=== PATIENT | female | born 1960 | race Caucasian/White ===

== ENCOUNTER → 2016-06-30 | Outpatient (CLI) | payer OTHER ==
[2016-06-30 11:42] LABS: CH 29.1; CHCM 31.6; HDW 2.52; HGB 11.8 gm/dL (11.4-16.0); MCH 28.7 pg (25.0-35.0); MCHC 31.1 g/dL (31.0-37.0); MCV 92.3 fL (80.0-100.0); Mean Platelet Volume 7.5; RBC 4.11 m/uL (3.80-5.40); RDW 13.8 % (11.5-15.5); WBC 8.6 k/uL (3.8-10.6)
[2016-06-30 12:00] LABS: Calcium 8.7 mg/dL (8.4-10.2); Magnesium 1.8 mg/dL (1.6-2.3); Phosphorous 4.8 mg/dL (2.5-4.5); Potassium 4.3 mmol/L (3.5-5.1); Uric Acid 4.7 mg/dL (3.7-7.4)
[2016-06-30 12:06] LABS: Appearance,Urine Clear (Clear); Bilirubin,Urine Negative (Negative); Glucose,Urine (UA) 4+ (Negative); Ketones,Urine Negative (Negative); Leukocyte Esterase,Urine Negative (Negative); Mucus,Urine Rare /hpf; Nitrite,Urine Negative (Negative); PH, Urine 5.5 (5.0-8.0); Particle Count 1015; Protein,Urine 2+ (Negative); RBC,Urine 1 /hpf (0-5); Specific Gravity,Urine 1.004 (1.001-1.035); Squamous Epithelial Cell,Urine 1 /hpf (0-4); UA Billing (MACRO vs. MICRO) MICRO; Urobilinogen,Urine <2.0 mg/dL (<2.0); WBC,Urine 1 /hpf (0-5)
[2016-06-30 12:11] LABS: % Iron Saturation 19.8 % (20-50)
[2016-06-30 17:36] LABS: ANA w/Reflex to Titer NEGATIVE (NEGATIVE)
[2016-07-01 06:49] LABS: Complement Total (CH50) 238 CAE (54-144)
[2016-07-01 08:42] LABS: Mis test requested (Non-blood) TP Urine Random
[2016-07-01 09:26] LABS: Mis test requested (Non-blood) TP Urine 24Hr
[2016-07-01 10:34] LABS: Free Kappa Lt Chain Qnt, Serum 6.32 mg/dL (0.33 - 1.94)
[2016-07-01 14:33] LABS: C-ANCA <1:20 Titer (<1:20); P-ANCA <1:20 Titer (<1:20)
== END | disposition home or self-care (01) ==
LOC: LABWHC1 10:49
PROVIDERS: ATTEND Nurse Practitioner Family
DX: N18.3 Chronic kidney disease, stage 3 (moderate) (principal); N39.0 Urinary tract infection, site not specified; D64.9 Anemia, unspecified; E21.3 Hyperparathyroidism, unspecified; R80.9 Proteinuria, unspecified
CPT/HCPCS: 36415; 80048; 81001; 81050; 82306; 82728; 83516; 83540; 83550; 83735; 83883; 83970; 84100; 84156; 84550; 85027; 86038; 86160; 86162; 86225; 86255; 86334; 86335

== ENCOUNTER → 2016-07-03 | Outpatient (CLI) | payer OTHER ==
[2016-07-06 11:50] LABS: Alternaria alternata IgE <0.35 kU/L (<0.35); Asperg. fumagatus IgE <0.35 kU/L (<0.35); Asperg. fumagatus IgE Class CLASS 0; Cat Epith & Dander IgE <0.35 kU/L (<0.35); Cat Epith & Dander IgE Class CLASS 0; Clad herbarum IgE <0.35 kU/L (<0.35); Clad herbarum IgE Class CLASS 0; Com. Pigweed IgE <0.35 kU/L (<0.35); Com. Pigweed IgE Class CLASS 0; Common Ragweed IgE Class CLASS 0; Cow's Milk IgE Class CLASS 0; Dermato. farinae IgE <0.35 kU/L (<0.35); Dermato. farinae IgE Class CLASS 0; House Dust (Greer) IgE <0.35 kU/L (<0.35); House Dust (Greer) IgE Class CLASS 0; Maple (Box Elder) IgE <0.35 kU/L (<0.35); Maple (Box Elder) IgE Class CLASS 0; Penicillium notatum IgE Class CLASS 0; Timothy Grass IgE <0.35 kU/L (<0.35); Timothy Grass IgE Class CLASS 0
[2016-07-10 11:40] LABS: Mis test requested (Blood) Hypersen.Pneum.Eval
== END | disposition home or self-care (01) ==
LOC: LABWHC1 12:32
PROVIDERS: ATTEND Internal Medicine Sleep Medicine
DX: B44.89 Other forms of aspergillosis (principal)
CPT/HCPCS: 36415; 82785; 86001; 86003; 86606; 86609

== ENCOUNTER 2016-07-16 11:22 | Inpatient (IN) | payer OTHER ==
[2016-07-16] MEDS ORDERED: SODIUM CHLORIDE 0.9% 1,000 ML IV STA (11:53)
[2016-07-16] MEDS ORDERED: IPRATROPIUM-ALBUTEROL 3 ML NEB INHALATION STA (11:53)
[2016-07-16] MEDS ORDERED: methylPREDNISolone SOD SUCCI 125 MG/2 ML VIAL IV STA (11:53)
--- NOTE | 2016-07-16 12:18 | ED ---
General Adult HPI - General Source: patient, RN notes reviewed Mode of arrival: wheelchair Limitations: no limitations <Percy Hernandez - Last Filed: 07/16/16 13:47> <Papito Santos - Last Filed: 07/16/16 13:50> - General Chief complaint: Shortness of Breath Stated complaint: flu like symptoms, carolyn Time Seen by Provider: 07/16/16 11:45 - History of Present Illness Initial comments: Patient is a 56-year-old female who presents emergency room today with chief complaint of increased cough congestion over the past week. She does admit that she was at [facility] over the weekend diagnosed with influenza. She states that she's had cough congestion positive sputum production. Does admit to a history of COPD. States she was discharged home on oxygen and azithromycin. States symptoms seem to be increasing. She admits increased shortness of breath with increased cough congestion. Patient denies any other complaints or symptoms. Patient denies any recent fever, chills, chest pain, back pain, abdominal pain, nausea or vomiting, numbness or tingling, dysuria or hematuria, constipation or diarrhea, headaches or visual changes, or any other complaints. (Percy Hernandez) - Related Data Home Medications Medication Instructions Recorded Confirmed Albuterol Inhaler [Ventolin Hfa 2 puff INHALATION RT-QID PRN 07/13/14 07/16/16 Inhaler] Albuterol Nebulized [Ventolin 2.5 mg INHALATION RT-Q4H PRN 07/13/14 07/16/16 Nebulized] Levothyroxine Sodium [Synthroid] 88 mcg PO DAILY 07/13/14 07/16/16 Atorvastatin [Lipitor] 20 mg PO HS 09/10/15 07/16/16 Cyanocobalamin [Vitamin B-12] 1,000 mcg PO DAILY 09/10/15 07/16/16 Multivitamins, Thera [Multivitamin] 1 tab PO DAILY 09/10/15 07/16/16 Insulin Glargine [Lantus] 40 unit SQ QAM 10/24/15 07/16/16 Ergocalciferol [Vitamin D2 50,000 unit PO TU 05/06/16 07/16/16 (DRISDOL)] Cholecalciferol [Vitamin D3] 400 unit PO DAILY 07/16/16 07/16/16 Previous Rx's Medication Instructions Recorded Carvedilol [Coreg*] 12.5 mg PO BID-W/MEALS #60 tab 05/09/16 Furosemide [Lasix] 40 mg PO BID #60 tab 05/09/16 Losartan [Cozaar] 100 mg PO DAILY #30 tab 05/09/16 Spironolactone [Aldactone] 12.5 mg PO DAILY #30 tab 05/09/16 Budesonide [Pulmicort] 0.5 mg INHALATION RT-QID #0 07/16/16 Ipratropium [place] [Atrovent Hfa] 2 puff INHALATION RT-QID #1 inhaler 07/16/16 Allergies Allergy/AdvReac Type Severity Reaction Status Date / Time No Known Allergies Allergy Verified 07/16/16 12:01 Review of Systems ROS Other: All systems not noted in ROS Statement are negative. <Percy Hernandez - Last Filed: 07/16/16 13:47> ROS Other: All systems not noted in ROS Statement are negative. <Papito Santos - Last Filed: 07/16/16 13:50> ROS Statement: Those systems with pertinent positive or pertinent negative responses have been documented in the HPI. Past Medical History Past Medical History: Heart Failure, COPD, Diabetes Mellitus, Hyperlipidemia, Hypertension, Pneumonia, Thyroid Disorder Additional Past Medical History / Comment(s): Pneumonias, IDDM type II, pancreatitis, tracheobronchitis, hypothyroidism, urinary stress incontinence, R ear [place], diverticulitis. History of Any Multi-Drug Resistant Organisms: None Reported Past Surgical History: Appendectomy, Cholecystectomy, Heart Catheterization, Hysterectomy, Orthopedic Surgery Additional Past Surgical History / Comment(s): cardiac caths with last one being 09/11/15 and was normal, colonoscopy-pt states normal, RT ROTATOR CUFF SX Past Anesthesia/Blood Transfusion Reactions: No Reported Reaction Additional Past Anesthesia/Blood Transfusion Reaction / Comment(s): CLAUSTERPHOBIA. Pt states she has never received blood. Past Psychological History: No Psychological Hx Reported Additional Psychological History / Comment(s): LIVES AT HOME WITH SPOUSE AND 3 TEENAGERS. 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 Pt drives. Smoking Status: Current every day smoker Past Alcohol Use History: None Reported Additional Past Alcohol Use History / Comment(s): STARTED SMOKING AT AGE 17- SMOKES 1-2 PPD. Pt states she quit smoking 08/2015. Pt started smoking again in Feb 2016 1 pack per day Past Drug Use History: None Reported - Past Family History Father Additional Family Medical History / Comment(s): OF COLON CANCER AT AGE 52 Mother Family Medical History: Congestive Heart Failure (CHF), CVA/TIA Additional Family Medical History / Comment(s): OF CHF AGE 62 <Percy Hernandez - Last Filed: 07/16/16 13:47> General Exam Limitations: no limitations <Percy Hernandez - Last Filed: 07/16/16 13:47> General appearance: alert, anxious, in distress Head exam: Present: atraumatic, normocephalic, normal inspection Eye exam: Present: normal appearance, PERRL, EOMI. Absent: scleral icterus, conjunctival injection, periorbital swelling ENT exam: Present: normal exam, mucous membranes moist Neck exam: Present: normal inspection. Absent: tenderness, meningismus, lymphadenopathy Respiratory exam: Present: normal lung sounds bilaterally, respiratory distress , wheezes, accessory muscle use, decreased breath sounds, prolonged expiratory. Absent: rales, rhonchi, stridor Cardiovascular Exam: Present: normal rhythm, tachycardia, normal heart sounds. Absent: systolic murmur, diastolic murmur, rubs, gallop, clicks GI/Abdominal exam: Present: soft, normal bowel sounds. Absent: distended, tenderness, guarding, rebound, rigid Extremities exam: Present: normal inspection, full ROM, normal capillary refill. Absent: tenderness, pedal edema, joint swelling, calf tenderness Back exam: Present: normal inspection Neurological exam: Present: alert, oriented X3, CN II-XII intact Psychiatric exam: Present: normal affect, normal mood Skin exam: Present: warm, dry, intact, normal color. Absent: rash <Papito Santos - Last Filed: 07/16/16 13:50> - General Exam Comments Initial Comments: General: The patient is awake and alert, in no distress, and does not appear acutely ill. Eye: Pupils are equal, round and reactive to light, extra-ocular movements are intact. No nystagmus. There is normal conjunctiva bilaterally. No signs of icterus. Ears, nose, mouth and throat: There are moist mucous membranes and no oral lesions. Neck: The neck is supple, there is no tenderness or JVD. Cardiovascular: There is a regular rate and rhythm. No murmur, rub or gallop is appreciated. Respiratory: Diminished lung sounds bilaterally with expiratory wheeze. respirations are non-labored, breath sounds are equal. No stridor, rales, or rhonchi. Gastrointestinal: Soft, non-distended, non-tender abdomen without masses or organomegaly noted. There is no rebound or guarding present. No CVA tenderness. Bowel sounds are unremarkable. Musculoskeletal: Normal ROM, no tenderness. Strength 5/5. Sensation intact. Pulses equal bilaterally 2+. Neurological: A&O x 3. CN II-XII intact, There are no obvious motor or sensory deficits. Coordination appears grossly intact. Speech is normal. Skin: Skin is warm and dry and no rashes or lesions are noted. Psychiatric: Cooperative, appropriate mood & affect, normal judgment. (Percy Hernandez) Course <Percy Hernandez - Last Filed: 07/16/16 13:47> <Papito Santos - Last Filed: 07/16/16 13:50> Vital Signs 07/16/16 07/16/16 07/16/16 11:31 12:00 12:14 Temperature 100.0 F H Pulse Rate 108 H 109 H 103 H Respiratory 24 20 Rate Blood Pressure 133/72 O2 Sat by Pulse 88 L 98 Oximetry 07/16/16 07/16/16 12:18 13:19 Temperature Pulse Rate 103 H 97 Respiratory 18 Rate Blood Pressure 137/67 O2 Sat by Pulse 100 Oximetry - Reevaluation(s) Reevaluation #1: 07/16/16 13:49 Patient remains in distress with shortness of breath (Papito Santos) EKG Findings - EKG Comments: EKG Findings:: EKG performed at 1159: Shows sinus tachycardia 105 bpm. MN interval 146. QRS 96. QT/QTC 356/470. No acute ST change. <Percy Hernandez - Last Filed: 07/16/16 13:47> Medical Decision Making - Lab Data Result diagrams: 07/16/16 12:00 07/16/16 12:00 <Percy Hernandez - Last Filed: 07/16/16 13:47> - Lab Data Result diagrams: 07/16/16 12:00 07/16/16 12:00 <Papito Santos - Last Filed: 07/16/16 13:50> - Medical Decision Making 1320: Case discussed in detail with attending physician Dr. Santos. Patient's x-ray reviewed does show right lower lobe infiltrate. Patient has been on azithromycin. Outpatient treatment failure will be admitted started on antibiotics of Levaquin here in the emergency room. Patient's labs reviewed does show elevated BNP greater than 2100. Patient given dose of Lasix here in the emergency room. Patient's troponin elevated at 0.05. EKG shows no acute changes. Will be continued be monitored with repeat serial enzymes. Patient does have influenza positive at [facility] earlier in the week. Patient will be admitted for continued IV antibiotics/breathing treatments and further evaluation. (Percy Hernandez) 56 female the ER for evaluation of shortness of breath and pain. Patient does have significant cardiac risk factors including high blood pressure high cholesterol diabetes COPD and CHF. Patient's found to have positive pneumonia and will be admitted for treatment with failed outpatient pneumonia, have breathing treatments and monitored for cardiopulmonary failure, patient will also have serial troponins, as she is dehydrated with acute kidney injury and resuscitation hemodynamic. (Papito Santos) - Lab Data Lab Results 07/16/16 07/16/16 07/16/16 Range/Units 12:00 12:00 12:00 WBC 8.9 (3.8-10.6) k/uL RBC 3.83 (3.80-5.40) m/uL Hgb 11.3 L (11.4-16.0) gm/dL Hct 35.1 (34.0-46.0) % MCV 91.7 (80.0-100.0) fL MCH 29.5 (25.0-35.0) pg MCHC 32.2 (31.0-37.0) g/dL RDW 13.8 (11.5-15.5) % Plt Count 190 (150-450) k/uL Neutrophils % 78 % Lymphocytes % 12 % Monocytes % 7 % Eosinophils % 0 % Basophils % 1 % Neutrophils # 6.9 (1.3-7.7) k/uL Lymphocytes # 1.1 (1.0-4.8) k/uL Monocytes # 0.6 (0-1.0) k/uL Eosinophils # 0.0 (0-0.7) k/uL Basophils # 0.1 (0-0.2) k/uL PT (9.0-12.0) sec INR (<1.1) APTT (22.0-30.0) sec Sodium 135 L (137-145) mmol/L Potassium 4.5 (3.5-5.1) mmol/L Chloride 98 (98-107) mmol/L Carbon Dioxide 30 (22-30) mmol/L Anion Gap 7 mmol/L BUN 25 H (7-17) mg/dL Creatinine 1.60 H (0.52-1.04) mg/dL Est GFR (MDRD) Af Amer 41 (>60 ml/min/1.73 sqM) Est GFR (MDRD) Non-Af 34 (>60 ml/min/1.73 sqM) Glucose 188 H (74-99) mg/dL Calcium 8.5 (8.4-10.2) mg/dL Magnesium 2.1 (1.6-2.3) mg/dL Total Bilirubin 0.6 (0.2-1.3) mg/dL AST 28 (14-36) U/L ALT 24 (9-52) U/L Alkaline Phosphatase 102 (38-126) U/L Total Creatine Kinase 136 H (30-135) U/L CK-MB (CK-2) 1.8 (0.0-2.4) ng/mL CK-MB (CK-2) Rel Index 1.3 Troponin I 0.051 H* (0.000-0.034) ng/mL NT-Pro-B Natriuret Pep pg/mL Total Protein 6.4 (6.3-8.2) g/dL Albumin 2.9 L (3.5-5.0) g/dL 07/16/16 07/16/16 Range/Units 12:00 12:00 WBC (3.8-10.6) k/uL RBC (3.80-5.40) m/uL Hgb (11.4-16.0) gm/dL Hct (34.0-46.0) % MCV (80.0-100.0) fL MCH (25.0-35.0) pg MCHC (31.0-37.0) g/dL RDW (11.5-15.5) % Plt Count (150-450) k/uL Neutrophils % % Lymphocytes % % Monocytes % % Eosinophils % % Basophils % % Neutrophils # (1.3-7.7) k/uL Lymphocytes # (1.0-4.8) k/uL Monocytes # (0-1.0) k/uL Eosinophils # (0-0.7) k/uL Basophils # (0-0.2) k/uL PT 10.4 (9.0-12.0) sec INR 1.0 (<1.1) APTT 25.1 (22.0-30.0) sec Sodium (137-145) mmol/L Potassium (3.5-5.1) mmol/L Chloride (98-107) mmol/L Carbon Dioxide (22-30) mmol/L Anion Gap mmol/L BUN (7-17) mg/dL Creatinine (0.52-1.04) mg/dL Est GFR (MDRD) Af Amer (>60 ml/min/1.73 sqM) Est GFR (MDRD) Non-Af (>60 ml/min/1.73 sqM) Glucose (74-99) mg/dL Calcium (8.4-10.2) mg/dL Magnesium (1.6-2.3) mg/dL Total Bilirubin (0.2-1.3) mg/dL AST (14-36) U/L ALT (9-52) U/L Alkaline Phosphatase (38-126) U/L Total Creatine Kinase (30-135) U/L CK-MB (CK-2) (0.0-2.4) ng/mL CK-MB (CK-2) Rel Index Troponin I (0.000-0.034) ng/mL NT-Pro-B Natriuret Pep 2190 pg/mL Total Protein (6.3-8.2) g/dL Albumin (3.5-5.0) g/dL Critical Care Time <Percy Hernandez - Last Filed: 07/16/16 13:47> Critical Care Time: Yes Total Critical Care Time: 31 <Papito Santos - Last Filed: 07/16/16 13:50> Critical Care Time: 31 (Papito Santos) Disposition Time of Disposition: 13:20 <Percy Hernandez - Last Filed: 07/16/16 13:47> <Papito Santos - Last Filed: 07/16/16 13:50> Clinical Impression: Community acquired pneumonia, CHF (congestive heart failure), Fever, Influenza , Elevated troponin, Sepsis, Hypoxia Disposition: ADMITTED IP TO THIS HOSP Condition: Serious
[2016-07-16 12:22] LABS: Basophils # (A) 0.1 k/uL (0-0.2); Basophils % (A) 1 %; CH 29.1; CHCM 31.9; Eosinophils % (A) 0 %; HCT 35.1 % (34.0-46.0); HDW 2.58; HGB 11.3 gm/dL (11.4-16.0); Luc % (Auto) 2; Lymphocytes # (A) 1.1 k/uL (1.0-4.8); Lymphocytes % (A) 12 %; MCH 29.5 pg (25.0-35.0); MCHC 32.2 g/dL (31.0-37.0); MCV 91.7 fL (80.0-100.0); Monocytes # (A) 0.6 k/uL (0-1.0); Monocytes % (A) 7 %; Neutrophils # (A) 6.9 k/uL (1.3-7.7); Neutrophils % (A) 78 %; RBC 3.83 m/uL (3.80-5.40); RDW 13.8 % (11.5-15.5); WBC 8.9 k/uL (3.8-10.6); WBC (Perox) 9.19
[2016-07-16 12:25] LABS: Partial Thromboplastin Time 25.1 sec (22.0-30.0); Prothrombin Time 10.4 sec (9.0-12.0)
[2016-07-16 12:28] LABS: Calcium 8.5 mg/dL (8.4-10.2); Magnesium 2.1 mg/dL (1.6-2.3); Potassium 4.5 mmol/L (3.5-5.1); Total Bilirubin 0.6 mg/dL (0.2-1.3); Total Protein 6.4 g/dL (6.3-8.2)
--- NOTE | 2016-07-16 12:44 | XR ---
EXAMINATION TYPE: XR chest 2V DATE OF EXAM: 07/16/2016 12:39 PM COMPARISON: Chest x-ray May 06, 2016. HISTORY: Chest pain per order. Flulike symptoms per patient. TECHNIQUE: Frontal and lateral views of the chest are obtained. FINDINGS: The cardiac silhouette size is stable and mildly enlarged. There is new right basilar opa city consistent with infiltrate and/or atelectasis. Small amount of fluid is seen in the right lung t racking along major and minor fissures. No pneumothorax is seen bilaterally. The osseous structures a re intact. IMPRESSION: New right basilar infiltrate and/or atelectasis and small right pleural effusion fluid co llection.
[2016-07-16] MEDS ORDERED: FUROSEMIDE 10 MG/ML 4 ML VIAL IV STA (12:58)
[2016-07-16 13:02] LABS: Creatine Kinase MB 1.8 ng/mL (0.0-2.4)
[2016-07-16 13:05] LABS: Troponin I 0.051 ng/mL (0.000-0.034)
[2016-07-16] MEDS ORDERED: LEVOFLOXACIN 500MG-D5W PMX 500 MG in DEXTROSE/WATER 1 100ML.BAG IVPB STA (13:30)
[2016-07-16] MEDS ORDERED: ASPIRIN 325 MG TAB PO STA (13:31)
[2016-07-16] MEDS ORDERED: NITROGLYCERIN SL TABS 0.4 MG TAB SUBLINGUAL PRN (13:34)
[2016-07-16] MEDS ORDERED: SODIUM CHLORIDE 0.9% 1,000 ML IV ONE ×2 (13:34→13:51)
[2016-07-16] MEDS ORDERED: ACETAMINOPHEN IV (For NPO) 1,000 MG in EMPTY BAG 1 BAG IVPB PRN (13:50)
[2016-07-16] MEDS ORDERED: ACETAMINOPHEN IV (For NPO) 1,000 MG in EMPTY BAG 1 BAG IVPB STA (13:50)
[2016-07-16] MEDS ORDERED: SODIUM CHLORIDE 0.9% 500 ML IV ONE (13:51)
[2016-07-16] MEDS ORDERED: IPRATROPIUM-ALBUTEROL 3 ML NEB INHALATION SCH (16:00)
[2016-07-16 16:52] LABS: Glucose,Whole Blood 244 mg/dL (75-99)
[2016-07-16] MEDS: SODIUM CHLORIDE 0.9% 1,000 ML IV SCH (17:12)
[2016-07-16] MEDS: CARVEDILOL 12.5 MG TAB PO SCH (17:31)
--- NOTE | 2016-07-16 18:27 | CONS ---
DATE OF CONSULTATION: Mrs. Nieto is a 56-year-old female who presented with symptoms of progressive dyspnea. She has a known history of nonischemic cardiomyopathy, has underwent cardiac catheterization by Dr. Hasmukh Valero in August 2015 and revealed mild to moderate coronary artery disease. Her ejection fraction of 35% to 40%. Recently she has been having complaints of progressive dyspnea, cough, with fever and chills as well as diaphoresis. Because of persistent symptoms, she came into the emergency room and subsequently admitted. She has no peripheral edema. No change in her weight. She denies any dizziness, or palpitation. She has no clear PND. Her BNP was elevated on presentation. She follows on a regular basis by Dr. Hasmukh Valero. Patient has a known history of chronic tobacco use, was smoking up to 2 packs a day and stopped very recently. Her coronary risk factors are remarkable for the history of smoking, hypertension, hyperlipidemia, and diabetes mellitus. Medications at home include: 1. Ventolin. 2. Lipitor 20 mg daily. 3. Coreg 12.5 mg twice a day. 4. Lasix 40 mg twice a day. 5. Synthroid. 6. Cozaar 100 mg daily. 7. Aldactone 12.5 mg daily. REVIEW OF SYSTEMS: RESPIRATORY SYSTEM: She has a history of chronic obstructive lung disease, chronic cough, fever wheezing. GI: No recent GI bleeding. No peptic ulcer disease. system: No dysuria or hematuria. Nervous system: No stroke or seizure. PHYSICAL EXAMINATION: A 56-year-old female, alert, in no apparent distress. Blood pressure 138/60 with a heart rate in the high 90s, ( ) at home she was 103. HEAD: Normocephalic. NECK: No bruit. LUNGS: With decreased air exchange bilaterally with scattered wheezes. HEART: Regular rate rhythm. S1, S2, no S3, with a systolic murmur heard at the base, ejection type, no diastolic murmur. No rub. ABDOMEN: Soft, obese, nontender, positive bowel sounds. No organomegaly. EXTREMITIES: No edema noted. LAB DATA: EKG revealed sinus tachycardia. ( ) poor R wave progression, nonspecific ST-T wave changes. Chest x-ray revealed a right basilar infiltrate. Her BUN and creatinine 25 and 1.6. Potassium 4.5, troponin 0.051. NT-proBNP of 2190. White blood cell of 8.9. Hemoglobin of 11.3. IMPRESSION: 1. Progressive dyspnea with cough and infiltrate on the chest x-ray consistent with pneumonia in a patient with known history of chronic obstructive lung disease and chronic tobacco use. 2. Nonischemic cardiomyopathy, her NT-proBNP is mildly elevated but the patient has no clear evidence of fluid overload and reviewing her prior data, her NT-proBNP was always higher than what it is today. 3. Mild elevation of troponin, doubt any primary ischemic event, most likely type II event. 4. Renal failure worsened compared to the last time most likely related to infectious process. 5. Prior history of smoking. 6. Hypertension. 7. Hyperlipidemia. 8. Diabetes mellitus. RECOMMENDATIONS: From the cardiac standpoint, I will resume regular her home medication. The patient will be evaluated by her primary care physician regarding the antibiotics of choice. I will follow her renal function closely. Depending on her progress, further recommendation will be made. Thank you for this consult. We will follow with you.
[2016-07-16] MEDS ORDERED: IPRATROPIUM-ALBUTEROL 3 ML NEB INHALATION PRN (19:02)
[2016-07-16 19:13] LABS: Creatine Kinase MB 2.7 ng/mL (0.0-2.4)
[2016-07-16 19:16] LABS: Troponin I 0.038 ng/mL (0.000-0.034)
[2016-07-16 20:49] LABS: Glucose,Whole Blood 363 mg/dL (75-99)
[2016-07-16] MEDS: ATORVASTATIN 20 MG TAB PO SCH (20:54)
[2016-07-16] MEDS: FUROSEMIDE 40 MG TAB PO SCH (20:54)
[2016-07-16] MEDS ORDERED: ALBUTEROL NEBULIZED 2.5 MG/3 ML INHALATION PRN (21:05)
[2016-07-16] MEDS ORDERED: ALBUTEROL INHALER 60 PUFF/8 GM INHALER INHALATION PRN (21:05)
[2016-07-16] MEDS: IPRATROPIUM-ALBUTEROL 3 ML NEB INHALATION SCH (21:25)
[2016-07-16] MEDS: INSULIN LISPRO (humaLOG) 300 UNIT/3 ML VIAL SQ SCH (21:54)
[2016-07-17 00:26] LABS: Troponin I 0.024 ng/mL (0.000-0.034)
[2016-07-17 00:27] LABS: Creatine Kinase MB 2.6 ng/mL (0.0-2.4)
[2016-07-17] MEDS: SODIUM CHLORIDE 0.9% 1,000 ML IV SCH ×2 (02:42→08:08)
[2016-07-17 06:00] LABS: Glucose,Whole Blood 349 mg/dL (75-99)
[2016-07-17] MEDS: CARVEDILOL 12.5 MG TAB PO SCH ×2 (06:08→16:56)
[2016-07-17] MEDS: LEVOTHYROXINE 88 MCG TAB PO SCH (06:08)
[2016-07-17] MEDS: INSULIN LISPRO (humaLOG) 300 UNIT/3 ML VIAL SQ SCH ×4 (06:08→21:02)
[2016-07-17 07:10] LABS: Calcium 8.2 mg/dL (8.4-10.2); Potassium 5.7 mmol/L (3.5-5.1)
[2016-07-17 07:28] LABS: CH 29.1; CHCM 31.5; HCT 35.9 % (34.0-46.0); HDW 2.65; HGB 11.4 gm/dL (11.4-16.0); Hypochromasia Slight; MCH 29.4 pg (25.0-35.0); MCHC 31.7 g/dL (31.0-37.0); MCV 92.7 fL (80.0-100.0); Mean Platelet Volume 9.8; RBC 3.87 m/uL (3.80-5.40); RDW 13.8 % (11.5-15.5); WBC 5.8 k/uL (3.8-10.6)
[2016-07-17] MEDS: IPRATROPIUM-ALBUTEROL 3 ML NEB INHALATION SCH ×4 (07:39→20:09)
[2016-07-17] MEDS: ASPIRIN 325 MG TAB PO SCH (08:03)
[2016-07-17] MEDS: FUROSEMIDE 40 MG TAB PO SCH (08:03)
[2016-07-17] MEDS: CYANOCOBALAMIN 500 MCG TAB PO SCH (08:03)
[2016-07-17] MEDS: MULTIVITAMINS, THERA 1 EACH TAB PO SCH (08:04)
[2016-07-17] MEDS: CHOLECALCIFEROL 400 UNIT TAB PO SCH (08:04)
[2016-07-17] MEDS: INSULIN GLARGINE 100 UNIT/ML 10 ML VIAL SQ SCH (08:08)
[2016-07-17] MEDS ORDERED: LOSARTAN 50 MG TAB PO SCH ×2 (09:00→11:56)
[2016-07-17] MEDS ORDERED: SODIUM POLYSTYRENE SULFONATE 15 GM/60 ML BOTTLE PO STA (10:16)
[2016-07-17 11:58] LABS: Glucose,Whole Blood 318 mg/dL (75-99)
--- NOTE | 2016-07-17 12:02 | P.PN ---
Subjective This a pleasant 56-year-old female patient who presented with symptoms of progressive dyspnea. She has a known history of nonischemic cardiomyopathy and has underwent cardiac catheterization by Dr. OLI Valero in August 2015 which revealed mild to moderate coronary artery disease. She has a known ejection fraction of 35-40%. Recently she had complaints of progressive dyspnea, cough and fever with chills as well as diaphoresis. Her BNP was elevated on admission. She was given 1 dose of IV Lasix and her home medications were resumed. Today laboratory values show BUN of 41 creatinine 1.8 as well as a potassium of 5.7. Upon examination, the patient is resting comfortably in bed. She denies complaints of chest discomfort, palpitations, dizziness or lightheadedness or edema. She does continue to complain of a cough with thick white sputum. She also has mild shortness of breath with activity. Denies any complaints of orthopnea or PND. Objective - Vital Signs Vital signs: Vital Signs Temp 97.2 F L 07/17/16 11:28 Pulse 75 07/17/16 11:28 Resp 18 07/17/16 11:28 BP 130/71 07/17/16 11:28 Pulse Ox 98 07/17/16 11:28 Intake & Output 07/16/16 07/17/16 07/17/16 18:59 06:59 18:59 Intake Total 660 400 Output Total 350 Balance 310 400 Weight 100.1 kg Intake: IV 400 Sodium Chloride 0.9% 1, 400 000 ml @ 100 mls/hr IV . Q10H [facility] Rx#:[id number] Intake, IV Titration 120 Amount Sodium Chloride 0.9% 1, 120 000 ml @ 100 mls/hr IV . Q10H [facility] Rx#:[id number] Oral 540 Output: Urine 350 Other: # Voids 1 1 - Exam PHYSICAL EXAMINATION: HEENT: Head is atraumatic, normocephalic. Pupils equal, round. Neck is supple. There is no elevated jugular venous pressure. HEART EXAMINATION: Heart sounds regular, S1 and S2 with a systolic murmur. CHEST EXAMINATION: Lungs reveal diminished air entry bilaterally with faint crackles the bilateral lower lobes. No chest wall tenderness is noted on palpation or with deep breathing. ABDOMEN: Soft, obese, nontender. Bowel sounds are heard. No organomegaly noted. EXTREMITIES: 2+ peripheral pulses with no evidence of peripheral edema and no calf tenderness noted. NEUROLOGIC patient is awake, alert and oriented x3. . - Labs CBC & Chem 7: 07/17/16 06:29 07/17/16 06:29 Labs: Abnormal Lab Results - Last 24 Hours (Table) 07/16/16 07/16/16 07/16/16 Range/Units 16:40 18:20 20:47 Sodium (137-145) mmol/L Potassium (3.5-5.1) mmol/L BUN (7-17) mg/dL Creatinine (0.52-1.04) mg/dL Glucose (74-99) mg/dL POC Glucose (mg/dL) 244 H 363 H (75-99) mg/dL Calcium (8.4-10.2) mg/dL CK-MB (CK-2) 2.7 H* (0.0-2.4) ng/mL Troponin I 0.038 H* (0.000-0.034) ng/mL 07/16/16 07/17/16 07/17/16 Range/Units 23:33 05:57 06:29 Sodium 132 L (137-145) mmol/L Potassium 5.7 H (3.5-5.1) mmol/L BUN 41 H (7-17) mg/dL Creatinine 1.80 H (0.52-1.04) mg/dL Glucose 338 H (74-99) mg/dL POC Glucose (mg/dL) 349 H (75-99) mg/dL Calcium 8.2 L (8.4-10.2) mg/dL CK-MB (CK-2) 2.6 H* (0.0-2.4) ng/mL Troponin I (0.000-0.034) ng/mL Assessment and Plan Plan: Assessment and plan 1 symptoms of progressive dyspnea with cough and infiltrate on x-ray consistent with pneumonia #2 nonischemic cardiomyopathy with mildly elevated BNP which appears to be lower than previous admissions and no clear evidence of fluid overload #3 mild troponin elevation is likely secondary to oxygen supply and demand mismatch #4 acute on chronic renal failure with hyperkalemia #5 history of smoking #6 hypertension #7 hyperlipidemia #8 diabetes mellitus From a cardiac standpoint, we will stop diuretics and decrease losartan due to patient's worsening renal function and hyperkalemia. We will recheck electrolytes, BUN and creatinine in the morning. She will follow the patient and provide further recommendations accordingly. WEAVING INSTRUCTOR note has been reviewed, I agree with a documented findings and plan of care. Patient was seen and examined.
[2016-07-17] MEDS ORDERED: LEVOFLOXACIN 500MG-D5W PMX 500 MG in DEXTROSE/WATER 1 100ML.BAG IVPB SCH (14:00)
--- NOTE | 2016-07-17 14:39 | HP ---
DATE OF ADMISSION: 07/16/2016 PRESENTING COMPLAINT: Fever, cough. HISTORY OF PRESENTING COMPLAINT: This is a pleasant 56-year-old patient who follows with Dr. Baugh. Patient's chronic stable medical conditions include diabetes mellitus type 2, hypertension, hyperlipidemia, hypothyroid, chronic urinary incontinence. The patient the day before felt rotten, developed a fever, went to [facility], was discharged from there and went home. The patient having more fever, became short of breath, cough, yellow-green sputum production, decreased appetite, rundown. Decided to present here. Patient was diagnosed to have pneumonia in the ER. The patient has not smoked since last admission in April. REVIEW OF SYSTEMS: CONSTITUTIONAL: Febrile, weak, tired. HEENT: As above. RESPIRATORY: As above. CARDIOVASCULAR: None. GASTROINTESTINAL: None. GENITOURINARY: None. MUSCULOSKELETAL: None. DERMATOLOGIC: None. HEMATOLOGIC: None. LYMPHATIC: None. PSYCHIATRY: None. NEUROLOGICAL: None. Past history of CHF, COPD, diabetes type 2, hyperlipidemia, hypertension, hypothyroid, pancreatitis, urinary stress incontinence, right ear decreased hearing, diverticulitis. PAST SURGICAL HISTORY: Appendectomy, cholecystectomy, cardiac cath, hysterectomy, right rotator cuff surgery, claustrophobia. SOCIAL HISTORY: The patient smoked 1 to 2 packs a day for over 38 years; stopped 2 months ago. Alcohol none. FAMILY HISTORY: Congestive heart failure, stroke, colon cancer. ALLERGIES: None. HOME MEDICATIONS: 1. Aldactone 12.5 p.o. daily. 2. Multivitamin 1 tablet p.o. daily. 3. Cozaar 100 mg p.o. daily. 4. Synthroid 88 mcg p.o. daily. 5. Atrovent HFA 2 puffs q.i.d. 6. Lantus 40 units subcu in the morning. 7. Lasix 40 mg p.o. b.i.d. 8. Vitamin D2, 50,000 units p.o. Wednesday. 9. Vitamin B12 1000 mcg p.o. daily. 10. Vitamin D3 400 units p.o. daily. 11. Coreg 12.5 p.o. b.i.d. 12. Pulmicort 0.5 inhalations q.i.d. 13. Lipitor 20 mg p.o. q.h.s. 14. Ventolin 2.5 q.4 p.r.n. 15. Ventolin HFA 2 puffs q.i.d. p.r.n. ALLERGIES: None. On examination, vital signs on presentation: Temperature 100, pulse 108, respirations 24, blood pressure 132/72, pulse ox 88% on room air. GENERAL APPEARANCE: Well built, BMI of 32.7, sitting up, tired appearing. EYES: Pupils equal. Conjunctivae normal. HEENT: Oral cavity normal. NECK: JVD not raised. Mass not palpable. RESPIRATORY: Effort increased. LUNGS: Bilateral basal crackles. CARDIOVASCULAR: First and second seconds are normal. No edema. ABDOMEN: Soft, nontender. Liver and spleen not palpable. LYMPHATIC: No lymph node palpable in neck or axillae. PSYCHIATRY: Alert and oriented x3. Mood and affect normal. NEUROLOGICAL: Pupils equal. Cranial nerves grossly intact. Power and sensation grossly intact. INVESTIGATIONS: White count 8.9, hemoglobin 11.3, potassium 3.5, BUN 25, creatinine 1.6. Troponin 0.051. ProBNP 2190. ASSESSMENT: 1. Bibasilar pneumonia, more so in the right lower lobe, community acquired gram-negative orgasm with near sepsis-like picture, present on admission. 2. Nonobstructive coronary artery disease from recent cardiac catheterization in 2016. 3. Acute chronic obstructive pulmonary disease exacerbation in an ex-smoker. 4. Diabetes mellitus, type 2, on oral hypoglycemic. 5. Essential hypertension. 6. Hyperlipidemia. 7. Hypothyroidism. 8. Chronic urinary stress incontinence. 9. Obesity, body mass index of 32.7. PLAN: Patient's home medications resumed. Patient will be put on IV Levaquin. Clinically does not feel to be CHF exacerbation. Accu-Cheks will be followed. Care was discussed with the patient.
[2016-07-17 17:06] LABS: Glucose,Whole Blood 107 mg/dL (75-99)
[2016-07-17 21:01] LABS: Glucose,Whole Blood 176 mg/dL (75-99)
[2016-07-17] MEDS: ATORVASTATIN 20 MG TAB PO SCH (21:02)
[2016-07-18 06:29] LABS: Potassium 4.2 mmol/L (3.5-5.1)
[2016-07-18] MEDS: INSULIN LISPRO (humaLOG) 300 UNIT/3 ML VIAL SQ SCH ×4 (06:29→21:22)
[2016-07-18 06:37] LABS: Glucose,Whole Blood 96 mg/dL (75-99)
[2016-07-18] MEDS: LEVOTHYROXINE 88 MCG TAB PO SCH (06:37)
[2016-07-18] MEDS: CARVEDILOL 12.5 MG TAB PO SCH ×2 (06:37→17:38)
[2016-07-18 07:43] LABS: Glucose,Whole Blood 97 mg/dL (75-99)
[2016-07-18] MEDS ORDERED: SODIUM CHLORIDE 0.9% 500 ML IV ONE (07:59)
[2016-07-18] MEDS: ASPIRIN 325 MG TAB PO SCH (08:10)
[2016-07-18] MEDS: ACETAMINOPHEN TAB 325 MG TAB PO PRN (08:11)
[2016-07-18] MEDS: IPRATROPIUM-ALBUTEROL 3 ML NEB INHALATION SCH ×4 (08:59→19:29)
[2016-07-18 11:36] LABS: Glucose,Whole Blood 169 mg/dL (75-99)
[2016-07-18] MEDS: INSULIN GLARGINE 100 UNIT/ML 10 ML VIAL SQ SCH (11:56)
[2016-07-18] MEDS: CHOLECALCIFEROL 400 UNIT TAB PO SCH (11:56)
[2016-07-18] MEDS: CYANOCOBALAMIN 500 MCG TAB PO SCH (11:57)
[2016-07-18] MEDS: MULTIVITAMINS, THERA 1 EACH TAB PO SCH (11:57)
--- NOTE | 2016-07-18 14:39 | P.PN ---
Subjective This a pleasant 56-year-old female patient who presented with symptoms of progressive dyspnea. She has a known history of nonischemic cardiomyopathy and has underwent cardiac catheterization by Dr. OLI Valero in August 2015 which revealed mild to moderate coronary artery disease. She has a known ejection fraction of 35-40%. Recently she had complaints of progressive dyspnea, cough and fever with chills as well as diaphoresis. Her BNP was elevated on admission. She was given 1 dose of IV Lasix and her home medications were resumed. Today laboratory values show BUN of 41 creatinine 1.8 as well as a potassium of 5.7. This morning the patient did develop some nausea, chest pain and shortness of breath with hypotension and bradycardia. She was given a 500 mL bolus with improvement. EKG showed some nonspecific ST-T wave changes without evidence of acute ischemia. Troponin was negative at noon today. Upon examination this afternoon, patient is resting comfortably in bed and denies any complaints of above. She does continue to complain of a cough with less sputum. IV antibiotics continue. Objective - Vital Signs Vital signs: Vital Signs Temp 97.2 F L 07/18/16 04:00 Pulse 72 07/18/16 12:34 Resp 20 07/18/16 12:00 BP 136/70 07/18/16 12:00 Pulse Ox 98 07/18/16 12:00 Intake & Output 07/17/16 07/18/16 07/18/16 18:59 06:59 18:59 Intake Total 1036 747 6947 Output Total 1400 400 Balance 1070 -520 850 Weight 101.7 kg Intake: IV 490 100 750 0.9 @20mls/hr 100 750 Sodium Chloride 0.9% 1, 490 000 ml @ 100 mls/hr IV . Q10H [facility] Rx#:[id number] Oral 580 780 500 Output: Urine 1400 400 Other: Voiding Method Toilet # Voids 1 - Exam PHYSICAL EXAMINATION: HEENT: Head is atraumatic, normocephalic. Pupils equal, round. Neck is supple. There is no elevated jugular venous pressure. HEART EXAMINATION: Heart sounds regular, S1 and S2 with a systolic murmur. CHEST EXAMINATION: Lungs reveal scattered rhonchi throughout. No chest wall tenderness is noted on palpation or with deep breathing. ABDOMEN: Soft, obese, nontender. Bowel sounds are heard. No organomegaly noted. EXTREMITIES: 2+ peripheral pulses with no evidence of peripheral edema and no calf tenderness noted. NEUROLOGIC patient is awake, alert and oriented x3. . - Labs CBC & Chem 7: 07/17/16 06:29 07/18/16 06:00 Labs: Abnormal Lab Results - Last 24 Hours (Table) 07/17/16 07/17/16 07/18/16 Range/Units 16:53 21:00 06:00 Sodium 136 L (137-145) mmol/L BUN 51 H (7-17) mg/dL Creatinine 1.91 H (0.52-1.04) mg/dL POC Glucose (mg/dL) 107 H 176 H (75-99) mg/dL Calcium 8.0 L (8.4-10.2) mg/dL 07/18/16 Range/Units 11:34 Sodium (137-145) mmol/L BUN (7-17) mg/dL Creatinine (0.52-1.04) mg/dL POC Glucose (mg/dL) 169 H (75-99) mg/dL Calcium (8.4-10.2) mg/dL Assessment and Plan Plan: Assessment and plan 1 symptoms of progressive dyspnea with cough and infiltrate on x-ray consistent with pneumonia #2 nonischemic cardiomyopathy with mildly elevated BNP which appears to be lower than previous admissions and no clear evidence of fluid overload #3 mild troponin elevation is likely secondary to oxygen supply and demand mismatch #4 acute on chronic renal failure with hyperkalemia #5 history of smoking #6 hypertension #7 hyperlipidemia #8 diabetes mellitus #9 episode of hypotension and bradycardia with nausea, chest pain and shortness of breath From a cardiac standpoint, medications were reviewed and we will continue the same. On a drip for further episodes of bradycardia and hypotension. Will continue to follow renal function and electrolytes. Further recommendations to follow. PET CARE TECHNICIAN note has been reviewed, I agree with a documented findings and plan of care. Patient was seen and examined.
[2016-07-18] MEDS: LEVOFLOXACIN 250MG-D5W PMX 250 MG in DEXTROSE/WATER 1 50ML.BAG IVPB SCH (15:56)
[2016-07-18 16:04] LABS: Glucose,Whole Blood 105 mg/dL (75-99)
[2016-07-18 16:26] LABS: Hemoglobin A1C 9.6 % (4.2-6.1)
--- NOTE | 2016-07-18 17:33 | PN ---
DATE OF SERVICE: 07/18/2016 PRESENTING COMPLAINT: Fever, cough. INTERVAL HISTORY: This is a patient presented with bilateral pneumonia and sepsis like presentation on admission and COPD exacerbation. Earlier today, patient became hypotensive, bradycardic and was given a fluid bolus, after which she did better and the patient did eat some food. Sitting up. Still has a cough and sputum production and tired. Review of systems done for constitutional, cardiovascular, GI, pulmonary; relevant findings as above. Current medications are reviewed that include Levaquin. On examination, temperature 97, pulse 60, respiration 18, blood pressure 94/47, pulse ox 95% on 2 L. GENERAL APPEARANCE: Sitting up, tired, appearing. EYES: Pupils equal. Conjunctivae normal. NECK: JVD not raised. Mass not palpable. RESPIRATORY: Effort increased bilateral basal crackles, decreased breath sounds and wheezing. CARDIOVASCULAR: First and second sounds normal. No edema. ABDOMEN: Soft, nontender. Liver and spleen not palpable. PSYCHIATRY: Alert and oriented x3. Mood and affect normal. INVESTIGATIONS: Potassium 4.2. BUN 51, creatinine 1.91. ASSESSMENT: 1. Bibasilar pneumonia right lower lobe consider gram-negative organism with a sepsis-type picture, present on admission. 2. Nonobstructive coronary artery disease from recent cardiac catheterization in 2005. 3. Hypertensive episode this morning, probably from volume contraction. 4. Acute chronic obstructive pulmonary disease exacerbation in an ex-smoker. 5. Type 2 diabetes mellitus, on oral hypoglycemic. 6. Essential hypertension, history of. 7. Hyperlipidemia. 8. Hypothyroidism. 9. Chronic urinary stress incontinence. 10. Obesity, body mass index of 32.7. 11. Nonischemic cardiomyopathy; ejection fraction 35% to 40%. PLAN: Patient did get fluid bolus earlier today. We will hold off patient's Cozaar and this can be introduced later when the blood pressure comes up. Patient's last echocardiogram from April shows ejection fraction of 35% to 40% percent.
[2016-07-18 21:03] LABS: Glucose,Whole Blood 78 mg/dL (75-99)
[2016-07-18] MEDS: ATORVASTATIN 20 MG TAB PO SCH (21:23)
[2016-07-19 03:29] LABS: Glucose,Whole Blood 55 mg/dL (75-99)
[2016-07-19 04:03] LABS: Glucose,Whole Blood 76 mg/dL (75-99)
[2016-07-19 06:11] LABS: Glucose,Whole Blood 68 mg/dL (75-99)
[2016-07-19] MEDS: INSULIN LISPRO (humaLOG) 300 UNIT/3 ML VIAL SQ SCH ×4 (06:19→21:39)
[2016-07-19 06:29] LABS: Glucose,Whole Blood 65 mg/dL (75-99)
[2016-07-19 06:32] LABS: Calcium 8.3 mg/dL (8.4-10.2); Potassium 4.8 mmol/L (3.5-5.1)
[2016-07-19] MEDS ORDERED: DEXTROSE 50%-WATER 50 ML SYRINGE IVP ONE (06:35)
[2016-07-19] MEDS: CARVEDILOL 12.5 MG TAB PO SCH ×2 (06:40→16:52)
[2016-07-19] MEDS: LEVOTHYROXINE 88 MCG TAB PO SCH (06:40)
[2016-07-19 07:10] LABS: Glucose,Whole Blood 168 mg/dL (75-99)
[2016-07-19] MEDS: CHOLECALCIFEROL 400 UNIT TAB PO SCH (07:39)
[2016-07-19] MEDS: MULTIVITAMINS, THERA 1 EACH TAB PO SCH (07:40)
[2016-07-19] MEDS: CYANOCOBALAMIN 500 MCG TAB PO SCH (07:40)
[2016-07-19] MEDS: ASPIRIN 81 MG CHEW PO SCH (07:40)
[2016-07-19] MEDS: IPRATROPIUM-ALBUTEROL 3 ML NEB INHALATION SCH ×4 (08:31→19:44)
--- NOTE | 2016-07-19 10:11 | PN ---
Mrs. Nieto is a 56-year-old female who presented with symptoms of worsening dyspnea. She is feeling better this morning. Her cough is better. She has a known history of nonischemic cardiomyopathy with mild to moderate coronary artery disease. She had transient episode of hypotension yesterday, better today. She denies any dizziness, palpitation. She denies any nausea. She continues to be at this time on aspirin once a day, Lipitor 20 mg daily, Coreg 12.5 mg twice a day. PHYSICAL EXAMINATION: Blood pressure 124/60 with a heart rate in the 90s. Lungs with scattered wheezes. No rales. HEART: Regular rate and rhythm. S1, S2, no S3, no rub. ABDOMEN: Soft and nontender. EXTREMITIES: No edema. Lab data revealed BUN and creatinine 43 and 1.63. IMPRESSION: 1. Progressive dyspnea with exacerbation of chronic obstructive pulmonary disease. 2. Bibasilar pneumonia. 3. Mild to moderate coronary artery disease. 4. Nonischemic cardiomyopathy. 5. Hypertension. 6. Hyperlipidemia. 7. Renal failure. RECOMMENDATION: Patient's losartan was stopped yesterday because of hypotension. Will follow her renal function and her blood pressure by tomorrow, if there is stable we will reinitiate the treatment with losartan or if her renal function continues to be worse then I will add hydralazine to her regimen. Otherwise, will continue with her beta adi. Depending on her progress, further recommendation will be made.
[2016-07-19 11:35] LABS: Glucose,Whole Blood 100 mg/dL (75-99)
[2016-07-19] MEDS: INSULIN GLARGINE 100 UNIT/ML 10 ML VIAL SQ SCH (12:02)
[2016-07-19] MEDS: LEVOFLOXACIN 250MG-D5W PMX 250 MG in DEXTROSE/WATER 1 50ML.BAG IVPB SCH (15:46)
[2016-07-19] MEDS: ACETAMINOPHEN TAB 325 MG TAB PO PRN ×2 (15:46→20:33)
[2016-07-19 16:16] LABS: Glucose,Whole Blood 48 mg/dL (75-99)
[2016-07-19 16:16] LABS: Glucose,Whole Blood 74 mg/dL (75-99)
[2016-07-19 16:46] LABS: Glucose,Whole Blood 109 mg/dL (75-99)
--- NOTE | 2016-07-19 18:43 | PN ---
DATE OF SERVICE: 07/19/2016 PRESENTING COMPLAINT: Fever, cough. INTERVAL HISTORY: This patient presented with bilateral pneumonia and sepsis-like presentation on admission and chronic obstructive pulmonary disease exacerbation. Patient has become hypertensive yesterday. Was given some fluid bolus. Held off patient's Cozaar. Feeling a bit better today. A little bit tired though. Did tolerate some diet. Review of systems done for constitutional, cardiovascular, GI, pulmonary; relevant findings as above. Current medications are reviewed that include Levaquin. On examination, temperature 98.4, pulse 91, respiratory rate 20, blood pressure 124/61, pulse ox 98% on 2 liters. GENERAL APPEARANCE: Sitting up, tired appearing. EYES: Pupils equal, conjunctivae normal. NECK: JVD not raised. Mass not palpable. RESPIRATORY: Effort increased. LUNGS: Decreased basal crackles. CARDIOVASCULAR: First and second sounds normal. No edema. ABDOMEN: Soft, nontender. Liver and spleen not palpable. PSYCHIATRY: Alert and oriented x3. Mood and affect normal. INVESTIGATIONS: Patient did drop her sugars this afternoon. BUN 43, creatinine 1.63. ASSESSMENT: 1. Bibasilar pneumonia, consider gram negative organism with sepsis-type picture present on admission with slow clinical response. ( ) getting better. 2. Nonobstructive coronary artery disease from recent cardiac catheterization in 2016. 3. Hypotensive episode yesterday from volume contraction, improved. 4. Acute chronic obstructive pulmonary disease exacerbation in an ex-smoker. 5. Diabetes mellitus type 2, on oral hypoglycemic. 6. Essential hypertension, history of. 7. Hyperlipidemia. 8. Hypothyroidism. 9. Chronic urinary stress incontinence. 10. Obesity, body mass index of 32.7. 11. Nonischemic cardiomyopathy ejection fraction 35 to 40%. PLAN: Continue current medication and treatment plan. Patient is improving, though slowly. Encouraged the patient to be out of bed. Sitting up in a chair. Will follow.
[2016-07-19] MEDS: ATORVASTATIN 20 MG TAB PO SCH (20:33)
[2016-07-19 21:10] LABS: Glucose,Whole Blood 257 mg/dL (75-99)
[2016-07-20 06:31] LABS: Glucose,Whole Blood 120 mg/dL (75-99)
[2016-07-20] MEDS: INSULIN LISPRO (humaLOG) 300 UNIT/3 ML VIAL SQ SCH ×4 (06:34→21:29)
[2016-07-20] MEDS: CARVEDILOL 12.5 MG TAB PO SCH ×2 (06:39→16:34)
[2016-07-20] MEDS: LEVOTHYROXINE 88 MCG TAB PO SCH (06:39)
[2016-07-20 07:02] LABS: Calcium 8.5 mg/dL (8.4-10.2)
[2016-07-20] MEDS: ASPIRIN 81 MG CHEW PO SCH (07:58)
[2016-07-20] MEDS: MULTIVITAMINS, THERA 1 EACH TAB PO SCH (07:58)
[2016-07-20] MEDS: CHOLECALCIFEROL 400 UNIT TAB PO SCH (07:58)
[2016-07-20] MEDS: CYANOCOBALAMIN 500 MCG TAB PO SCH (07:58)
[2016-07-20] MEDS: IPRATROPIUM-ALBUTEROL 3 ML NEB INHALATION SCH ×4 (09:00→19:01)
[2016-07-20] MEDS ORDERED: INSULIN GLARGINE 100 UNIT/ML 10 ML VIAL SQ SCH (09:00)
[2016-07-20] MEDS: LEVOFLOXACIN 250MG-D5W PMX 250 MG in DEXTROSE/WATER 1 50ML.BAG IVPB SCH (11:31)
[2016-07-20 11:48] LABS: Glucose,Whole Blood 99 mg/dL (75-99)
[2016-07-20 13:11] VITALS: BMI 38.0
--- NOTE | 2016-07-20 13:34 | P.PN ---
Subjective Principal diagnosis: Dyspnea This is a 56-year-old female who presented to the hospital with symptoms of worsening dyspnea. She was seen and examined this morning, overall she states she's feeling much better just feeling extremely tired today. She has a known history of nonischemic cardiomyopathy with mild to moderate coronary artery disease. Blood pressure and heart rate today is remaining stable. Objective - Vital Signs Vital signs: Vital Signs Temp 98.7 F 07/20/16 08:00 Pulse 91 07/20/16 08:00 Resp 20 07/20/16 08:00 BP 143/79 07/20/16 08:00 Pulse Ox 95 07/20/16 08:00 Intake & Output 07/19/16 07/20/16 07/20/16 18:59 06:59 18:59 Intake Total 330 140 180 Output Total 600 400 Balance -270 -260 180 Weight 103.6 kg 103.6 kg Intake: IV 120 140 0.9 @20mls/hr 120 140 Intake, IV Titration 50 Amount Levofloxacin 250Mg-D5w 50 Pmx 250 mg In Dextrose/ Water 1 50ml.bag @ 50 mls /hr IVPB Q24H [facility] Rx#: [id number] Oral 160 180 Output: Urine 600 400 Other: Voiding Method Toilet Toilet # Voids 1 # Bowel Movements 1 - Exam PHYSICAL EXAMINATION: HEENT: Head is atraumatic, normocephalic. Pupils equal, round. Neck is supple. There is no elevated jugular venous pressure. HEART EXAMINATION: Heart S1, S2 normal. No murmur or gallop heard. CHEST EXAMINATION: Lungs reveal scattered wheezes throughout. ABDOMEN: Soft, obese, nontender. Bowel sounds are heard. No organomegaly noted. EXTREMITIES: 2+ peripheral pulses with trace evidence of peripheral edema and no calf tenderness noted. NEUROLOGIC patient is awake, alert and oriented -3. . - Labs CBC & Chem 7: 07/17/16 06:29 07/20/16 05:59 Labs: Abnormal Lab Results - Last 24 Hours (Table) 07/19/16 07/19/16 07/19/16 Range/Units 15:55 16:12 16:44 Carbon Dioxide (22-30) mmol/L BUN (7-17) mg/dL Creatinine (0.52-1.04) mg/dL Glucose (74-99) mg/dL POC Glucose (mg/dL) 48 L 74 L 109 H (75-99) mg/dL 07/19/16 07/20/16 07/20/16 Range/Units 21:00 05:59 06:28 Carbon Dioxide 31 H (22-30) mmol/L BUN 36 H (7-17) mg/dL Creatinine 1.35 H (0.52-1.04) mg/dL Glucose 125 H (74-99) mg/dL POC Glucose (mg/dL) 257 H 120 H (75-99) mg/dL Assessment and Plan (1) Pneumonia Status: Acute (2) CAD (coronary artery disease) Status: Acute (3) NICM (nonischemic cardiomyopathy) Status: Acute (4) HTN (hypertension) Status: Acute (5) Hyperlipemia Status: Acute (6) Renal failure (ARF), acute on chronic Status: Acute (7) COPD exacerbation Status: Acute Plan: Blood pressure today 142/78, heart rate in the 90s. Creatinine today 1.3, potassium 5. We will resume the Cozaar at 50 mg daily, check lytes BUN and creatinine in the morning, monitor the creatinine and potassium closely. Continue other medications. DNP note has been reviewed, I agree with a documented findings and plan of care. Patient was seen and examined.
[2016-07-20] MEDS: INSULIN GLARGINE 100 UNIT/ML 10 ML VIAL SQ SCH (16:28)
[2016-07-20 17:00] LABS: Glucose,Whole Blood 148 mg/dL (75-99)
[2016-07-20 21:30] LABS: Glucose,Whole Blood 166 mg/dL (75-99)
--- NOTE | 2016-07-20 21:30 | PN ---
DATE OF SERVICE: 07/20/2016 PRESENTING COMPLAINT: Fever, cough. INTERVAL HISTORY: This patient presented with bilateral pneumonia and sepsis-like presentation on admission, COPD exacerbation. She is doing somewhat better, but not eating much. The patient is unable to keep down food. The patient did drop her sugars. Patient got up to the bathroom. ( ) at the bedside. Review of systems done for constitutional, cardiovascular, GI, pulmonary; relevant findings as above. Current medications are reviewed that include Levaquin. On examination, temperature 98.5, pulse ox 91, respirations 20, blood pressure 150/84, pulse ox 94% on 2 liters. GENERAL APPEARANCE: Sitting up, tired-appearing. EYES: Pupils equal. Conjunctivae normal. NECK: JVD not raised. Mass not palpable. RESPIRATORY: Effort increased. LUNGS: Decreased breath sounds. CARDIOVASCULAR: First and second sounds normal. No edema. ABDOMEN: Soft, nontender. Liver and spleen not palpable. PSYCHIATRY: Alert and oriented x3. Mood and affect is normal. INVESTIGATIONS: Potassium 5. BUN 36, creatinine 1.35. ASSESSMENT: 1. Bibasilar pneumonia, consider gram-negative organism with sepsis-type picture, present on admission with clinical improvement. 2. Nonobstructive coronary disease from recent cardiac catheterization in 2016. 3. Hypertensive episode from volume contraction, improved. 4. Acute chronic obstructive pulmonary disease exacerbation in an ex-smoker. 5. Diabetes mellitus type 2on oral hypoglycemics. 6. Essential hypertension. 7. Hyperlipidemia. 8. Hypothyroidism. 9. Chronic urinary stress incontinence. 10. Obesity, body mass index of 32.7. 11. Nonischemic cardiomyopathy; ejection fraction 35% to 40%. 12. Hypoglycemia, improved. PLAN: I spoke to the patient and . Encouraged her to increase oral intake ambulate. Otherwise, patient is doing better. Will follow.
[2016-07-20] MEDS: ATORVASTATIN 20 MG TAB PO SCH (22:01)
[2016-07-21 06:30] LABS: Glucose,Whole Blood 105 mg/dL (75-99)
[2016-07-21] MEDS: INSULIN LISPRO (humaLOG) 300 UNIT/3 ML VIAL SQ SCH ×4 (06:36→21:05)
[2016-07-21] MEDS: CARVEDILOL 12.5 MG TAB PO SCH ×2 (06:37→17:25)
[2016-07-21] MEDS: LEVOTHYROXINE 88 MCG TAB PO SCH (06:37)
[2016-07-21] MEDS: ASPIRIN 81 MG CHEW PO SCH (08:12)
[2016-07-21] MEDS: INSULIN GLARGINE 100 UNIT/ML 10 ML VIAL SQ SCH (08:13)
[2016-07-21] MEDS: IPRATROPIUM-ALBUTEROL 3 ML NEB INHALATION SCH ×4 (08:25→19:58)
[2016-07-21] MEDS: CHOLECALCIFEROL 400 UNIT TAB PO SCH (11:24)
[2016-07-21] MEDS: CYANOCOBALAMIN 500 MCG TAB PO SCH (11:24)
[2016-07-21] MEDS: MULTIVITAMINS, THERA 1 EACH TAB PO SCH (11:25)
[2016-07-21 11:36] LABS: Glucose,Whole Blood 228 mg/dL (75-99)
[2016-07-21] MEDS ORDERED: ERGOCALCIFEROL 50,000 UNIT CAP PO SCH (12:00)
[2016-07-21 14:26] LABS: Calcium 8.6 mg/dL (8.4-10.2); Potassium 4.8 mmol/L (3.5-5.1)
[2016-07-21] MEDS: LEVOFLOXACIN 250MG-D5W PMX 250 MG in DEXTROSE/WATER 1 50ML.BAG IVPB SCH (15:38)
[2016-07-21] MEDS: LOSARTAN 50 MG TAB PO SCH (15:38)
--- NOTE | 2016-07-21 15:50 | P.PN ---
Subjective Principal diagnosis: Dyspnea This is a 56-year-old female who presented to the hospital with symptoms of worsening dyspnea. She was seen and examined this morning, overall she states she's feeling better . She has a known history of nonischemic cardiomyopathy with mild to moderate coronary artery disease. Blood pressure and heart rate today are remaining stable. Objective - Vital Signs Vital signs: Vital Signs Temp 97.4 F L 07/21/16 07:55 Pulse 80 07/21/16 12:12 Resp 20 07/21/16 07:55 BP 137/71 07/21/16 07:55 Pulse Ox 97 07/21/16 08:27 Intake & Output 07/20/16 07/21/16 07/21/16 18:59 06:59 18:59 Intake Total 360 800 342 Output Total 400 950 Balance -40 -150 342 Weight 103.6 kg 103.4 kg Intake: IV 160 0.9 @20mls/hr 160 Oral 360 640 342 Output: Urine 400 950 Other: Voiding Method Toilet Toilet # Voids 1 # Bowel Movements 1 - Exam PHYSICAL EXAMINATION: HEENT: Head is atraumatic, normocephalic. Pupils equal, round. Neck is supple. There is no elevated jugular venous pressure. HEART EXAMINATION: Heart S1, S2 normal. No murmur or gallop heard. CHEST EXAMINATION: Lungs reveal scattered wheezes throughout. ABDOMEN: Soft, obese, nontender. Bowel sounds are heard. No organomegaly noted. EXTREMITIES: 2+ peripheral pulses with trace evidence of peripheral edema and no calf tenderness noted. NEUROLOGIC patient is awake, alert and oriented -3. . - Labs CBC & Chem 7: 07/17/16 06:29 07/21/16 13:34 Labs: Abnormal Lab Results - Last 24 Hours (Table) 07/20/16 07/20/16 07/21/16 Range/Units 16:59 21:28 06:27 Sodium (137-145) mmol/L Carbon Dioxide (22-30) mmol/L BUN (7-17) mg/dL Creatinine (0.52-1.04) mg/dL Glucose (74-99) mg/dL POC Glucose (mg/dL) 148 H 166 H 105 H (75-99) mg/dL 07/21/16 07/21/16 Range/Units 11:32 13:34 Sodium 136 L (137-145) mmol/L Carbon Dioxide 35 H (22-30) mmol/L BUN 29 H (7-17) mg/dL Creatinine 1.32 H (0.52-1.04) mg/dL Glucose 194 H (74-99) mg/dL POC Glucose (mg/dL) 228 H (75-99) mg/dL Assessment and Plan (1) Pneumonia Status: Acute (2) CAD (coronary artery disease) Status: Acute (3) NICM (nonischemic cardiomyopathy) Status: Acute (4) HTN (hypertension) Status: Acute (5) Hyperlipemia Status: Acute (6) Renal failure (ARF), acute on chronic Status: Acute (7) COPD exacerbation Status: Acute Plan: Cardiology's perspective, we'll resume the Cozaar, continue other medications. We will follow this patient with you now on an as-needed basis only, please don' t hesitate to call with any questions. DNP note has been reviewed, I agree with a documented findings and plan of care. Patient was seen and examined.
[2016-07-21 17:03] VITALS: RESP 18
[2016-07-21 17:06] LABS: Glucose,Whole Blood 202 mg/dL (75-99)
[2016-07-21 20:35] LABS: Glucose,Whole Blood 121 mg/dL (75-99)
[2016-07-21] MEDS: ATORVASTATIN 20 MG TAB PO SCH (21:05)
[2016-07-21] MEDS: ACETAMINOPHEN TAB 325 MG TAB PO PRN (23:40)
[2016-07-22 06:02] LABS: Glucose,Whole Blood 131 mg/dL (75-99)
[2016-07-22 06:22] LABS: Calcium 8.7 mg/dL (8.4-10.2); Potassium 4.5 mmol/L (3.5-5.1)
[2016-07-22] MEDS: CARVEDILOL 12.5 MG TAB PO SCH (06:42)
[2016-07-22] MEDS: INSULIN LISPRO (humaLOG) 300 UNIT/3 ML VIAL SQ SCH ×2 (06:42→11:59)
[2016-07-22] MEDS: LEVOTHYROXINE 88 MCG TAB PO SCH (06:42)
--- NOTE | 2016-07-22 06:42 | PN ---
DATE OF SERVICE: 07/21/2016 PRESENTING COMPLAINT: Cough, short of breath. INTERVAL HISTORY: This patient presented with bilateral pneumonia, sepsis-like presentation on admission, COPD exacerbation. Continues to do much better. Today is doing much better actually walked a bit. Diet is improved. Feels far more cheerful. Review of systems done for constitutional, cardiovascular, GI, pulmonary; relevant findings as above. Current medications are reviewed that include Levaquin. On examination, temperature 98.8, pulse 88, respiration 18, blood pressure 125/68, pulse ox 98% on 2 L. GENERAL APPEARANCE: Sitting up, more comfortable. EYES: Pupils equal. Conjunctivae normal. NECK: JVD not raised. Mass not palpable. RESPIRATORY: Effort increased. LUNGS: Improved air entry. CARDIOVASCULAR: First and second sounds normal. No edema. ABDOMEN: Soft, nontender. Liver and spleen not palpable. PSYCHIATRY: Alert and oriented x3. Mood and affect normal. INVESTIGATIONS: BUN 29, creatinine 1.32. ASSESSMENT: 1. Bibasilar pneumonia, consider gram-negative organism with sepsis-like picture, present on admission with good clinical improvement. 2. Nonobstructive coronary artery disease from recent cardiac catheterization last year. 3. Hypotensive episode from volume contraction, improved. 4. Acute chronic obstructive pulmonary disease exacerbation in an ex-smoker, improving. 5. Diabetes mellitus type 2 on oral hypoglycemic. 6. Essential hypertension. 7. Hyperlipidemia. 8. Hypothyroidism. 9. Chronic urinary stress incontinence. 10. Obesity, body mass index of 32.7. 11. Nonischemic cardiomyopathy, ejection fraction 35% to 40%. 12. Hypoglycemia, improved. PLAN: Patient overall doing much better. Encouraged to ambulate. Looking at discharged tomorrow.
[2016-07-22] MEDS: INSULIN GLARGINE 100 UNIT/ML 10 ML VIAL SQ SCH (08:07)
[2016-07-22] MEDS: LOSARTAN 50 MG TAB PO SCH (08:07)
[2016-07-22] MEDS: ASPIRIN 81 MG CHEW PO SCH (08:07)
[2016-07-22] MEDS: IPRATROPIUM-ALBUTEROL 3 ML NEB INHALATION SCH ×2 (09:29→12:45)
[2016-07-22] MEDS: MULTIVITAMINS, THERA 1 EACH TAB PO SCH (11:07)
[2016-07-22] MEDS: CHOLECALCIFEROL 400 UNIT TAB PO SCH (11:07)
[2016-07-22] MEDS: CYANOCOBALAMIN 500 MCG TAB PO SCH (11:07)
[2016-07-22 12:00] LABS: Glucose,Whole Blood 164 mg/dL (75-99)
--- NOTE | 2016-07-22 13:27 | CDI ---
In responding to this query, please exercise your independent professional judgment. The [facility] Coding Staff and Clinical Documentation Specialists appreciate your assistance in clarifying documentation, maintaining compliance with coding guidelines, accurately documenting patients condition and capturing severity of illness. The fact that a question is asked does not imply that any particular answer is desired or expected. Communication forms are a method of clarifying documentation and are not made part of the Legal Health Record. Thank you in advance for your clarification. Last Revision, March 2015 Ezra Hair [address] [facility] [place] [address] Documentation Clarification Form Date: 07/22/2016 1:14:00 PM From: Lori Vargas RN, CCDS Admit Date: 07/16/2016 1:43:00 PM Patient Name: Alaina Nieto Visit Number: [id number] Dr. Kevin Florence History/Risk Factors : Acute on chronic combined CHF, CAD, DM2 uncontrolled, HTN, Chronic urinary stress incontinence Clinical Indicators : Acute on chronic renal failure is documented in all the progress notes by cardiology 05/06/16 to 05/09/16 Patients Baseline: BUN: //31 CR: 1.2/1.3/1.26 GFR:47/43/44 Current BUN: 25/41/51/43/36/29 CR: 1.6/1.8/1.91/1.63/1.35/1.32/1.48 GFR: 34/29/27/33/41/42/37 Treatment: Lasix 40 mg PO Q 8 hrsx3 doses then D/C, Lasix 80mg IVP Q 12 hrsx3 doses, then 60 PO daily IVF @ 20 cc/hr Cozaar D/C In order to capture the severity of condition, please clarify if the condition signifies: CKD Stage 1 (GFR > 90) CKD Stage 2 (GFR 60-89) CKD Stage 3 (GFR 30-59) CKD Stage 4 (GFR 15-29) CKD Stage 5 (GFR <15) ESRD Unable to determine Other condition, please specify Please document in your progress notes and discharge summary in order to capture severity of illness and risk of mortality. Include clinical findings that support your diagnosis. FYI: Press F11 to launch patient chart. Place X here if this finding has no clinical significance, is not applicable or if you are not able to provide any additional documentation. MTDD
[2016-07-22 14:36] VITALS: BP 124/70; PULSE 86; TEMP 97.7
[2016-07-22] MEDS ORDERED: LEVOFLOXACIN 250 MG TAB PO SCH (15:00)
--- NOTE | 2016-07-23 09:37 | DS ---
DATE OF ADMISSION: 07/16/2016 DATE OF DISCHARGE: 07/22/2016 FINAL DIAGNOSES: 1. Bibasilar pneumonia, consider gram-negative organism with sepsis-like picture present on admission with good clinical response. 2. Nonobstructive coronary disease from recent cardiac catheterization in the last year. 3. Hypertensive episode from volume contraction, improved. 4. Acute chronic obstructive pulmonary disease exacerbation in an ex-smoker, present at admission. 5. Diabetes mellitus type 2 on oral hypoglycemic. 6. Essential hypertension. 7. Hyperlipidemia. 8. Hypothyroidism. 9. Chronic urinary stress incontinence. 10. Obesity with a body mass index of 32.7. 11. Nonischemic cardiomyopathy; ejection fraction 35% to 40%. 12. Hypoglycemia improved from decreased oral intake. 13. Chronic kidney disease, likely from hypertensive nephrosclerosis and diabetic nephropathy. CONSULTATION: Dr. Mcpherson from Cardiology. HOSPITAL COURSE: This patient presented with COPD exacerbation, pneumonia, doing much better by the time of discharge. It was discussed with the patient and about smoking cessation many times. On exam, lungs improved air entry. CARDIOVASCULAR: First and second sounds normal. Patient has an EF of 35% to 40%. Patient has underlying chronic kidney disease. Patient's BUN and creatinine were 29 and 1.5 at the time of discharge. Patient is doing much better at the time discharge. DISCHARGE MEDICATIONS: 1. Ventolin HFA 2 puffs q.i.d. p.r.n. 2. Ventolin nebulizer q.4 p.r.n. 3. Synthroid 88 mcg p.o. daily. 4. Lipitor 20 mg q.h.s. 5. Vitamin B12 one thousand mcg p.o. daily. 6. Multivitamin 1 tablet p.o. daily. 7. Vitamin D2 fifty thousand units on Wednesday. 8. Coreg 12.5 p.o. b.i.d. with meals. 9. Aldactone 12.5 p.o. daily. 10. Vitamin D3 four hundred units p.o. daily. 11. Atrovent HFA 2 puffs q.i.d. 12. Aspirin 81 mg daily. 13. Pulmicort 0.5 mg nebulizer b.i.d. 14. Lasix 40 mg daily. 15. Lantus 20 units subQ in the morning. 16. Cozaar 50 mg daily. Follow up with Dr. Baugh on 07/29/2016.
== END 2016-07-22 15:45 | disposition home or self-care (01) | DRG 871 ==
LOC: EC 11:22 → 6SEL 13:43
PROVIDERS: ADMIT Hospitalist; ATTEND Hospitalist
DX: A41.9 Sepsis, unspecified organism (principal); J15.6 Pneumonia due to other Gram-negative bacteria; N17.9 Acute kidney failure, unspecified; I42.9 Cardiomyopathy, unspecified; I13.0 Hypertensive heart and chronic kidney disease with heart failure and stage 1 through stage 4 chronic kidney disease, or unspecified chronic kidney disease; I95.9 Hypotension, unspecified; J44.0 Chronic obstructive pulmonary disease with (acute) lower respiratory infection; J44.1 Chronic obstructive pulmonary disease with (acute) exacerbation; E11.21 Type 2 diabetes mellitus with diabetic nephropathy; E11.649 Type 2 diabetes mellitus with hypoglycemia without coma; E87.5 Hyperkalemia; R09.02 Hypoxemia; E78.5 Hyperlipidemia, unspecified; I25.10 Atherosclerotic heart disease of native coronary artery without angina pectoris; E11.22 Type 2 diabetes mellitus with diabetic chronic kidney disease; N18.9 Chronic kidney disease, unspecified; R00.0 Tachycardia, unspecified; E03.9 Hypothyroidism, unspecified; E78.00 Pure hypercholesterolemia, unspecified; E86.0 Dehydration; R74.8 Abnormal levels of other serum enzymes; R00.1 Bradycardia, unspecified; N39.3 Stress incontinence (female) (male); H91.91 Unspecified hearing loss, right ear; R53.1 Weakness; F40.240 Claustrophobia; Z82.49 Family history of ischemic heart disease and other diseases of the circulatory system; Z82.3 Family history of stroke; Z80.0 Family history of malignant neoplasm of digestive organs; Z79.4 Long term (current) use of insulin; Z87.891 Personal history of nicotine dependence; Z71.6 Tobacco abuse counseling; Z79.51 Long term (current) use of inhaled steroids; Z79.899 Other long term (current) drug therapy; Z90.49 Acquired absence of other specified parts of digestive tract; Z90.710 Acquired absence of both cervix and uterus; Z87.01 Personal history of pneumonia (recurrent); Z86.19 Personal history of other infectious and parasitic diseases; Z87.19 Personal history of other diseases of the digestive system; Z99.81 Dependence on supplemental oxygen
CPT/HCPCS: 36415; 71020; 80048; 80053; 80061; 82550; 82553; 83036; 83735; 83880; 84484; 85025; 85027; 85610; 85730; 87502; 93005; 94640; 94760; 96365; 96375; 99285

== ENCOUNTER 2016-07-29 12:24 | Inpatient (IN) | payer OTHER ==
--- NOTE | 2016-07-29 12:06 | XR ---
EXAMINATION TYPE: XR chest 2V DATE OF EXAM: 07/29/2016 12:01 PM COMPARISON: 07/16/2016. INDICATION: Pneumonia TECHNIQUE: Chest examined in the frontal and lateral projections. FINDINGS: The heart size is mildly prominent. The pulmonary vasculature is normal. The right lower lobe infiltrate is present. Small right pleural effusion is present. Findings are wor sening from the comparison. IMPRESSION: 1. Worsening right lower lobe pneumonia with small right pleural effusion.
[2016-07-29] MEDS ORDERED: LEVOFLOXACIN 500MG-D5W PMX 500 MG in DEXTROSE/WATER 1 100ML.BAG IVPB STA (13:03)
[2016-07-29] MEDS ORDERED: PNEUMONIA PROTOCOL UTILIZED 1 EACH MISC PO PRN (13:05)
--- NOTE | 2016-07-29 13:05 | ED ---
SOB HPI - General Chief Complaint: Shortness of Breath Stated Complaint: SOB Time Seen by Provider: 07/29/16 12:42 Source: patient, RN notes reviewed Mode of arrival: wheelchair Limitations: no limitations - History of Present Illness Initial Comments: 56-year-old female presents emergency Department chief complaint increased shortness breath, pneumonia. Patient was discharged approximately 10 days ago and states that her symptoms are getting worse. She states she's had increased shortness breath. Patient has fever, chills. Patient does have COPD and mild CHF. Patient had outpatient x-ray which showed worsening pneumonia and sent emergency department. - Related Data Home Medications Medication Instructions Recorded Confirmed Albuterol Inhaler [Ventolin Hfa 2 puff INHALATION RT-QID PRN 07/13/14 07/16/16 Inhaler] Albuterol Nebulized [Ventolin 2.5 mg INHALATION RT-Q4H PRN 07/13/14 07/16/16 Nebulized] Levothyroxine Sodium [Synthroid] 88 mcg PO DAILY 07/13/14 07/16/16 Atorvastatin [Lipitor] 20 mg PO HS 09/10/15 07/16/16 Cyanocobalamin [Vitamin B-12] 1,000 mcg PO DAILY 09/10/15 07/16/16 Multivitamins, Thera [Multivitamin] 1 tab PO DAILY 09/10/15 07/16/16 Ergocalciferol [Vitamin D2 50,000 unit PO TU 05/06/16 07/16/16 (DRISDOL)] Cholecalciferol [Vitamin D3] 400 unit PO DAILY 07/16/16 07/16/16 Previous Rx's Medication Instructions Recorded Carvedilol [Coreg*] 12.5 mg PO BID-W/MEALS #60 tab 05/09/16 Spironolactone [Aldactone] 12.5 mg PO DAILY #30 tab 05/09/16 Ipratropium [place] [Atrovent Hfa] 2 puff INHALATION RT-QID #1 inhaler 07/16/16 Aspirin 81 mg PO DAILY chew 07/22/16 Budesonide [Pulmicort] 0.5 mg INHALATION BID #0 07/22/16 Furosemide [Lasix] 40 mg PO DAILY #60 tab 07/22/16 Insulin Glargine [Lantus] 20 unit SQ QAM #0 07/22/16 Losartan [Cozaar] 50 mg PO DAILY #30 tab 07/22/16 Allergies Allergy/AdvReac Type Severity Reaction Status Date / Time No Known Allergies Allergy Verified 07/16/16 12:01 Review of Systems ROS Statement: Those systems with pertinent positive or pertinent negative responses have been documented in the HPI. ROS Other: All systems not noted in ROS Statement are negative. Past Medical History Past Medical History: Heart Failure, COPD, Diabetes Mellitus, Hyperlipidemia, Hypertension, Pneumonia, Thyroid Disorder Additional Past Medical History / Comment(s): Pneumonias, IDDM type II, pancreatitis, tracheobronchitis, hypothyroidism, urinary stress incontinence, L ear [place], diverticulitis. History of Any Multi-Drug Resistant Organisms: None Reported Past Surgical History: Appendectomy, Cholecystectomy, Heart Catheterization, Hysterectomy, Orthopedic Surgery Additional Past Surgical History / Comment(s): cardiac caths with last one being 09/11/15 and was normal, colonoscopy-pt states normal, RT ROTATOR CUFF SX Past Anesthesia/Blood Transfusion Reactions: No Reported Reaction Additional Past Anesthesia/Blood Transfusion Reaction / Comment(s): CLAUSTERPHOBIA. Pt states she has never received blood. Past Psychological History: No Psychological Hx Reported Additional Psychological History / Comment(s): LIVES AT HOME WITH SPOUSE AND 3 TEENAGERS. 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 Pt drives. Smoking Status: Former smoker Past Alcohol Use History: None Reported Additional Past Alcohol Use History / Comment(s): STARTED SMOKING AT AGE 17- SMOKES 1-2 PPD.STATED QUIT MAR 2016 Past Drug Use History: None Reported - Past Family History Father Additional Family Medical History / Comment(s): OF COLON CANCER AT AGE 52 Mother Family Medical History: Congestive Heart Failure (CHF), CVA/TIA Additional Family Medical History / Comment(s): OF CHF AGE 62 General Exam Limitations: no limitations General appearance: alert, in no apparent distress Head exam: Present: atraumatic, normocephalic, normal inspection Respiratory exam: Present: wheezes, rhonchi (Right). Absent: normal lung sounds bilaterally, respiratory distress, rales, stridor Cardiovascular Exam: Present: regular rate, normal rhythm, normal heart sounds. Absent: systolic murmur, diastolic murmur, rubs, gallop, clicks Course Vital Signs 07/29/16 12:29 Temperature 98.3 F Pulse Rate 96 Respiratory 18 Rate Blood Pressure 136/65 O2 Sat by Pulse 97 Oximetry Disposition Clinical Impression: Pneumonia, community acquired, Congestive heart failure Disposition: ADMITTED IP TO THIS HOSP Condition: Stable
[2016-07-29 13:29] LABS: Basophils # (A) 0.1 k/uL (0-0.2); Basophils % (A) 0 %; CH 28.5; Eosinophils # (A) 0.2 k/uL (0-0.7); Eosinophils % (A) 2 %; HCT 32.5 % (34.0-46.0); HDW 2.66; Hypochromasia Marked; Luc # (Auto) 0.17; Luc % (Auto) 2; Lymphocytes # (A) 1.8 k/uL (1.0-4.8); Lymphocytes % (A) 16 %; MCH 28.5 pg (25.0-35.0); MCHC 29.9 g/dL (31.0-37.0); MCV 95.3 fL (80.0-100.0); Mean Platelet Volume 7.6; Monocytes # (A) 0.6 k/uL (0-1.0); Monocytes % (A) 6 %; Neutrophils # (A) 8.8 k/uL (1.3-7.7); Neutrophils % (A) 75 %; RDW 13.8 % (11.5-15.5); WBC 11.6 k/uL (3.8-10.6); WBC (Perox) 12.47
[2016-07-29 13:30] LABS: Calcium 8.7 mg/dL (8.4-10.2); Magnesium 1.6 mg/dL (1.6-2.3); Phosphorous 4.3 mg/dL (2.5-4.5); Potassium 4.7 mmol/L (3.5-5.1); Total Bilirubin 0.4 mg/dL (0.2-1.3); Total Protein 6.3 g/dL (6.3-8.2); Uric Acid 4.5 mg/dL (3.7-7.4)
[2016-07-29 13:31] LABS: Appearance,Urine Cloudy (Clear); Bilirubin,Urine Negative (Negative); Glucose,Urine (UA) 3+ (Negative); Ketones,Urine Negative (Negative); Leukocyte Esterase,Urine Negative (Negative); Mucus,Urine Rare /hpf; Nitrite,Urine Negative (Negative); Particle Count 6501; Protein,Urine 3+ (Negative); RBC,Urine 10 /hpf (0-5); Specific Gravity,Urine 1.014 (1.001-1.035); Squamous Epithelial Cell,Urine 1 /hpf (0-4); UA Billing (MACRO vs. MICRO) MICRO; Urobilinogen,Urine <2.0 mg/dL (<2.0); WBC,Urine 3 /hpf (0-5)
[2016-07-29 13:39] LABS: % Iron Saturation 10.5 % (20-50)
[2016-07-29 13:47] LABS: HGB 9.7 gm/dL (11.4-16.0)
[2016-07-29] MEDS ORDERED: IV VANCOMYCIN PER PHARMACY 1 EACH MISC MISCELLANE PRN (15:36)
--- NOTE | 2016-07-29 16:16 | CT ---
EXAMINATION TYPE: CT chest wo con DATE OF EXAM: 07/29/2016 4:09 PM COMPARISON: NONE HISTORY: Cough and chest congestion. CT DLP: 823.[address] of the chest was performed with lung and mediastinal window settings submitted. The la ck of contrast limits evaluation of the vascular, mediastinal and parenchymal structures including th e upper abdomen. LUNGS: Bilateral small pleural effusions right greater than left measuring up to 3.6 cm AP dimension. There is patchy infiltrate identified within the right lower lobe and groundglass infiltrate within the upper lobes. Underlying pneumonia is not excluded. No definite mass or pulmonary nodules seen at this time. MEDIASTINUM/REGGIE: Thoracic aorta is of normal caliber with limited evaluation given lack of contrast . The heart is mildly enlarged. No evidence for mediastinal mass. Mediastinal adenopathy noted with the AP lymph nodes measuring up to 1.3 cm as well as low right paratracheal lymph node measuring 1.6 cm and subcarinal lymph node measuring 1.3 cm. Multiple subcentimeter lymph nodes within the prevasc ular space. UPPER ABDOMEN: No significant abnormality is seen. OTHER: No significant other abnormality. IMPRESSION: 1. Patchy right lower lobe infiltrate and/or atelectasis with areas of scattered groundglass infiltr ate as well as effusions may reflect pneumonia with parapneumonic effusions. Correlate clinically and progress studies are recommended. 2. Mild mediastinal adenopathy may be reactive in nature.
[2016-07-29] MEDS: CARVEDILOL 12.5 MG TAB PO SCH (16:21)
[2016-07-29] MEDS: PIPERACILLIN-TAZOBACTAM 3.375 GM in DEXTROSE/WATER 1 50ML.BAG IVPB SCH (16:21)
[2016-07-29] MEDS ORDERED: VANCOMYCIN 1,500 MG in SODIUM CHLORIDE 0.9% 250 ML IVPB ONE ×2 (17:00→20:00)
[2016-07-29 17:08] LABS: Glucose,Whole Blood 115 mg/dL (75-99)
[2016-07-29] MEDS: INSULIN LISPRO (humaLOG) 300 UNIT/3 ML VIAL SQ SCH ×2 (17:13→21:46)
[2016-07-29] MEDS ORDERED: ACETAMINOPHEN TAB 325 MG TAB PO PRN (17:14)
--- NOTE | 2016-07-29 17:32 | P.HPIM ---
History of Present Illness H&P Date: 07/29/16 56-year-old female with history of congestive heart failure, COPD was recently discharged from the hospital on 07/22/2016 after completing a course of antibodies for right lower lobe pneumonia was seen by her primary care physician today for follow-up appointment patient was noted to have a progressive worsening of dyspnea over the last 2 days stated that she never completely recovered started to have a cough that has been minimally productive in nature. Patient however states that the dyspnea is worsened with exertion associated with cough that is minimally productive in nature. Patient denies having any fevers chills nausea vomiting or last 24 hours. Patient does complain of some pleuritic chest pain and the recent times. Patient quit smoking about 2 months ago. Patient's EF is about 35-40%. A repeat chest x-ray in the emergency room was noted to have a worsening right lower lobe pneumonia Review of Systems All systems: negative (noted in HPI) Past Medical History Past Medical History: Heart Failure, COPD, Diabetes Mellitus, Hyperlipidemia, Hypertension, Pneumonia, Renal Disease, Thyroid Disorder Additional Past Medical History / Comment(s): Pneumonias, mild CHF, nonischemic cardiomyopathy, tracheobronchitis, home O2 at 2L/[place], IDDM type II, CKD, pancreatitis, hypothyroidism, urinary stress incontinence, L ear [place], diverticulitis. History of Any Multi-Drug Resistant Organisms: None Reported Past Surgical History: Appendectomy, Cholecystectomy, Heart Catheterization, Hysterectomy, Orthopedic Surgery Additional Past Surgical History / Comment(s): cardiac caths with last one being 09/11/15 and was normal, colonoscopy-pt states normal, RT ROTATOR CUFF SX Past Anesthesia/Blood Transfusion Reactions: No Reported Reaction Additional Past Anesthesia/Blood Transfusion Reaction / Comment(s): CLAUSTERPHOBIA. Pt states she has never received blood. Past Psychological History: No Psychological Hx Reported Additional Psychological History / Comment(s): LIVES AT HOME WITH SPOUSE AND 3 TEENAGERS. 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 Pt drives. Pt recently placed on home O2 at 2L/[place] ATC. Smoking Status: Former smoker Past Alcohol Use History: None Reported Additional Past Alcohol Use History / Comment(s): STARTED SMOKING AT AGE 17- SMOKES 1-2 PPD.STATED QUIT MAR 2016 Past Drug Use History: None Reported - Past Family History Father Family Medical History: Cancer Additional Family Medical History / Comment(s): OF COLON CANCER AT AGE 52 Mother Family Medical History: Congestive Heart Failure (CHF), CVA/TIA Additional Family Medical History / Comment(s): OF CHF AGE 62 Medications and Allergies Home Medications Medication Instructions Recorded Confirmed Type Albuterol Inhaler [Ventolin Hfa 2 puff INHALATION RT-QID PRN 07/13/14 07/29/16 History Inhaler] Albuterol Nebulized [Ventolin 2.5 mg INHALATION RT-Q4H PRN 07/13/14 07/29/16 History Nebulized] Levothyroxine Sodium [Synthroid] 88 mcg PO DAILY 07/13/14 07/29/16 History Atorvastatin [Lipitor] 20 mg PO HS 09/10/15 07/29/16 History Cyanocobalamin [Vitamin B-12] 1,000 mcg PO DAILY 09/10/15 07/29/16 History Multivitamins, Thera [Multivitamin] 1 tab PO DAILY 09/10/15 07/29/16 History Ergocalciferol [Vitamin D2 50,000 unit PO TU 05/06/16 07/29/16 History (DRISDOL)] Cholecalciferol [Vitamin D3] 400 unit PO DAILY 07/16/16 07/29/16 History Insulin Glargine [Lantus] 40 unit SQ QAM 07/29/16 07/29/16 History Spironolactone [Aldactone] 25 mg PO DAILY 07/29/16 07/29/16 History Allergies Allergy/AdvReac Type Severity Reaction Status Date / Time No Known Allergies Allergy Verified 07/29/16 13:32 Physical Exam Vitals: Vital Signs Temp Pulse Pulse Resp BP BP Pulse Ox 07/29/16 16:25 97.7 F 90 16 157/77 97 07/29/16 14:38 98.7 F 82 18 161/77 97 07/29/16 13:05 98.5 F 77 16 131/69 99 Intake and Output 07/29/16 07/29/16 07/29/16 06:59 14:59 22:59 Other: Voiding Method Toilet Physical exam Gen. appearance oriented 3 in no distress Neck is supple no JVD Lungs diminished breath sounds on the left side some crackles appreciated On the right side rhonchi appreciated anteriorly diminished breath sounds on the posterior lung chand[place]. Heart S1-S2 heard regular rate and rhythm no murmurs appreciated Abdomen is soft nontender no organomegaly bowel sounds are intact Neurologically cranial nerves II-12 grossly intact no focal motor or sensory deficits noted Skin no abnormalities appreciated Results CBC & Chem 7: 07/29/16 12:29 07/29/16 12:29 Labs: Abnormal Lab Results - Last 24 Hours (Table) 07/29/16 Range/Units 17:07 POC Glucose (mg/dL) 115 H (75-99) mg/dL Thrombosis Risk Factor Assmnt - Choose All That Apply Any of the Below Risk Factors Present?: Yes Each Factor Represents 1 point: Abnormal pulmonary function (COPD), Age 41-60 years, Heart failure (<1month), Obesity (BMI >25), Serious lung disease incl. pneumonia (< 1month) Other Risk Factors: Yes Other congenital or acquired thrombophilia - If yes, enter type in comment: No Thrombosis Risk Factor Assessment Total Risk Factor Score: 5 Thrombosis Risk Factor Assessment Level: High Risk Assessment and Plan Plan: #1 sepsis secondary to a right lower lobe pneumonia with parapneumonic effusions. #2 compensated congestive heart failure #3 COPD with an acute exacerbation #4 CK stage III #5 history of hypertension. #6 dyslipidemia #7vitamin D insufficiency Plan A computed tomography scan of the chest will be obtained as patient has non- resolving pneumonia. 2 rule out a complex infection. Consult pulmonary. Patient will be empirically placed on healthcare acquired pneumonia coverage with vancomycin and Zosyn. Blood pressures are stable. Patient be started on duo nebs, inhaled steroids, IV steroids as well. O2 as needed. DC IV fluids. DVT prophylaxis.
[2016-07-29 18:13] LABS: Hemoglobin A1C 9.3 % (4.2-6.1)
[2016-07-29] MEDS ORDERED: BUDESONIDE 0.5 MG/2 ML NEBU INHALATION SCH (20:00)
[2016-07-29] MEDS: ALBUTEROL NEBULIZED 2.5 MG/3 ML INHALATION PRN (20:56)
[2016-07-29] MEDS: BUDESONIDE 1 MG/2 ML NEBU INHALATION SCH (20:57)
[2016-07-29 21:01] LABS: Glucose,Whole Blood 115 mg/dL (75-99)
[2016-07-29] MEDS: methylPREDNISolone SOD SUCCI 40 MG/ML 1 ML VIAL IV SCH (21:49)
[2016-07-29] MEDS: ATORVASTATIN 20 MG TAB PO SCH (21:49)
[2016-07-30] MEDS: PIPERACILLIN-TAZOBACTAM 3.375 GM in DEXTROSE/WATER 1 50ML.BAG IVPB SCH ×4 (00:28→23:42)
[2016-07-30] MEDS: LEVOTHYROXINE 88 MCG TAB PO SCH (06:33)
[2016-07-30 06:40] LABS: Glucose,Whole Blood 283 mg/dL (75-99)
--- NOTE | 2016-07-30 07:48 | XR ---
EXAMINATION TYPE: XR chest 2V DATE OF EXAM: 07/30/2016 7:34 AM COMPARISON: Prior chest x-ray and CT chest from yesterday. HISTORY: Pneumonia. TECHNIQUE: Frontal and lateral views of the chest are obtained. FINDINGS: There is persistent small right pleural effusion and associated right basilar atelectasis and/or infiltrate. There is stable tiny left pleural effusion. Upper lungs remain clear without pneum othorax. The cardiac silhouette size is stable and mildly enlarged with atherosclerotic thoracic aor ta. The osseous structures are intact. IMPRESSION: Persistent small right pleural effusion with suspicious associated right basilar infiltr ate and/or atelectasis. There is additional mild cardiomegaly with tiny left pleural effusion redemon strated. No significant change from prior study.
[2016-07-30] MEDS: methylPREDNISolone SOD SUCCI 40 MG/ML 1 ML VIAL IV SCH ×2 (07:49→21:13)
[2016-07-30] MEDS: CYANOCOBALAMIN 500 MCG TAB PO SCH (07:49)
[2016-07-30] MEDS: CARVEDILOL 12.5 MG TAB PO SCH ×2 (07:50→17:56)
[2016-07-30] MEDS: ASPIRIN 81 MG CHEW PO SCH (07:50)
[2016-07-30] MEDS: ENOXAPARIN 40 MG/0.4 ML SYRINGE SQ SCH (07:50)
[2016-07-30] MEDS: MULTIVITAMINS, THERA 1 EACH TAB PO SCH (07:50)
[2016-07-30] MEDS: FUROSEMIDE 40 MG TAB PO SCH (07:50)
[2016-07-30] MEDS: CHOLECALCIFEROL 400 UNIT TAB PO SCH (07:50)
[2016-07-30] MEDS: INSULIN GLARGINE 100 UNIT/ML 10 ML VIAL SQ SCH (07:54)
[2016-07-30] MEDS: INSULIN LISPRO (humaLOG) 300 UNIT/3 ML VIAL SQ SCH ×4 (08:00→21:13)
[2016-07-30 08:05] LABS: Basophils % (A) 0 %; CH 28.7; CHCM 30.7; Eosinophils % (A) 0 %; HCT 34.3 % (34.0-46.0); HDW 2.62; HGB 10.8 gm/dL (11.4-16.0); Hypochromasia Moderate; Luc # (Auto) 0.12; Luc % (Auto) 1; Lymphocytes # (A) 0.7 k/uL (1.0-4.8); Lymphocytes % (A) 7 %; MCH 29.4 pg (25.0-35.0); MCHC 31.4 g/dL (31.0-37.0); MCV 93.8 fL (80.0-100.0); Mean Platelet Volume 7.3; Monocytes # (A) 0.1 k/uL (0-1.0); Monocytes % (A) 1 %; Neutrophils # (A) 9.6 k/uL (1.3-7.7); Neutrophils % (A) 90 %; RBC 3.65 m/uL (3.80-5.40); RDW 13.8 % (11.5-15.5); WBC 10.7 k/uL (3.8-10.6); WBC (Perox) 10.86
[2016-07-30 08:18] LABS: Calcium 8.7 mg/dL (8.4-10.2); Magnesium 1.6 mg/dL (1.6-2.3); Potassium 5.6 mmol/L (3.5-5.1); Total Bilirubin 0.7 mg/dL (0.2-1.3); Total Protein 6.6 g/dL (6.3-8.2)
[2016-07-30] MEDS: BUDESONIDE 1 MG/2 ML NEBU INHALATION SCH ×2 (08:28→20:55)
[2016-07-30] MEDS: ALBUTEROL NEBULIZED 2.5 MG/3 ML INHALATION PRN ×2 (08:28→12:01)
[2016-07-30] MEDS ORDERED: SPIRONOLACTONE 25 MG TAB PO SCH (09:00)
[2016-07-30] MEDS ORDERED: LOSARTAN 50 MG TAB PO SCH (09:00)
[2016-07-30] MEDS ORDERED: IPRATROPIUM-ALBUTEROL 3 ML NEB INHALATION PRN (11:56)
[2016-07-30 12:04] LABS: Glucose,Whole Blood 255 mg/dL (75-99)
[2016-07-30] MEDS: IPRATROPIUM-ALBUTEROL 3 ML NEB INHALATION SCH ×3 (12:04→20:55)
--- NOTE | 2016-07-30 12:05 | P.CNPUL ---
History of Present Illness Consult date: 07/30/16 Requesting physician: Ileana Whitaker Reason for consult: pneumonia Chief complaint: Shortness of breath History of present illness: This is a 56-year-old female patient being evaluated and examined today on the fourth floor for pulmonary services. This patient was recently discharged from the hospital on 07/22/2016 after completing a course of antibiotics for right lower lobe pneumonia. The patient was evaluated yesterday for follow-up with her primary care physician and it was noted that she had worsening dyspnea over the last 2 days and she had been discharged. The patient complains of a productive cough that brings up white sputum. The patient does state that she has some pleuritic chest pain with coughing. The patient does have an ejection fraction of about 35-40%. Patient does deny any fevers, chills, nausea, vomiting, or diarrhea since discharge. Upon examination this patient is sitting up in bed on 3 L of oxygen via nasal cannula. The patient does state that she recently was evaluated for oxygen at home about 2 weeks prior to her initial admission to the hospital the last time. And it was found that she needed 2 L of home O2. The patient did state that the last few days before she came into the emergency room that she did bump her oxygen off herself to 3 L, however it did not seem to help. Review of Systems A 14 point review of systems was completed and is negative other than what is noted in the HPI. Past Medical History Past Medical History: Heart Failure, COPD, Diabetes Mellitus, Hyperlipidemia, Hypertension, Pneumonia, Renal Disease, Thyroid Disorder Additional Past Medical History / Comment(s): Pneumonias, mild CHF, nonischemic cardiomyopathy, tracheobronchitis, home O2 at 2L/[place], IDDM type II, CKD, pancreatitis, hypothyroidism, urinary stress incontinence, L ear [place], diverticulitis. History of Any Multi-Drug Resistant Organisms: None Reported Past Surgical History: Appendectomy, Cholecystectomy, Heart Catheterization, Hysterectomy, Orthopedic Surgery Additional Past Surgical History / Comment(s): cardiac caths with last one being 09/11/15 and was normal, colonoscopy-pt states normal, RT ROTATOR CUFF SX Past Anesthesia/Blood Transfusion Reactions: No Reported Reaction Additional Past Anesthesia/Blood Transfusion Reaction / Comment(s): CLAUSTERPHOBIA. Pt states she has never received blood. Past Psychological History: No Psychological Hx Reported Additional Psychological History / Comment(s): LIVES AT HOME WITH SPOUSE AND 3 TEENAGERS. 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 Pt drives. Pt recently placed on home O2 at 2L/[place] ATC. Smoking Status: Former smoker Past Alcohol Use History: None Reported Additional Past Alcohol Use History / Comment(s): STARTED SMOKING AT AGE 17- SMOKES 1-2 PPD.STATED QUIT MAR 2016 Past Drug Use History: None Reported - Past Family History Father Family Medical History: Cancer Additional Family Medical History / Comment(s): OF COLON CANCER AT AGE 52 Mother Family Medical History: Congestive Heart Failure (CHF), CVA/TIA Additional Family Medical History / Comment(s): OF CHF AGE 62 Medications and Allergies Home Medications Medication Instructions Recorded Confirmed Type Albuterol Inhaler [Ventolin Hfa 2 puff INHALATION RT-QID PRN 07/13/14 07/29/16 History Inhaler] Albuterol Nebulized [Ventolin 2.5 mg INHALATION RT-Q4H PRN 07/13/14 07/29/16 History Nebulized] Levothyroxine Sodium [Synthroid] 88 mcg PO DAILY 07/13/14 07/29/16 History Atorvastatin [Lipitor] 20 mg PO HS 09/10/15 07/29/16 History Cyanocobalamin [Vitamin B-12] 1,000 mcg PO DAILY 09/10/15 07/29/16 History Multivitamins, Thera [Multivitamin] 1 tab PO DAILY 09/10/15 07/29/16 History Ergocalciferol [Vitamin D2 50,000 unit PO TU 05/06/16 07/29/16 History (DRISDOL)] Cholecalciferol [Vitamin D3] 400 unit PO DAILY 07/16/16 07/29/16 History Insulin Glargine [Lantus] 40 unit SQ QAM 07/29/16 07/29/16 History Spironolactone [Aldactone] 25 mg PO DAILY 07/29/16 07/29/16 History Allergies Allergy/AdvReac Type Severity Reaction Status Date / Time No Known Allergies Allergy Verified 07/29/16 13:32 Physical Exam Vitals: Vital Signs Temp Pulse Pulse Resp BP BP Pulse Ox 07/30/16 08:51 90 07/30/16 08:28 88 07/30/16 08:00 16 07/30/16 07:00 97.0 F L 98 16 127/77 94 L 07/29/16 23:00 98.6 F 91 18 135/67 92 L 07/29/16 21:16 80 07/29/16 21:02 76 07/29/16 16:25 97.7 F 90 16 157/77 97 07/29/16 14:38 98.7 F 82 18 161/77 97 07/29/16 13:05 98.5 F 77 16 131/69 99 Intake and Output 07/29/16 07/30/16 07/30/16 22:59 06:59 14:59 Intake Total 400 350 Balance 400 350 Intake: Oral 400 350 Other: Voiding Method Toilet Toilet # Voids 1 1 GENERAL EXAM: Alert, active, comfortable in no apparent distress. HEAD: Normocephalic. EYES: Normal reaction of pupils, equal size. NOSE: Clear with pink turbinates. THROAT: No erythema or exudates. NECK: No masses, no JVD. CHEST: No chest wall deformity. LUNGS: Lungs coarse and noted to have some bilateral rhonchi CVS: S1 and S2 normal with no audible mumurs, regular rhythm. ABDOMEN: No hepatosplenomegaly, normal bowel sounds, no guarding or rigidity. EXTREMITIES: No edema noted, pedal pulses palpable. SKIN: No rashes CENTRAL NERVOUS SYSTEM: No focal deficits, tone is normal in all 4 extremities. Results - Laboratory Findings CBC and BMP: 07/30/16 07:45 07/30/16 07:45 Abnormal lab findings: Abnormal Labs 07/29/16 07/29/16 07/30/16 17:07 20:34 06:39 WBC RBC Hgb Neutrophils # Lymphocytes # Potassium Chloride Carbon Dioxide BUN Creatinine Glucose POC Glucose (mg/dL) 115 H 115 H 283 H Albumin 07/30/16 07/30/16 07:45 07:45 WBC 10.7 H RBC 3.65 L Hgb 10.8 L Neutrophils # 9.6 H Lymphocytes # 0.7 L Potassium 5.6 H Chloride 97 L Carbon Dioxide 34 H BUN 24 H Creatinine 1.50 H Glucose 255 H POC Glucose (mg/dL) Albumin 2.7 L - Diagnostic Findings Chest x-ray: report reviewed, image reviewed CT scan - chest: report reviewed, image reviewed Assessment and Plan Plan: Assessment Sepsis Right lower lobe pneumonia with parapneumonic effusions COPD with acute exacerbation Congestive heart failure Chronic kidney disease stage III Hypertension Dyslipidemia Vitamin D deficiency Plan Medications have been reviewed and will be continued. We will change her albuterol updrafts to a combination nebulized treatment of DuoNeb. Continue with budesonide and IV steroids. Obtain sputum culture. Continue with supplemental oxygen to keep saturations above 92%. Encourage ambulation and use of incentive spirometer. We will continue to monitor labs and adjust treatment as necessary.
[2016-07-30] MEDS: VANCOMYCIN 1,500 MG in SODIUM CHLORIDE 0.9% 250 ML IVPB SCH (12:34)
[2016-07-30 14:02] VITALS: BMI 35.7
--- NOTE | 2016-07-30 14:03 | CDI ---
In responding to this query, please exercise your independent professional judgment. The [facility] Coding Staff and Clinical Documentation Specialists appreciate your assistance in clarifying documentation, maintaining compliance with coding guidelines, accurately documenting patients condition and capturing severity of illness. The fact that a question is asked does not imply that any particular answer is desired or expected. Communication forms are a method of clarifying documentation and are not made part of the Legal Health Record. Thank you in advance for your clarification. Last Revision, July 2015 Ezra Hair [address] [facility] [place] [address] Documentation Clarification Form Date: 07/30/2016 1:52:00 PM From: Marta Goldberg CCS, CCDS Admit Date: 07/29/2016 1:03:00 PM Patient Name: Alaina Nieto Visit Number: [id number] Discharge Date: Dr. Leroy Muhammad: 56 yo female, presented with SOB, recently discharged after being treated with antibiotics for pneumonia and sent home with Home O2 2Lnc. Also has a history of CHF, COPD and is a former smoker. History/Risk Factors: CHF, COPD, IDDM II, CKD stage III, Hypertension and nonischemic cardiomyopathy. Clinical Indicators: SOB, pleuritic chest pain. Vital signs: R 16 (sob), PO 97 2Lnc. Treatment: IV Levaquin, Nebulizer tx & Inhaled steroids, IV steroids, IV Vanco , IV Zosyn, Insulin sc, O2 2Lnc Consult: Pulmonary In your professional opinion, can you please clarify if these findings signify one of the following conditions? Acuity: o Acute o Chronic o Acute on Chronic Respiratory Status: o Respiratory failure o Respiratory failure with hypercapnia o Respiratory failure with hypoxia o Acute Respiratory Distress o Other Diagnosis, please specify o Unable to determine Please document in your progress notes and discharge summary in order to capture severity of illness and risk of mortality. Include clinical findings that support your diagnosis. FYI: Press F11 to launch patient chart. Place X here if this finding has no clinical significance, is not applicable or if you are not able to provide any additional documentation. Thank You. LUKE
--- NOTE | 2016-07-30 14:20 | CDI ---
In responding to this query, please exercise your independent professional judgment. The [facility] Coding Staff and Clinical Documentation Specialists appreciate your assistance in clarifying documentation, maintaining compliance with coding guidelines, accurately documenting patients condition and capturing severity of illness. The fact that a question is asked does not imply that any particular answer is desired or expected. Communication forms are a method of clarifying documentation and are not made part of the Legal Health Record. Thank you in advance for your clarification. Last Revision, July 2015 Ezra Hair [address] [place] [address] Documentation Clarification Form Date: 07/30/2016 2:08:00 PM From: Marta Goldberg CCS, CCDS Admit Date: 07/29/2016 1:03:00 PM Patient Name: Alaina Nieto Visit Number: [id number] Discharge Date: Dr. Marcelino Fontanez: CHF is documented in the ED note, the H&P & the Pulmonary Consult with no specificity. History/Risk Factors: CHF, COPD, former smoker (quit 2 months ago). Home meds: Aldactone, Cozaar, Insulin sc, po Lasix 40 mg, Neb & INH txs. Clinical Indicators: Recent hospitalization with pneumonia sent home on home O2 2Lnc, returned with worsening symptoms. VSS. BNP: 2700 Chest X Ray: Worsening RLL pneumonia with small right pleural effusions. CT Chest: Patchy right lower lobe infiltrate and/or atelectasis with areas of scattered ground glass infiltrate as well as effusions may reflect pneumonia with parapneumonic effusions. Mild mediastinal adenopathy may be reactive in nature. Repeat Chest X Ray: Persistent small right pleural effusions and mild cardiomegaly w/tiny left pleural effusion. Treatment: IV Vanco, IV Zosyn, INH Nebulizer txs Insulin sc, IV Solumedrol, po Lasix 40 mg (home dose) Consults: Pulmonary In your professional opinion, can you please clarify the acuity and type of CHF if known? Acute Chronic Acute on Chronic AND Systolic Diastolic Systolic and Diastolic Cor Pulmonale (Right Sided HF w/ Pulmonary HTN) Unable to determine Other, please specify If known, please specify if Heart Failure is due to: Hypertension Rheumatic Fever Please document in your progress notes and discharge summary in order to capture severity of illness and risk of mortality. Include clinical findings that support your diagnosis. FYI: Press F11 to launch patient chart. Place X here if this finding has no clinical significance, is not applicable or if you are not able to provide any additional documentation. Thank You. LUKE
[2016-07-30] MEDS ORDERED: FUROSEMIDE 10 MG/ML 4 ML VIAL IV STA (15:05)
[2016-07-30 16:51] LABS: Glucose,Whole Blood 237 mg/dL (75-99)
--- NOTE | 2016-07-30 18:08 | P.PN ---
Subjective 56-year-old female with history of congestive heart failure, COPD was recently discharged from the hospital on 07/22/2016 after completing a course of antibodies for right lower lobe pneumonia was seen by her primary care physician today for follow-up appointment patient was noted to have a progressive worsening of dyspnea over the last 2 days stated that she never completely recovered started to have a cough that has been minimally productive in nature. Patient however states that the dyspnea is worsened with exertion associated with cough that is minimally productive in nature. Patient denies having any fevers chills nausea vomiting or last 24 hours. Patient does complain of some pleuritic chest pain and the recent times. Patient quit smoking about 2 months ago. Patient's EF is about 35-40%. A repeat chest x-ray in the emergency room was noted to have a worsening right lower lobe pneumonia 07/30/16 states to be feeling slightly better No chest pain, nausea, vomiting. Breathing is improved, cough with minimal sputum production. Objective - Vital Signs Vital signs: Vital Signs Temp 97.5 F L 07/30/16 15:00 Pulse 80 07/30/16 16:25 Resp 16 07/30/16 15:44 BP 134/64 07/30/16 15:00 Pulse Ox 95 07/30/16 15:00 Intake & Output 07/29/16 07/30/16 07/30/16 18:59 06:59 18:59 Intake Total 750 Balance 750 Weight 97.522 kg Intake: Oral 750 Other: Voiding Method Toilet Toilet # Voids 2 1 4 - Constitutional General appearance: Present: average body habitus - EENT Eyes: Present: PERRLA - Neck Neck: Present: normal ROM - Respiratory Respiratory: bilateral: wheezing, prolonged expiration, negative: rales, rhonchi - Cardiovascular Rhythm: regular Heart sounds: normal: S1, S2 - Gastrointestinal General gastrointestinal: Present: normal bowel sounds, soft. Absent: organomegaly - Neurologic Neurologic: Present: CNII-XII intact. Absent: focal deficits - Psychiatric Psychiatric: Present: A&O x's 3 - Labs CBC & Chem 7: 07/30/16 07:45 07/30/16 07:45 Labs: Abnormal Lab Results - Last 24 Hours (Table) 07/29/16 07/30/16 07/30/16 Range/Units 20:34 06:39 07:45 WBC 10.7 H (3.8-10.6) k/uL RBC 3.65 L (3.80-5.40) m/uL Hgb 10.8 L (11.4-16.0) gm/dL Neutrophils # 9.6 H (1.3-7.7) k/uL Lymphocytes # 0.7 L (1.0-4.8) k/uL Potassium (3.5-5.1) mmol/L Chloride (98-107) mmol/L Carbon Dioxide (22-30) mmol/L BUN (7-17) mg/dL Creatinine (0.52-1.04) mg/dL Glucose (74-99) mg/dL POC Glucose (mg/dL) 115 H 283 H (75-99) mg/dL Albumin (3.5-5.0) g/dL 07/30/16 07/30/16 07/30/16 Range/Units 07:45 12:02 16:49 WBC (3.8-10.6) k/uL RBC (3.80-5.40) m/uL Hgb (11.4-16.0) gm/dL Neutrophils # (1.3-7.7) k/uL Lymphocytes # (1.0-4.8) k/uL Potassium 5.6 H (3.5-5.1) mmol/L Chloride 97 L (98-107) mmol/L Carbon Dioxide 34 H (22-30) mmol/L BUN 24 H (7-17) mg/dL Creatinine 1.50 H (0.52-1.04) mg/dL Glucose 255 H (74-99) mg/dL POC Glucose (mg/dL) 255 H 237 H (75-99) mg/dL Albumin 2.7 L (3.5-5.0) g/dL Microbiology - Last 24 Hours (Table) 07/29/16 13:10 Blood Culture - Preliminary Blood No Growth after 24 hours Assessment and Plan Plan: #1 sepsis secondary to a right lower lobe pneumonia with parapneumonic effusions. #2 compensated congestive heart failure, systolic in nature #3 COPD with an acute exacerbation #4 CK stage III #5 history of hypertension. #6 dyslipidemia #7vitamin D insufficiency #[address] scan reviewed Consult pulmonary. Patient will be empirically placed on healthcare acquired pneumonia coverage with vancomycin and Zosyn. Blood pressures are stable. Patient be started on duo nebs, inhaled steroids, IV steroids as well. O2 as needed. DC IV fluids. DVT prophylaxis.Hold spirinolactone and ARB.
[2016-07-30] MEDS ORDERED: BUDESONIDE 1 MG/2 ML NEBU INHALATION SCH (20:00)
[2016-07-30] MEDS: ATORVASTATIN 20 MG TAB PO SCH (21:13)
[2016-07-30 21:32] LABS: Glucose,Whole Blood 184 mg/dL (75-99)
[2016-07-31] MEDS: LEVOTHYROXINE 88 MCG TAB PO SCH (06:39)
[2016-07-31 07:11] LABS: Glucose,Whole Blood 188 mg/dL (75-99)
[2016-07-31] MEDS: BUDESONIDE 1 MG/2 ML NEBU INHALATION SCH ×2 (07:13→20:31)
[2016-07-31] MEDS: IPRATROPIUM-ALBUTEROL 3 ML NEB INHALATION SCH ×4 (07:13→20:31)
[2016-07-31] MEDS: ASPIRIN 81 MG CHEW PO SCH (07:56)
[2016-07-31] MEDS: FUROSEMIDE 40 MG TAB PO SCH (07:56)
[2016-07-31] MEDS: ENOXAPARIN 40 MG/0.4 ML SYRINGE SQ SCH (07:56)
[2016-07-31] MEDS: CARVEDILOL 12.5 MG TAB PO SCH ×2 (07:56→16:03)
[2016-07-31] MEDS: INSULIN GLARGINE 100 UNIT/ML 10 ML VIAL SQ SCH (07:56)
[2016-07-31] MEDS: MULTIVITAMINS, THERA 1 EACH TAB PO SCH (07:56)
[2016-07-31] MEDS: CYANOCOBALAMIN 500 MCG TAB PO SCH (07:56)
[2016-07-31] MEDS: CHOLECALCIFEROL 400 UNIT TAB PO SCH (07:56)
[2016-07-31] MEDS: INSULIN LISPRO (humaLOG) 300 UNIT/3 ML VIAL SQ SCH ×4 (07:56→20:40)
[2016-07-31] MEDS: PIPERACILLIN-TAZOBACTAM 3.375 GM in DEXTROSE/WATER 1 50ML.BAG IVPB SCH ×2 (07:56→16:03)
[2016-07-31] MEDS: methylPREDNISolone SOD SUCCI 40 MG/ML 1 ML VIAL IV SCH ×2 (07:58→20:40)
[2016-07-31 09:49] LABS: Basophils % (A) 0 %; CH 28.5; CHCM 30.2; Eosinophils % (A) 0 %; HCT 31.7 % (34.0-46.0); HDW 2.48; HGB 9.4 gm/dL (11.4-16.0); Hypochromasia Moderate; Luc % (Auto) 1; Lymphocytes % (A) 8 %; MCH 28.2 pg (25.0-35.0); MCHC 29.8 g/dL (31.0-37.0); MCV 94.6 fL (80.0-100.0); Mean Platelet Volume 7.6; Monocytes # (A) 0.4 k/uL (0-1.0); Monocytes % (A) 4 %; Neutrophils # (A) 10.2 k/uL (1.3-7.7); Neutrophils % (A) 87 %; RBC 3.35 m/uL (3.80-5.40); RDW 13.9 % (11.5-15.5); WBC 11.7 k/uL (3.8-10.6); WBC (Perox) 12.19
[2016-07-31 10:02] LABS: Calcium 8.6 mg/dL (8.4-10.2); Total Bilirubin 0.6 mg/dL (0.2-1.3); Total Protein 6.6 g/dL (6.3-8.2)
[2016-07-31] MEDS: VANCOMYCIN 1,500 MG in SODIUM CHLORIDE 0.9% 250 ML IVPB SCH (11:36)
[2016-07-31 11:46] LABS: Glucose,Whole Blood 195 mg/dL (75-99)
--- NOTE | 2016-07-31 13:06 | P.PN ---
Subjective This is a 56-year-old female patient was being evaluated and examined today on the fourth floor for pulmonary services. Patient was recently discharged from the hospital on 07/22/2016 after completing a course of antibiotics for right lower lobe pneumonia. The patient was reevaluated in her primary care physician 's office and was noted that she had worsening dyspnea over the last few days after discharge. The patient then was brought back to the hospital. The patient complains of a productive cough that brings up white sputum. The patient does state that she has some pleuritic chest pain with coughing. The patient does have an ejection fraction of about 35-40%. Patient does deny any fevers, chills, nausea, vomiting, or diarrhea since previous discharge of hospitalization. Upon examination the patient is sitting up in bed resting on 2 -3 L of oxygen via nasal cannula. The patient does state that she was recently evaluated for oxygen at home around the clock prior to her initial admission to the hospital last time. It was found that she needed 2 L of oxygen at home at all times. The patient did bump her oxygen off her self to 3 L before coming into the hospital however it did not seem to help. The patient does state that she feels significantly better today than she did yesterday. Objective - Vital Signs Vital signs: Vital Signs Temp 97.3 F L 07/31/16 07:00 Pulse 88 07/31/16 12:12 Resp 16 07/31/16 07:00 BP 136/69 07/31/16 07:00 Pulse Ox 96 07/31/16 07:00 Intake & Output 07/30/16 07/31/16 07/31/16 18:59 06:59 18:59 Intake Total 240 Balance 240 Weight 97.522 kg 103.5 kg Intake: Oral 240 Other: Voiding Method Toilet Toilet Toilet # Voids 4 1 - Exam GENERAL EXAM: Alert, active, comfortable in no apparent distress. HEAD: Normocephalic. EYES: Normal reaction of pupils, equal size. NOSE: Clear with pink turbinates. THROAT: No erythema or exudates. NECK: No masses, no JVD. CHEST: No chest wall deformity. LUNGS: Lung sounds are coarse and noted to have some bilateral rhonchi however improved since yesterday.. CVS: S1 and S2 normal with no audible mumurs, regular rhythm. ABDOMEN: No hepatosplenomegaly, normal bowel sounds, no guarding or rigidity. EXTREMITIES: No edema noted, pedal pulses palpable. SKIN: No rashes CENTRAL NERVOUS SYSTEM: No focal deficits, tone is normal in all 4 extremities. - Labs CBC & Chem 7: 07/31/16 08:54 07/31/16 08:54 Labs: Abnormal Lab Results - Last 24 Hours (Table) 07/30/16 07/30/16 07/31/16 Range/Units 16:49 21:08 06:48 WBC (3.8-10.6) k/uL RBC (3.80-5.40) m/uL Hgb (11.4-16.0) gm/dL Hct (34.0-46.0) % MCHC (31.0-37.0) g/dL Neutrophils # (1.3-7.7) k/uL Chloride (98-107) mmol/L Carbon Dioxide (22-30) mmol/L BUN (7-17) mg/dL Creatinine (0.52-1.04) mg/dL Glucose (74-99) mg/dL POC Glucose (mg/dL) 237 H 184 H 188 H (75-99) mg/dL Albumin (3.5-5.0) g/dL 07/31/16 07/31/16 07/31/16 Range/Units 08:54 08:54 11:41 WBC 11.7 H (3.8-10.6) k/uL RBC 3.35 L (3.80-5.40) m/uL Hgb 9.4 L (11.4-16.0) gm/dL Hct 31.7 L (34.0-46.0) % MCHC 29.8 L (31.0-37.0) g/dL Neutrophils # 10.2 H (1.3-7.7) k/uL Chloride 96 L (98-107) mmol/L Carbon Dioxide 34 H (22-30) mmol/L BUN 35 H (7-17) mg/dL Creatinine 1.81 H (0.52-1.04) mg/dL Glucose 214 H (74-99) mg/dL POC Glucose (mg/dL) 195 H (75-99) mg/dL Albumin 2.7 L (3.5-5.0) g/dL Microbiology - Last 24 Hours (Table) 07/29/16 13:10 Blood Culture - Preliminary Blood No Growth after 24 hours Assessment and Plan Plan: Assessment Acute on chronic respiratory failure Sepsis Right lower lobe pneumonia with parapneumonic effusions COPD with acute exacerbation Congestive heart failure Chronic kidney disease stage III Hypertension Dyslipidemia Vitamin D deficiency Plan Medications have been reviewed and will be continued. Continue on nebulizer treatments nd IV steroids. Obtain sputum culture. Continue with supplemental oxygen to keep saturations above 92%. Encourage ambulation and use of incentive spirometer. We will continue to monitor labs and adjust treatment as necessary. If patient continues to improve she can be discharged in the near future.
[2016-07-31 17:55] LABS: Glucose,Whole Blood 182 mg/dL (75-99)
[2016-07-31] MEDS: ATORVASTATIN 20 MG TAB PO SCH (20:40)
[2016-07-31 20:57] LABS: Glucose,Whole Blood 233 mg/dL (75-99)
--- NOTE | 2016-07-31 22:25 | PN ---
DATE OF SERVICE: 07/31/2016 PRESENTING COMPLAINT: Cough. INTERVAL HISTORY: This is a patient recently discharged from the hospital, had done well at home for a few days, then started to become short of breath, cough again, re-admitted with pneumonia. Patient is feeling a bit better, has a cough. Sputum production has gone down. Did tolerate some diet. Feeling a bit more peppy. Review of systems done for constitutional, cardiovascular, GI, pulmonary; relevant findings as above. Current medications are reviewed that include: 1. IV Zosyn and 2. Vancomycin. On examination, temperature 97.3, pulse 74, respirations 16, blood pressure 136/69, pulse ox 96% on 2L. GENERAL APPEARANCE: Sitting up, not in distress. EYES: Pupils equal. Conjunctivae normal. NECK: JVD not raised. Mass not palpable. RESPIRATORY: Effort increased . LUNGS: Some basal crackles, coarse expiratory. CARDIOVASCULAR: First and second sounds normal. No edema. ABDOMEN: Soft, nontender. Liver and spleen not palpable. PSYCHIATRY: Alert and oriented x3. Mood and affect normal. INVESTIGATIONS: White count 11.7, hemoglobin 9.4. Potassium 5, BUN 35, creatinine 1.81. Chest x-ray shows some infiltrates. ASSESSMENT: 1. Basilar pneumonia, suspect gram-negative organism, present at admission. 2. Nonobstructive coronary artery disease from cardiac catheterization last year. 3. Acute chronic obstructive pulmonary disease exacerbation in an ex-smoker, present at admission. 4. Diabetes mellitus type 2 on oral hypoglycemic. 5. Essential hypertension. 6. Hyperlipidemia. 7. Hypothyroidism. 8. Chronic urinary stress incontinence. 9. Obesity, body mass index greater than 30. 10. Nonischemic cardiomyopathy; ejection fraction 35% to 40%. 11. 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 PLAN: Patient slowly improving. Continue current medication and treatment plan. Patient's blood cultures are negative. Will discontinue the vancomycin. Follow with Pulmonary.
[2016-08-01] MEDS: PIPERACILLIN-TAZOBACTAM 3.375 GM in DEXTROSE/WATER 1 50ML.BAG IVPB SCH ×2 (00:34→07:36)
[2016-08-01] MEDS: LEVOTHYROXINE 88 MCG TAB PO SCH (06:29)
[2016-08-01] MEDS: methylPREDNISolone SOD SUCCI 40 MG/ML 1 ML VIAL IV SCH (07:35)
[2016-08-01] MEDS: ENOXAPARIN 40 MG/0.4 ML SYRINGE SQ SCH (07:35)
[2016-08-01] MEDS: INSULIN GLARGINE 100 UNIT/ML 10 ML VIAL SQ SCH (07:35)
[2016-08-01] MEDS: CYANOCOBALAMIN 500 MCG TAB PO SCH (07:35)
[2016-08-01] MEDS: MULTIVITAMINS, THERA 1 EACH TAB PO SCH (07:35)
[2016-08-01] MEDS: CHOLECALCIFEROL 400 UNIT TAB PO SCH (07:36)
[2016-08-01] MEDS: CARVEDILOL 12.5 MG TAB PO SCH (07:36)
[2016-08-01] MEDS: FUROSEMIDE 40 MG TAB PO SCH (07:36)
[2016-08-01] MEDS: ASPIRIN 81 MG CHEW PO SCH (07:36)
[2016-08-01] MEDS: INSULIN LISPRO (humaLOG) 300 UNIT/3 ML VIAL SQ SCH ×2 (07:37→12:33)
[2016-08-01 07:53] LABS: Glucose,Whole Blood 165 mg/dL (75-99)
[2016-08-01 08:10] VITALS: BP 149/83; RESP 20; TEMP 97
[2016-08-01] MEDS: BUDESONIDE 1 MG/2 ML NEBU INHALATION SCH (09:28)
[2016-08-01] MEDS: IPRATROPIUM-ALBUTEROL 3 ML NEB INHALATION SCH ×2 (09:28→12:18)
[2016-08-01 12:05] LABS: Glucose,Whole Blood 214 mg/dL (75-99)
--- NOTE | 2016-08-01 12:09 | PN ---
DATE OF SERVICE: 08/01/2016 HISTORY OF PRESENT ILLNESS: The patient is a 56-year-old female who recently had been in the hospital for right lower lobe pneumonia. She had only been home a few days and had problems with productive cough and pleuritic type of chest pain and subsequently presented back to the hospital and was admitted with right lower lobe pneumonia with acute on chronic respiratory failure and COPD. She states that she is feeling considerably better. She denies any pain. She still has nonproductive cough. She is doing about 750 mL on her incentive spirometer. She still has some wheezing though faint. She has no nausea, vomiting or diarrhea. She does have oxygen at home she states. She also has a significant history of diabetes mellitus and hypertension She is questioning if she could go home. She probably is stable enough. She does need to have tapering steroids with discharge and continue with antibiotic therapy. On physical examination, her vitals signs show temperature 97, heart rate 76, respiratory rate 20, blood pressure is 149/83, oxygenation is 97% on 3 L. Labs for today showed glucose of 165. Blood cultures with no growth. GENERAL: She is a 56-year-old female who appears in no acute respiratory distress. has occasional nonproductive cough. HEENT: Pupils are reactive. Mucous membranes are moist. NECK: Short, supple, thick. LUNGS: Sounds with some wheezing and coarseness, more prevalent on the right than left. CARDIOVASCULAR: S1 and S2 is heard; regular. No murmurs. ABDOMEN: Soft, nontender. EXTREMITIES: No edema. Pulses palpable. NEUROLOGIC: She is awake, alert, answers questions appropriately. IMPRESSION: 1. Acute on chronic respiratory failure on admission. 2. Right lower lobe pneumonia. 3. Sepsis, improved. 4. Acute exacerbation of chronic obstructive pulmonary disease. 5. Chronic kidney disease stage III. 6. Hypertension. 7. Diabetes mellitus. 8. Coronary artery disease. 9. Nonischemic cardiomyopathy with ejection fraction of 35% to 40%. PLAN: Continue patient with her present medications, which have been reviewed. She does have DuoNeb nebulizer at home. Continue with steroids as ordered. Continue with antibiotic therapy. Continue to increase activity as tolerated. Continue with GI and DVT prophylaxis. Continue with pulmonary hygiene. If discharged, needs to follow up with Dr. Muhammad next week. Continue with her nebulizers at home and steroids. Increase activity and oxygen at home as needed.
[2016-08-01] MEDS: VANCOMYCIN 1,500 MG in SODIUM CHLORIDE 0.9% 250 ML IVPB SCH (12:31)
[2016-08-01 12:32] VITALS: PULSE 80
--- NOTE | 2016-08-01 20:45 | DS ---
DATE OF ADMISSION: 07/29/2016 DATE OF DISCHARGE: 08/01/2016 FINAL DIAGNOSES: 1. Basilar pneumonia; suspect gram-negative organism, present on admission. 2. Nonobstructive coronary artery disease from cardiac catheterization 2015. 3. Acute chronic obstructive pulmonary disease exacerbation in an ex-smoker, present on admission. 4. Diabetes mellitus type 2, on oral hypoglycemic. 5. Essential hypertension. 6. Hyperlipidemia. 7. Hypothyroidism. 8. Chronic urinary stress incontinence. 9. Obesity, body mass index greater than 30. 10. Nonischemic cardiomyopathy, ejection fraction 35% to 40%. 11. Chronic kidney disease, likely from hypertensive nephrosclerosis and diabetic nephropathy. HOSPITAL COURSE: This patient was admitted with pneumonia, COPD exacerbation, doing better at the time of discharge. Patient's blood cultures were negative. On exam, LUNGS: Improved air entry. CARDIOVASCULAR: First and second seconds normal. PSYCH: Alert and oriented x3. Mood and affect were normal. BUN and creatinine were 35 and 1.81. CONSULTATIONS: Dr. Leroy Muhammad from pulmonary. DISCHARGE MEDICATIONS: 1. Ventolin HFA 2 puffs q.i.d. p.r.n. 2. Ventolin 2.5 q.4 p.r.n. 3. Synthroid 88 mcg p.o. daily. 4. Lipitor 20 mg q.h.s. 5. Vitamin B12 1000 mcg p.o. daily. 6. Multivitamin 1 tablet p.o. daily. 7. Vitamin D2, 50,000 units p.o. Wednesday. 8. Coreg 12.5 p.o. b.i.d. with meals. 9. Vitamin D3 400 units p.o. daily. 10. Aspirin 81 mg p.o. daily. 11. Pulmicort ( ) b.i.d. 12. Lasix 40 mg p.o. daily. 13. Cozaar 50 mg p.o. daily. 14. Lantus 40 units subcu in the morning. 15. Aldactone 25 mg p.o. daily. 16. Ceftin 500 mg p.o. b.i.d. 17. DuoNeb q.i.d. 18. Prednisone taper. 19. Home oxygen to continue. Follow up with Dr. Baugh in 1 week. Follow up with Dr. Leroy Muhammad in 1 week.
[2016-08-02] MEDS ORDERED: predniSONE 20 MG TAB PO SCH (09:00)
--- NOTE | 2016-08-03 10:19 | CDI ---
In responding to this query, please exercise your independent professional judgment. The [facility] Coding Staff and Clinical Documentation Specialists appreciate your assistance in clarifying documentation, maintaining compliance with coding guidelines, accurately documenting patients condition and capturing severity of illness. The fact that a question is asked does not imply that any particular answer is desired or expected. Communication forms are a method of clarifying documentation and are not made part of the Legal Health Record. Thank you in advance for your clarification. Last Revision, March 2015 Ezra Hair [address] [place] [address] Documentation Clarification Form Date: 08/03/2016 10:06:00 AM From: Marta Goldberg CCS, CCDS Admit Date: 07/29/2016 1:03:00 PM Patient Name: Alaina Nieto Visit Number: [id number] Discharge Date: 08/01/2016 Dr. Kevin Florence: Sepsis is documented in the H&P, the Pulmonary consult and subsequent progress notes by the attending and also the commercial art instructor. History/Risk Factors: History includes: COPD, CHF, DM, Hypertension and CAD. Clinical Indicators: 56 yo fem, presented to [facility], readmitted with pneumonia and acute exacerbation of COPD. WBC: 11.6, Hgb 9.7*, Neut 8.8, CO2 38, BUN 18, Cr 1.40, Glucose 158. Blood cultures: Final culture negative. Vitals signs on admission: T 98.3, P 96, R 18 (sob), BP 136/65, PO 97 2Lnc Treatment: IV Levaquin, IV Vancomycin, IV Zosyn, Albuterol Neb txs, Insulin sc, O2 2Lnc. Consults: ID, Nephrology, Pulmonary In your professional opinion, can you please clarify if these findings signify one of the following conditions including: Was the condition present of admission? Was the condition ruled out? SIRS, without underlying infectious process Sepsis Severe Sepsis Septic Shock Unable to determine Other, please specify o Identify the (suspected) organism o Link or clarify if there is associated (due to/with): Organ failure Shock Please document in your progress notes and discharge summary in order to capture severity of illness and risk of mortality. Include clinical findings that support your diagnosis. FYI: Press F11 to launch patient chart. Place X here if this finding has no clinical significance, is not applicable or if you are not able to provide any additional documentation. Thank You. LUKE
[2016-08-04] MEDS ORDERED: ERGOCALCIFEROL 50,000 UNIT CAP PO SCH (12:00)
== END 2016-08-01 14:09 | disposition home or self-care (01) | DRG 190 ==
LOC: EC 12:24 → EDSTATUS 12:26 → 4MS4W 13:03
PROVIDERS: ADMIT Hospitalist; ATTEND Hospitalist
DX: J44.0 Chronic obstructive pulmonary disease with (acute) lower respiratory infection (principal); J96.20 Acute and chronic respiratory failure, unspecified whether with hypoxia or hypercapnia; J15.6 Pneumonia due to other Gram-negative bacteria; I13.0 Hypertensive heart and chronic kidney disease with heart failure and stage 1 through stage 4 chronic kidney disease, or unspecified chronic kidney disease; I42.9 Cardiomyopathy, unspecified; I50.22 Chronic systolic (congestive) heart failure; J44.1 Chronic obstructive pulmonary disease with (acute) exacerbation; E11.21 Type 2 diabetes mellitus with diabetic nephropathy; E11.22 Type 2 diabetes mellitus with diabetic chronic kidney disease; E87.5 Hyperkalemia; I25.10 Atherosclerotic heart disease of native coronary artery without angina pectoris; E78.5 Hyperlipidemia, unspecified; E55.9 Vitamin D deficiency, unspecified; N18.3 Chronic kidney disease, stage 3 (moderate); E03.9 Hypothyroidism, unspecified; N39.3 Stress incontinence (female) (male); E66.9 Obesity, unspecified; Z68.38 Body mass index [BMI] 38.0-38.9, adult; Z99.81 Dependence on supplemental oxygen; Z87.891 Personal history of nicotine dependence; Z79.82 Long term (current) use of aspirin; Z79.51 Long term (current) use of inhaled steroids; Z79.4 Long term (current) use of insulin; Z79.899 Other long term (current) drug therapy
CPT/HCPCS: 36415; 71020; 71250; 80053; 80202; 81001; 82306; 82728; 83036; 83540; 83550; 83735; 83880; 83970; 84100; 84550; 85025; 87040; 87502; 94640; 96365; 99285

== ENCOUNTER 2016-08-19 07:56 | Inpatient (IN) | payer OTHER ==
[2016-08-19] MEDS ORDERED: FUROSEMIDE 10 MG/ML 4 ML VIAL IV STA (08:33)
[2016-08-19] MEDS ORDERED: NITROGLYCERIN OINT 1 INCH/GM PACKET TOPICAL STA (08:33)
[2016-08-19] MEDS ORDERED: IPRATROPIUM-ALBUTEROL 3 ML NEB INHALATION STA (08:33)
--- NOTE | 2016-08-19 08:38 | ED ---
SOB HPI - General Chief Complaint: Shortness of Breath Stated Complaint: Diff breathing Time Seen by Provider: 08/19/16 08:25 Source: patient, family, RN notes reviewed Mode of arrival: wheelchair Limitations: no limitations - History of Present Illness Initial Comments: This is a 56-year-old female history of recent pneumonia also history of CHF who states she had the onset of severe shortness of breath at 1 AM this morning. She's also had nausea vomiting some fevers and chills.. Little cough this time. She states she has taken 3 updrafts since 1 AM they do help but just for a short period of time. She denies any overt chest pain she does states she has increased edema to her lower extremities. MD Complaint: shortness of breath, cough - Related Data Home Medications Medication Instructions Recorded Confirmed Albuterol Inhaler [Ventolin Hfa 2 puff INHALATION RT-QID PRN 07/13/14 08/19/16 Inhaler] Albuterol Nebulized [Ventolin 2.5 mg INHALATION RT-Q4H PRN 07/13/14 08/19/16 Nebulized] Levothyroxine Sodium [Synthroid] 88 mcg PO DAILY 07/13/14 08/19/16 Atorvastatin [Lipitor] 20 mg PO HS 09/10/15 08/19/16 Cyanocobalamin [Vitamin B-12] 1,000 mcg PO DAILY 09/10/15 08/19/16 Multivitamins, Thera [Multivitamin 1 tab PO DAILY 09/10/15 08/19/16 (formulary)] Ergocalciferol [Vitamin D2 50,000 unit PO TU 05/06/16 08/19/16 (DRISDOL)] Cholecalciferol [Vitamin D3] 400 unit PO DAILY 07/16/16 08/19/16 Insulin Glargine [Lantus] 20 unit SQ DAILY 07/29/16 08/19/16 Spironolactone [Aldactone] 12.5 mg PO DAILY 07/29/16 08/19/16 Budesonide [Pulmicort] 0.5 mg INHALATION RT-BID 08/19/16 08/19/16 Ipratropium Palmer [Atrovent Hfa] 2 puff INHALATION RT-QID 08/19/16 08/19/16 Previous Rx's Medication Instructions Recorded Carvedilol [Coreg*] 12.5 mg PO BID-W/MEALS #60 tab 05/09/16 Aspirin 81 mg PO DAILY chew 07/22/16 Furosemide [Lasix] 40 mg PO DAILY #60 tab 07/22/16 Losartan [Cozaar] 50 mg PO DAILY #30 tab 07/22/16 Allergies Allergy/AdvReac Type Severity Reaction Status Date / Time Iodinated Contrast Media - AdvReac KIDNEY Verified 08/19/16 08:24 Oral and DAMAGE Review of Systems ROS Statement: Those systems with pertinent positive or pertinent negative responses have been documented in the HPI. ROS Other: All systems not noted in ROS Statement are negative. Past Medical History Past Medical History: Heart Failure, COPD, Diabetes Mellitus, Hyperlipidemia, Hypertension, Pneumonia, Renal Disease, Thyroid Disorder Additional Past Medical History / Comment(s): Pneumonias, mild CHF, nonischemic cardiomyopathy, tracheobronchitis, home O2 at 2L/NC, IDDM type II, CKD, pancreatitis, hypothyroidism, urinary stress incontinence, L ear [place], diverticulitis. History of Any Multi-Drug Resistant Organisms: None Reported Past Surgical History: Appendectomy, Cholecystectomy, Heart Catheterization, Hysterectomy, Orthopedic Surgery Additional Past Surgical History / Comment(s): cardiac caths with last one being 09/11/15 and was normal, colonoscopy-pt states normal, RT ROTATOR CUFF SX Past Anesthesia/Blood Transfusion Reactions: No Reported Reaction Additional Past Anesthesia/Blood Transfusion Reaction / Comment(s): CLAUSTERPHOBIA. Pt states she has never received blood. Past Psychological History: No Psychological Hx Reported Additional Psychological History / Comment(s): LIVES AT HOME WITH SPOUSE AND 3 TEENAGERS. 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 Pt drives. Pt recently placed on home O2 at 2L/NC ATC. Smoking Status: Former smoker Past Alcohol Use History: None Reported Additional Past Alcohol Use History / Comment(s): STARTED SMOKING AT AGE 17- SMOKES 1-2 PPD.STATED QUIT MAR 2016 Past Drug Use History: None Reported - Past Family History Father Family Medical History: Cancer Additional Family Medical History / Comment(s): OF COLON CANCER AT AGE 52 Mother Family Medical History: Congestive Heart Failure (CHF), CVA/TIA Additional Family Medical History / Comment(s): OF CHF AGE 62 General Exam - General Exam Comments Initial Comments: This is a well-developed well-nourished awake alert oriented 3 female Limitations: no limitations General appearance: alert, anxious, in distress Head exam: Present: atraumatic, normocephalic, normal inspection Eye exam: Present: normal appearance, PERRL, EOMI. Absent: scleral icterus, conjunctival injection, periorbital swelling ENT exam: Present: normal exam, mucous membranes moist Neck exam: Present: normal inspection. Absent: tenderness, meningismus, lymphadenopathy Respiratory exam: Present: decreased breath sounds. Absent: respiratory distress, rales, rhonchi, stridor Cardiovascular Exam: Present: regular rate, normal rhythm, normal heart sounds. Absent: systolic murmur, diastolic murmur, rubs, gallop, clicks GI/Abdominal exam: Present: soft, normal bowel sounds. Absent: distended, tenderness, guarding, rebound, rigid Extremities exam: Present: normal inspection, full ROM, normal capillary refill , pedal edema (Pedal edema to the knees). Absent: tenderness, joint swelling, calf tenderness Back exam: Present: normal inspection Neurological exam: Present: alert, oriented X3, CN II-XII intact Psychiatric exam: Present: normal affect, normal mood Skin exam: Present: warm, dry, intact, normal color. Absent: rash Course Vital Signs 08/19/16 08/19/16 08/19/16 08:08 09:00 09:08 Temperature 98.5 F Pulse Rate 94 94 89 Respiratory 20 Rate Blood Pressure 172/82 O2 Sat by Pulse 98 Oximetry 08/19/16 08/19/16 09:09 10:26 Temperature 97.8 F Pulse Rate 87 93 Respiratory 20 18 Rate Blood Pressure 155/71 174/84 O2 Sat by Pulse 99 95 Oximetry - Reevaluation(s) Reevaluation #1: 08/19/16 10:41 Reevaluation patient reveals she is feeling somewhat better there is evidence of a right lower lobe infiltrate and increasing effusion. Reevaluation #2: 08/19/16 10:44 Patient does have elevated BNP indicative of CHF. She does have no fever this time her white blood cell count is elevated. Medical Decision Making - Medical Decision Making I did a long discussion with patient regarding the findings she is feeling somewhat improved though she still dyspneic. She does have evidence of right lower lobe infiltrative process as well as increasing effusion. Evidence of CHF. - Lab Data Result diagrams: 08/19/16 08:40 08/19/16 08:40 Lab Results 08/19/16 08/19/16 08/19/16 Range/Units 08:40 08:40 08:40 WBC 12.5 H (3.8-10.6) k/uL RBC 3.17 L (3.80-5.40) m/uL Hgb 9.6 L (11.4-16.0) gm/dL Hct 30.3 L (34.0-46.0) % MCV 95.7 (80.0-100.0) fL MCH 30.4 (25.0-35.0) pg MCHC 31.8 (31.0-37.0) g/dL RDW 14.6 (11.5-15.5) % Plt Count 201 (150-450) k/uL Neutrophils % 82 % Lymphocytes % 8 % Monocytes % 5 % Eosinophils % 2 % Basophils % 1 % Neutrophils # 10.3 H (1.3-7.7) k/uL Lymphocytes # 1.0 (1.0-4.8) k/uL Monocytes # 0.7 (0-1.0) k/uL Eosinophils # 0.2 (0-0.7) k/uL Basophils # 0.1 (0-0.2) k/uL Hypochromasia Slight PT (9.0-12.0) sec INR (<1.1) APTT (22.0-30.0) sec Sodium 142 (137-145) mmol/L Potassium 4.2 (3.5-5.1) mmol/L Chloride 97 L (98-107) mmol/L Carbon Dioxide 39 H (22-30) mmol/L Anion Gap 6 mmol/L BUN 21 H (7-17) mg/dL Creatinine 1.46 H (0.52-1.04) mg/dL Est GFR (MDRD) Af Amer 45 (>60 ml/min/1.73 sqM) Est GFR (MDRD) Non-Af 37 (>60 ml/min/1.73 sqM) Glucose 182 H (74-99) mg/dL Calcium 9.4 (8.4-10.2) mg/dL Magnesium 1.8 (1.6-2.3) mg/dL Total Bilirubin 0.7 (0.2-1.3) mg/dL AST 43 H (14-36) U/L ALT 55 H (9-52) U/L Alkaline Phosphatase 141 H (38-126) U/L Total Creatine Kinase 39 (30-135) U/L CK-MB (CK-2) 1.9 (0.0-2.4) ng/mL CK-MB (CK-2) Rel Index 4.9 Troponin I 0.028 (0.000-0.034) ng/mL NT-Pro-B Natriuret Pep pg/mL Total Protein 6.1 L (6.3-8.2) g/dL Albumin 2.8 L (3.5-5.0) g/dL 08/19/16 08/19/16 Range/Units 08:40 08:40 WBC (3.8-10.6) k/uL RBC (3.80-5.40) m/uL Hgb (11.4-16.0) gm/dL Hct (34.0-46.0) % MCV (80.0-100.0) fL MCH (25.0-35.0) pg MCHC (31.0-37.0) g/dL RDW (11.5-15.5) % Plt Count (150-450) k/uL Neutrophils % % Lymphocytes % % Monocytes % % Eosinophils % % Basophils % % Neutrophils # (1.3-7.7) k/uL Lymphocytes # (1.0-4.8) k/uL Monocytes # (0-1.0) k/uL Eosinophils # (0-0.7) k/uL Basophils # (0-0.2) k/uL Hypochromasia PT 10.1 (9.0-12.0) sec INR 1.0 (<1.1) APTT 22.8 (22.0-30.0) sec Sodium (137-145) mmol/L Potassium (3.5-5.1) mmol/L Chloride (98-107) mmol/L Carbon Dioxide (22-30) mmol/L Anion Gap mmol/L BUN (7-17) mg/dL Creatinine (0.52-1.04) mg/dL Est GFR (MDRD) Af Amer (>60 ml/min/1.73 sqM) Est GFR (MDRD) Non-Af (>60 ml/min/1.73 sqM) Glucose (74-99) mg/dL Calcium (8.4-10.2) mg/dL Magnesium (1.6-2.3) mg/dL Total Bilirubin (0.2-1.3) mg/dL AST (14-36) U/L ALT (9-52) U/L Alkaline Phosphatase (38-126) U/L Total Creatine Kinase (30-135) U/L CK-MB (CK-2) (0.0-2.4) ng/mL CK-MB (CK-2) Rel Index Troponin I (0.000-0.034) ng/mL NT-Pro-B Natriuret Pep 2830 pg/mL Total Protein (6.3-8.2) g/dL Albumin (3.5-5.0) g/dL - EKG Data -: EKG Interpreted by Pa EKG shows normal: sinus rhythm (EKG shows a sinus rhythm of 91 MD interval 172 QRS duration 94 daily since QTC of 376/[address] T-wave configuration there is a prolonged QT noted.) - Radiology Data Radiology results: report reviewed (His right basilar infiltrate with slight increase of the right pleural effusion mild left basilar patchy density noted small effusion noted.), image reviewed Critical Care Time Critical Care Time: Yes Critical Care Time: 31 minutes of critical care time which includes the initial presentation with history physical lab and x-ray orders. Evaluation of the same. Reevaluation the patient response to therapy. Review of old charting. Discussion with the medical physician. Disposition Clinical Impression: Congestive heart failure (CHF), Bronchospasm, acute, Pneumonia, Pleural effusion Disposition: ADMITTED IP TO THIS HOSP Condition: Stable
[2016-08-19] MEDS ORDERED: methylPREDNISolone SOD SUCCI 125 MG/2 ML VIAL IV STA (08:39)
[2016-08-19 09:00] LABS: Basophils # (A) 0.1 k/uL (0-0.2); Basophils % (A) 1 %; CH 29.3; CHCM 30.8; Eosinophils # (A) 0.2 k/uL (0-0.7); Eosinophils % (A) 2 %; HCT 30.3 % (34.0-46.0); HDW 2.56; HGB 9.6 gm/dL (11.4-16.0); Hypochromasia Slight; Luc # (Auto) 0.27; Luc % (Auto) 2; Lymphocytes % (A) 8 %; MCH 30.4 pg (25.0-35.0); MCHC 31.8 g/dL (31.0-37.0); MCV 95.7 fL (80.0-100.0); Mean Platelet Volume 8.2; Monocytes # (A) 0.7 k/uL (0-1.0); Monocytes % (A) 5 %; Neutrophils # (A) 10.3 k/uL (1.3-7.7); Neutrophils % (A) 82 %; RBC 3.17 m/uL (3.80-5.40); RDW 14.6 % (11.5-15.5); WBC 12.5 k/uL (3.8-10.6); WBC (Perox) 13.11
[2016-08-19 09:09] LABS: Partial Thromboplastin Time 22.8 sec (22.0-30.0); Prothrombin Time 10.1 sec (9.0-12.0)
[2016-08-19 09:20] LABS: Calcium 9.4 mg/dL (8.4-10.2); Magnesium 1.8 mg/dL (1.6-2.3); Potassium 4.2 mmol/L (3.5-5.1); Total Bilirubin 0.7 mg/dL (0.2-1.3); Total Protein 6.1 g/dL (6.3-8.2)
--- NOTE | 2016-08-19 09:23 | XR ---
EXAMINATION TYPE: XR chest 2V DATE OF EXAM: 08/19/2016 9:20 AM COMPARISON: 07/30/2016 HISTORY: Shortness of breath TECHNIQUE: Frontal and lateral views of the chest are obtained. FINDINGS: Scattered senescent parenchymal changes noted. Hyperinflation compatible with COPD. Persistent right basilar infiltrate with slight increase in pleural effusion. Mild left basilar patch y density as well as small effusions noted. Heart size is stable. Pulmonary venous congestion without overt failure. Mediastinal structures are stable and grossly unremarkable. No evidence for hilar prominence. Degenerative changes dorsal spine. IMPRESSION: 1. Persistent right basilar infiltrate with slight increase in pleural effusion. Mild left basilar pa tchy density as well as small effusions noted.
[2016-08-19 09:35] LABS: Creatine Kinase MB 1.9 ng/mL (0.0-2.4); Troponin I 0.028 ng/mL (0.000-0.034)
[2016-08-19] MEDS ORDERED: PIPERACILLIN-TAZOBACTAM 3.375 GM in DEXTROSE/WATER 1 50ML.BAG IVPB STA (10:50)
[2016-08-19] MEDS: IPRATROPIUM-ALBUTEROL 3 ML NEB INHALATION SCH ×3 (11:08→20:28)
[2016-08-19] MEDS: SODIUM CHLORIDE 0.9% 1,000 ML IV SCH (11:12)
[2016-08-19 12:00] LABS: Hemoglobin A1C 8.7 % (4.2-6.1)
[2016-08-19 13:27] LABS: Glucose,Whole Blood 173 mg/dL (75-99)
[2016-08-19] MEDS: NITROGLYCERIN OINT 1 INCH/GM PACKET TOPICAL SCH ×3 (13:52→21:08)
[2016-08-19] MEDS: FUROSEMIDE 10 MG/ML 4 ML VIAL IV SCH (15:59)
[2016-08-19] MEDS: ACETAMINOPHEN TAB 500 MG TAB PO PRN (15:59)
[2016-08-19 17:21] LABS: Glucose,Whole Blood 205 mg/dL (75-99)
[2016-08-19] MEDS: INSULIN LISPRO (humaLOG) 300 UNIT/3 ML VIAL SQ SCH ×2 (17:50→21:07)
[2016-08-19] MEDS: CARVEDILOL 12.5 MG TAB PO SCH (17:50)
[2016-08-19 20:51] LABS: Glucose,Whole Blood 284 mg/dL (75-99)
[2016-08-19] MEDS: ATORVASTATIN 20 MG TAB PO SCH (21:08)
[2016-08-20] MEDS: IPRATROPIUM-ALBUTEROL 3 ML NEB INHALATION SCH ×6 (00:21→19:45)
[2016-08-20] MEDS: FUROSEMIDE 10 MG/ML 4 ML VIAL IV SCH ×3 (00:41→16:38)
[2016-08-20] MEDS: methylPREDNISolone SOD SUCCI 40 MG/ML 1 ML VIAL IV SCH ×3 (00:41→16:38)
[2016-08-20] MEDS: LEVOTHYROXINE 88 MCG TAB PO SCH (06:20)
[2016-08-20] MEDS: CARVEDILOL 12.5 MG TAB PO SCH ×2 (06:20→18:13)
[2016-08-20 06:28] LABS: Glucose,Whole Blood 238 mg/dL (75-99)
[2016-08-20] MEDS: INSULIN LISPRO (humaLOG) 300 UNIT/3 ML VIAL SQ SCH ×3 (06:30→18:13)
[2016-08-20 06:32] LABS: Calcium 9.1 mg/dL (8.4-10.2); Potassium 4.6 mmol/L (3.5-5.1)
--- NOTE | 2016-08-20 06:39 | HP ---
DATE OF ADMISSION: 08/19/2016 PRESENTING COMPLAINT: Short of breath. HISTORY OF PRESENTING COMPLAINT: This is a 56-year-old patient whose chronic stable medical conditions include nonobstructive coronary artery disease per cardiac cath, diabetes mellitus type 2, hypertension, hyperlipidemia, hypothyroidism, nonischemic cardiomyopathy, chronic kidney disease. Patient presented with increasing short of breath, wheezing, very slight cough. No fever. Some swelling of lower extremity. Admitted for the same. Denies any fever. REVIEW OF SYSTEMS: CONSTITUTIONAL: Tired. HEENT: None. RESPIRATORY: As above. CARDIOVASCULAR: As above. GASTROINTESTINAL: None. GENITOURINARY: None. MUSCULOSKELETAL: None. DERMATOLOGICAL: None. HEMATOLOGICAL: None. LYMPHATIC: None. PSYCHIATRY: None. NEUROLOGICAL: None. Past history of nonobstructive coronary artery disease, COPD, diabetes mellitus type 2, hypertension, hyperlipidemia, hypothyroidism, chronic urinary stress incontinence, chronic kidney disease, home oxygen 2 L, pancreatitis, urinary stress incontinence, left ear hard of hearing. PAST SURGICAL HISTORY: Appendectomy, cholecystectomy, cardiac cath in August 2015 was normal, right rotator cuff surgery. SOCIAL HISTORY: The patient lives at home with spouse and 3 children. Patient smoked from the age of 17, a half a pack a day; stopped in March 2016. Family history of colon cancer. HOME MEDICATIONS: 1. Vitamin D2, 50,000 units on Tuesdays. 2. Atrovent 2 puffs q.i.d. 3. Aldactone 12.5 p.o. daily. 4. Synthroid 88 mcg daily. 5. Multivitamin 1 tablet p.o. daily. 6. Vitamin B12, 1000 mcg p.o. daily. 7. Vitamin D3, 400 units p.o. daily. 8. Coreg 12.5 b.i.d. 9. Lipitor 20 mg q.h.s. 10. Ventolin 2.5 q.4 p.r.n. 11. Cozaar 50 mg p.o. daily. 12. Lantus 20 units subcu daily. 13. Lasix 40 mg p.o. daily. 14. Pulmicort 0.5 nebulizer b.i.d. 15. Ventolin HFA 2 puffs q.i.d. p.r.n. 16. Aspirin 81 mg p.o. daily. Allergies to IODINE DYE. ON EXAMINATION: VITAL SIGNS ON PRESENTATION: Temperature 98.5, pulse 94, respirations 22, blood pressure 172/82, pulse ox 98% on 2.5 L. GENERAL APPEARANCE: Obese. BMI 40.6, sitting on the edge of bed, short of breath. EYES: Pupils equal. Conjunctivae normal. HEENT: Oral cavity normal. NECK: JVD raised. Mass not palpable. RESPIRATORY: Effort increased. LUNGS: Diminished breath sounds. CARDIOVASCULAR: First and second sounds normal. Edema present. ABDOMEN: Distended, soft. Liver and spleen not palpable. LYMPHATIC: No lymph nodes palpable in the neck or axillae. PSYCHIATRY: Alert and oriented x3. Mood is slightly anxious appearing. NEUROLOGICAL: Pupils equal. Cranial nerves grossly intact. Power and sensation grossly intact. INVESTIGATIONS: White count 12.5, hemoglobin 9.6. Potassium 4.2. BUN 21 creatinine 1.46. ProBNP 2830. Chest x-ray shows some right basilar infiltrate with slight ( ) pleural effusion. Patient's last 2-D echocardiogram from April 2016 shows EF of 35% to 40%. ASSESSMENT: 1. Acute chronic obstructive pulmonary disease exacerbation in an ex-smoker. 2. Nonobstructive coronary artery disease per cardiac catheterization in 2016. 3. Diabetes mellitus type 2, on oral hypoglycemic. 4. Essential hypertension. 5. Hyperlipidemia. 6. Hypothyroidism. 7. Chronic urinary stress incontinence. 8. Obesity, body mass index greater than 30. 9. Chronic kidney disease, stage III from hypertensive nephrosclerosis and diabetic nephropathy. 10. Acute on chronic congestive heart failure exacerbation from nonischemic cardiomyopathy; ejection fraction 35% to 40%. PLAN: Patient is put on IV Lasix, nebulized bronchodilators, Solu-Medrol. Home medications are resumed. Care was discussed with the patient. Consultations were made. Follow electrolytes closely.
[2016-08-20] MEDS ORDERED: FUROSEMIDE 40 MG TAB PO SCH (09:00)
[2016-08-20] MEDS: ASPIRIN 325 MG TAB PO SCH (09:13)
[2016-08-20] MEDS: MULTIVITAMINS, THERA 1 EACH TAB PO SCH (09:13)
[2016-08-20] MEDS: LOSARTAN 50 MG TAB PO SCH (09:14)
[2016-08-20] MEDS: SPIRONOLACTONE 25 MG TAB PO SCH (09:14)
[2016-08-20] MEDS: INSULIN GLARGINE 100 UNIT/ML 10 ML VIAL SQ SCH (09:15)
[2016-08-20] MEDS: NITROGLYCERIN OINT 1 INCH/GM PACKET TOPICAL SCH ×3 (09:15→18:13)
--- NOTE | 2016-08-20 09:33 | CDI ---
In responding to this query, please exercise your independent professional judgment. The [facility] Coding Staff and Clinical Documentation Specialists appreciate your assistance in clarifying documentation, maintaining compliance with coding guidelines, accurately documenting patients condition and capturing severity of illness. The fact that a question is asked does not imply that any particular answer is desired or expected. Communication forms are a method of clarifying documentation and are not made part of the Legal Health Record. Thank you in advance for your clarification. Last Revision, July 2015 Ezra Hair [address] [facility] [place] [address] Documentation Clarification Form Date: 08/20/2016 9:21:00 AM From: Kiana Reis Admit Date: 08/19/2016 10:46:00 AM Patient Name: Alaina Nieto Visit Number: [id number] Dr. Kevin Florence Acute on Chronic CHF is documented in the H&P. History/Risk Factors: Hypertension Diabetes Mellitus type 2 CKD stage III CAD Clinical Indicators: BNP: 2830 Echocardiogram Results from April 2016: ef 35-40% per H&P Chest X Ray: pleural effusion Treatment: IV Lasix O2 nasal cannula In your professional opinion, can you please clarify the type of CHF if known? Acute on Chronic Systolic CHF Acute on Chronic Diastolic CHF Acute on Chronic Systolic and Diastolic CHF Unable to determine Other, please specify Please document in your progress notes and discharge summary in order to capture severity of illness and risk of mortality. Include clinical findings that support your diagnosis. FYI: Press F11 to launch patient chart. Place X here if this finding has no clinical significance, is not applicable or if you are not able to provide any additional documentation. LUKE
--- NOTE | 2016-08-20 09:42 | CDI ---
In responding to this query, please exercise your independent professional judgment. The [facility] Coding Staff and Clinical Documentation Specialists appreciate your assistance in clarifying documentation, maintaining compliance with coding guidelines, accurately documenting patients condition and capturing severity of illness. The fact that a question is asked does not imply that any particular answer is desired or expected. Communication forms are a method of clarifying documentation and are not made part of the Legal Health Record. Thank you in advance for your clarification. Last Revision, July 2015 Ezra Hair [address] [facility] [place] [address] Documentation Clarification Form Date: 08/20/2016 9:33:00 AM From: Kiana Reis Admit Date: 08/19/2016 10:46:00 AM Patient Name: Alaina Nieto Visit Number: [id number] Dr. Kevin Florence History/Risk Factors: COPD CAD CHF CKD stage III DM type 2 Exsmoker Home oxygen Clinical Indicators: Home oxygen documented in H&P Treatment: Breathing tx IV Lasix IV steroids O2 nasal cannula In your professional opinion, can you please clarify if these findings signify one of the following conditions? o Chronic Respiratory failure with hypercapnia o Chronic Respiratory failure with hypoxia o Other Diagnosis, please specify o Unable to determine Please document in your progress notes and discharge summary in order to capture severity of illness and risk of mortality. Include clinical findings that support your diagnosis. FYI: Press F11 to launch patient chart. Place X here if this finding has no clinical significance, is not applicable or if you are not able to provide any additional documentation. LUKE
--- NOTE | 2016-08-20 10:55 | P.CNPUL ---
History of Present Illness Consult date: 08/20/16 Requesting physician: Kevin Florence Reason for consult: pneumonia Chief complaint: shortness of breath History of present illness: this is a 56-year-old female patient who is being evaluated and examined today for pulmonary services. This patient is well known to our office. the patient came into the emergency room presenting with increasing shortness of breath wheezing as well as a nonproductive cough. patient was also noted to have some swelling of her lower extremities. patient denies any nausea vomiting diarrhea or fevers. chest x-ray in the ER was noted to have persistent right basilar infiltrates with a slight increase in a pleural effusion. There was also mild left basilar patchy density with a small effusion. this patient has a known history of extensive COPD, coronary artery disease, diabetes mellitus type 2, hypertension, hyperlipidemia, hypo-thyroidism, and chronic kidney disease. This patient does require home oxygen 2 LPM via nasal cannula. on examination the patient is sitting up in bed and is short of breath with extensive conversation. Currently she is utilizing 3 L of oxygen via nasal cannula denies any significant cough or sputum production at this time. Review of Systems 14 point review of systems has been completed and is otherwise negative unless noted in the HPI. Past Medical History Past Medical History: Heart Failure, COPD, Diabetes Mellitus, Hyperlipidemia, Hypertension, Pneumonia, Renal Disease, Thyroid Disorder Additional Past Medical History / Comment(s): Pneumonias in past and recently admitted with pneumonia-07/29/16, CHF, nonischemic cardiomyopathy, tracheobronchitis, home O2 at 2L/NC ATC, IDDM type II, CKD, pancreatitis, hypothyroidism, urinary stress incontinence, L ear [place], diverticulitis. History of Any Multi-Drug Resistant Organisms: None Reported Past Surgical History: Appendectomy, Cholecystectomy, Heart Catheterization, Hysterectomy, Orthopedic Surgery Additional Past Surgical History / Comment(s): cardiac caths with last one being 09/11/15 and was normal, colonoscopy-pt states normal, RT ROTATOR CUFF SX Past Anesthesia/Blood Transfusion Reactions: No Reported Reaction Additional Past Anesthesia/Blood Transfusion Reaction / Comment(s): CLAUSTERPHOBIA. Pt states she has never received blood. Past Psychological History: Anxiety Additional Psychological History / Comment(s): LIVES AT HOME WITH SPOUSE AND 3 TEENAGERS. 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 Pt drives. Pt recently placed on home O2 at 2L/NC ATC. She has had anxiety with NIRANJAN and uses xanax rarely. She has a nebulizer. 3 steps to get into home. Smoking Status: Former smoker Past Alcohol Use History: None Reported Additional Past Alcohol Use History / Comment(s): STARTED SMOKING AT AGE 17- SMOKED 1-2 PPD.STATED QUIT MAR 2016 Past Drug Use History: None Reported - Past Family History Father Family Medical History: Cancer Additional Family Medical History / Comment(s): OF COLON CANCER AT AGE 52 Mother Family Medical History: Congestive Heart Failure (CHF), CVA/TIA Additional Family Medical History / Comment(s): OF CHF AGE 62 Medications and Allergies Home Medications Medication Instructions Recorded Confirmed Type Albuterol Inhaler [Ventolin Hfa 2 puff INHALATION RT-QID PRN 07/13/14 08/19/16 History Inhaler] Albuterol Nebulized [Ventolin 2.5 mg INHALATION RT-Q4H PRN 07/13/14 08/19/16 History Nebulized] Levothyroxine Sodium [Synthroid] 88 mcg PO DAILY 07/13/14 08/19/16 History Atorvastatin [Lipitor] 20 mg PO HS 09/10/15 08/19/16 History Cyanocobalamin [Vitamin B-12] 1,000 mcg PO DAILY 09/10/15 08/19/16 History Multivitamins, Thera [Multivitamin 1 tab PO DAILY 09/10/15 08/19/16 History (formulary)] Ergocalciferol [Vitamin D2 50,000 unit PO TU 05/06/16 08/19/16 History (DRISDOL)] Cholecalciferol [Vitamin D3] 400 unit PO DAILY 07/16/16 08/19/16 History Insulin Glargine [Lantus] 20 unit SQ DAILY 07/29/16 08/19/16 History Spironolactone [Aldactone] 12.5 mg PO DAILY 07/29/16 08/19/16 History Budesonide [Pulmicort] 0.5 mg INHALATION RT-BID 08/19/16 08/19/16 History Ipratropium [place] [Atrovent Hfa] 2 puff INHALATION RT-QID 08/19/16 08/19/16 History Allergies Allergy/AdvReac Type Severity Reaction Status Date / Time Iodinated Contrast Media - AdvReac KIDNEY Verified 08/19/16 08:24 Oral and DAMAGE Physical Exam Vitals: Vital Signs Temp Pulse Pulse Resp BP BP Pulse Ox 08/20/16 08:40 98 20 08/20/16 07:59 96.1 F L 84 16 121/59 90 L 08/20/16 06:15 91 176/81 08/20/16 04:00 97.7 F 87 18 141/66 94 L 08/20/16 00:00 81 18 132/58 98 08/19/16 20:44 96 08/19/16 20:28 96 08/19/16 20:00 97.5 F L 79 18 129/64 93 L 08/19/16 18:48 95 18 164/72 90 L 08/19/16 16:18 96 08/19/16 16:07 94 98 08/19/16 16:00 99.0 F 96 24 174/87 94 L 08/19/16 15:00 92 26 H 166/71 97 08/19/16 14:50 91 24 166/71 97 08/19/16 14:40 89 26 H 166/71 97 08/19/16 14:30 92 24 166/71 95 08/19/16 14:20 91 16 166/71 97 08/19/16 14:10 90 21 166/71 98 08/19/16 14:00 92 25 H 166/71 98 08/19/16 13:50 89 19 166/71 97 08/19/16 13:40 90 25 H 166/71 96 08/19/16 13:30 89 33 H 166/71 94 L 08/19/16 13:20 101 H 08/19/16 13:19 101 H 08/19/16 12:56 98.2 F 94 20 149/71 96 08/19/16 12:10 98.1 F 89 20 161/72 94 L 08/19/16 11:51 89 18 155/66 94 L 08/19/16 11:22 90 08/19/16 11:10 91 Intake and Output 08/19/16 08/20/16 08/20/16 22:59 06:59 14:59 Intake Total 32.5 200 180 Output Total 200 Balance 32.5 0 180 Intake: IV 32.5 200 Piperacillin-Tazobactam 3 12.5 .375 gm In Dextrose/Water 1 50ml.bag @ 12.5 mls/hr IVPB ONCE STA Rx#: [id number] Sodium Chloride 0.9% 1, 20 200 000 ml @ 20 mls/hr IV . Q24H [facility] Rx#:[id number] Oral 180 Output: Urine 200 Other: Voiding Method Toilet Toilet Toilet # Voids 1 Weight 110.7 kg GENERAL EXAM: Alert, active, comfortable in no apparent distress. HEAD: Normocephalic. EYES: Normal reaction of pupils, equal size. NOSE: Clear with pink turbinates. THROAT: No erythema or exudates. NECK: No masses, no JVD. CHEST: No chest wall deformity. LUNGS: breath sounds noted to be coarse throughout. Bilateral bases are diminished, some increased expiratory wheezing noted. CVS: S1 and S2 normal with no audible mumurs, regular rhythm. ABDOMEN: No hepatosplenomegaly, normal bowel sounds, no guarding or rigidity. EXTREMITIES: 2+ lower extremity edema noted, pedal pulses palpable. SKIN: No rashes CENTRAL NERVOUS SYSTEM: No focal deficits, tone is normal in all 4 extremities. Results - Laboratory Findings CBC and BMP: 08/19/16 08:40 08/20/16 05:49 PT/INR, D-dimer PT 10.1 sec (9.0-12.0) 08/19/16 08:40 INR 1.0 (<1.1) 08/19/16 08:40 Abnormal lab findings: Abnormal Labs 08/19/16 08/19/16 08/19/16 13:25 17:18 20:49 Chloride Carbon Dioxide BUN Creatinine Glucose POC Glucose (mg/dL) 173 H 205 H 284 H 08/20/16 08/20/16 05:49 06:23 Chloride 94 L Carbon Dioxide 38 H BUN 28 H Creatinine 1.70 H Glucose 254 H POC Glucose (mg/dL) 238 H - Diagnostic Findings Chest x-ray: report reviewed, image reviewed Assessment and Plan Plan: Assessment Acute exacerbation of chronic obstructive pulmonary disease bilateral pleural effusions Congestive heart failure and cardiomyopathy, ejection fraction 35-40% coronary artery disease Diabetes mellitus type 2 chronic kidney disease stage III Hypertension Hyperlipidemia Plan Medications have been reviewed and will be continued as ordered. We will plan to have an ultrasound of the chest for the bilateral pleural effusions today. We will also obtain sputum cultures. The patient should continue on nebulizer treatments and IV steroids. Continue supportive care. We will continue to monitor labs and adjust treatment as necessary. I performed an examination of the patient and discussed their management with the nurse practitioner. I have reviewed the nurse practitioner's note and agree with the documented findings and plan of care.
[2016-08-20] MEDS: BUDESONIDE 0.5 MG/2 ML NEBU INHALATION SCH ×2 (11:02→19:45)
[2016-08-20 11:10] VITALS: BMI 40.6
--- NOTE | 2016-08-20 11:47 | US ---
EXAMINATION TYPE: US chest DATE OF EXAM: 08/20/2016 11:28 AM COMPARISON: See PACS CLINICAL HISTORY: bilaterally pl effusions. EXAM MEASUREMENTS: Right Pleural Effusion fluid pocket: 8.0 cm Right skin to fluid thickness: 4.0 cm Left Pleural Effusion fluid pocket: 2.0 cm Left skin to fluid thickness: 5.0 cm Lung floating within right fluid. Right side marked for possible thoracentesis outside the dept. Left side not marked for possible thoracentesis outside the dept. Pulmonologists are able to review the images in the patient?s EMR. IMPRESSIONS: Bilateral pleural effusions right greater than left
[2016-08-20 11:57] LABS: Glucose,Whole Blood 327 mg/dL (75-99)
[2016-08-20] MEDS: SODIUM CHLORIDE 0.9% 1,000 ML IV SCH (12:52)
[2016-08-20 16:51] LABS: Glucose,Whole Blood 274 mg/dL (75-99)
[2016-08-20 20:49] LABS: Glucose,Whole Blood 304 mg/dL (75-99)
[2016-08-20] MEDS: SODIUM FERRIC GLUCONAT-SUCROSE 125 MG in SODIUM CHLORIDE 0.9% 100 ML IVPB SCH (20:52)
[2016-08-20] MEDS: ATORVASTATIN 20 MG TAB PO SCH (20:52)
[2016-08-20] MEDS: FUROSEMIDE 250 MG in SODIUM CHLORIDE 0.9% 225 ML IVP SCH (22:22)
[2016-08-21] MEDS: IPRATROPIUM-ALBUTEROL 3 ML NEB INHALATION SCH ×6 (00:42→21:06)
[2016-08-21] MEDS: methylPREDNISolone SOD SUCCI 40 MG/ML 1 ML VIAL IV SCH ×4 (05:06→20:17)
[2016-08-21] MEDS: INSULIN LISPRO (humaLOG) 300 UNIT/3 ML VIAL SQ SCH ×5 (05:06→21:05)
[2016-08-21 05:44] LABS: Glucose,Whole Blood 183 mg/dL (75-99)
[2016-08-21 06:30] LABS: Calcium 8.8 mg/dL (8.4-10.2); Potassium 4.3 mmol/L (3.5-5.1)
--- NOTE | 2016-08-21 06:37 | PN ---
DATE OF SERVICE: 08/20/2016 PRESENTING COMPLAINT: Short of breath. INTERVAL HISTORY: This is a patient who presents with COPD exacerbation and CHF exacerbation. Breathing is slightly better. Edema is still present. Sitting up, slight cough. Review of systems done for constitutional, cardiovascular, GI pertinent relevant findings above. Current medications include IV Lasix 40 q.8, Solu-Medrol and nebulized bronchodilators. On examination, temperature 97.6, pulse 84, respirations 18, blood pressure 136/63, pulse ox 98% on 3 liters. GENERAL APPEARANCE: Sitting up, tired -appearing. EYES: Pupils equal. Conjunctivae normal. NECK: JVD raised. Mass not palpable. RESPIRATORY: Effort increased. LUNGS: Diminished breath sounds. CARDIOVASCULAR: First and seconds normal. No edema present. ABDOMEN: Soft, nontender. Liver and spleen not palpable. PSYCHIATRY: Alert and oriented times three. Mood and affect normal. INVESTIGATIONS: Potassium 4.6. BUN 28, creatinine 1.70. Chest x-ray shows right pleural effusion and infiltrate. ASSESSMENT: 1. Acute chronic obstructive pulmonary disease exacerbation in an ex-smoker. 2. Nonobstructive coronary artery disease per cardiac cath in 2016. 3. Diabetes mellitus type 2, on oral hypoglycemic. 4. Essential hypertension. 5. Hyperlipidemia. 6. Hypothyroidism. 7. Chronic urinary stress incontinence. 8. Obesity; body mass index greater than 30. 9. Chronic kidney disease stage III from hypertensive nephrosclerosis and diabetic nephropathy. 10. Acute on chronic congestive heart failure exacerbation from nonischemic cardiomyopathy; ejection fraction 35% to 40%, and also right-sided effusion. PLAN: At this point, will change the patient to Lasix drip. Do strict I's and O's. Care was discussed with the patient. Follow.
--- NOTE | 2016-08-21 06:39 | PN ---
DATE OF SERVICE: 08/20/2016 ADDENDUM: Addendum to my progress note dictated earlier. I Add to: ASSESSMENT: 1. Acute on chronic congestive heart failure exacerbation from nonischemic cardiomyopathy; ejection fraction 35% to 40%, from hypertensive heart disease. 2. Chronic hypoxic respiratory failure from underlying chronic obstructive pulmonary disease.
[2016-08-21] MEDS: CARVEDILOL 12.5 MG TAB PO SCH ×2 (06:42→17:37)
[2016-08-21] MEDS: LEVOTHYROXINE 88 MCG TAB PO SCH (06:42)
[2016-08-21] MEDS: BUDESONIDE 0.5 MG/2 ML NEBU INHALATION SCH ×2 (08:15→21:06)
[2016-08-21] MEDS: SPIRONOLACTONE 25 MG TAB PO SCH (09:20)
[2016-08-21] MEDS: ASPIRIN 325 MG TAB PO SCH (09:20)
[2016-08-21] MEDS: LOSARTAN 50 MG TAB PO SCH (09:21)
[2016-08-21] MEDS: INSULIN GLARGINE 100 UNIT/ML 10 ML VIAL SQ SCH (09:21)
[2016-08-21] MEDS: MULTIVITAMINS, THERA 1 EACH TAB PO SCH (09:21)
[2016-08-21] MEDS: SODIUM FERRIC GLUCONAT-SUCROSE 125 MG in SODIUM CHLORIDE 0.9% 100 ML IVPB SCH ×2 (10:45→21:06)
[2016-08-21] MEDS: SODIUM CHLORIDE 0.9% 1,000 ML IV SCH (11:29)
--- NOTE | 2016-08-21 11:44 | CDI ---
In responding to this query, please exercise your independent professional judgment. The [facility] Coding Staff and Clinical Documentation Specialists appreciate your assistance in clarifying documentation, maintaining compliance with coding guidelines, accurately documenting patients condition and capturing severity of illness. The fact that a question is asked does not imply that any particular answer is desired or expected. Communication forms are a method of clarifying documentation and are not made part of the Legal Health Record. Thank you in advance for your clarification. Last Revision, March 2015 [address] [facility] [place] [address] Documentation Clarification Form Date: 08/21/2016 From: JACQUELINE Friedman, CCDS Admit Date: 08/19/2016 Patient Name: Alaina Nieto Visit Number: [id number] Acute on Chronic CHF is documented in the H&P and the progress note on 08/20. Please provide further specificity if possible. History/Risk Factors: Hypertension Diabetes Mellitus type 2 CKD stage III CAD Clinical Indicators: BNP: 2830 Echocardiogram Results from April 2016: ef 35-40% per H&P Chest X Ray: pleural effusion Treatment: IV Lasix O2 nasal cannula In your professional opinion, can you please clarify the type of CHF if known? Acute on Chronic Systolic CHF Acute on Chronic Diastolic CHF Acute on Chronic Systolic and Diastolic CHF Unable to determine Other, please specify Please document in your progress notes and discharge summary in order to capture severity of illness and risk of mortality. Include clinical findings that support your diagnosis. FYI: Press F11 to launch patient chart. Place X here if this finding has no clinical significance, is not applicable or if you are not able to provide any additional documentation. KATELYNND
[2016-08-21 11:58] LABS: Glucose,Whole Blood 185 mg/dL (75-99)
--- NOTE | 2016-08-21 15:56 | XR ---
EXAMINATION TYPE: XR chest 1V portable DATE OF EXAM: 08/21/2016 3:53 PM HISTORY: Post procedure. REFERENCE: Previous study dated 08/19/2016. FINDINGS: The heart is enlarged. There is a right-sided pleural effusion. This has decreased in colton rison with previous. I do not see a pneumothorax. IMPRESSION: 1. IMPROVEMENT IN THE AMOUNT OF PLEURAL FLUID. 2. NO POSTPROCEDURE COMPLICATION.
--- NOTE | 2016-08-21 16:09 | P.PN ---
Subjective This is a 56-year-old female patient is being evaluated and examined today on the sixth floor. This patient is well-known to our office. The patient came into the emergency room presenting with increasing shortness of breath as well as a nonproductive cough. Patient was also noted to have some swelling of her lower extremities. Patient denies any nausea vomiting diarrhea or fevers. Chest x-ray in the ER was noted to have persistent right basilar infiltrates with a slight increase in pleural effusions. The patient has a known history of extensive COPD, coronary artery disease, diabetes mellitus type 2, hypertension, hyperlipidemia, hypothyroidism, and chronic kidney disease. This patient does require home oxygen 2 L per minute via nasal cannula. The patient did have a ultrasound of the chest yesterday which revealed a right pleural effusion of 8 cm and the left pleural effusion of 2 cm. The patient will undergo a thoracentesis this afternoon. The procedure was explained at length to the patient including risk. Upon examination the patient is sitting up in bed and becomes short of breath with extensive conversation. Currently the patient is utilizing 3 L of oxygen via nasal cannula and denies any significant cough or sputum production at this time. Objective - Vital Signs Vital signs: Vital Signs Temp 97.9 F 08/21/16 11:04 Pulse 92 08/21/16 12:14 Resp 18 08/21/16 11:04 BP 140/70 08/21/16 12:00 Pulse Ox 97 08/21/16 11:04 Intake & Output 08/20/16 08/21/16 08/21/16 18:59 06:59 18:59 Intake Total 180 0 Output Total 800 1040 Balance 180 -800 -1040 Weight 110.7 kg 111 kg Intake: IV 0 Sodium Chloride 0.9% 1, 0 000 ml @ 20 mls/hr IV . Q24H [facility] Rx#:[id number] Oral 180 Output: Urine 800 1040 Other: Voiding Method Toilet Toilet Toilet # Voids 1 1 1 - Exam GENERAL EXAM: Alert, active, comfortable in no apparent distress. HEAD: Normocephalic. EYES: Normal reaction of pupils, equal size. NOSE: Clear with pink turbinates. THROAT: No erythema or exudates. NECK: No masses, no JVD. CHEST: No chest wall deformity. LUNGS: Breath sounds are to be coarse throughout. Bilateral bases are diminished and she has some increased expiratory wheezing that is noted. CVS: S1 and S2 normal with no audible mumurs, regular rhythm. ABDOMEN: No hepatosplenomegaly, normal bowel sounds, no guarding or rigidity. EXTREMITIES: 1-2+ edema noted, pedal pulses palpable. SKIN: No rashes CENTRAL NERVOUS SYSTEM: No focal deficits, tone is normal in all 4 extremities. - Labs CBC & Chem 7: 08/19/16 08:40 08/21/16 05:42 Labs: Abnormal Lab Results - Last 24 Hours (Table) 08/20/16 08/20/16 08/21/16 Range/Units 16:48 20:48 05:40 Chloride (98-107) mmol/L Carbon Dioxide (22-30) mmol/L BUN (7-17) mg/dL Creatinine (0.52-1.04) mg/dL Glucose (74-99) mg/dL POC Glucose (mg/dL) 274 H 304 H 183 H (75-99) mg/dL Total Protein (6.3-8.2) g/dL 08/21/16 08/21/16 08/21/16 Range/Units 05:42 05:42 11:56 Chloride 93 L (98-107) mmol/L Carbon Dioxide 37 H (22-30) mmol/L BUN 37 H (7-17) mg/dL Creatinine 1.90 H (0.52-1.04) mg/dL Glucose 185 H (74-99) mg/dL POC Glucose (mg/dL) 185 H (75-99) mg/dL Total Protein 5.7 L (6.3-8.2) g/dL Assessment and Plan Plan: Assessment Acute exacerbation of chronic obstructive pulmonary disease bilateral pleural effusions Congestive heart failure and cardiomyopathy, ejection fraction 35-40% coronary artery disease Diabetes mellitus type 2 chronic kidney disease stage III Hypertension Hyperlipidemia Plan Medications have been reviewed and will be continued as ordered. The patient will undergo a right-sided thoracentesis this afternoon. We will also obtain sputum cultures. The patient should continue on nebulizer treatments and IV steroids. Continue supportive care. We will continue to monitor labs and adjust treatment as necessary. I performed an examination of the patient and discussed their management with the nurse practitioner. I have reviewed the nurse practitioner's note and agree with the documented findings and plan of care.
[2016-08-21 16:50] LABS: Glucose,Whole Blood 172 mg/dL (75-99)
[2016-08-21] MEDS: ACETAMINOPHEN TAB 500 MG TAB PO PRN (17:41)
[2016-08-21 18:47] LABS: RBC, Body Fluid 3480 /uL
[2016-08-21] MEDS: FUROSEMIDE 250 MG in SODIUM CHLORIDE 0.9% 225 ML IVP SCH (19:49)
[2016-08-21] MEDS: ATORVASTATIN 20 MG TAB PO SCH (20:18)
[2016-08-21 21:00] LABS: Glucose,Whole Blood 212 mg/dL (75-99)
[2016-08-21] MEDS ORDERED: IPRATROPIUM-ALBUTEROL 3 ML NEB INHALATION PRN (21:10)
--- NOTE | 2016-08-21 21:32 | PN ---
DATE OF SERVICE: 08/21/2016 PRESENTING COMPLAINT: Short of breath. INTERVAL HISTORY: This is a patient who presented with COPD exacerbation and CHF exacerbation. I put the patient on a Lasix drip yesterday. Patient has put out close to about 2000 mL. Breathing is a shade better. Patient is getting thoracentesis today by Dr. Muhammad. Did tolerate a diet. Edema is still present. Review of systems done for constitutional, cardiovascular, GI, pulmonary; relevant findings as above. Current medications at present include DuoNeb and IV Solu-Medrol. On examination, temperature 96.9, pulse 96, respiration 15, blood pressure 148/88. On nasal cannula at 3 L. GENERAL APPEARANCE: Sitting up in bed. Breathing slightly better. EYES: Pupils equal. Conjunctiva normal. NECK: JVD raised. Mass not palpable. RESPIRATORY: Effort increased. LUNGS: Diminished breath sounds. CARDIOVASCULAR: First and second sounds normal. Edema present. ABDOMEN: Soft, nontender. Liver and spleen not palpable. PSYCHIATRY: Alert and oriented x3. Mood and affect normal. INVESTIGATIONS: BUN 37, creatinine 1.90. ASSESSMENT: 1. Acute on chronic congestive heart failure exacerbation from nonischemic cardiomyopathy; ejection fraction 35% to 40% from hypertensive heart disease. 2. Chronic hypoxic respiratory failure from underlying chronic obstructive pulmonary disease. 3. Acute chronic obstructive pulmonary disease exacerbation in an ex-smoker. 4. Non-obstructive coronary artery disease per cardiac catheterization in 2016. 5. Diabetes mellitus, type 2, on oral hypoglycemic. 6. Essential hypertension. 7. Hyperlipidemia. 8. Hypothyroidism. 9. Chronic urinary stress incontinence. 10. Obesity; body mass index greater than 30. 11. Chronic kidney disease, stage III, from hypertensive nephrosclerosis and diabetic nephropathy. 12. Large pleural effusion, probably congestive heart failure. PLAN: Continue current medication and treatment plan, including Lasix drip. Will also have Nephrology look at the patient. Care was discussed with the patient. Will follow.
--- NOTE | 2016-08-21 22:33 | PCN ---
DATE OF PROCEDURE: PROCEDURE PERFORMED: Right thoracentesis. INDICATIONS: 1. Shortness of breath. 2. Large right-sided pleural effusion. 3. Cardiomyopathy with chronic systolic heart failure, ejection fraction 35%. OPERATIVE DETAIL: Patient was prepared and draped in the usual fashion. 1% lidocaine was utilized to infiltrate the area and posterior lateral wall and eighth intercostal space was infiltrated. Ultrasound was used to marked the maxillary tap of the fluid after injecting 1% lidocaine, a stab incision less than 1/8 cm was performed. Catheter and needle was placed through the incision. Pleural fluid was aspirated, about 750 mL of pleural fluid was obtained which was light yellow in color. Patient tolerated the procedure well. No complication noted. Postprocedure chest x-ray is pending.
[2016-08-22 05:45] LABS: Glucose,Whole Blood 234 mg/dL (75-99)
[2016-08-22] MEDS: LEVOTHYROXINE 88 MCG TAB PO SCH (06:31)
[2016-08-22] MEDS: CARVEDILOL 12.5 MG TAB PO SCH ×2 (06:31→17:11)
[2016-08-22] MEDS: INSULIN LISPRO (humaLOG) 300 UNIT/3 ML VIAL SQ SCH ×4 (06:32→21:21)
[2016-08-22] MEDS: methylPREDNISolone SOD SUCCI 40 MG/ML 1 ML VIAL IV SCH ×2 (08:48→20:15)
[2016-08-22] MEDS: ASPIRIN 325 MG TAB PO SCH (08:48)
[2016-08-22] MEDS: SPIRONOLACTONE 25 MG TAB PO SCH (08:48)
[2016-08-22] MEDS: MULTIVITAMINS, THERA 1 EACH TAB PO SCH (08:49)
[2016-08-22] MEDS: LOSARTAN 50 MG TAB PO SCH (08:49)
[2016-08-22] MEDS: INSULIN GLARGINE 100 UNIT/ML 10 ML VIAL SQ SCH (08:49)
[2016-08-22] MEDS: BUDESONIDE 0.5 MG/2 ML NEBU INHALATION SCH ×2 (08:59→20:29)
[2016-08-22] MEDS: IPRATROPIUM-ALBUTEROL 3 ML NEB INHALATION SCH ×4 (08:59→20:29)
--- NOTE | 2016-08-22 09:43 | P.NPCON ---
History of Present Illness - Reason for Consult acute renal failure - History of Present Illness Reason for consultation: Acute kidney injury on chronic kidney disease History of present illness: Patient is a 56-year-old female seen in renal consultation for acute kidney injury on chronic kidney disease. Patient has chronic kidney disease stage III secondary to diabetic kidney disease and contrast-induced ATN with baseline creatinine in the range of 1-1.3. Today her creatinine is elevated at 1.9. Patient presented to the hospital with dyspnea along with nausea and vomiting. She was noted to have right-sided pleural effusion and underwent thoracentesis on August 21 with 750 mL drained. She has history of systolic CHF with ejection fraction of 35%. She is currently maintained on a Lasix drip running at 10 mL an hour and her urine output is documented as over 2 L in the last 24 hours. Her lower extremity edema is improving according to her. Denies any further vomiting. Oral intake is good. Denies use of NSAIDs. She does have a brother was currently maintained on hemodialysis as well. Vital signs are stable. General: The patient appeared well nourished and normally developed. HEENT: Head exam is unremarkable. Neck is without jugular venous distension. LUNGS: Lungs are clear to auscultation and percussion. Breath sounds decreased. HEART: Rate and Rhythm are regular. First and second heart sounds normal. No murmurs, rubs or gallops. ABDOMEN: Abdominal exam reveals normal bowel sounds. Non-tender and non- distended. No evidence of peritonitis. EXTREMITITES: 1+ edema. Past Medical History Past Medical History: Heart Failure, COPD, Diabetes Mellitus, Hyperlipidemia, Hypertension, Pneumonia, Renal Disease, Thyroid Disorder Additional Past Medical History / Comment(s): Pneumonias in past and recently admitted with pneumonia-07/29/16, CHF, nonischemic cardiomyopathy, tracheobronchitis, home O2 at 2L/NC ATC, IDDM type II, CKD, pancreatitis, hypothyroidism, urinary stress incontinence, L ear [place], diverticulitis. History of Any Multi-Drug Resistant Organisms: None Reported Past Surgical History: Appendectomy, Cholecystectomy, Heart Catheterization, Hysterectomy, Orthopedic Surgery Additional Past Surgical History / Comment(s): cardiac caths with last one being 09/11/15 and was normal, colonoscopy-pt states normal, RT ROTATOR CUFF SX Past Anesthesia/Blood Transfusion Reactions: No Reported Reaction Additional Past Anesthesia/Blood Transfusion Reaction / Comment(s): CLAUSTERPHOBIA. Pt states she has never received blood. Past Psychological History: Anxiety Additional Psychological History / Comment(s): LIVES AT HOME WITH SPOUSE AND 3 TEENAGERS. 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 Pt drives. Pt recently placed on home O2 at 2L/NC ATC. She has had anxiety with NIRANJAN and uses xanax rarely. She has a nebulizer. 3 steps to get into home. Smoking Status: Former smoker Past Alcohol Use History: None Reported Additional Past Alcohol Use History / Comment(s): STARTED SMOKING AT AGE 17- SMOKED 1-2 PPD.STATED QUIT MAR 2016 Past Drug Use History: None Reported - Past Family History Father Family Medical History: Cancer Additional Family Medical History / Comment(s): OF COLON CANCER AT AGE 52 Mother Family Medical History: Congestive Heart Failure (CHF), CVA/TIA Additional Family Medical History / Comment(s): OF CHF AGE 62 Medications and Allergies Home Medications Medication Instructions Recorded Confirmed Type Albuterol Inhaler [Ventolin Hfa 2 puff INHALATION RT-QID PRN 07/13/14 08/19/16 History Inhaler] Albuterol Nebulized [Ventolin 2.5 mg INHALATION RT-Q4H PRN 07/13/14 08/19/16 History Nebulized] Levothyroxine Sodium [Synthroid] 88 mcg PO DAILY 07/13/14 08/19/16 History Atorvastatin [Lipitor] 20 mg PO HS 09/10/15 08/19/16 History Cyanocobalamin [Vitamin B-12] 1,000 mcg PO DAILY 09/10/15 08/19/16 History Multivitamins, Thera [Multivitamin 1 tab PO DAILY 09/10/15 08/19/16 History (formulary)] Ergocalciferol [Vitamin D2 50,000 unit PO TU 05/06/16 08/19/16 History (DRISDOL)] Cholecalciferol [Vitamin D3] 400 unit PO DAILY 07/16/16 08/19/16 History Insulin Glargine [Lantus] 20 unit SQ DAILY 07/29/16 08/19/16 History Spironolactone [Aldactone] 12.5 mg PO DAILY 07/29/16 08/19/16 History Budesonide [Pulmicort] 0.5 mg INHALATION RT-BID 08/19/16 08/19/16 History Ipratropium [place] [Atrovent Hfa] 2 puff INHALATION RT-QID 08/19/16 08/19/16 History Allergies Allergy/AdvReac Type Severity Reaction Status Date / Time Iodinated Contrast Media - AdvReac KIDNEY Verified 08/19/16 08:24 Oral and DAMAGE Physical Exam Vitals: Vital Signs Temp Pulse Pulse Resp BP Pulse Ox 08/22/16 09:01 77 08/22/16 08:00 96.0 F L 68 18 127/60 97 08/22/16 03:43 96.5 F L 82 18 140/69 94 L 08/22/16 00:00 97.1 F L 87 18 152/70 93 L 08/21/16 21:09 80 08/21/16 21:00 76 08/21/16 16:34 96.9 F L 96 15 148/88 08/21/16 16:20 90 08/21/16 16:08 90 08/21/16 12:14 92 08/21/16 12:00 140/70 08/21/16 11:57 90 08/21/16 11:04 97.9 F 71 18 136/70 97 08/21/16 10:20 96.9 F L 72 16 148/71 96 08/21/16 10:07 80 18 140/70 95 Intake and Output 08/21/16 08/22/16 08/22/16 22:59 06:59 14:59 Intake Total 676.5 840 120 Output Total 1600 Balance 676.5 -760 120 Intake: IV 240 240 Furosemide 250 mg In 80 80 Sodium Chloride 0.9% 225 ml @ 10 MG/HR 10 mls/hr IVP .Q24H [facility] Rx#: [id number] Sodium Chloride 0.9% 1, 160 160 000 ml @ 20 mls/hr IV . Q24H [facility] Rx#:[id number] Intake, IV Titration 214.5 Amount Furosemide 250 mg In 214.5 Sodium Chloride 0.9% 225 ml @ 10 MG/HR 10 mls/hr IVP .Q24H [facility] Rx#: [id number] Oral 222 600 120 Output: Urine 1600 Other: Voiding Method Toilet Toilet # Voids 1 Weight 110.9 kg Results - Lab Results Most recent lab results Calcium 8.8 mg/dL (8.4-10.2) 08/21/16 05:42 Magnesium 1.8 mg/dL (1.6-2.3) 08/19/16 08:40 08/19/16 08:40 08/21/16 05:42 Assessment and Plan Plan: Assessment: #1. Nonoliguric acute kidney injury mostly prerenal in nature secondary to diuresis. Creatinine up to 1.9 today. #2. Chronic kidney disease stage III secondary to diabetic kidney disease and contrast-induced nephropathy. Baseline creatinine in the range of 1-1.3. #3. Systolic CHF with ejection fraction of 35%. #4. Volume overload. Improving. #5. Right pleural effusion status post thoracentesis on August 21 750 mL drained. #6. Anemia. Rule out iron deficiency. #7. Metabolic alkalosis secondary to compensation for chronic respiratory acidosis from COPD. Plan: Discontinue Lasix drip and start Lasix 40 mg IV twice daily. Maintain fluid restriction and low-salt diet. Check ferritin level and iron studies. Repeat electrolytes in the morning. Avoid nephrotoxic agents and hypotensive episodes. Thank you for the consultation. I will continue to follow the patient with you during her hospital stay.
[2016-08-22 12:04] LABS: Glucose,Whole Blood 200 mg/dL (75-99)
--- NOTE | 2016-08-22 15:03 | P.PN ---
Subjective Principal diagnosis: Congestive heart failure Patient seen and examined. Patient states she is feeling much better today. She underwent thoracentesis and states that helps her breathing. She denies fevers and chills. Objective - Vital Signs Vital signs: Vital Signs Temp 96.3 F L 08/22/16 12:00 Pulse 76 08/22/16 12:28 Resp 18 08/22/16 12:00 BP 163/84 08/22/16 12:00 Pulse Ox 98 08/22/16 12:00 Intake & Output 08/21/16 08/22/16 08/22/16 18:59 06:59 18:59 Intake Total 1516.5 300 Output Total 1040 1600 Balance -1040 -83.5 300 Weight 110.9 kg 110.9 kg Intake: IV 480 Furosemide 250 mg In 160 Sodium Chloride 0.9% 225 ml @ 10 MG/HR 10 mls/hr IVP .Q24H [facility] Rx#: [id number] Sodium Chloride 0.9% 1, 320 000 ml @ 20 mls/hr IV . Q24H [facility] Rx#:[id number] Intake, IV Titration 214.5 Amount Furosemide 250 mg In 214.5 Sodium Chloride 0.9% 225 ml @ 10 MG/HR 10 mls/hr IVP .Q24H [facility] Rx#: [id number] Oral 822 300 Output: Urine 1040 1600 Other: Voiding Method Toilet Toilet Toilet # Voids 1 1 - Exam Gen.: Patient is alert and oriented 3, no acute distress next and cardiovascular: Regular rate and rhythm, S1/S2 Lungs: Diminished at the bases otherwise clear Abdomen: Soft nontender nondistended positive bowel sounds Extremities: Positive edema - Labs CBC & Chem 7: 08/19/16 08:40 08/21/16 05:42 Labs: Abnormal Lab Results - Last 24 Hours (Table) 08/21/16 08/21/16 08/21/16 Range/Units 05:42 16:47 20:55 POC Glucose (mg/dL) 172 H 212 H (75-99) mg/dL Total Protein 5.7 L (6.3-8.2) g/dL 08/22/16 08/22/16 Range/Units 05:44 11:55 POC Glucose (mg/dL) 234 H 200 H (75-99) mg/dL Total Protein (6.3-8.2) g/dL Microbiology - Last 24 Hours (Table) 08/21/16 12:00 Gram Stain - Preliminary Pleural Fluid Body Fluid Culture - Preliminary 08/21/16 12:00 Acid Fast Bacilli Culture - Preliminary Pleural Fluid 08/21/16 12:00 Fungal Culture - Preliminary Pleural Fluid Assessment and Plan Plan: Acute exacerbation of chronic obstructive pulmonary disease bilateral pleural effusions, status post right thoracentesis Congestive heart failure and cardiomyopathy, ejection fraction 35-40% coronary artery disease Diabetes mellitus type 2 chronic kidney disease stage III Hypertension Hyperlipidemia Plan We will also obtain sputum cultures. The patient should continue on nebulizer treatments and IV steroids. Continue supportive care. We will continue to monitor labs and adjust treatment as necessary. Awaiting thoracentesis labs. Diuresis per nephro.
[2016-08-22 17:05] LABS: Glucose,Whole Blood 220 mg/dL (75-99)
[2016-08-22] MEDS: SODIUM CHLORIDE 0.9% 1,000 ML IV SCH (17:20)
--- NOTE | 2016-08-22 18:56 | PN ---
DATE OF SERVICE: 08/22/2016 HISTORY OF PRESENT ILLNESS: This 56-year-old woman who was admitted with CHF, acute exacerbation, ejection fraction 35% to 40%. The patient has generalized edema as well. Patient is on diuretic therapy. The patient also has chronic obstructive pulmonary disease and as well as chronic hypoxic respiratory failure, also multiple consultants are following the patient closely including pulmonary. Most recent chest x-ray showed some improvement of the pleural fluid. Past medical history reviewed. REVIEW OF SYSTEMS: CARDIOVASCULAR: No angina otherwise as mentioned earlier. RESPIRATORY: As mentioned earlier. GI: No nausea. : No dysuria. Current medications are reviewed and include: 1. Tylenol 1000 mg q.6h p.r.n. 2. DuoNeb q.i.d. and p.r.n. 3. Aspirin 320 mg. 4. Lipitor 20 mg. 5. Pulmicort 0.5 b.i.d. 6. Coreg 12.5 mg b.i.d. 7. Lasix drip. 8. Lantus 20 units daily. 9. Synthroid 18 mcg p.o. daily. 10. Cozaar 50 mg p.o. daily. 11. Solu-Medrol 40 IV b.i.d. 12. Aldactone. PHYSICAL EXAMINATION: The patient is alert and oriented times three. Pulse 79, blood pressure 163/84, respiration 18, temperature 97.3, pulse ox 98% on 2 L. HEENT: Conjunctivae normal. NECK: No jugular venous distention. CARDIOVASCULAR: S1, S2 muffled. RESPIRATORY: Breath sounds diminished in the bases. A few scattered rhonchi and crackles. ABDOMEN: Soft, obese, nontender. No mass palpable. Legs: Bilateral leg edema. CENTRAL NERVOUS SYSTEM: Diffusely weak. CENTRAL NERVOUS SYSTEM: No focal deficits. Moves all 4 limbs. LABS: WBC 12.5, hemoglobin 9.6. Creatinine is 1.90. ASSESSMENT: 1. Congestive heart failure acute exacerbation with acute on chronic systolic dysfunction, ejection fraction 35% to 40% with hypertensive heart disease. 2. Chronic hypoxic respiratory failure secondary to chronic obstructive pulmonary disease. 3. Chronic obstructive pulmonary disease, acute exacerbation. 4. History of nicotine dependence. 5. Nonobstructive coronary artery disease per cardiac catheterization in 2016. 6. Diabetes type 2 on oral hypoglycemics. 7. Essential hypertension. 8. Hyperlipidemia. 9. Hypothyroidism. 10. Chronic urinary incontinence. 11. Obesity body mass index greater than 30. 12. Chronic kidney disease stage III from hypertensive nephrosclerosis and diabetic nephropathy. 13. Large pleural effusion possibly secondary to congestive heart failure, improving. 14. Increased platelets. 15. Anemia, normocytic. 16. Hypoalbuminemia with mild to moderate protein calorie malnutrition. RECOMMENDATIONS AND DISCUSSION: This 47-year-old woman who presented with multiple complex medical issues, we will monitor the patient closely, continue the current medication and continue symptomatic treatment. Otherwise, at this time, I recommend continue the current medications and symptomatic treatment. We will monitor the creatinine closely. Closely follow with multiple consultants. Further recommendations to follow. See orders for further details. Fluid restriction 1500 mL per 24 hours. MTDD
[2016-08-22] MEDS: ATORVASTATIN 20 MG TAB PO SCH (20:15)
[2016-08-22] MEDS ORDERED: FUROSEMIDE 10 MG/ML 4 ML VIAL IV ONE (21:00)
[2016-08-22 21:11] LABS: Glucose,Whole Blood 234 mg/dL (75-99)
[2016-08-22] MEDS: FUROSEMIDE 250 MG in SODIUM CHLORIDE 0.9% 225 ML IVP SCH (21:14)
[2016-08-23 05:48] LABS: Glucose,Whole Blood 169 mg/dL (75-99)
[2016-08-23] MEDS: CARVEDILOL 12.5 MG TAB PO SCH ×2 (06:43→18:11)
[2016-08-23] MEDS: LEVOTHYROXINE 88 MCG TAB PO SCH (06:43)
[2016-08-23] MEDS: INSULIN LISPRO (humaLOG) 300 UNIT/3 ML VIAL SQ SCH ×4 (06:44→21:28)
[2016-08-23 07:32] LABS: Calcium 8.7 mg/dL (8.4-10.2); Potassium 4.4 mmol/L (3.5-5.1)
[2016-08-23] MEDS: MULTIVITAMINS, THERA 1 EACH TAB PO SCH (08:04)
[2016-08-23] MEDS: LOSARTAN 50 MG TAB PO SCH (08:04)
[2016-08-23] MEDS: ASPIRIN 325 MG TAB PO SCH (08:04)
[2016-08-23] MEDS: INSULIN GLARGINE 100 UNIT/ML 10 ML VIAL SQ SCH ×2 (08:05→21:28)
[2016-08-23] MEDS: methylPREDNISolone SOD SUCCI 40 MG/ML 1 ML VIAL IV SCH ×2 (08:05→21:29)
[2016-08-23] MEDS: SPIRONOLACTONE 25 MG TAB PO SCH (08:05)
[2016-08-23] MEDS: FUROSEMIDE 10 MG/ML 4 ML VIAL IV SCH ×2 (08:05→21:28)
--- NOTE | 2016-08-23 09:16 | P.PN ---
Subjective Patient is seen in follow-up for acute kidney injury. Creatinine peaked at 1.9 this admission and is down to 1.53 today. Patient has chronic kidney disease stage III with baseline creatinine in the range of 1-1.3 secondary to contrast- induced nephropathy as well as diabetic kidney disease. Patient presented with dyspnea and was noted to have a right-sided pleural effusion. She underwent thoracentesis on August 21 with 750 mL drained. She has systolic CHF with ejection fraction of 35%. She was noted to have lower extremity edema which is significantly improved. She was maintained on a Lasix drip at is now on 40 mg IV twice daily. She is nonoliguric. No vomiting or diarrhea. Appetite is good. Vital signs are stable. General: The patient appeared well nourished and normally developed. HEENT: Head exam is unremarkable. Neck is without jugular venous distension. LUNGS: Lungs are clear to auscultation and percussion. Breath sounds decreased. HEART: Rate and Rhythm are regular. First and second heart sounds normal. No murmurs, rubs or gallops. ABDOMEN: Abdominal exam reveals normal bowel sounds. Non-tender and non- distended. No evidence of peritonitis. EXTREMITITES: 1+ edema. Objective - Vital Signs Vital signs: Vital Signs Temp 97.5 F L 08/23/16 04:00 Pulse 84 08/23/16 04:00 Resp 18 08/23/16 04:00 BP 154/64 08/23/16 04:00 Pulse Ox 94 L 08/23/16 04:00 Intake & Output 08/22/16 08/23/16 08/23/16 18:59 06:59 18:59 Intake Total 500 720 Output Total 1200 1600 Balance -700 -880 Weight 110.9 kg 108.5 kg Intake: IV 320 Sodium Chloride 0.9% 1, 320 000 ml @ 20 mls/hr IV . Q24H [facility] Rx#:[id number] Oral 500 400 Output: Urine 1200 1600 Other: Voiding Method Toilet # Voids 1 - Labs CBC & Chem 7: 08/19/16 08:40 08/23/16 06:45 Labs: Abnormal Lab Results - Last 24 Hours (Table) 08/22/16 08/22/16 08/22/16 Range/Units 11:55 17:03 21:10 Chloride (98-107) mmol/L Carbon Dioxide (22-30) mmol/L BUN (7-17) mg/dL Creatinine (0.52-1.04) mg/dL Glucose (74-99) mg/dL POC Glucose (mg/dL) 200 H 220 H 234 H (75-99) mg/dL 08/23/16 08/23/16 Range/Units 05:46 06:45 Chloride 94 L (98-107) mmol/L Carbon Dioxide 39 H (22-30) mmol/L BUN 47 H (7-17) mg/dL Creatinine 1.53 H (0.52-1.04) mg/dL Glucose 165 H (74-99) mg/dL POC Glucose (mg/dL) 169 H (75-99) mg/dL Microbiology - Last 24 Hours (Table) 08/21/16 12:00 Gram Stain - Preliminary Pleural Fluid Body Fluid Culture - Preliminary 08/21/16 12:00 Acid Fast Bacilli Smear - Final Pleural Fluid Acid Fast Bacilli Culture - Preliminary Assessment and Plan Plan: Assessment: #1. Nonoliguric acute kidney injury mostly prerenal in nature secondary to diuresis. Creatinine peaked at 1.9 this admission and is down to 1.53 today. #2. Chronic kidney disease stage III secondary to diabetic kidney disease and contrast-induced nephropathy. Baseline creatinine in the range of 1-1.3. #3. Systolic CHF with ejection fraction of 35%. #4. Volume overload. Improving. #5. Right pleural effusion status post thoracentesis on August 21 - 750 mL drained. #6. Anemia. Rule out iron deficiency. #7. Metabolic alkalosis secondary to compensation for chronic respiratory acidosis from COPD. Plan: Continue Lasix 40 mg IV twice daily. Maintain fluid restriction and low-salt diet. Check ferritin level and iron studies. Repeat electrolytes in the morning. Avoid nephrotoxic agents and hypotensive episodes.
[2016-08-23] MEDS: IPRATROPIUM-ALBUTEROL 3 ML NEB INHALATION SCH ×4 (10:10→20:43)
[2016-08-23] MEDS: BUDESONIDE 0.5 MG/2 ML NEBU INHALATION SCH ×2 (10:10→20:43)
[2016-08-23 10:47] LABS: % Iron Saturation 25.6 % (20-50)
[2016-08-23 11:46] LABS: Glucose,Whole Blood 214 mg/dL (75-99)
[2016-08-23] MEDS: SODIUM CHLORIDE 0.9% 1,000 ML IV SCH (12:19)
--- NOTE | 2016-08-23 14:06 | PN ---
DATE OF SERVICE: 08/23/2016 Ms. Alaina Nieto is a 56-year-old female who was seen, evaluated, and examined in the sixth floor. Patient has been tapped, with that her respiratory status significantly improved. She denies any chest pain, breathing comfortably, hemodynamic status is stable. She is off of supplemental oxygen now Her last set of vitals include blood pressure is 127/65, respiratory rate 16, pulse 78, temperature 97, saturation 97% on 2 L oxygen. HEENT: Unremarkable. NECK: Supple. LUNGS: Good air entry bilaterally. HEART: Regular rate and rhythm. Abdomen is soft. NEUROLOGICAL EXAMINATION: Otherwise, awake and alert. Labs reviewed. Sodium is 139, potassium 4.4. BUN and creatinine 47 and 1.53 with the BUN slowly trending upwards. Urine pleural fluid revealed a few RBCs but mostly yellow, hazy. The other laboratory data reviewed. Cytology is pending on the pleural fluid at this point of time. Pleural fluid LDH and total protein results are not available. IMPRESSION: 1. Congestive heart failure with right-sided pleural effusion. Heart failure appears to be acute on chronic systolic heart failure, pleural effusion appears likely more to be transudative. Will follow up on cytology and culture results and reports. 2. Severe chronic obstructive pulmonary disease, overall stable. Continue breathing treatments and IV steroids. 3. Renal failure stage II to III being monitored and observed to increase activity as tolerated. Monitor renal functions closely.
--- NOTE | 2016-08-23 16:36 | PN ---
DATE OF SERVICE: 08/23/2016 This 56-year-old woman was admitted with CHF acute exacerbation with acute on chronic systolic dysfunction, is being closely monitored at this time. The p.o. fluid intake has been curtailed at this time. The patient appears to be losing some fluid and lost almost like 2 kilos in two days. The patient closely monitored. Patient is on IV diuretics. Cardiology is following the patient closely. Patient also had significant pleural effusion. PAST MEDICAL HISTORY: Reviewed. REVIEW OF SYSTEMS: CARDIOVASCULAR: As mentioned. GI: No nausea. : No dysuria. NERVOUS SYSTEM: No numbness or weakness. Current medications are: 1. Tylenol 1000 mg q.6. 2. DuoNeb q.i.d. and p.r.n. 3. Aspirin 325 mg. 4. Lipitor 20 mg daily. 5. Pulmicort 0.5 b.i.d. 6. Coreg 12.5 mg b.i.d. 7. Lasix 40 mg IV b.i.d. 8. Lantus 20 units subcu daily. 9. Humalog a.c. and at bedtime. 10. Synthroid 88 mcg p.o. daily. 11. Cozaar 50 mg p.o. daily. 12. Solu-Medrol 40 IV b.i.d. 13. Multivitamins. 14. Aldactone 12.5 mg daily. PHYSICAL EXAMINATION: Patient is alert and oriented x3. Pulse 74, blood pressure 151/83, respirations 18, temperature 97.9, pulse ox 98% on 2-L. HEENT: Conjunctivae normal. Oral mucosa moist. NECK: No jugular venous distention. No carotid bruit. No lymph node enlargement. CARDIOVASCULAR: S1 and S2, muffled. No S3, no S4. RESPIRATORY: Breath sounds diminished at the bases. Bilateral scattered rhonchi and crackles. ABDOMEN: Soft, nontender. No mass palpable. LEGS: Minimal bilateral edema. NERVOUS SYSTEM: Diffusely weak. LABS: Sodium 139, potassium 4.4, creatinine is 1.53. Otherwise, pleural fluid is noted. WBC 12.8, hemoglobin 9.6 on admission. ASSESSMENT: 1. Congestive heart failure acute exacerbation with acute on chronic systolic dysfunction, ejection fraction 35 to 40% with hypertensive heart disease. 2. Chronic hypoxic respiratory failure secondary to chronic obstructive pulmonary disease. 3. Chronic obstructive pulmonary disease, acute exacerbation. 4. History of nicotine dependence. 5. Nonobstructive coronary artery disease per cardiac catheterization in 2016. 6. Diabetes type 2 on oral hypoglycemic. 7. Essential hypertension. 8. Hyperlipidemia. 9. Hypothyroidism. 10. Chronic urinary incontinence. 11. Obesity with body mass index greater than 30. 12. Chronic kidney disease stage III from hypertensive nephrosclerosis and diabetic nephropathy. 13. Large pleural effusion, possibly secondary to congestive heart failure, improving, status post thoracocentesis of [address] Muhammad. 14. Cardiomyopathy with chronic systolic dysfunction. 15. Increased platelets. 16. Anemia, normocytic. 17. Hypoalbuminemia with mild to moderate protein calorie malnutrition. 18. FULL CODE. RECOMMENDATIONS AND DISCUSSION: In this 56-year-old woman who presented with multiple complex medical issues, will monitor the patient closely. Continue the current medications, continue symptomatic treatment. Creatinine 1.53. I would recommend repeat labs. Continue the diuretics. Also recommended repeat chest x-ray in the morning and continue to monitor. Prognosis guarded because of multiple complex medical issues. Further recommendations to follow.
[2016-08-23 17:19] LABS: Glucose,Whole Blood 286 mg/dL (75-99)
[2016-08-23 20:55] LABS: Glucose,Whole Blood 275 mg/dL (75-99)
[2016-08-23] MEDS: ATORVASTATIN 20 MG TAB PO SCH (21:28)
[2016-08-24 01:54] LABS: Glucose,Whole Blood 136 mg/dL (75-99)
[2016-08-24 06:10] LABS: Glucose,Whole Blood 128 mg/dL (75-99)
[2016-08-24] MEDS: INSULIN LISPRO (humaLOG) 300 UNIT/3 ML VIAL SQ SCH ×4 (06:13→20:50)
[2016-08-24] MEDS: CARVEDILOL 12.5 MG TAB PO SCH ×2 (06:37→17:24)
[2016-08-24] MEDS: LEVOTHYROXINE 88 MCG TAB PO SCH (06:37)
[2016-08-24 06:42] LABS: Basophils % (A) 0 %; CH 29.6; CHCM 31.3; Eosinophils % (A) 0 %; HCT 30.8 % (34.0-46.0); HDW 2.38; HGB 9.7 gm/dL (11.4-16.0); Luc # (Auto) 0.09; Luc % (Auto) 1; Lymphocytes # (A) 0.8 k/uL (1.0-4.8); Lymphocytes % (A) 8 %; MCH 29.8 pg (25.0-35.0); MCHC 31.4 g/dL (31.0-37.0); MCV 94.9 fL (80.0-100.0); Mean Platelet Volume 7.3; Monocytes # (A) 0.4 k/uL (0-1.0); Monocytes % (A) 4 %; Neutrophils % (A) 87 %; RBC 3.24 m/uL (3.80-5.40); WBC 10.4 k/uL (3.8-10.6); WBC (Perox) 10.88
[2016-08-24 06:53] LABS: Calcium 8.6 mg/dL (8.4-10.2); Potassium 4.5 mmol/L (3.5-5.1)
--- NOTE | 2016-08-24 07:03 | XR ---
EXAMINATION TYPE: XR chest 2V DATE OF EXAM: 08/24/2016 6:33 AM HISTORY: chf. REFERENCE: Previous study dated 08/21/2016. FINDINGS: The heart is enlarged. There is some atelectatic change present in the left lung. There is some increased opacity at the left lung base. There is a small left effusion. IMPRESSION: 1. CARDIOMEGALY. 2. SMALL LEFT EFFUSION. 3. LEFT BASILAR AIRSPACE DISEASE.
[2016-08-24] MEDS: SODIUM CHLORIDE 0.9% 1,000 ML IV SCH (08:48)
[2016-08-24] MEDS: BUDESONIDE 0.5 MG/2 ML NEBU INHALATION SCH ×2 (08:54→20:28)
[2016-08-24] MEDS: IPRATROPIUM-ALBUTEROL 3 ML NEB INHALATION SCH ×4 (08:54→20:28)
[2016-08-24] MEDS: CHOLECALCIFEROL 400 UNIT TAB PO SCH (08:55)
[2016-08-24] MEDS: ASPIRIN 325 MG TAB PO SCH (08:55)
[2016-08-24] MEDS: MULTIVITAMINS, THERA 1 EACH TAB PO SCH (08:56)
[2016-08-24] MEDS: methylPREDNISolone SOD SUCCI 40 MG/ML 1 ML VIAL IV SCH ×2 (08:56→20:51)
[2016-08-24] MEDS: CYANOCOBALAMIN 500 MCG TAB PO SCH (08:56)
[2016-08-24] MEDS: SPIRONOLACTONE 25 MG TAB PO SCH (08:57)
[2016-08-24] MEDS: FUROSEMIDE 10 MG/ML 4 ML VIAL IV SCH ×2 (08:57→20:48)
[2016-08-24] MEDS: LOSARTAN 50 MG TAB PO SCH (08:58)
[2016-08-24] MEDS: INSULIN GLARGINE 100 UNIT/ML 10 ML VIAL SQ SCH ×2 (09:03→20:48)
--- NOTE | 2016-08-24 09:24 | PN ---
DATE OF SERVICE: 08/24/2016 The patient is seen for follow-up for acute kidney injury. Serum creatinine peaked at 1.9, it is now down to 1.5 mg/dL. The patient was initially admitted to the hospital with CHF exacerbation. Currently she has been on Lasix at 40 mg every 12 hours. She remains on Cozaar which she seems to be tolerating well. On examination, blood pressure is 140/76, heart rate 73 per minute. She is afebrile. Examination of the heart, S1 and S2. Examination of lungs, bilateral breath sounds are heard. Abdomen is soft, nontender. Examination of the lower extremities shows edema bilaterally with chronic skin changes. Labs show sodium 140, potassium 4.5, BUN 51, serum creatinine 1.54. ASSESSMENT: 1. Acute kidney injury, cardiorenal, currently improving. Serum creatinine staying at about 1.5 mg/dL. Previous creatinine as low as 1.3 and 1.2 mg/dL in June 2016. 2. Congestive heart failure. Systolic heart failure. Continue with current dose of Lasix. 3. Cardiomyopathy with ejection fraction 35%. 4. Right pleural effusion, status post thoracentesis. 5. Metabolic alkalosis, currently stable. PLAN: Continue with current dose of Lasix.
[2016-08-24 11:20] LABS: Body Fluid Comment Few Mesothelial
[2016-08-24 11:38] LABS: Glucose,Whole Blood 176 mg/dL (75-99)
[2016-08-24 12:09] LABS: Appearance,Urine Clear (Clear); Bacteria,Urine Rare /hpf; Bilirubin,Urine Negative (Negative); Glucose,Urine (UA) 2+ (Negative); Ketones,Urine Negative (Negative); Leukocyte Esterase,Urine Negative (Negative); Mucus,Urine Rare /hpf; Nitrite,Urine Negative (Negative); Particle Count 1145; Protein,Urine 2+ (Negative); RBC,Urine 2 /hpf (0-5); Specific Gravity,Urine 1.008 (1.001-1.035); Squamous Epithelial Cell,Urine <1 /hpf (0-4); UA Billing (MACRO vs. MICRO) MICRO; Urobilinogen,Urine <2.0 mg/dL (<2.0); WBC,Urine 2 /hpf (0-5)
--- NOTE | 2016-08-24 13:07 | P.PN ---
Subjective This is a 56-year-old female patient is being evaluated and examined today on the sixth floor. This patient is well-known to our office. The patient came into the emergency room presenting with increasing shortness of breath as well as a nonproductive cough. Patient was also noted to have some swelling of her lower extremities. Patient denies any nausea vomiting diarrhea or fevers. Chest x-ray in the ER was noted to have persistent right basilar infiltrates with a slight increase in pleural effusions. The patient has a known history of extensive COPD, coronary artery disease, diabetes mellitus type 2, hypertension, hyperlipidemia, hypothyroidism, and chronic kidney disease. This patient does require home oxygen 2 L per minute via nasal cannula. The patient did have a ultrasound of the chest which revealed a right pleural effusion of 8 cm and the left pleural effusion of 2 cm. The patient did undergo a thoracentesis, and 700mls of fluid was removed. Upon examination the patient is sitting up in bed and becomes short of breath with exertion. Currently the patient is utilizing 3 L of oxygen via nasal cannula and denies any significant cough or sputum production at this time. Objective - Vital Signs Vital signs: Vital Signs Temp 98.7 F 08/24/16 08:53 Pulse 74 08/24/16 09:14 Resp 16 08/24/16 08:53 BP 140/76 08/24/16 08:53 Pulse Ox 96 08/24/16 08:57 Intake & Output 08/23/16 08/24/16 08/24/16 18:59 06:59 18:59 Intake Total 180 320 240 Output Total 600 1600 100 Balance -420 -1280 140 Weight 108.5 kg 108.5 kg Intake: IV 320 Sodium Chloride 0.9% 1, 320 000 ml @ 20 mls/hr IV . Q24H [facility] Rx#:[id number] Oral 180 240 Output: Urine 600 1600 100 Other: Voiding Method Toilet Toilet # Voids 1 - Exam GENERAL EXAM: Alert, active, comfortable in no apparent distress. HEAD: Normocephalic. EYES: Normal reaction of pupils, equal size. NOSE: Clear with pink turbinates. THROAT: No erythema or exudates. NECK: No masses, no JVD. CHEST: No chest wall deformity. LUNGS: Bilateral good air entry, diminished bases. CVS: S1 and S2 normal with no audible mumurs, regular rhythm. ABDOMEN: No hepatosplenomegaly, normal bowel sounds, no guarding or rigidity. EXTREMITIES: 1-2+ edema noted, pedal pulses palpable. SKIN: No rashes CENTRAL NERVOUS SYSTEM: No focal deficits, tone is normal in all 4 extremities. - Labs CBC & Chem 7: 08/24/16 05:35 08/24/16 05:35 Labs: Abnormal Lab Results - Last 24 Hours (Table) 08/23/16 08/23/16 08/23/16 Range/Units 06:42 11:44 16:52 RBC (3.80-5.40) m/uL Hgb (11.4-16.0) gm/dL Hct (34.0-46.0) % Neutrophils # (1.3-7.7) k/uL Lymphocytes # (1.0-4.8) k/uL Chloride (98-107) mmol/L Carbon Dioxide (22-30) mmol/L BUN (7-17) mg/dL Creatinine (0.52-1.04) mg/dL Glucose (74-99) mg/dL POC Glucose (mg/dL) 214 H 286 H (75-99) mg/dL TIBC 227 L (265-497) ug/dL Ferritin 415 H (11-264) ng/mL 08/23/16 08/24/16 08/24/16 Range/Units 20:53 01:52 05:35 RBC 3.24 L (3.80-5.40) m/uL Hgb 9.7 L (11.4-16.0) gm/dL Hct 30.8 L (34.0-46.0) % Neutrophils # 9.0 H (1.3-7.7) k/uL Lymphocytes # 0.8 L (1.0-4.8) k/uL Chloride (98-107) mmol/L Carbon Dioxide (22-30) mmol/L BUN (7-17) mg/dL Creatinine (0.52-1.04) mg/dL Glucose (74-99) mg/dL POC Glucose (mg/dL) 275 H 136 H (75-99) mg/dL TIBC (265-497) ug/dL Ferritin (11-264) ng/mL 08/24/16 08/24/16 Range/Units 05:35 06:09 RBC (3.80-5.40) m/uL Hgb (11.4-16.0) gm/dL Hct (34.0-46.0) % Neutrophils # (1.3-7.7) k/uL Lymphocytes # (1.0-4.8) k/uL Chloride 95 L (98-107) mmol/L Carbon Dioxide 39 H (22-30) mmol/L BUN 51 H (7-17) mg/dL Creatinine 1.54 H (0.52-1.04) mg/dL Glucose 122 H (74-99) mg/dL POC Glucose (mg/dL) 128 H (75-99) mg/dL TIBC (265-497) ug/dL Ferritin (11-264) ng/mL Microbiology - Last 24 Hours (Table) 08/21/16 12:00 Gram Stain - Preliminary Pleural Fluid Body Fluid Culture - Preliminary Assessment and Plan Plan: Assessment Acute exacerbation of chronic obstructive pulmonary disease bilateral pleural effusions Congestive heart failure and cardiomyopathy, ejection fraction 35-40% coronary artery disease Diabetes mellitus type 2 chronic kidney disease stage III Hypertension Hyperlipidemia Plan Medications have been reviewed and will be continued as ordered. The patient did undergo a right-sided thoracentesis on wednesday, 700mls was removed. Cytology is pending. Patient will undergo a CT of the chest without contrast today. The patient should continue on nebulizer treatments and IV steroids. Continue supportive care. We will continue to monitor labs and adjust treatment as necessary. I performed an examination of the patient and discussed their management with the nurse practitioner. I have reviewed the nurse practitioner's note and agree with the documented findings and plan of care.
--- NOTE | 2016-08-24 15:19 | CT ---
EXAMINATION TYPE: CT chest wo con DATE OF EXAM: 08/24/2016 1:44 PM COMPARISON: CT chest July 29, 2016. Chest x-ray from earlier today. HISTORY: Patient complains of difficulty breathing. Left-sided pneumonia per order. CT DLP: 549.1 mGycm. Automated Exposure Control for Dose Reduction was Utilized. TECHNIQUE: CT scan of the thorax is performed without IV contrast. FINDINGS: LUNGS: Exam is suboptimal as is degraded by respiratory motion artifact. There are small bilateral pl eural effusions present. There is associated compressive atelectasis in both lung bases. There is dif fuse groundglass opacity bilaterally most pronounced in the lower lung suggesting mild alveolar edema , infiltrates less likely but not entirely excluded. There is slightly more focal atelectasis or cons olidation in the left lower lobe versus right lung base. No pneumothorax is seen bilaterally. Tracheo bronchial tree is patent. MEDIASTINUM: Lack of IV contrast is noted to limit evaluation for mediastinal and especially hilar ad enopathy. There are no definitive greater than 1 cm hilar or mediastinal lymph nodes. There are promi nent but subcentimeter prevascular, AP window, superior mediastinal, paratracheal, and bilateral williams r lymph nodes all redemonstrated. No significant pericardial effusion is seen. Cardiomegaly is rede monstrated. Coronary artery calcifications are again seen. OTHER: Cholecystectomy clips are again seen. There is multilevel spurring in the lower thoracic spine . IMPRESSION: 1. Favor CHF exacerbation as there is cardiomegaly with small bilateral pleural effusions and mild gr oundglass opacity favoring alveolar edema bilaterally most pronounced in the lower lungs. Some areas of underlying infiltrate are not entirely excluded.
[2016-08-24 16:36] LABS: Glucose,Whole Blood 206 mg/dL (75-99)
[2016-08-24 20:32] LABS: Glucose,Whole Blood 252 mg/dL (75-99)
[2016-08-24] MEDS: ATORVASTATIN 20 MG TAB PO SCH (20:48)
[2016-08-25 05:38] LABS: Glucose,Whole Blood 139 mg/dL (75-99)
[2016-08-25] MEDS: CARVEDILOL 12.5 MG TAB PO SCH (06:26)
[2016-08-25] MEDS: INSULIN LISPRO (humaLOG) 300 UNIT/3 ML VIAL SQ SCH ×2 (06:27→12:18)
[2016-08-25 06:48] LABS: Basophils % (A) 0 %; CH 29.9; CHCM 31.8; Eosinophils % (A) 0 %; HCT 33.6 % (34.0-46.0); HDW 2.45; HGB 10.4 gm/dL (11.4-16.0); Luc # (Auto) 0.07; Luc % (Auto) 1; Lymphocytes # (A) 0.7 k/uL (1.0-4.8); Lymphocytes % (A) 6 %; MCH 29.2 pg (25.0-35.0); MCHC 30.9 g/dL (31.0-37.0); MCV 94.3 fL (80.0-100.0); Mean Platelet Volume 6.9; Monocytes # (A) 0.4 k/uL (0-1.0); Monocytes % (A) 3 %; Neutrophils % (A) 90 %; RBC 3.56 m/uL (3.80-5.40); RDW 14.9 % (11.5-15.5); WBC 11.2 k/uL (3.8-10.6); WBC (Perox) 12.14
[2016-08-25] MEDS: LEVOTHYROXINE 88 MCG TAB PO SCH (06:50)
[2016-08-25 06:58] LABS: Calcium 8.6 mg/dL (8.4-10.2); Potassium 4.6 mmol/L (3.5-5.1)
[2016-08-25] MEDS: MULTIVITAMINS, THERA 1 EACH TAB PO SCH (08:39)
[2016-08-25] MEDS: CHOLECALCIFEROL 400 UNIT TAB PO SCH (08:39)
[2016-08-25] MEDS: CYANOCOBALAMIN 500 MCG TAB PO SCH (08:39)
[2016-08-25] MEDS: ASPIRIN 325 MG TAB PO SCH (08:39)
[2016-08-25] MEDS: SPIRONOLACTONE 25 MG TAB PO SCH (08:40)
[2016-08-25] MEDS: FUROSEMIDE 10 MG/ML 4 ML VIAL IV SCH (08:41)
[2016-08-25] MEDS: LOSARTAN 50 MG TAB PO SCH (08:41)
[2016-08-25] MEDS: BUDESONIDE 0.5 MG/2 ML NEBU INHALATION SCH (08:50)
[2016-08-25] MEDS: IPRATROPIUM-ALBUTEROL 3 ML NEB INHALATION SCH ×2 (08:50→12:15)
[2016-08-25] MEDS: INSULIN GLARGINE 100 UNIT/ML 10 ML VIAL SQ SCH (08:50)
[2016-08-25] MEDS ORDERED: predniSONE 20 MG TAB PO SCH (09:00)
[2016-08-25] MEDS ORDERED: ERGOCALCIFEROL 50,000 UNIT CAP PO SCH (09:00)
--- NOTE | 2016-08-25 09:41 | PN ---
DATE OF SERVICE: 08/24/2016 This is a 56-year-old woman who was admitted with pleural effusion, CHF acute exacerbation, is being closely monitored at this time. The patient had thoracocentesis by Dr. Muhammad. CAT scan has been ordered. No chest pain, no palpitation. No fever. On exam, alert and oriented x2. Pulse is 74, blood pressure 138/65, respirations 18, temperature is 97.8, pulse ox 98% on 2 L. HEENT: Conjunctivae normal. NECK: No jugular venous distension. CARDIOVASCULAR SYSTEM: S1, S2, muffled. RESPIRATORY: Breath sounds diminished at the bases. A few scattered rhonchi, no crackles. Abdomen is soft, nontender. EXTREMITIES: Legs no edema, no swelling. NERVOUS SYSTEM: No focal deficits. LABS: WBC is 10.4, hemoglobin is 9.7, creatinine is 1.54. ASSESSMENT: 1. Congestive heart failure acute exacerbation with acute on chronic systolic dysfunction, ejection fraction 35% to 40% with hypertensive heart disease. 2. Chronic hypoxic respiratory failure secondary to chronic obstructive pulmonary disease. 3. Chronic obstructive pulmonary disease acute exacerbation. 4. History of nicotine dependence. 5. Nonobstructive coronary artery disease per cardiac catheterization in 2016. 6. Diabetes mellitus type 2 on oral hypoglycemics. 7. Essential hypertension. 8. Hyperlipidemia. 9. Hypothyroidism. 10. Chronic urinary incontinence. 11. Obesity with body mass index of greater than 30. 12. Chronic kidney disease stage III for hypertensive nephrosclerosis and diabetic nephropathy. 13. Large pleural effusion possible secondary to congestive heart failure, improving, status post thoracocentesis of [address] Muhammad. 14. Cardiomyopathy with chronic systolic dysfunction. 15. Increased platelets. 16. Anemia, normocytic anemia of chronic disease. 17. Hypoalbuminemia with mild to moderate protein calorie malnutrition. 18. FULL CODE. RECOMMENDATION: Recommend to continue with the current medication. Continue with the monitoring and symptomatic treatment. Continue with the diuretics; otherwise, we will discontinue the IV steroids and I will also recommend continuing the diuretics and closely follow. Further recommendations to follow.
[2016-08-25 11:52] LABS: Glucose,Whole Blood 205 mg/dL (75-99)
--- NOTE | 2016-08-25 11:59 | PN ---
DATE OF SERVICE: 08/25/2016 Patient has been hemodynamically stable. She feels less short of breath. Overall, she continues to have edema but has been losing weight. On physical examination, her blood pressure is 140/69, respiratory rate of 16, pulse rate of 78, temperature 97.4, O2 sat on 2 L by nasal cannula is 98%. HEENT reveals pupils that are equal. Chest reveals decreased breath sounds at bases. Cardiovascular system reveals an S1 and S2. Abdomen is soft. There is 1+ to 2+ pedal edema. CT of the chest done yesterday shows evidence consistent with congestive heart failure with bilateral small pleural effusions and ground-glass opacity with alveolar edema-like picture. IMPRESSION: 1. Congestive heart failure and cardiomyopathy. 2. Chronic obstructive pulmonary disease. 3. Pleural effusions. 4. Diabetes mellitus. 5. Chronic kidney disease. 6. Hypertension. Patient is status post right thoracentesis. Increase her activity level, attempt to keep her in negative fluid balance.
[2016-08-25 12:15] VITALS: BP 158/83; RESP 20; TEMP 98
[2016-08-25 13:11] VITALS: PULSE 80
--- NOTE | 2016-08-26 08:37 | PN ---
Patient is seen for followup for acute kidney injury. Renal function has improved. She will be discharged today. Creatinine is at 1.5 down from 1.9 at peak. On examination, blood pressure is 158/83, heart rate 79 per minute. She is afebrile. EXAMINATION OF THE HEART: S1 and S2. EXAMINATION OF THE LUNGS: Bilateral breath sounds are heard. ABDOMEN: Soft, nontender. Examination of lower extremities shows no significant edema. RESEARCH PHYSICIST exam is grossly intact. Patient is moving all 4 extremities. Labs show serum creatinine of 1.5 mg/dL. Sodium 139, potassium 4.6. ASSESSMENT: 1. Acute kidney injury, currently improved. 2. Congestive heart failure, systolic heart failure, maintained on diuretics. 3. Cardiomyopathy with ejection fraction of 35%. 4. Dyspnea secondary to congestive heart failure and pleural effusions, currently improved. PLAN: Patient needs to follow up as outpatient for CKD. She states she does have a follow-up appointment.
--- NOTE | 2016-08-26 11:07 | DS ---
DATE OF ADMISSION: 08/19/2016 DATE OF DISCHARGE: 08/25/2016 FINAL DIAGNOSES: 1. Congestive heart failure, acute exacerbation with chronic systolic dysfunction, ejection fraction 30 to 40% with hypertensive heart disease. 2. Chronic hypoxic respiratory failure secondary to chronic obstructive pulmonary disease. 3. Chronic obstructive pulmonary disease, acute exacerbation. 4. History of nicotine dependence. 5. Nonobstructive coronary artery disease ( ) cardiac catheterization in 2016. 6. Diabetes type 2 on oral hypoglycemics. 7. Essential hypertension. 8. Hyperlipidemia. 9. Hypothyroidism. 10. Chronic urinary incontinence. 11. Obesity, body mass index greater than 30. 12. Chronic kidney disease Stage III for hypertensive nephrosclerosis and diabetic nephropathy. 13. Large pleural effusion, possibly secondary to congestive heart failure, improving status post thoracocentesis [address] Muhammad. 14. Cardiomyopathy with chronic systolic dysfunction. 15. Increased platelets. 16. Anemia, normocytic anemia of chronic disease. 17. Hypoalbuminemia with mild to moderate protein calorie malnutrition. 18. FULL CODE. DISCHARGE DISPOSITION: The patient will be discharged in a stable condition with guarded prognosis. Discharge cleared by multiple consultants. Discharge cleared by pulmonary. Total time taken 35 minutes. HISTORY OF PRESENT ILLNESS: This 56-year-old woman with a past medical history of multiple medical problems being followed by Dr. Baugh in the outpatient setting was admitted to the hospital with CHF and shortness of breath as well pleural effusion. Patient treated with diuretics. Patient improved significantly. Patient also had thoracocentesis. Chest CT scan also noted. Pulmonary, Dr. Muhammad saw the patient and cleared the patient for discharge. On exam, vital signs stable. CARDIOVASCULAR: S1, S2 muffled. RESPIRATORY: A few rhonchi. ABDOMEN: Soft. CENTRAL NERVOUS SYSTEM: No focal deficits. DISCHARGE ADVICE AND MEDICATIONS: 1. Diet is cardiac. 2. Activity limited until follow-up. 3. Follow up with Dr. Mcgarry as advised. 4. Follow up with Dr. Baugh in 2 to 3 days. 5. Follow-up with Dr. Muhammad as recommend as advised. 6. Albuterol 1 to 2 puffs p.r.n. 7. Albuterol nebulizer q.i.d. and p.r.n. 8. Aspirin 81 mg p.o. daily. 9. Lipitor 20 mg q.h.s. 10. Pulmicort 0.5 b.i.d. 11. Coreg 12.5 mg b.i.d. 12. Vitamin D3, 400 units daily. 13. Vitamin B12 1000 mg daily. 14. Vitamin D2 50,000 p.o. Wednesday. 15. Lasix 40 mg p.o. b.i.d. 16. Lantus 20 units subcu b.i.d. 17. Atrovent 2 puffs q.i.d. and p.r.n. 18. Synthroid 88 mcg p.o. daily. 19. Cozaar 50 mg p.o. daily. 20. Multivitamins one p.o. daily. 21. Aldactone 12.5 mg daily. 22. Prednisone taper so that will be 40 mg daily for 3 days, 30 for 3 days, 20 for 3 days and then 10 for three days and then discontinue. 23. Diet is consistent carb diet. 24. Accu-Cheks a.c. and at bedtime results to Dr. Baugh. Otherwise and the patient is discharged in stable condition with guarded prognosis.
== END 2016-08-25 13:57 | disposition home health service (06) | DRG 291 ==
LOC: EC 07:56 → 6SEL 10:46 → 6ICU 12:40 → 6SEL 18:25
PROVIDERS: ADMIT Hospitalist; ATTEND Hospitalist
PROC: 0W993ZZ Drainage of Right Pleural Cavity, Percutaneous Approach (ICD-10-PCS; principal; 2016-08-21)
DX: I13.0 Hypertensive heart and chronic kidney disease with heart failure and stage 1 through stage 4 chronic kidney disease, or unspecified chronic kidney disease (principal); I50.23 Acute on chronic systolic (congestive) heart failure; E87.3 Alkalosis; J96.11 Chronic respiratory failure with hypoxia; N17.9 Acute kidney failure, unspecified; E44.0 Moderate protein-calorie malnutrition; J90 Pleural effusion, not elsewhere classified; J44.1 Chronic obstructive pulmonary disease with (acute) exacerbation; N18.3 Chronic kidney disease, stage 3 (moderate); D63.8 Anemia in other chronic diseases classified elsewhere; I42.9 Cardiomyopathy, unspecified; E11.21 Type 2 diabetes mellitus with diabetic nephropathy; E03.9 Hypothyroidism, unspecified; E11.22 Type 2 diabetes mellitus with diabetic chronic kidney disease; E66.9 Obesity, unspecified; E78.5 Hyperlipidemia, unspecified; I25.10 Atherosclerotic heart disease of native coronary artery without angina pectoris; N39.3 Stress incontinence (female) (male); F41.9 Anxiety disorder, unspecified; H91.92 Unspecified hearing loss, left ear; K57.90 Diverticulosis of intestine, part unspecified, without perforation or abscess without bleeding; F40.240 Claustrophobia; T50.2X5A Adverse effect of carbonic-anhydrase inhibitors, benzothiadiazides and other diuretics, initial encounter; Z79.4 Long term (current) use of insulin; Z79.82 Long term (current) use of aspirin; Z79.899 Other long term (current) drug therapy; Z87.891 Personal history of nicotine dependence; Z91.041 Radiographic dye allergy status; Z99.81 Dependence on supplemental oxygen; Z68.39 Body mass index [BMI] 39.0-39.9, adult; Z82.49 Family history of ischemic heart disease and other diseases of the circulatory system
CPT/HCPCS: 36415; 71010; 71020; 71250; 76604; 80048; 80053; 81001; 82550; 82553; 82728; 82945; 83036; 83540; 83550; 83605; 83615; 83721; 83735; 83880; 84155; 84157; 84484; 84550; 85025; 85610; 85730; 87040; 87070; 87102; 87116; 87205; 87206; 87252; 87496; 87498; 87502; 87529; 87798; 88108; 88305; 89050; 93005; 94640; 94760; 96365; 96366; 96375; 99291

== ENCOUNTER 2016-09-08 15:05 | Inpatient (IN) | payer OTHER ==
--- NOTE | 2016-09-08 15:23 | ED ---
SOB HPI - General Chief Complaint: Shortness of Breath Stated Complaint: NIRANJAN Time Seen by Provider: 09/08/16 15:16 Source: patient, RN notes reviewed Mode of arrival: ambulatory Limitations: no limitations - History of Present Illness Initial Comments: 56-year-old female presents emergency Department with chief complaint of shortness breath. Patient states she has been in another hospital last 2 months. She states she's had increased shortness breath over the last 24 hours. Patient states she has CHF, COPD. Patient has noticed some weight gain. Patient also has lower extremity swelling. Patient states her last admission she had thoracentesis performed on her right lung. Patient states that she feels of this is returning that she's had increase fluids. Patient has been doing breathing treatments with no relief. Patient denies any chest pain or palpitations. Denies fever, chills, nausea vomiting. - Related Data Home Medications Medication Instructions Recorded Confirmed Albuterol Inhaler [Ventolin Hfa 2 puff INHALATION RT-QID PRN 07/13/14 09/08/16 Inhaler] Albuterol Nebulized [Ventolin 2.5 mg INHALATION RT-Q4H PRN 07/13/14 09/08/16 Nebulized] Levothyroxine Sodium [Synthroid] 88 mcg PO DAILY@0900 07/13/14 09/08/16 Atorvastatin [Lipitor] 20 mg PO HS 09/10/15 09/08/16 Cyanocobalamin [Vitamin B-12] 1,000 mcg PO DAILY@0900 09/10/15 09/08/16 Multivitamins, Thera [Multivitamin 1 tab PO DAILY@0900 09/10/15 09/08/16 (formulary)] Ergocalciferol [Vitamin D2 50,000 unit PO TU 05/06/16 09/08/16 (DRISDOL)] Cholecalciferol [Vitamin D3] 400 unit PO DAILY@0900 07/16/16 09/08/16 Spironolactone [Aldactone] 12.5 mg PO DAILY@1200 07/29/16 09/08/16 Budesonide [Pulmicort] 0.5 mg INHALATION RT-BID 08/19/16 09/08/16 Ipratropium [place] [Atrovent Hfa] 2 puff INHALATION RT-QID 08/19/16 09/08/16 Aspirin 81 mg PO DAILY@0900 09/08/16 09/08/16 Carvedilol [Coreg*] 12.5 mg PO BID 09/08/16 09/08/16 Furosemide [Lasix] 40 mg PO BID@0900,1600 09/08/16 09/08/16 Losartan [Cozaar] 50 mg PO DAILY@1600 09/08/16 09/08/16 amLODIPine [Norvasc] 5 mg PO DAILY@1200 09/08/16 09/08/16 Previous Rx's Medication Instructions Recorded Insulin Glargine [Lantus] 20 unit SQ BID #0 08/24/16 Allergies Allergy/AdvReac Type Severity Reaction Status Date / Time Iodinated Contrast Media - AdvReac KIDNEY Verified 09/08/16 15:36 Oral and DAMAGE Review of Systems ROS Statement: Those systems with pertinent positive or pertinent negative responses have been documented in the HPI. ROS Other: All systems not noted in ROS Statement are negative. Past Medical History Past Medical History: Heart Failure, COPD, Diabetes Mellitus, Hyperlipidemia, Hypertension, Pneumonia, Renal Disease, Thyroid Disorder Additional Past Medical History / Comment(s): Pneumonias in past and recently admitted with pneumonia-07/29/16, CHF, nonischemic cardiomyopathy, tracheobronchitis, home O2 at 2L/NC ATC, IDDM type II, CKD, pancreatitis, hypothyroidism, urinary stress incontinence, L ear TRIBAL, diverticulitis. History of Any Multi-Drug Resistant Organisms: None Reported Past Surgical History: Appendectomy, Cholecystectomy, Heart Catheterization, Hysterectomy, Orthopedic Surgery Additional Past Surgical History / Comment(s): cardiac caths with last one being 09/11/15 and was normal, colonoscopy-pt states normal, RT ROTATOR CUFF SX Past Anesthesia/Blood Transfusion Reactions: No Reported Reaction Additional Past Anesthesia/Blood Transfusion Reaction / Comment(s): CLAUSTERPHOBIA. Pt states she has never received blood. Past Psychological History: Anxiety Additional Psychological History / Comment(s): LIVES AT HOME WITH SPOUSE AND 3 TEENAGERS. 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 Pt drives. Pt recently placed on home O2 at 2L/NC ATC. She has had anxiety with NIRANJAN and uses xanax rarely. She has a nebulizer. 3 steps to get into home. Smoking Status: Former smoker Past Alcohol Use History: None Reported Additional Past Alcohol Use History / Comment(s): STARTED SMOKING AT AGE 17- SMOKED 1-2 PPD.STATED QUIT MAR 2016 Past Drug Use History: None Reported - Past Family History Father Family Medical History: Cancer Additional Family Medical History / Comment(s): OF COLON CANCER AT AGE 52 Mother Family Medical History: Congestive Heart Failure (CHF), CVA/TIA Additional Family Medical History / Comment(s): OF CHF AGE 62 General Exam Limitations: no limitations General appearance: alert, in no apparent distress ENT exam: Present: normal exam, normal oropharynx, mucous membranes moist Neck exam: Present: normal inspection, full ROM. Absent: tenderness, meningismus, lymphadenopathy Respiratory exam: Present: respiratory distress (Mild), rales (Faint bases), decreased breath sounds. Absent: normal lung sounds bilaterally, wheezes, rhonchi, stridor Cardiovascular Exam: Present: regular rate, normal rhythm, normal heart sounds. Absent: systolic murmur, diastolic murmur, rubs, gallop, clicks Extremities exam: Present: pedal edema Skin exam: Present: warm, dry, intact, normal color. Absent: rash Course Vital Signs 09/08/16 09/08/16 09/08/16 15:10 15:34 16:37 Temperature 99.1 F Pulse Rate 100 88 Respiratory 26 H 24 18 Rate Blood Pressure 164/74 143/64 O2 Sat by Pulse 94 L 96 Oximetry Medical Decision Making - Lab Data Result diagrams: 09/08/16 15:30 09/08/16 15:30 Lab Results 09/08/16 09/08/16 09/08/16 Range/Units 15:30 15:30 15:30 WBC 10.8 H (3.8-10.6) k/uL RBC 3.24 L (3.80-5.40) m/uL Hgb 9.7 L (11.4-16.0) gm/dL Hct 31.4 L (34.0-46.0) % MCV 96.8 (80.0-100.0) fL MCH 30.0 (25.0-35.0) pg MCHC 31.0 (31.0-37.0) g/dL RDW 14.9 (11.5-15.5) % Plt Count 199 (150-450) k/uL Neutrophils % 73 % Lymphocytes % 19 % Monocytes % 5 % Eosinophils % 2 % Basophils % 0 % Neutrophils # 7.9 H (1.3-7.7) k/uL Lymphocytes # 2.0 (1.0-4.8) k/uL Monocytes # 0.5 (0-1.0) k/uL Eosinophils # 0.2 (0-0.7) k/uL Basophils # 0.0 (0-0.2) k/uL Hypochromasia Slight PT (9.0-12.0) sec INR (<1.1) APTT (22.0-30.0) sec Sodium 139 (137-145) mmol/L Potassium 4.0 (3.5-5.1) mmol/L Chloride 94 L (98-107) mmol/L Carbon Dioxide 44 H* (22-30) mmol/L Anion Gap 1 mmol/L BUN 28 H (7-17) mg/dL Creatinine 1.23 H (0.52-1.04) mg/dL Est GFR (MDRD) Af Amer 55 (>60 ml/min/1.73 sqM) Est GFR (MDRD) Non-Af 46 (>60 ml/min/1.73 sqM) Glucose 66 L (74-99) mg/dL POC Glucose (mg/dL) (75-99) mg/dL POC Glu Employment Case Manager ID Calcium 8.9 (8.4-10.2) mg/dL Magnesium 1.9 (1.6-2.3) mg/dL Total Bilirubin 0.8 (0.2-1.3) mg/dL AST 39 H (14-36) U/L ALT 75 H (9-52) U/L Alkaline Phosphatase 116 (38-126) U/L Total Creatine Kinase 35 (30-135) U/L CK-MB (CK-2) 2.9 H* (0.0-2.4) ng/mL CK-MB (CK-2) Rel Index 8.3 Troponin I 0.056 H* (0.000-0.034) ng/mL NT-Pro-B Natriuret Pep pg/mL Total Protein 5.5 L (6.3-8.2) g/dL Albumin 2.6 L (3.5-5.0) g/dL 09/08/16 09/08/16 09/08/16 Range/Units 15:30 15:30 15:40 WBC (3.8-10.6) k/uL RBC (3.80-5.40) m/uL Hgb (11.4-16.0) gm/dL Hct (34.0-46.0) % MCV (80.0-100.0) fL MCH (25.0-35.0) pg MCHC (31.0-37.0) g/dL RDW (11.5-15.5) % Plt Count (150-450) k/uL Neutrophils % % Lymphocytes % % Monocytes % % Eosinophils % % Basophils % % Neutrophils # (1.3-7.7) k/uL Lymphocytes # (1.0-4.8) k/uL Monocytes # (0-1.0) k/uL Eosinophils # (0-0.7) k/uL Basophils # (0-0.2) k/uL Hypochromasia PT 10.0 (9.0-12.0) sec INR 1.0 (<1.1) APTT 23.8 (22.0-30.0) sec Sodium (137-145) mmol/L Potassium (3.5-5.1) mmol/L Chloride (98-107) mmol/L Carbon Dioxide (22-30) mmol/L Anion Gap mmol/L BUN (7-17) mg/dL Creatinine (0.52-1.04) mg/dL Est GFR (MDRD) Af Amer (>60 ml/min/1.73 sqM) Est GFR (MDRD) Non-Af (>60 ml/min/1.73 sqM) Glucose (74-99) mg/dL POC Glucose (mg/dL) 69 L (75-99) mg/dL POC Glu Employment Case Manager ID Tana Damian Calcium (8.4-10.2) mg/dL Magnesium (1.6-2.3) mg/dL Total Bilirubin (0.2-1.3) mg/dL AST (14-36) U/L ALT (9-52) U/L Alkaline Phosphatase (38-126) U/L Total Creatine Kinase (30-135) U/L CK-MB (CK-2) (0.0-2.4) ng/mL CK-MB (CK-2) Rel Index Troponin I (0.000-0.034) ng/mL NT-Pro-B Natriuret Pep 3520 pg/mL Total Protein (6.3-8.2) g/dL Albumin (3.5-5.0) g/dL 09/08/16 Range/Units 16:08 WBC (3.8-10.6) k/uL RBC (3.80-5.40) m/uL Hgb (11.4-16.0) gm/dL Hct (34.0-46.0) % MCV (80.0-100.0) fL MCH (25.0-35.0) pg MCHC (31.0-37.0) g/dL RDW (11.5-15.5) % Plt Count (150-450) k/uL Neutrophils % % Lymphocytes % % Monocytes % % Eosinophils % % Basophils % % Neutrophils # (1.3-7.7) k/uL Lymphocytes # (1.0-4.8) k/uL Monocytes # (0-1.0) k/uL Eosinophils # (0-0.7) k/uL Basophils # (0-0.2) k/uL Hypochromasia PT (9.0-12.0) sec INR (<1.1) APTT (22.0-30.0) sec Sodium (137-145) mmol/L Potassium (3.5-5.1) mmol/L Chloride (98-107) mmol/L Carbon Dioxide (22-30) mmol/L Anion Gap mmol/L BUN (7-17) mg/dL Creatinine (0.52-1.04) mg/dL Est GFR (MDRD) Af Amer (>60 ml/min/1.73 sqM) Est GFR (MDRD) Non-Af (>60 ml/min/1.73 sqM) Glucose (74-99) mg/dL POC Glucose (mg/dL) 101 H (75-99) mg/dL POC Glu Employment Case Manager ID Rupa Antoine Calcium (8.4-10.2) mg/dL Magnesium (1.6-2.3) mg/dL Total Bilirubin (0.2-1.3) mg/dL AST (14-36) U/L ALT (9-52) U/L Alkaline Phosphatase (38-126) U/L Total Creatine Kinase (30-135) U/L CK-MB (CK-2) (0.0-2.4) ng/mL CK-MB (CK-2) Rel Index Troponin I (0.000-0.034) ng/mL NT-Pro-B Natriuret Pep pg/mL Total Protein (6.3-8.2) g/dL Albumin (3.5-5.0) g/dL Disposition Clinical Impression: Acute CHF (congestive heart failure), Acute renal insufficiency, Pneumonia Disposition: ADMITTED IP TO THIS HOSP Condition: Fair
[2016-09-08 15:42] LABS: Basophils % (A) 0 %; CH 30.4; CHCM 31.5; Eosinophils # (A) 0.2 k/uL (0-0.7); Eosinophils % (A) 2 %; HCT 31.4 % (34.0-46.0); HDW 2.63; HGB 9.7 gm/dL (11.4-16.0); Hypochromasia Slight; Luc # (Auto) 0.18; Luc % (Auto) 2; Lymphocytes % (A) 19 %; MCV 96.8 fL (80.0-100.0); Mean Platelet Volume 7.3; Monocytes # (A) 0.5 k/uL (0-1.0); Monocytes % (A) 5 %; Neutrophils # (A) 7.9 k/uL (1.3-7.7); Neutrophils % (A) 73 %; RBC 3.24 m/uL (3.80-5.40); RDW 14.9 % (11.5-15.5); WBC 10.8 k/uL (3.8-10.6); WBC (Perox) 11.19
[2016-09-08 15:43] LABS: Glucose,Whole Blood 69 mg/dL (75-99)
[2016-09-08 15:52] LABS: Partial Thromboplastin Time 23.8 sec (22.0-30.0)
[2016-09-08 16:07] LABS: Calcium 8.9 mg/dL (8.4-10.2); Magnesium 1.9 mg/dL (1.6-2.3); Total Bilirubin 0.8 mg/dL (0.2-1.3); Total Protein 5.5 g/dL (6.3-8.2)
--- NOTE | 2016-09-08 16:09 | XR ---
EXAMINATION TYPE: XR chest 2V DATE OF EXAM: 09/08/2016 4:05 PM COMPARISON: 08/24/2016 INDICATION: Difficulty breathing, short of breath TECHNIQUE: Single frontal view of the chest is obtained. FINDINGS: The heart size is normal. The pulmonary vasculature is normal. Posterior pleural effusion is present. Right lower lobe infiltrate is present. Findings are developing from prior exam. IMPRESSION: 1. Right lower lobe infiltrate with small right pleural effusion. Correlate for pneumonia.
[2016-09-08 16:10] LABS: Glucose,Whole Blood 101 mg/dL (75-99)
[2016-09-08 16:22] LABS: Creatine Kinase MB 2.9 ng/mL (0.0-2.4)
[2016-09-08 16:23] LABS: Troponin I 0.056 ng/mL (0.000-0.034)
[2016-09-08] MEDS ORDERED: LEVOFLOXACIN 750MG-D5W PMX 750 MG in DEXTROSE/WATER 1 150ML.BAG IVPB STA (16:35)
[2016-09-08] MEDS ORDERED: FUROSEMIDE 10 MG/ML 4 ML VIAL IV STA (16:43)
[2016-09-08] MEDS ORDERED: PNEUMONIA PROTOCOL UTILIZED 1 EACH MISC PO PRN (16:45)
[2016-09-08] MEDS ORDERED: IPRATROPIUM-ALBUTEROL 3 ML NEB INHALATION PRN (16:45)
[2016-09-08] MEDS ORDERED: PIPERACILLIN-TAZOBACTAM 3.375 GM in DEXTROSE/WATER 1 50ML.BAG IVPB STA (17:12)
[2016-09-08 20:33] LABS: Glucose,Whole Blood 153 mg/dL (75-99)
[2016-09-08] MEDS ORDERED: ALBUTEROL NEBULIZED 2.5 MG/3 ML INHALATION PRN (21:12)
[2016-09-08] MEDS ORDERED: ALBUTEROL INHALER 60 PUFF/8 GM INHALER INHALATION PRN (21:12)
[2016-09-08] MEDS ORDERED: ERGOCALCIFEROL 50,000 UNIT CAP PO SCH (21:15)
[2016-09-08] MEDS: ACETAMINOPHEN TAB 325 MG TAB PO PRN (22:22)
[2016-09-08] MEDS: ATORVASTATIN 20 MG TAB PO SCH (22:24)
[2016-09-08] MEDS: CARVEDILOL 12.5 MG TAB PO SCH (22:24)
[2016-09-08] MEDS: INSULIN GLARGINE 100 UNIT/ML 10 ML VIAL SQ SCH (22:46)
[2016-09-09] MEDS: PIPERACILLIN-TAZOBACTAM 3.375 GM in DEXTROSE/WATER 1 50ML.BAG IVPB SCH ×4 (00:12→23:10)
[2016-09-09] MEDS: ACETAMINOPHEN TAB 325 MG TAB PO PRN ×4 (04:50→23:09)
[2016-09-09 05:39] LABS: Glucose,Whole Blood 104 mg/dL (75-99)
[2016-09-09] MEDS: CARVEDILOL 12.5 MG TAB PO SCH ×2 (06:40→17:38)
--- NOTE | 2016-09-09 08:11 | XR ---
EXAMINATION TYPE: XR chest 2V DATE OF EXAM: 09/09/2016 7:34 AM HISTORY: Shortness of breath. COMPARISON: 09/08/2016 TECHNIQUE: Single view of the chest is submitted. FINDINGS: Demonstrated are scattered senescent parenchymal change. Persistent right lower lobe infiltrate with the parapneumonic effusion. Follow-up until resolution ad vised. The heart is stable. Hilar and mediastinal structures are within normal limits. Degenerative changes are seen of the dorsal spine. IMPRESSION: 1. Stable chest.
[2016-09-09] MEDS: INSULIN LISPRO (humaLOG) 300 UNIT/3 ML VIAL SQ SCH ×4 (08:27→21:02)
[2016-09-09] MEDS: BUDESONIDE 0.5 MG/2 ML NEBU INHALATION SCH ×2 (08:35→20:27)
[2016-09-09] MEDS: IPRATROPIUM 0.5 MG/2.5 ML NEBU INHALATION SCH ×4 (08:36→20:27)
[2016-09-09] MEDS: CHOLECALCIFEROL 400 UNIT TAB PO SCH (08:38)
[2016-09-09] MEDS: LEVOTHYROXINE 88 MCG TAB PO SCH (08:38)
[2016-09-09] MEDS: MULTIVITAMINS, THERA 1 EACH TAB PO SCH (08:38)
[2016-09-09] MEDS: ASPIRIN 81 MG CHEW PO SCH (08:38)
[2016-09-09] MEDS: CYANOCOBALAMIN 500 MCG TAB PO SCH (08:39)
[2016-09-09] MEDS: INSULIN GLARGINE 100 UNIT/ML 10 ML VIAL SQ SCH ×2 (08:39→21:08)
[2016-09-09] MEDS ORDERED: FUROSEMIDE 40 MG TAB PO SCH (09:00)
[2016-09-09 11:08] VITALS: BMI 40.2
[2016-09-09 11:49] LABS: Glucose,Whole Blood 155 mg/dL (75-99)
[2016-09-09] MEDS: FUROSEMIDE 10 MG/ML 10 ML VIAL IV SCH ×3 (12:44→23:09)
[2016-09-09] MEDS: amLODIPine 5 MG TAB PO SCH (12:44)
[2016-09-09] MEDS: SPIRONOLACTONE 25 MG TAB PO SCH (12:44)
[2016-09-09 15:59] LABS: Hemoglobin A1C 8.3 % (4.2-6.1)
[2016-09-09] MEDS ORDERED: LOSARTAN 50 MG TAB PO SCH (16:00)
[2016-09-09 17:08] LABS: Glucose,Whole Blood 103 mg/dL (75-99)
--- NOTE | 2016-09-09 17:08 | HP ---
DATE OF ADMISSION: 09/08/2016 PRESENTING COMPLAINT: Short of breath. HISTORY OF PRESENTING COMPLAINT: This is a 56-year-old patient with a rather extensive medical history. Patient's chronic stable medical conditions include non-obstructive coronary artery disease per cardiac catheterization, diabetes mellitus, type 2, hypertension, hyperlipidemia, hypothyroid, chronic kidney disease. Patient with increasing pain on the right lower chest wall, slowly getting more and more short of breath; some orthopnea; swelling of the lower extremity. Has got a slight cough, low-grade fever. Weak and tired. Admitted for the same. REVIEW OF SYSTEMS: CONSTITUTIONAL: Tired. HEENT: None. RESPIRATORY: As above. CARDIOVASCULAR: As above. GASTROINTESTINAL: None. GENITOURINARY: None. MUSCULOSKELETAL: None. DERMATOLOGICAL: None. HEMATOLOGICAL: None. LYMPHATICS: None. PSYCHIATRY: None. NEUROLOGICAL: None. PAST MEDICAL HISTORY: 1. Non-obstructive coronary artery disease. 2. COPD. 3. Diabetes mellitus, type 2. 4. Hypertension. 5. Hyperlipidemia. 6. Hypothyroid. 7. Chronic urinary stress incontinence. 8. Chronic kidney disease. 9. Home oxygen 2 liters. 10. Pancreatitis. 11. Urinary stress incontinence. 12. Left ear hard of hearing. PAST SURGICAL HISTORY: 1. Appendectomy. 2. Cholecystectomy. 3. Cardiac catheterization that showed non-obstructive disease. 4. Right rotator cuff surgery. PSYCH HISTORY: Claustrophobia, anxiety. SOCIAL HISTORY: Lives at home with and 3 teenagers. Patient has been on home oxygen 2 liters. Patient started smoking at the age of 17; smoked close to 39 years; stopped in March of 2016. FAMILY HISTORY: Colon cancer. HOME MEDICATIONS: 1. Norvasc 5 mg p.o. daily. 2. Aldactone 12.5 p.o. daily. 3. Multivitamin 1 tablet p.o. daily. 4. Cozaar 50 mg p.o. daily. 5. Synthroid 88 mcg p.o. daily. 6. Atrovent HFA 2 puffs q.i.d. 7. Lantus 20 units subcutaneously b.i.d. 8. Lasix 40 mg p.o. b.i.d. 9. Drisdol 50,000 units p.o. on Wednesday. 10. Vitamin B12 1000 mcg p.o. daily. 11. Vitamin D3 400 units p.o. daily. 12. Coreg 12.5 p.o. b.i.d. 13. Pulmicort 0.5 inhalation b.i.d. 14. Lipitor 20 mg at bedtime. 15. Aspirin 81 mg p.o. daily. 16. Ventolin 2.5 q.4 p.r.n. ALLERGIES: IV CONTRAST DYE. PHYSICAL EXAMINATION: VITAL SIGNS ON PRESENTATION: Temperature 99.1, pulse 100, respiration 26, blood pressure 164/74, pulse ox 94% on 2 L. GENERAL APPEARANCE: Well built; BMI of 40.2. Sitting up. Tired-appearing. EYES: Pupils equal. Conjunctivae normal. NECK: JVD possibly raised. Mass not palpable. RESPIRATORY: Effort increased. LUNGS: Basal crackles. CARDIOVASCULAR: First and second sounds normal. Edema present. ABDOMEN: Soft, nontender. Liver and spleen not palpable. LYMPHATIC: No lymph node palpable in neck or axillae. PSYCHIATRY: Alert and oriented x3. Mood and affect normal. NEUROLOGICAL: Pupils equal. Cranial nerves grossly intact. Power and sensation grossly intact. INVESTIGATIONS: White count 10.8, hemoglobin 9.7. Potassium 4. BUN 28, creatinine 1.23. Bicarb 44. Accu-Cheks are noted. Troponin 0.056, 0.049. Albumin 2.6. Chest x-ray shows infiltrate in the right base and venous prominence, including fluid in the horizontal fissure. Repeat chest x-ray results noted. ASSESSMENT: 1. Acute right lower lobe pneumonia, community-acquired pneumonia; suspect Gram-negative organism, present on admission. 2. Chronic obstructive pulmonary disease in an ex-smoker. 3. Non-obstructive coronary artery disease per cardiac catheterization. 4. Troponin leak, probably from hemodynamic instability at presentation; not acute coronary syndrome. There has been on chest pain. 5. Diabetes mellitus, type 2, on oral hypoglycemic. 6. Essential hypertension. 7. Hyperlipidemia. 8. Hypothyroidism. 9. Chronic urinary stress incontinence. 10. Obesity; body mass index greater than 30. 11. Chronic kidney disease, stage III, from hypertensive nephrosclerosis and diabetic nephropathy. 12. Acute on chronic congestive heart failure exacerbation from non-ischemic cardiomyopathy; ejection fraction 35% to 40%. PLAN: Start the patient on IV Lasix. Patient is put on antibiotics in the form of Levaquin and Zosyn. Also put on a bit of fluid restriction. Home medications are resumed. Accu-Cheks will be followed. Care was discussed with the patient, and daughter at the bedside. Patient's core analyst will be consulted.
[2016-09-09] MEDS ORDERED: LEVOFLOXACIN 750MG-D5W PMX 750 MG in DEXTROSE/WATER 1 150ML.BAG IVPB SCH (20:00)
[2016-09-09 20:40] LABS: Glucose,Whole Blood 73 mg/dL (75-99)
[2016-09-09] MEDS: ATORVASTATIN 20 MG TAB PO SCH (21:08)
[2016-09-10 02:50] LABS: Glucose,Whole Blood 58 mg/dL (75-99)
[2016-09-10 03:16] LABS: Glucose,Whole Blood 70 mg/dL (75-99)
[2016-09-10] MEDS ORDERED: DEXTROSE 50%-WATER 50 ML SYRINGE IVP ONE (03:16)
[2016-09-10 03:38] LABS: Glucose,Whole Blood 164 mg/dL (75-99)
[2016-09-10 05:58] LABS: Glucose,Whole Blood 131 mg/dL (75-99)
[2016-09-10] MEDS: INSULIN LISPRO (humaLOG) 300 UNIT/3 ML VIAL SQ SCH ×3 (06:17→17:55)
[2016-09-10 06:31] LABS: Potassium 3.9 mmol/L (3.5-5.1)
[2016-09-10] MEDS: CARVEDILOL 12.5 MG TAB PO SCH ×2 (06:40→17:55)
[2016-09-10] MEDS: BUDESONIDE 0.5 MG/2 ML NEBU INHALATION SCH ×2 (07:42→20:37)
[2016-09-10] MEDS: ALBUTEROL NEB (CONC) 2.5 MG/0.5 ML INHALATION PRN ×4 (07:43→20:38)
[2016-09-10] MEDS: IPRATROPIUM 0.5 MG/2.5 ML NEBU INHALATION SCH ×4 (07:43→20:37)
[2016-09-10] MEDS: ACETAMINOPHEN TAB 325 MG TAB PO PRN ×2 (07:44→16:01)
[2016-09-10] MEDS: FUROSEMIDE 10 MG/ML 10 ML VIAL IV SCH (08:56)
[2016-09-10] MEDS: PIPERACILLIN-TAZOBACTAM 3.375 GM in DEXTROSE/WATER 1 50ML.BAG IVPB SCH ×2 (08:56→16:02)
[2016-09-10] MEDS: LEVOTHYROXINE 88 MCG TAB PO SCH (08:57)
[2016-09-10] MEDS: ASPIRIN 81 MG CHEW PO SCH (08:57)
[2016-09-10] MEDS: CHOLECALCIFEROL 400 UNIT TAB PO SCH (08:57)
[2016-09-10] MEDS: CYANOCOBALAMIN 500 MCG TAB PO SCH (08:57)
[2016-09-10] MEDS: MULTIVITAMINS, THERA 1 EACH TAB PO SCH (08:57)
[2016-09-10] MEDS: INSULIN GLARGINE 100 UNIT/ML 10 ML VIAL SQ SCH (08:59)
--- NOTE | 2016-09-10 11:29 | XR ---
EXAMINATION TYPE: XR chest 2V DATE OF EXAM: 09/10/2016 9:35 AM COMPARISON: 09/09/2016 INDICATION: Pneumonia TECHNIQUE: Single frontal view of the chest is obtained. FINDINGS: The heart size is normal. The pulmonary vasculature is normal. There is a right lower lobe posterior infiltrate. Correlate for pneumonia. Pleural effusion could be considered. IMPRESSION: 1. Right lower lobe infiltrate or effusion, slightly improved.
[2016-09-10 12:10] LABS: Glucose,Whole Blood 200 mg/dL (75-99)
[2016-09-10] MEDS: SPIRONOLACTONE 25 MG TAB PO SCH (12:32)
[2016-09-10] MEDS: amLODIPine 5 MG TAB PO SCH (12:32)
--- NOTE | 2016-09-10 14:46 | US ---
EXAMINATION TYPE: US chest DATE OF EXAM: 09/10/2016 2:35 PM COMPARISON: NONE CLINICAL HISTORY: bilateral pl effusions. EXAM MEASUREMENTS: Right Pleural Effusion fluid pocket: 1.6 cm Left Pleural Effusion fluid pocket: 0 cm Not Marked Pulmonologists are able to review the images in the patient?s EMR. IMPRESSIONS: Pleural fusion on right
[2016-09-10 14:59] LABS: Amylase 51 U/L (30-110)
--- NOTE | 2016-09-10 15:13 | P.CRDCN ---
History of Present Illness Consult date: 09/10/16 History of present illness: This is a 56-year-old female with history of mild to moderate coronary artery disease and nonischemic cardiomyopathy with an ejection fraction of 35-40%, has been admitted to the hospital several times since June with increasing shortness of breath and pedal edema. Patient was being treated with a combination of Lasix all lactone losartan and also metoprolol. On admission this time that appeared to be as findings of CHF with high BNP and also suggestion of possible pneumonia. Patient was treated with IV diuretics and chest x-ray showed improvement. Patient has mild edema at this time. Her creatinine jumped from 1.2-1.8. I'm going to add small dose of Lanoxin 0.125 mg daily. I'm going to hold losartan at this time with idea of starting Entresto in 48 hours. Rest of the management to be continued at this time. Review of Systems REVIEW OF SYSTEMS: CONSTITUTIONAL:. Patient is doing well. No complaints of fever or chills EYES: Denies diplopia, blurring of vision EARS, NOSE, MOUTH, THROAT: Denies headaches, denies sore throat. CARDIOVASCULAR: As per HPI RESPIRATORY: As per HPI GASTROINTESTINAL: Denies change in appetite, denies abdominal pain, denies diarrhea GENITOURINARY: Denies hematuria, denies infections. MUSKULOSKELETAL: Denies pain, denies swelling. Denies any cramps or claudication INTEGUMENTARY: Denies rash, denies eczema. NEUROLOGICAL: Denies focal weakness, or visual disturbance. Denies any dizziness or syncope PSYCHIATRIC: Denies anxiety, denies depression. HEMATOLOGIC/LYMPHATIC: Denies any bleeding, denies enlarged lymph nodes. Past Medical History Past Medical History: Heart Failure, COPD, Diabetes Mellitus, Hyperlipidemia, Hypertension, Pneumonia, Renal Disease, Thyroid Disorder Additional Past Medical History / Comment(s): Pneumonias in past and recently admitted with pneumonia-07/29/16, CHF, nonischemic cardiomyopathy, tracheobronchitis, home O2 at 2L/NC ATC, IDDM type II, CKD, pancreatitis, hypothyroidism, urinary stress incontinence, L ear [place], diverticulitis. PT DISHARGED OF 4/2 READMITTED HAD THORACENTESIS ON 08/25/16 UNSURE OF HOW MUCH FLUID WAS REMOVED History of Any Multi-Drug Resistant Organisms: None Reported Past Surgical History: Appendectomy, Cholecystectomy, Heart Catheterization, Hysterectomy, Orthopedic Surgery Additional Past Surgical History / Comment(s): cardiac caths with last one being 09/11/15 and was normal, colonoscopy-pt states normal, RT ROTATOR CUFF SX Past Anesthesia/Blood Transfusion Reactions: No Reported Reaction Additional Past Anesthesia/Blood Transfusion Reaction / Comment(s): CLAUSTERPHOBIA. Pt states she has never received blood. Past Psychological History: Anxiety Additional Psychological History / Comment(s): LIVES AT HOME WITH SPOUSE AND 3 TEENAGERS. 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 Pt drives. Pt recently placed on home O2 at 2L/NC ATC. She has had anxiety with NIRANJAN and uses xanax rarely. She has a nebulizer. 3 steps to get into home. Smoking Status: Former smoker Past Alcohol Use History: None Reported Additional Past Alcohol Use History / Comment(s): STARTED SMOKING AT AGE 17- SMOKED 1-2 PPD.STATED QUIT MAR 2016 Past Drug Use History: None Reported - Past Family History Father Family Medical History: Cancer Additional Family Medical History / Comment(s): OF COLON CANCER AT AGE 52 Mother Family Medical History: Congestive Heart Failure (CHF), CVA/TIA Additional Family Medical History / Comment(s): OF CHF AGE 62 Medications and Allergies Home Medications Medication Instructions Recorded Confirmed Type Albuterol Inhaler [Ventolin Hfa 2 puff INHALATION RT-QID PRN 07/13/14 09/08/16 History Inhaler] Albuterol Nebulized [Ventolin 2.5 mg INHALATION RT-Q4H PRN 07/13/14 09/08/16 History Nebulized] Levothyroxine Sodium [Synthroid] 88 mcg PO DAILY@0900 07/13/14 09/08/16 History Atorvastatin [Lipitor] 20 mg PO HS 09/10/15 09/08/16 History Cyanocobalamin [Vitamin B-12] 1,000 mcg PO DAILY@0909/10/15 09/08/16 History Multivitamins, Thera [Multivitamin 1 tab PO DAILY@0909/10/15 09/08/16 History (formulary)] Ergocalciferol [Vitamin D2 50,000 unit PO TU 05/06/16 09/08/16 History (DRISDOL)] Cholecalciferol [Vitamin D3] 400 unit PO DAILY@0900 07/16/16 09/08/16 History Spironolactone [Aldactone] 12.5 mg PO DAILY@1200 07/29/16 09/08/16 History Budesonide [Pulmicort] 0.5 mg INHALATION RT-BID 08/19/16 09/08/16 History Ipratropium [place] [Atrovent Hfa] 2 puff INHALATION RT-QID 08/19/16 09/08/16 History Aspirin 81 mg PO DAILY@0900 09/08/16 09/08/16 History Carvedilol [Coreg*] 12.5 mg PO BID 09/08/16 09/08/16 History Furosemide [Lasix] 40 mg PO BID@0900,1600 09/08/16 09/08/16 History Losartan [Cozaar] 50 mg PO DAILY@1600 09/08/16 09/08/16 History amLODIPine [Norvasc] 5 mg PO DAILY@1200 09/08/16 09/08/16 History Allergies Allergy/AdvReac Type Severity Reaction Status Date / Time Iodinated Contrast Media - AdvReac KIDNEY Verified 09/08/16 15:36 Oral and DAMAGE Physical Exam Vitals: Vital Signs Temp Pulse Pulse Resp BP Pulse Ox 09/10/16 12:09 76 09/10/16 12:02 76 09/10/16 12:00 68 18 09/10/16 11:38 97.4 F L 68 18 144/63 09/10/16 08:00 72 18 135/59 97 09/10/16 07:52 76 09/10/16 07:44 72 96 09/10/16 03:48 56 L 16 94/42 96 09/10/16 00:00 79 16 118/56 95 09/09/16 20:46 86 09/09/16 20:27 84 09/09/16 19:52 98 F 73 16 112/57 96 09/09/16 17:25 88 09/09/16 17:14 88 09/09/16 16:00 88 147/76 96 Intake and Output 09/10/16 09/10/16 09/10/16 06:59 14:59 22:59 Output Total 700 700 Balance -700 -700 Output: Urine 700 700 Other: # Voids 2 # Bowel Movements 0 Weight 108 kg 108 kg Patient Weight 09/11/16 06:59 Weight 108 kg GENERAL EXAM: Patient is alert and oriented and doesn't appear to be in any acute distress HEENT: Normocephalic. Normal reaction of pupils, equal size, normal range of extraocular motion. No erythema or exudates in the throat. NECK: No masses, no nuchal rigidity. CHEST: No chest wall deformity. LUNGS: Diminished breath sounds at bases HEART: S1 and S2 normal with no audible mumurs or gallops. Regular rhythm, femorals equal on both sides.. ABDOMEN: No hepatosplenomegaly, normal bowel sounds, no guarding or rigidity. SKIN: No rashes CENTRAL NERVOUS SYSTEM: No focal deficits. EXTREMITIES: Mild edema. Results 09/08/16 15:30 09/10/16 05:47 Comprehensive Metabolic Panel 09/10/16 Range/Units 05:47 Sodium 141 (137-145) mmol/L Potassium 3.9 (3.5-5.1) mmol/L Chloride 92 L (98-107) mmol/L Carbon Dioxide 44 H* (22-30) mmol/L BUN 32 H (7-17) mg/dL Creatinine 1.86 H (0.52-1.04) mg/dL Glucose 124 H (74-99) mg/dL Calcium 9.0 (8.4-10.2) mg/dL Current Medications Generic Name Dose Route Start Last Admin Trade Name Freq PRN Reason Stop Dose Admin Acetaminophen 650 mg 09/08/16 21:12 09/10/16 07:44 Tylenol Tab PO 650 mg Q6HR PRN Administration Fever and/ or Mild Pain Albuterol Sulfate 2.5 mg 09/09/16 16:45 09/10/16 12:01 Ventolin Nebulized (Conc) INHALATION 2.5 mg RT-Q4H PRN Administration shortness of breath Amlodipine Besylate 5 mg 09/09/16 12:00 09/10/16 12:32 Norvasc PO 5 mg DAILY@1200 [facility] Administration Aspirin 81 mg 09/09/16 09:00 09/10/16 08:57 Aspirin PO 81 mg DAILY@0900 [facility] Administration Atorvastatin Calcium 20 mg 09/08/16 21:15 09/09/16 21:08 Lipitor PO 20 mg HS [facility] Administration Budesonide 0.5 mg 09/09/16 08:00 09/10/16 07:42 Pulmicort INHALATION 0.5 mg RT-BID [facility] Administration Carvedilol 12.5 mg 09/08/16 21:15 09/10/16 06:40 Coreg PO 12.5 mg AC-BID [facility] Administration Cholecalciferol 400 unit 09/09/16 09:00 09/10/16 08:57 Vitamin D3 PO 400 unit DAILY@0900 [facility] Administration Cyanocobalamin 1,000 mcg 09/09/16 09:00 09/10/16 08:57 Vitamin B-12 PO 1,000 mcg DAILY@0900 [facility] Administration Ergocalciferol 50,000 unit 09/08/16 21:15 09/08/16 22:24 Vitamin D2 PO 50,000 unit TU [facility] Administration Furosemide 60 mg 09/09/16 11:45 09/10/16 08:56 Lasix IV 60 mg Q8HR [facility] Administration Piperacillin/Tazobactam/ 50 mls @ 12.5 mls/hr 09/09/16 01:00 09/10/16 08:56 Dextrose 3.375 gm/ IV Solution IVPB 12.5 mls/hr Q8HR [facility] Administration Levofloxacin 750 mg/ IV 150 mls @ 100 mls/hr 09/10/16 17:00 Solution IVPB Q48H [facility] Insulin Glargine 20 unit 09/08/16 21:15 09/10/16 08:59 Lantus SQ 20 unit BID [facility] Administration Insulin Human Lispro 0 unit 09/09/16 07:30 09/10/16 12:30 Humalog SQ 2 unit ACHS [facility] Administration Protocol Ipratropium [place] 0.5 mg 09/09/16 17:00 09/10/16 12:01 Atrovent Nebulized INHALATION 0.5 mg RT-QID [facility] Administration Levothyroxine Sodium 88 mcg 09/09/16 09:00 09/10/16 08:57 Synthroid PO 88 mcg DAILY@0900 [facility] Administration Losartan Potassium 50 mg 09/09/16 16:00 09/09/16 17:38 Cozaar PO 50 mg DAILY@1600 [facility] Administration Miscellaneous Information 1 each 09/08/16 16:45 Pneumonia Protocol Utilized PO ONCE PRN Per Protocol Multivitamins 1 each 09/09/16 09:00 09/10/16 08:57 Theragran PO 1 each DAILY@0900 [facility] Administration Spironolactone 12.5 mg 09/09/16 12:00 09/10/16 12:32 Aldactone PO 12.5 mg DAILY@1200 [facility] Administration Intake and Output 09/10/16 09/10/16 09/10/16 06:59 14:59 22:59 Output Total 700 700 Balance -700 -700 Output: Urine 700 700 Other: # Voids 2 # Bowel Movements 0 Weight 108 kg 108 kg Patient Weight 09/11/16 06:59 Weight 108 kg 09/10/16 05:47 EKG Interpretations (text) Sinus rhythm Assessment and Plan (1) Acute CHF (congestive heart failure) Status: Acute (2) CAD (coronary artery disease) Status: Acute (3) Diabetes Status: Acute (4) Hypothyroid Status: Acute (5) Nonischemic cardiomyopathy Status: Acute (6) Pneumonia Status: Acute Plan: I'm going to add small dose of Lanoxin. Cut back the dose of the Lasix 20 mg twice a day. I'm going to stop the losartan and plan on changing to Entresto in 48 hours. Further recommendation will depend upon clinical course and I will also obtain thyroid function studies.
[2016-09-10 16:34] LABS: Glucose,Whole Blood 133 mg/dL (75-99)
--- NOTE | 2016-09-10 16:49 | P.CNPUL ---
History of Present Illness Consult date: 09/10/16 Requesting physician: Kevin Florence Reason for consult: pneumonia Chief complaint: Shortness of breath History of present illness: This is a 56-year-old female who is being evaluated and examined today on the selective care unit. This patient came into the emergency room with a chief complaint of shortness of breath, she also noted that she has gained weight over the past few days and has some lower extremity edema as well. The patient is well-known to our services. Patient was recently discharged from the hospital on 08/25/2016. During the hospital stay the patient was treated for bilateral pleural effusions and she underwent went a tharocentesis. This patient has a past medical history of nonobstructive coronary artery disease, diabetes mellitus type 2, hypertension, hyperlipidemia, hypothyroidism, chronic kidney disease, oxygen dependent at home on 2L, and significant chronic obstructive pulmonary disease. The patient states she can feel her fluid retention getting worse however she was unable to get a closer appointment with cardiology then September. Her home care nurse also tried to get her an earlier appointment and was unsuccessful. Upon examination the patient does get short of breath with it exertion, she does have swelling to her lower extremities. She states she has had a slight cough however no sputum production. She feels weak and tired. Review of Systems 13 point review of systems was completed and is negative other than what is noted in the HPI. Past Medical History Past Medical History: Heart Failure, COPD, Diabetes Mellitus, Hyperlipidemia, Hypertension, Pneumonia, Renal Disease, Thyroid Disorder Additional Past Medical History / Comment(s): Pneumonias in past and recently admitted with pneumonia-07/29/16, CHF, nonischemic cardiomyopathy, tracheobronchitis, home O2 at 2L/[place] ATC, IDDM type II, CKD, pancreatitis, hypothyroidism, urinary stress incontinence, L ear [place], diverticulitis. PT DISHARGED OF 08/23 READMITTED HAD THORACENTESIS ON 08/25/16 UNSURE OF HOW MUCH FLUID WAS REMOVED History of Any Multi-Drug Resistant Organisms: None Reported Past Surgical History: Appendectomy, Cholecystectomy, Heart Catheterization, Hysterectomy, Orthopedic Surgery Additional Past Surgical History / Comment(s): cardiac caths with last one being 09/11/15 and was normal, colonoscopy-pt states normal, RT ROTATOR CUFF SX Past Anesthesia/Blood Transfusion Reactions: No Reported Reaction Additional Past Anesthesia/Blood Transfusion Reaction / Comment(s): CLAUSTERPHOBIA. Pt states she has never received blood. Past Psychological History: Anxiety Additional Psychological History / Comment(s): LIVES AT HOME WITH SPOUSE AND 3 TEENAGERS. 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 Pt drives. Pt recently placed on home O2 at 2L/NC ATC. She has had anxiety with NIRANJAN and uses xanax rarely. She has a nebulizer. 3 steps to get into home. Smoking Status: Former smoker Past Alcohol Use History: None Reported Additional Past Alcohol Use History / Comment(s): STARTED SMOKING AT AGE 17- SMOKED 1-2 PPD.STATED QUIT MAR 2016 Past Drug Use History: None Reported - Past Family History Father Family Medical History: Cancer Additional Family Medical History / Comment(s): OF COLON CANCER AT AGE 52 Mother Family Medical History: Congestive Heart Failure (CHF), CVA/TIA Additional Family Medical History / Comment(s): OF CHF AGE 62 Medications and Allergies Home Medications Medication Instructions Recorded Confirmed Type Albuterol Inhaler [Ventolin Hfa 2 puff INHALATION RT-QID PRN 07/13/14 09/08/16 History Inhaler] Albuterol Nebulized [Ventolin 2.5 mg INHALATION RT-Q4H PRN 07/13/14 09/08/16 History Nebulized] Levothyroxine Sodium [Synthroid] 88 mcg PO DAILY@0900 07/13/14 09/08/16 History Atorvastatin [Lipitor] 20 mg PO HS 09/10/15 09/08/16 History Cyanocobalamin [Vitamin B-12] 1,000 mcg PO DAILY@0909/10/15 09/08/16 History Multivitamins, Thera [Multivitamin 1 tab PO DAILY@0900 09/10/15 09/08/16 History (formulary)] Ergocalciferol [Vitamin D2 50,000 unit PO TU 05/06/16 09/08/16 History (DRISDOL)] Cholecalciferol [Vitamin D3] 400 unit PO DAILY@0900 07/16/16 09/08/16 History Spironolactone [Aldactone] 12.5 mg PO DAILY@1200 07/29/16 09/08/16 History Budesonide [Pulmicort] 0.5 mg INHALATION RT-BID 08/19/16 09/08/16 History Ipratropium [place] [Atrovent Hfa] 2 puff INHALATION RT-QID 08/19/16 09/08/16 History Aspirin 81 mg PO DAILY@0900 09/08/16 09/08/16 History Carvedilol [Coreg*] 12.5 mg PO BID 09/08/16 09/08/16 History Furosemide [Lasix] 40 mg PO BID@0900,1600 09/08/16 09/08/16 History Losartan [Cozaar] 50 mg PO DAILY@1600 09/08/16 09/08/16 History amLODIPine [Norvasc] 5 mg PO DAILY@1200 09/08/16 09/08/16 History Allergies Allergy/AdvReac Type Severity Reaction Status Date / Time Iodinated Contrast Media - AdvReac KIDNEY Verified 09/08/16 15:36 Oral and DAMAGE Physical Exam Vitals: Vital Signs Temp Pulse Pulse Resp BP Pulse Ox 09/10/16 12:09 76 09/10/16 12:02 76 09/10/16 11:38 97.4 F L 68 18 144/63 09/10/16 08:00 72 18 135/59 97 09/10/16 07:52 76 09/10/16 07:44 72 96 09/10/16 03:48 56 L 16 94/42 96 09/10/16 00:00 79 16 118/56 95 09/09/16 20:46 86 09/09/16 20:27 84 09/09/16 19:52 98 F 73 16 112/57 96 09/09/16 17:25 88 09/09/16 17:14 88 09/09/16 16:00 88 147/76 96 Intake and Output 09/09/16 09/10/16 09/10/16 22:59 06:59 14:59 Intake Total 290 Output Total 700 700 Balance 290 -700 -700 Intake: IV 50 Piperacillin-Tazobactam 3 50 .375 gm In Dextrose/Water 1 50ml.bag @ 12.5 mls/hr IVPB Q8HR [facility] Rx#: [id number] Oral 240 Output: Urine 700 700 Other: # Voids 1 2 # Bowel Movements 0 0 Weight 108 kg 108 kg Patient Weight 09/11/16 06:59 Weight 108 kg GENERAL EXAM: Alert, comfortable in no apparent distress. HEAD: Normocephalic. EYES: Normal reaction of pupils, equal size. NOSE: Clear with pink turbinates. THROAT: No erythema or exudates. NECK: No masses, no JVD. CHEST: No chest wall deformity. No bruising, hematoma, redness or swelling noted to the right sided area of generalized diffuse pain LUNGS: Diminished air entry with scattered rhonchi and expiratory wheeze. CVS: S1 and S2 normal with no audible mumurs, regular rhythm. ABDOMEN: No hepatosplenomegaly, normal bowel sounds, no guarding or rigidity. EXTREMITIES: +1-2 edema noted, pedal pulses palpable. SKIN: No rashes CENTRAL NERVOUS SYSTEM: No focal deficits, tone is normal in all 4 extremities. Results - Laboratory Findings CBC and BMP: 09/08/16 15:30 09/10/16 05:47 PT/INR, D-dimer PT 10.0 sec (9.0-12.0) 09/08/16 15:30 INR 1.0 (<1.1) 09/08/16 15:30 Abnormal lab findings: Abnormal Labs 09/08/16 09/08/16 09/09/16 20:21 23:50 05:27 Chloride Carbon Dioxide BUN Creatinine Glucose POC Glucose (mg/dL) 153 H Troponin I 0.049 H* 0.055 H* 09/09/16 09/09/16 09/09/16 05:30 11:48 16:54 Chloride Carbon Dioxide BUN Creatinine Glucose POC Glucose (mg/dL) 104 H 155 H 103 H Troponin I 09/09/16 09/10/16 09/10/16 20:12 02:47 03:14 Chloride Carbon Dioxide BUN Creatinine Glucose POC Glucose (mg/dL) 73 L 58 L 70 L Troponin I 09/10/16 09/10/16 09/10/16 03:34 05:47 05:56 Chloride 92 L Carbon Dioxide 44 H* BUN 32 H Creatinine 1.86 H Glucose 124 H POC Glucose (mg/dL) 164 H 131 H Troponin I 09/10/16 11:59 Chloride Carbon Dioxide BUN Creatinine Glucose POC Glucose (mg/dL) 200 H Troponin I - Diagnostic Findings Chest x-ray: report reviewed, image reviewed Assessment and Plan Plan: Assessment Community-acquired right lower lobe pneumonia, suspect gram-negative organism Acute exacerbation of chronic obstructive pulmonary disease Acute on chronic hypoxic respiratory failure Coronary artery disease Acute on chronic congestive heart failure Diabetes mellitus type 2 Hypertension Hyperlipidemia Hypothyroidism Elevated troponins, not acute urinary syndrome related, suspect hemodynamic instability Plan Medications have been reviewed and will be continued as ordered. Continue with the patient's current nebulizer treatments, and antibiotics. We will hold off on any IV steroids at this time due to her chronic kidney disease. Continue with supportive care, pulmonary hygiene, coughing and deep breathing. We will obtain an ultrasound to evaluate the effusions. We will continue to monitor labs /results and adjust treatment as necessary. I performed an examination of the patient and discussed their management with the nurse practitioner. I have reviewed the nurse practitioner's note and agree with the documented findings and plan of care.
[2016-09-10] MEDS ORDERED: LEVOFLOXACIN 750MG-D5W PMX 750 MG in DEXTROSE/WATER 1 150ML.BAG IVPB SCH ×2 (17:00→20:00)
[2016-09-10] MEDS: DIGOXIN 250 MCG/ML 2 ML AMP IVP SCH (18:46)
[2016-09-10 21:06] LABS: Glucose,Whole Blood 95 mg/dL (75-99)
[2016-09-11] MEDS: PIPERACILLIN-TAZOBACTAM 3.375 GM in DEXTROSE/WATER 1 50ML.BAG IVPB SCH ×3 (00:01→17:18)
[2016-09-11] MEDS: FUROSEMIDE 10 MG/ML 2 ML VIAL IV SCH ×2 (00:02→08:40)
[2016-09-11] MEDS: ATORVASTATIN 20 MG TAB PO SCH (00:03)
[2016-09-11] MEDS: INSULIN LISPRO (humaLOG) 300 UNIT/3 ML VIAL SQ SCH ×4 (00:04→17:19)
[2016-09-11] MEDS: INSULIN GLARGINE 100 UNIT/ML 10 ML VIAL SQ SCH ×2 (00:07→08:41)
[2016-09-11] MEDS: ACETAMINOPHEN TAB 325 MG TAB PO PRN ×3 (00:13→17:18)
[2016-09-11 02:35] LABS: Glucose,Whole Blood 55 mg/dL (75-99)
[2016-09-11 03:12] LABS: Glucose,Whole Blood 108 mg/dL (75-99)
[2016-09-11 03:12] LABS: Glucose,Whole Blood 69 mg/dL (75-99)
[2016-09-11] MEDS: DIGOXIN 250 MCG/ML 2 ML AMP IVP SCH (03:32)
[2016-09-11 07:25] LABS: Glucose,Whole Blood 103 mg/dL (75-99)
[2016-09-11] MEDS: IPRATROPIUM 0.5 MG/2.5 ML NEBU INHALATION SCH ×4 (08:29→20:20)
[2016-09-11] MEDS: BUDESONIDE 0.5 MG/2 ML NEBU INHALATION SCH ×2 (08:30→20:20)
[2016-09-11] MEDS: CARVEDILOL 12.5 MG TAB PO SCH ×2 (08:40→17:18)
[2016-09-11] MEDS: CHOLECALCIFEROL 400 UNIT TAB PO SCH (08:40)
[2016-09-11] MEDS: LEVOTHYROXINE 88 MCG TAB PO SCH (08:40)
[2016-09-11] MEDS: CYANOCOBALAMIN 500 MCG TAB PO SCH (08:40)
[2016-09-11] MEDS: ASPIRIN 81 MG CHEW PO SCH (08:40)
[2016-09-11] MEDS: MULTIVITAMINS, THERA 1 EACH TAB PO SCH (08:40)
--- NOTE | 2016-09-11 08:43 | PN ---
DATE OF SERVICE: 09/10/2016 PRESENTING COMPLAINT: Short of breath. INTERVAL HISTORY: This is a patient admitted with right lobe pneumonia, CHF exacerbation, found to have right pleural effusion, pulmonary has ordered an ultrasound. ( ) though still tired. Has slight decrease in edema. Sitting up in a chair. Did tolerate some diet. Review of systems done for constitutional, cardiovascular, GI, pulmonary; relevant findings as above. Current medications are reviewed that include IV Lasix, Levaquin, IV Zosyn. On examination, temperature 99.1, pulse 75, respirations 18, blood pressure 122/82, pulse ox 96% on 2 L. GENERAL APPEARANCE: Sitting up in a chair, not in distress. EYES: Pupils equal. Conjunctivae normal. NECK: JVD possibly raised. Mass not palpable. RESPIRATORY: Effort increased. LUNGS: Decreased crackles. Mild wheezing. CARDIOVASCULAR: First and second sounds normal. Decreased edema. ABDOMEN: Soft, nontender. Liver and spleen not palpable. PSYCHIATRY: Alert and oriented x3. Mood and affect normal. INVESTIGATIONS: Potassium 3.9, bicarb 44. BUN 32, creatinine 1.86. Chest x-ray ( ) right lobe infiltrate with an effusion. ASSESSMENT: 1. Acute right lower lobe pneumonia, community-acquired pneumonia, suspect gram-negative organism may be with small parapneumonic effusion. The patient is slow to respond with slight clinical improvement. 2. Chronic obstructive pulmonary disease in an ex-smoker. 3. Nonobstructive coronary artery disease per cardiac cath. 4. Troponin leak from hemodynamic instability on presentation, not acute coronary syndrome. 5. Diabetes mellitus, type 2, on oral hypoglycemic. 6. Essential hypertension. 7. Hyperlipidemia. 8. Hypothyroidism. 9. Chronic urinary stress incontinence. 10. Obesity, body mass index greater than 30. 11. Chronic kidney disease stage III from hypertensive nephrosclerosis and diabetic nephropathy. 12. Acute renal failure, probably prerenal from IV diuresis. 13. Acute on chronic congestive heart failure exacerbation from nonischemic cardiomyopathy; ejection fraction 35% to 40% PLAN: Continue with antibiotics. Follow with Pulmonary and Cardiology. Care was discussed with patient and . Will follow.
[2016-09-11] MEDS ORDERED: DIGOXIN 125 MCG TAB PO SCH (09:00)
[2016-09-11 10:11] LABS: Calcium 8.7 mg/dL (8.4-10.2); Digoxin 0.6 ng/mL
[2016-09-11 11:37] LABS: Glucose,Whole Blood 119 mg/dL (75-99)
--- NOTE | 2016-09-11 13:00 | P.PN ---
Subjective This is a 56-year-old female who is being evaluated and examined today on the selective care unit. This patient came into the emergency room with a chief complaint of shortness of breath, she also noted that she has gained weight over the past few days and has some lower extremity edema as well. The patient is well-known to our services. Patient was recently discharged from the hospital on 08/25/2016. During the hospital stay the patient was treated for bilateral pleural effusions and she underwent went a tharocentesis. This patient has a past medical history of nonobstructive coronary artery disease, diabetes mellitus type 2, hypertension, hyperlipidemia, hypothyroidism, chronic kidney disease, oxygen dependent at home on 2L, and significant chronic obstructive pulmonary disease. The patient states she can feel her fluid retention getting worse however she was unable to get a closer appointment with cardiology then September. Her home care nurse also tried to get her an earlier appointment and was unsuccessful. Upon examination the patient does get short of breath with it exertion, she does have swelling to her lower extremities, however this has improved. She states she has had a slight cough however no sputum production which has also improved. She feels better today than previously. Objective - Vital Signs Vital signs: Vital Signs Temp 98 F 09/11/16 08:00 Pulse 76 09/11/16 11:48 Resp 18 09/11/16 08:00 BP 116/63 09/11/16 08:00 Pulse Ox 98 09/11/16 08:00 Intake & Output 09/10/16 09/11/16 09/11/16 18:59 06:59 18:59 Intake Total 200 Output Total 1800 Balance -1800 200 Weight 108 kg 109.5 kg Intake: Intake, IV Titration 200 Amount Levofloxacin 750Mg-D5w 150 Pmx 750 mg In Dextrose/ Water 1 150ml.bag @ 100 mls/hr IVPB Q48H [facility] Rx#: [id number] Piperacillin-Tazobactam 3 50 .375 gm In Dextrose/Water 1 50ml.bag @ 12.5 mls/hr IVPB Q8HR [facility] Rx#: [id number] Output: Urine 1800 Other: # Voids 1 1 # Bowel Movements 0 - Exam GENERAL EXAM: Alert, comfortable in no apparent distress. HEAD: Normocephalic. EYES: Normal reaction of pupils, equal size. NOSE: Clear with pink turbinates. THROAT: No erythema or exudates. NECK: No masses, no JVD. CHEST: No chest wall deformity. No bruising, hematoma, redness or swelling noted to the right sided area of generalized diffuse pain LUNGS: Diminished air entry with scattered rhonchi and expiratory wheeze. CVS: S1 and S2 normal with no audible mumurs, regular rhythm. ABDOMEN: No hepatosplenomegaly, normal bowel sounds, no guarding or rigidity. EXTREMITIES: +1-2 edema noted, pedal pulses palpable. SKIN: No rashes CENTRAL NERVOUS SYSTEM: No focal deficits, tone is normal in all 4 extremities. - Labs CBC & Chem 7: 09/08/16 15:30 09/11/16 07:59 Labs: Abnormal Lab Results - Last 24 Hours (Table) 09/10/16 09/11/16 09/11/16 Range/Units 16:22 02:28 02:47 Chloride (98-107) mmol/L Carbon Dioxide (22-30) mmol/L BUN (7-17) mg/dL Creatinine (0.52-1.04) mg/dL POC Glucose (mg/dL) 133 H 55 L 69 L (75-99) mg/dL TSH (0.465-4.680) mIU/L 09/11/16 09/11/16 09/11/16 Range/Units 03:04 07:22 07:59 Chloride (98-107) mmol/L Carbon Dioxide (22-30) mmol/L BUN (7-17) mg/dL Creatinine (0.52-1.04) mg/dL POC Glucose (mg/dL) 108 H 103 H (75-99) mg/dL TSH 4.770 H (0.465-4.680) mIU/L 09/11/16 09/11/16 Range/Units 07:59 11:34 Chloride 94 L (98-107) mmol/L Carbon Dioxide 42 H* (22-30) mmol/L BUN 28 H (7-17) mg/dL Creatinine 1.92 H (0.52-1.04) mg/dL POC Glucose (mg/dL) 119 H (75-99) mg/dL TSH (0.465-4.680) mIU/L Assessment and Plan Plan: Assessment Community-acquired right lower lobe pneumonia, suspect gram-negative organism Acute exacerbation of chronic obstructive pulmonary disease Acute on chronic hypoxic respiratory failure Coronary artery disease Acute on chronic congestive heart failure Diabetes mellitus type 2 Hypertension Hyperlipidemia Hypothyroidism Elevated troponins, not acute urinary syndrome related, suspect hemodynamic instability Plan Medications have been reviewed and will be continued as ordered. Continue with the patient's current nebulizer treatments, and antibiotics. We will hold off on any IV steroids at this time due to her chronic kidney disease. Continue with supportive care, pulmonary hygiene, coughing and deep breathing. We will obtain an ultrasound to evaluate the effusions. Cardiology on consult and I'm currently adjusting the patient's cardiac meds, appreciate recommendations. We will continue to monitor labs/results and adjust treatment as necessary. I performed an examination of the patient and discussed their management with the nurse practitioner. I have reviewed the nurse practitioner's note and agree with the documented findings and plan of care.
[2016-09-11] MEDS: SPIRONOLACTONE 25 MG TAB PO SCH (13:51)
[2016-09-11] MEDS: amLODIPine 5 MG TAB PO SCH (13:51)
[2016-09-11] MEDS: ALBUTEROL NEB (CONC) 2.5 MG/0.5 ML INHALATION PRN (16:10)
[2016-09-11 17:21] LABS: Glucose,Whole Blood 89 mg/dL (75-99)
[2016-09-11 20:23] LABS: Glucose,Whole Blood 104 mg/dL (75-99)
[2016-09-12 00:41] LABS: Glucose,Whole Blood 62 mg/dL (75-99)
[2016-09-12] MEDS: FUROSEMIDE 10 MG/ML 2 ML VIAL IV SCH ×2 (01:34→08:48)
[2016-09-12] MEDS: ATORVASTATIN 20 MG TAB PO SCH ×2 (01:35→21:31)
[2016-09-12] MEDS: acetaZOLAMIDE 250 MG TAB PO SCH ×3 (01:38→21:31)
[2016-09-12] MEDS: INSULIN LISPRO (humaLOG) 300 UNIT/3 ML VIAL SQ SCH ×5 (02:24→21:32)
[2016-09-12] MEDS: INSULIN GLARGINE 100 UNIT/ML 10 ML VIAL SQ SCH ×3 (02:24→21:32)
[2016-09-12] MEDS: PIPERACILLIN-TAZOBACTAM 3.375 GM in DEXTROSE/WATER 1 50ML.BAG IVPB SCH ×4 (02:26→23:36)
[2016-09-12 07:19] LABS: Glucose,Whole Blood 81 mg/dL (75-99)
--- NOTE | 2016-09-12 07:26 | PN ---
DATE OF SERVICE: 09/11/2016 PRESENTING COMPLAINT: Chest wall pain. INTERVAL HISTORY: This patient presented with right lower lobe pneumonia, CHF exacerbation, also found to have right pleural effusion. Pulmonary is following the same. The patient also got some pain on the right chest wall, felt to be more musculoskeletal. Patient's edema has gone down. Renal function has slightly been off. is at the bedside. Patient is tolerating a diet. Review of systems done for constitutional, cardiovascular, GI, pulmonary; relevant findings as above. Current medications are reviewed and include IV Lasix, Levaquin, IV Zosyn. On examination, temperature 98.2, pulse 80, respirations 18, blood pressure 160/47, pulse ox 97% on room air. GENERAL APPEARANCE: Sitting up in a chair not in distress. EYES: Pupils equal. Conjunctivae normal. NECK: JVD not raised. Mass not palpable. RESPIRATORY: Effort increased. LUNGS: Decreased breath sounds. Some mild crackles right base. CARDIOVASCULAR: First and second seconds normal. Decreased edema. ABDOMEN: Soft, nontender. Liver and through not palpable. PSYCHIATRY: Alert and oriented x3. Mood and affect normal. INVESTIGATIONS: White count 4, bicarb 42, BUN 20, creatinine 1.92. ASSESSMENT: 1. Acute right lobe pneumonia, community-acquired, suspect gram-negative organism with maybe a small parapneumonic effusion. 2. Right chest wall musculoskeletal pain. 3. Chronic obstructive pulmonary disease in an ex-smoker. 4. Nonobstructive coronary disease per cardiac catheterization previously. 5. Troponin leak. 6. Diabetes mellitus type 2 on oral hypoglycemics. 7. Essential hypertension. 8. Hyperlipidemia. 9. Hypothyroidism. 10. Chronic urinary stress incontinence. 11. Obesity, body mass index greater than 30. 12. Chronic kidney stage III from hypertensive nephrosclerosis and diabetic nephropathy. 13. Acute renal failure from IV diuresis. 14. Acute on chronic congestive heart failure from nonischemic cardiomyopathy, ejection fraction is 35 to 40%. PLAN: Patient told to use the [place] wrap. We will repeat a chest x-ray in the morning. Definitely patient's renal function is worse and patient has metabolic alkalosis. Will add some Diamox and go from there.
[2016-09-12 08:12] LABS: Calcium 8.9 mg/dL (8.4-10.2); Potassium 4.2 mmol/L (3.5-5.1)
[2016-09-12] MEDS: CARVEDILOL 12.5 MG TAB PO SCH ×2 (08:48→16:37)
[2016-09-12] MEDS: CYANOCOBALAMIN 500 MCG TAB PO SCH (08:48)
[2016-09-12] MEDS: CHOLECALCIFEROL 400 UNIT TAB PO SCH (08:49)
[2016-09-12] MEDS: MULTIVITAMINS, THERA 1 EACH TAB PO SCH (08:49)
[2016-09-12] MEDS: ASPIRIN 81 MG CHEW PO SCH (08:49)
[2016-09-12] MEDS: LEVOTHYROXINE 88 MCG TAB PO SCH (08:50)
[2016-09-12] MEDS: ALBUTEROL NEB (CONC) 2.5 MG/0.5 ML INHALATION PRN ×2 (09:10→22:07)
[2016-09-12] MEDS: IPRATROPIUM 0.5 MG/2.5 ML NEBU INHALATION SCH ×4 (09:10→22:07)
[2016-09-12] MEDS: BUDESONIDE 0.5 MG/2 ML NEBU INHALATION SCH ×2 (09:11→22:06)
--- NOTE | 2016-09-12 10:33 | XR ---
EXAMINATION TYPE: XR chest 2V DATE OF EXAM: 09/12/2016 9:04 AM COMPARISON: 09/10/2016 INDICATION: CHF TECHNIQUE: Single frontal view of the chest is obtained. FINDINGS: The heart size is normal. The pulmonary vasculature is normal. There is some streak opacity in the left perihilar region. Mild increased opacities over the left bas e. Previous right lower lobe infiltrate has improved. IMPRESSION: 1. Bibasilar infiltrates increasing on the left and improving on the right. Correlate for atelectasis .
[2016-09-12 11:31] LABS: Glucose,Whole Blood 141 mg/dL (75-99)
--- NOTE | 2016-09-12 12:47 | PN ---
Alaina Nieto is a 56-year-old morbidly obese female with severe degree of cardiomyopathy and acute on chronic systolic heart failure, came into hospital with acute onset of shortness of breath related to acute exacerbation of CHF related to acute on chronic systolic heart failure. Her baseline ejection fraction is 35% to 40%. She is slightly less short of breath. She is still to be evaluated by Cardiovascular Services. She is being treated with broad-spectrum antibiotics, breathing treatments for pneumonia. Her hemodynamic status is stable. Her chest x-ray performed today reviewed and compared with the prior x-ray. The PA and lateral view hard copies reveal presence of streak-like atelectasis versus infiltrate in the left mid lung field, small bilateral pleural effusions likely appears to be more on the left side compared to right side, left lower lobe pneumonia cannot be excluded. The vitals include blood pressure is 143/70, respiratory rate 18, pulse 98, temperature is 98, saturation 90% on 2 L oxygen. HEENT: Unremarkable. NECK: Supple without adenopathy or jugular venous distension. LUNGS: Bilateral good entry, a few crackles at the bases. HEART: Regular rate and rhythm, S1 and S2 audible. ABDOMEN: Soft. No rebound or rigidity. EXTREMITIES: +1 peripheral pulses. NEUROLOGICAL EXAMINATION: She is otherwise, awake and alert. Labs reviewed. Sodium is 140, potassium 4.2. BUN and creatinine is slightly going is 23 and 2.17 with GFR is 24. Culture results and reports including blood culture have been reviewed. IMPRESSION: 1. Left lower lobe pneumonia and left mid lung field pneumonia. 2. Small right-sided pleural effusion. 3. Acute exacerbation of congestive heart failure with acute on chronic systolic heart failure. 4. Worsening renal function is stage IV now. 5. Cardiomyopathy with ejection fraction of 35% to 40%. 6. Morbid obesity. 7. Likely obstructive sleep apnea, to be evaluated further with a sleep study on outpatient setting. PLAN: As dictated above. Continue antibiotics in the form of Zosyn. Follow up on culture results and reports. Would recommend to slow down the diuresis, optimize cardiac function though with optimization of medication. Increase activity as tolerated. Will follow.
[2016-09-12] MEDS: amLODIPine 5 MG TAB PO SCH (12:55)
[2016-09-12] MEDS: SPIRONOLACTONE 25 MG TAB PO SCH (12:55)
[2016-09-12] MEDS: FUROSEMIDE 250 MG in SODIUM CHLORIDE 0.9% 225 ML IVP SCH (16:38)
--- NOTE | 2016-09-12 16:59 | PN ---
DATE OF SERVICE: 09/12/2016 PRESENTING COMPLAINT: Short of breath. INTERVAL HISTORY: This is a patient with right lower lobe pneumonia, CHF exacerbation, right pleural effusion. Edema has gone down, but still got quite a bit present. Patient has shortness of breath. Review of systems done for constitutional, cardiovascular, GI, pulmonary; as above. Current medications include IV Lasix 20 mg twice daily. On examination, temperature 97.9, pulse 73, respirations 18, blood pressure 163/71, pulse ox 96% on 2 liters. GENERAL APPEARANCE: Sitting up in a chair, tired appearing. EYES: Pupils equal, conjunctivae normal. NECK: JVD not raised. Mass not palpable. RESPIRATORY: Effort increased. LUNGS: Basal crackles. CARDIOVASCULAR: First and second sounds normal. Edema present. ABDOMEN: Soft, nontender. Liver and spleen not palpable. PSYCHIATRY: Alert and oriented x3. Mood and affect tired -appearing. INVESTIGATIONS: Potassium 4.2. BUN 23, creatinine 2.7. Chest x-ray shows pulmonary prominence and fluid both in the horizontal and oblique fissure. ASSESSMENT: 1. Acute right lower lobe pneumonia, ( ) suspected organism clinically improved. 2. Right chest wall musculoskeletal pain. 3. Acute on chronic congestive heart failure exacerbation from nonischemic cardiomyopathy; ejection fraction 35% to 40%. 4. Chronic obstructive pulmonary disease in an ex-smoker. 5. Nonobstructive coronary artery disease per cardiac cath. 6. Troponin leak. 7. Diabetes mellitus, on oral hypoglycemic. 8. Essential hypertension. 9. Hyperlipidemia. 10. Hypothyroidism. 11. Chronic urinary stress incontinence. 12. Obesity, body mass index greater than 30. 13. Chronic kidney stage III from hypertensive nephrosclerosis and diabetic nephropathy. PLAN: Given that the patient chest x-ray is showing fluid in both fissures, edema is still present and ( ) renal failure, we will try the patient on Lasix drip for 24 hours and see how she does. We will do strict I's and O's. The patient will be closely monitored.
[2016-09-12 17:12] LABS: Glucose,Whole Blood 71 mg/dL (75-99)
[2016-09-12 17:12] LABS: Glucose,Whole Blood 66 mg/dL (75-99)
--- NOTE | 2016-09-12 17:32 | P.PN ---
Subjective Principal diagnosis: Cardiomyopathy congestive heart failure and renal failure This 56-year-old female with history of mild cardiomyopathy and mild coronary artery disease is admitted again with complaints of increasing shortness of breath and pedal edema. Pedal edema seemed to be more of an issue. Patient was diuresed aggressively with IV Lasix 40 mg every 8 hours with reduction of the edema. However her BUN/creatinine start to creep up. The dose of the Lasix was cut back. Patient was started on Lanoxin and MARTINEZ inhibitor was held with the idea of starting her on Entresto. Patient's creatinine however still went up. Patient was also seen by machine hamper maker. It was felt that patient may have pneumonia and continued antibiotic therapy suggested. Dr. Florence felt that patient may be in CHF and is going to try IV Lasix drip for 24 hours. It' s possible that patient may be intravascularly depleted and increase his creatinine could be from prerenal azotemia. However we'll follow her BUN/ creatinine tomorrow. If necessary a nephrology consult will be obtained. I'll hold Lanoxin because of increasing creatinine values. I will also hold off on the idea of starting entresto, once her renal function stabilizes Objective - Vital Signs Vital signs: Vital Signs Temp 97.9 F 09/12/16 16:00 Pulse 85 09/12/16 16:00 Resp 18 09/12/16 16:00 BP 134/70 09/12/16 16:00 Pulse Ox 96 09/12/16 16:00 Intake & Output 09/11/16 09/12/16 09/12/16 18:59 06:59 18:59 Intake Total 1180 160 Output Total 300 300 Balance 880 -140 Weight 109.5 kg 109.5 kg Intake: IV 160 Piperacillin-Tazobactam 3 160 .375 gm In Dextrose/Water 1 50ml.bag @ 12.5 mls/hr IVPB Q8HR [facility] Rx#: [id number] Oral 1180 Output: Urine 300 300 Other: Voiding Method Toilet Bedside Commode # Voids 2 2 2 # Bowel Movements 0 0 - Exam GENERAL EXAM: Patient is alert and oriented and doesn't appear to be in any acute distress HEENT: Normocephalic. Normal reaction of pupils, equal size, normal range of extraocular motion. No erythema or exudates in the throat. NECK: No masses, no nuchal rigidity. CHEST: No chest wall deformity. LUNGS: Equal air entry with no crackles or wheeze. HEART: S1 and S2 normal with no audible mumurs or gallops. Regular rhythm, femorals equal on both sides.. ABDOMEN: No hepatosplenomegaly, normal bowel sounds, no guarding or rigidity. SKIN: No rashes CENTRAL NERVOUS SYSTEM: No focal deficits. EXTREMITIES: 2+ edema - Labs CBC & Chem 7: 09/08/16 15:30 09/12/16 07:13 Labs: Abnormal Lab Results - Last 24 Hours (Table) 09/11/16 09/12/16 09/12/16 Range/Units 20:22 00:30 07:13 Chloride 96 L (98-107) mmol/L Carbon Dioxide 41 H* (22-30) mmol/L BUN 23 H (7-17) mg/dL Creatinine 2.17 H (0.52-1.04) mg/dL POC Glucose (mg/dL) 104 H 62 L (75-99) mg/dL 09/12/16 09/12/16 09/12/16 Range/Units 11:29 16:51 16:52 Chloride (98-107) mmol/L Carbon Dioxide (22-30) mmol/L BUN (7-17) mg/dL Creatinine (0.52-1.04) mg/dL POC Glucose (mg/dL) 141 H 66 L 71 L (75-99) mg/dL Assessment and Plan (1) Acute CHF (congestive heart failure) Status: Acute (2) CAD (coronary artery disease) Status: Acute (3) Diabetes Status: Acute (4) Hypothyroid Status: Acute (5) Nonischemic cardiomyopathy Status: Acute (6) Pneumonia Status: Acute Plan: Patient is scheduled to be initiated with IV Lasix due to by Dr. Florence. We' ll follow her BUN/creatinine closely. We'll hold Lanoxin for now. Further recommendation to follow. Nephrology consult may be obtained
[2016-09-12] MEDS ORDERED: LEVOFLOXACIN 750 MG TAB PO SCH (20:00)
[2016-09-12 21:06] LABS: Glucose,Whole Blood 120 mg/dL (75-99)
[2016-09-13 03:38] LABS: Glucose,Whole Blood 44 mg/dL (75-99)
[2016-09-13] MEDS ORDERED: DEXTROSE 50%-WATER 50 ML SYRINGE IVP ONE (03:48)
[2016-09-13 03:58] LABS: Glucose,Whole Blood 53 mg/dL (75-99)
[2016-09-13 04:20] LABS: Glucose,Whole Blood 140 mg/dL (75-99)
[2016-09-13] MEDS: INSULIN LISPRO (humaLOG) 300 UNIT/3 ML VIAL SQ SCH ×4 (06:48→21:43)
[2016-09-13] MEDS: CARVEDILOL 12.5 MG TAB PO SCH ×2 (06:49→17:20)
[2016-09-13 06:51] LABS: Glucose,Whole Blood 110 mg/dL (75-99)
[2016-09-13 07:25] LABS: Potassium 3.8 mmol/L (3.5-5.1)
[2016-09-13] MEDS: PIPERACILLIN-TAZOBACTAM 3.375 GM in DEXTROSE/WATER 1 50ML.BAG IVPB SCH ×2 (08:23→15:03)
[2016-09-13] MEDS: ASPIRIN 81 MG CHEW PO SCH (08:24)
[2016-09-13] MEDS: INSULIN GLARGINE 100 UNIT/ML 10 ML VIAL SQ SCH ×2 (08:24→21:03)
[2016-09-13] MEDS: CYANOCOBALAMIN 500 MCG TAB PO SCH (08:24)
[2016-09-13] MEDS: acetaZOLAMIDE 250 MG TAB PO SCH ×2 (08:24→21:02)
[2016-09-13] MEDS: CHOLECALCIFEROL 400 UNIT TAB PO SCH (08:24)
[2016-09-13] MEDS: LEVOTHYROXINE 88 MCG TAB PO SCH (08:24)
[2016-09-13] MEDS: MULTIVITAMINS, THERA 1 EACH TAB PO SCH (08:24)
[2016-09-13] MEDS: BUDESONIDE 0.5 MG/2 ML NEBU INHALATION SCH ×2 (08:57→20:16)
[2016-09-13] MEDS: ALBUTEROL NEB (CONC) 2.5 MG/0.5 ML INHALATION PRN ×4 (08:57→20:16)
[2016-09-13] MEDS: IPRATROPIUM 0.5 MG/2.5 ML NEBU INHALATION SCH ×4 (08:57→20:16)
--- NOTE | 2016-09-13 10:51 | XR ---
EXAMINATION TYPE: XR chest 2V DATE OF EXAM: 09/13/2016 10:41 AM COMPARISON: 09/12/2016 INDICATION: Previous abnormal chest TECHNIQUE: Single frontal view of the chest is obtained. FINDINGS: The heart size is mildly prominent. The pulmonary vasculature is normal. There is improving infiltrate to the left midlung. Improving left lower lobe infiltrate is present. E KG leads overlie the chest. IMPRESSION: 1. Improving pneumonia. Continued follow-up is recommended.
[2016-09-13 11:50] LABS: Glucose,Whole Blood 134 mg/dL (75-99)
[2016-09-13] MEDS: SPIRONOLACTONE 25 MG TAB PO SCH (11:57)
[2016-09-13] MEDS: amLODIPine 5 MG TAB PO SCH (11:57)
[2016-09-13 14:38] LABS: Magnesium 1.8 mg/dL (1.6-2.3); Potassium 3.8 mmol/L (3.5-5.1)
[2016-09-13] MEDS: FUROSEMIDE 250 MG in SODIUM CHLORIDE 0.9% 225 ML IVP SCH (15:03)
--- NOTE | 2016-09-13 16:29 | PN ---
Alaina Nieto is a 56-year-old morbidly obese female with severe degree of cardiomyopathy and chronic systolic heart failure, ejection fraction is 35 to 40%. Patient is slightly more short of breath than baseline. She remains on optimal therapy for heart failure. She was slightly more short of breath than baseline and was moved from the fifth floor to the sixth floor. She underwent a stat portable chest x-ray, which I have reviewed and compared with the prior x-ray. Of note that the pneumonia is improving involving the left lower lobe and left mid lung field. Interstitial edema is slightly better, in fact improved from before as well. Last set of vitals include blood pressure is 141/96, respiratory rate 18, pulse 85, temperature 97, saturation 94% on 2 liters oxygen. HEENT EXAMINATION: Otherwise atraumatic, normocephalic. ( ) clear. Narrow pharyngeal opening is present. NECK: Supple without lymphadenopathy, jugular venous distention or carotid bruit. LUNGS: Bilateral good air entry. A few crackles at bases cannot be excluded. HEART: Regular rate and rhythm. S1 and S2 audible. ABDOMEN: Soft. No rebound or rigidity. EXTREMITIES: +1. NEUROLOGICAL EXAMINATION: Otherwise awake and alert. Labs reviewed. BUN and creatinine 18 and 2.45. Current medications reviewed and include Tylenol, Diamox, Ventolin, Norvasc, aspirin, atorvastatin, Pulmicort, Coreg and Lasix, which is in the form of drip 10 an hour, insulin and Levaquin which dose has been adjusted, Zosyn. IMPRESSION: 1. Pneumonia, mixed bacteria gram-negative on Levaquin and Zosyn. Clinically and radiographically responding well. Would recommend changing antibiotics to p.o. now. 2. Congestive heart failure on optimal medical therapy, the patient is on Lasix drip as well. 3. Acute renal failure stage IV. Would recommend to limit the Lasix drip. Increase activity as tolerated and monitor renal functions closely. Will follow. Other issues include obstructive sleep apnea, obesity hypoventilation and chronic obstructive pulmonary disease. We will continue monitor and observe. Continue current therapy. Further evaluation on outpatient basis.
[2016-09-13 17:10] LABS: Glucose,Whole Blood 72 mg/dL (75-99)
[2016-09-13 17:10] LABS: Glucose,Whole Blood 63 mg/dL (75-99)
--- NOTE | 2016-09-13 19:40 | P.PN ---
Subjective Principal diagnosis: Cardiomyopathy congestive heart failure and renal failure As patient with history of a moderate cardiomyopathy and recurrent bouts of shortness of breath and CHF was admitted again with increasing shortness of breath and edema patient was treated with IV Lasix boluses with improvement. Patient was started IV Lasix drip yesterday. Appendix she diabetes the last night. Chest x-ray shows some improvement in pneumonia. Her creatinine has gone up. I recommend that the Lasix drip to be discontinued. Follow renal function studies carefully. Digoxin is held because of high creatinine. When creatinine becomes to baseline, may consider adding Entresto. And is complaining of lack of sleep and fatigue Objective - Vital Signs Vital signs: Vital Signs Temp 97.8 F 09/13/16 16:00 Pulse 76 09/13/16 16:51 Resp 18 09/13/16 16:00 BP 133/62 09/13/16 16:00 Pulse Ox 98 09/13/16 16:00 Intake & Output 09/13/16 09/13/16 09/14/16 06:59 18:59 06:59 Intake Total 30 1054.167 Output Total 1650 6600 Balance -1620 -5545.833 Weight 109.3 kg 109.3 kg Intake: Intake, IV Titration 30 224.167 Amount Furosemide 250 mg In 30 224.167 Sodium Chloride 0.9% 225 ml @ 10 MG/HR 10 mls/hr IVP .Q24H [facility] Rx#: [id number] Oral 830 Output: Urine 1650 6600 Other: Voiding Method Toilet Bedside Commode # Voids 1 1 # Bowel Movements 0 - Exam GENERAL EXAM: Patient is alert and oriented and doesn't appear to be in any acute distress HEENT: Normocephalic. Normal reaction of pupils, equal size, normal range of extraocular motion. No erythema or exudates in the throat. NECK: No masses, no nuchal rigidity. CHEST: No chest wall deformity. LUNGS: Equal air entry with no crackles or wheeze. HEART: S1 and S2 normal with no audible mumurs or gallops. Regular rhythm, femorals equal on both sides.. ABDOMEN: No hepatosplenomegaly, normal bowel sounds, no guarding or rigidity. SKIN: No rashes CENTRAL NERVOUS SYSTEM: No focal deficits. EXTREMITIES:1 plus edema - Labs CBC & Chem 7: 09/08/16 15:30 09/13/16 14:02 Labs: Abnormal Lab Results - Last 24 Hours (Table) 09/12/16 09/13/16 09/13/16 Range/Units 20:38 03:27 03:46 Carbon Dioxide (22-30) mmol/L BUN (7-17) mg/dL Creatinine (0.52-1.04) mg/dL Glucose (74-99) mg/dL POC Glucose (mg/dL) 120 H 44 L 53 L (75-99) mg/dL 09/13/16 09/13/16 09/13/16 Range/Units 04:08 06:29 06:32 Carbon Dioxide 37 H (22-30) mmol/L BUN 18 H (7-17) mg/dL Creatinine 2.45 H (0.52-1.04) mg/dL Glucose 103 H (74-99) mg/dL POC Glucose (mg/dL) 140 H 110 H (75-99) mg/dL 09/13/16 09/13/16 09/13/16 Range/Units 11:37 16:30 17:00 Carbon Dioxide (22-30) mmol/L BUN (7-17) mg/dL Creatinine (0.52-1.04) mg/dL Glucose (74-99) mg/dL POC Glucose (mg/dL) 134 H 63 L 72 L (75-99) mg/dL Assessment and Plan (1) Acute CHF (congestive heart failure) Status: Acute (2) CAD (coronary artery disease) Status: Acute (3) Diabetes Status: Acute (4) Hypothyroid Status: Acute (5) Nonischemic cardiomyopathy Status: Acute (6) Pneumonia Status: Acute Plan: IV Lasix to be discontinued. Follow renal function studies. Further recommendations to follow
[2016-09-13] MEDS ORDERED: IPRATROPIUM-ALBUTEROL 3 ML NEB INHALATION PRN (20:24)
[2016-09-13] MEDS: AMOXIC-POT CLAV 500-125 MG 1 EACH TAB PO SCH (21:03)
[2016-09-13] MEDS: ATORVASTATIN 20 MG TAB PO SCH (21:03)
[2016-09-13 21:10] LABS: Glucose,Whole Blood 234 mg/dL (75-99)
--- NOTE | 2016-09-13 22:24 | PN ---
DATE OF SERVICE: 09/13/2016 PRESENTING COMPLAINT: Shortness of breath, edema. INTERVAL HISTORY: This patient with right lobe pneumonia, CHF exacerbation, right pleural effusion, started the patient on Lasix drip yesterday. Patient has put out over 5000 mL negative fluid balance. Breathing is better. Edema is coming down but still present. Sitting up. Review of systems done for constitutional, cardiovascular, GI, pulmonary; relevant findings as above. Current medications are reviewed that include: 1. Lasix drip IV 2. Zosyn. On examination, temperature 97.4, pulse 71, respirations 18, blood pressure 125/77, pulse ox 98% on 2L. GENERAL APPEARANCE: Sitting up, not in distress. EYES: Pupils equal. Conjunctivae normal. NECK: JVD possibly raised. Mass not palpable. RESPIRATORY: Effort increased. LUNGS: Decreased basilar crackles. CARDIOVASCULAR: First and second sounds are normal. Decreased edema but still present. ABDOMEN: Soft, nontender. Liver and spleen not palpable. PSYCHIATRY: Alert and oriented x3. Mood and affect normal. INVESTIGATIONS: BUN 18, creatinine 2.45. ASSESSMENT: 1. Acute right lobe pneumonia, suspect gram-negative organism with clinical improvement. 2. Right chest wall musculoskeletal pain, improved. 3. Acute on chronic congestive heart failure exacerbation from nonischemic cardiomyopathy; ejection fraction 35% to 40%, putting good fluid output, improving. 4. Chronic obstructive pulmonary disease in an ex-smoker. 5. Nonobstructive coronary artery disease per cardiac catheter. 6. Diabetes mellitus type 2, on oral hypoglycemic. 7. Essential hypertension. 8. Hyperlipidemia. 9. Hypothyroidism. 10. Chronic urinary stress incontinence. 11. Obesity; body mass index greater than 30. 12. 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 13. Acute renal failure from diuresis/prerenal. PLAN: Patient clinically is doing better. Has put out over 5 L of fluid. Will discontinue IV Lasix drip later today and switch the patient back to oral Lasix. Care was discussed with the patient.
[2016-09-14] MEDS: INSULIN LISPRO (humaLOG) 300 UNIT/3 ML VIAL SQ SCH ×4 (06:20→21:22)
[2016-09-14 06:31] LABS: Calcium 8.8 mg/dL (8.4-10.2); Potassium 3.6 mmol/L (3.5-5.1)
[2016-09-14 06:43] LABS: Glucose,Whole Blood 93 mg/dL (75-99)
[2016-09-14] MEDS: CARVEDILOL 12.5 MG TAB PO SCH ×2 (06:47→18:03)
[2016-09-14] MEDS: IPRATROPIUM-ALBUTEROL 3 ML NEB INHALATION SCH ×4 (08:54→19:17)
[2016-09-14] MEDS: BUDESONIDE 0.5 MG/2 ML NEBU INHALATION SCH ×2 (08:55→19:17)
[2016-09-14] MEDS ORDERED: FUROSEMIDE 80 MG TAB PO SCH (09:00)
[2016-09-14] MEDS ORDERED: SPIRONOLACTONE 25 MG TAB PO SCH (09:00)
[2016-09-14] MEDS: CYANOCOBALAMIN 500 MCG TAB PO SCH (09:37)
[2016-09-14] MEDS: ASPIRIN 81 MG CHEW PO SCH (09:37)
[2016-09-14] MEDS: acetaZOLAMIDE 250 MG TAB PO SCH ×2 (09:37→21:25)
[2016-09-14] MEDS: MULTIVITAMINS, THERA 1 EACH TAB PO SCH (09:37)
[2016-09-14] MEDS: CHOLECALCIFEROL 400 UNIT TAB PO SCH (09:37)
[2016-09-14] MEDS: AMOXIC-POT CLAV 500-125 MG 1 EACH TAB PO SCH ×2 (09:37→21:25)
[2016-09-14] MEDS: LEVOTHYROXINE 88 MCG TAB PO SCH (09:37)
[2016-09-14] MEDS: INSULIN GLARGINE 100 UNIT/ML 10 ML VIAL SQ SCH ×2 (09:38→21:25)
--- NOTE | 2016-09-14 11:04 | P.NPCON ---
History of Present Illness - Reason for Consult acute renal failure - History of Present Illness Reason for consultation: Acute kidney injury on chronic kidney disease History of present illness: Patient is a 71-year-old female seen in renal consultation for acute kidney injury on chronic kidney disease. Patient has chronic kidney disease stage III with baseline creatinine in the range of 1.2-1.4. Etiology of her chronic kidney disease is diabetic kidney disease as well as contrast-induced nephropathy. Tetanus up to 2.72 today. She presented to the hospital with dyspnea and lower extremity edema. She initially received IV bolus Lasix and then was started on Lasix drip. I urine output for the last 24 hours is greater than 7 L. Her weight is down by over 8 kg. She feels much better. Edema is significantly improved. Denies any chest pain or shortness of breath. No vomiting or diarrhea. Denies a cough. No fever or chills. Hemodynamically stable. Denies use of NSAIDs at home. Vital signs are stable. General: The patient appeared well nourished and normally developed. HEENT: Head exam is unremarkable. Neck is without jugular venous distension. LUNGS: Lungs are clear to auscultation and percussion. Breath sounds decreased. HEART: Rate and Rhythm are regular. First and second heart sounds normal. No murmurs, rubs or gallops. ABDOMEN: Abdominal exam reveals normal bowel sounds. Non-tender and non- distended. No evidence of peritonitis. EXTREMITITES: Trace edema. Past Medical History Past Medical History: Heart Failure, COPD, Diabetes Mellitus, Hyperlipidemia, Hypertension, Pneumonia, Renal Disease, Thyroid Disorder Additional Past Medical History / Comment(s): Pneumonias in past and recently admitted with pneumonia-07/29/16, CHF, nonischemic cardiomyopathy, tracheobronchitis, home O2 at 2L/NC ATC, IDDM type II, CKD, pancreatitis, hypothyroidism, urinary stress incontinence, L ear [place], diverticulitis. PT DISHARGED OF 4/2 READMITTED HAD THORACENTESIS ON 08/25/16 UNSURE OF HOW MUCH FLUID WAS REMOVED History of Any Multi-Drug Resistant Organisms: None Reported Past Surgical History: Appendectomy, Cholecystectomy, Heart Catheterization, Hysterectomy, Orthopedic Surgery Additional Past Surgical History / Comment(s): cardiac caths with last one being 09/11/15 and was normal, colonoscopy-pt states normal, RT ROTATOR CUFF SX Past Anesthesia/Blood Transfusion Reactions: No Reported Reaction Additional Past Anesthesia/Blood Transfusion Reaction / Comment(s): CLAUSTERPHOBIA. Pt states she has never received blood. Past Psychological History: Anxiety Additional Psychological History / Comment(s): LIVES AT HOME WITH SPOUSE AND 3 TEENAGERS. 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 Pt drives. Pt recently placed on home O2 at 2L/NC ATC. She has had anxiety with NIRANJAN and uses xanax rarely. She has a nebulizer. 3 steps to get into home. Smoking Status: Former smoker Past Alcohol Use History: None Reported Additional Past Alcohol Use History / Comment(s): STARTED SMOKING AT AGE 17- SMOKED 1-2 PPD.STATED QUIT MAR 2016 Past Drug Use History: None Reported - Past Family History Father Family Medical History: Cancer Additional Family Medical History / Comment(s): OF COLON CANCER AT AGE 52 Mother Family Medical History: Congestive Heart Failure (CHF), CVA/TIA Additional Family Medical History / Comment(s): OF CHF AGE 62 Medications and Allergies Home Medications Medication Instructions Recorded Confirmed Type Albuterol Inhaler [Ventolin Hfa 2 puff INHALATION RT-QID PRN 07/13/14 09/08/16 History Inhaler] Albuterol Nebulized [Ventolin 2.5 mg INHALATION RT-Q4H PRN 07/13/14 09/08/16 History Nebulized] Levothyroxine Sodium [Synthroid] 88 mcg PO DAILY@0900 07/13/14 09/08/16 History Atorvastatin [Lipitor] 20 mg PO HS 09/10/15 09/08/16 History Cyanocobalamin [Vitamin B-12] 1,000 mcg PO DAILY@0909/10/15 09/08/16 History Multivitamins, Thera [Multivitamin 1 tab PO DAILY@0909/10/15 09/08/16 History (formulary)] Ergocalciferol [Vitamin D2 50,000 unit PO TU 05/06/16 09/08/16 History (DRISDOL)] Cholecalciferol [Vitamin D3] 400 unit PO DAILY@0900 07/16/16 09/08/16 History Spironolactone [Aldactone] 12.5 mg PO DAILY@1200 07/29/16 09/08/16 History Budesonide [Pulmicort] 0.5 mg INHALATION RT-BID 08/19/16 09/08/16 History Ipratropium [place] [Atrovent Hfa] 2 puff INHALATION RT-QID 08/19/16 09/08/16 History Aspirin 81 mg PO DAILY@0900 09/08/16 09/08/16 History Carvedilol [Coreg*] 12.5 mg PO BID 09/08/16 09/08/16 History Furosemide [Lasix] 40 mg PO BID@0900,1600 09/08/16 09/08/16 History Losartan [Cozaar] 50 mg PO DAILY@1600 09/08/16 09/08/16 History amLODIPine [Norvasc] 5 mg PO DAILY@1200 09/08/16 09/08/16 History Allergies Allergy/AdvReac Type Severity Reaction Status Date / Time Iodinated Contrast Media - AdvReac KIDNEY Verified 09/08/16 15:36 Oral and DAMAGE Physical Exam Vitals: Vital Signs Temp Pulse Pulse Resp BP BP Pulse Ox 09/14/16 09:07 96 09/14/16 08:57 95 09/14/16 08:00 97.7 F 85 18 98/51 09/14/16 04:00 98.6 F 91 16 123/55 95 09/14/16 00:00 98.3 F 93 16 113/53 96 09/13/16 20:29 96 09/13/16 20:16 95 09/13/16 20:00 98.4 F 99 16 132/64 98 09/13/16 16:51 76 09/13/16 16:35 72 09/13/16 16:00 97.8 F 75 18 133/62 98 09/13/16 13:13 80 09/13/16 13:01 80 09/13/16 12:00 97.4 F L 71 18 125/57 98 Intake and Output 09/13/16 09/14/16 09/14/16 22:59 06:59 14:59 Intake Total 464.167 Output Total 1000 800 Balance -535.833 -800 Intake: Intake, IV Titration 224.167 Amount Furosemide 250 mg In 224.167 Sodium Chloride 0.9% 225 ml @ 10 MG/HR 10 mls/hr IVP .Q24H [facility] Rx#: [id number] Oral 240 Output: Urine 1000 800 Other: Voiding Method Toilet Toilet Toilet Bedside Commode Bedside Commode Bedside Commode Weight 101.7 kg Results - Lab Results Most recent lab results Calcium 8.8 mg/dL (8.4-10.2) 09/14/16 05:55 Magnesium 1.8 mg/dL (1.6-2.3) 09/13/16 14:02 09/08/16 15:30 09/14/16 05:55 Assessment and Plan Plan: Assessment: #1. Nonoliguric acute kidney injury mostly prerenal in nature secondary to diuresis. Creatinine up to 2.7 today. #2. Chronic kidney disease stage III secondary to diabetic kidney disease and contrast-induced nephropathy. Also component of cardiorenal syndrome. Baseline creatinine in the range of 1.2-1.4. #3. Volume overload. Improving. #4. Systolic CHF with ejection fraction of 35-40%. #5. Insulin-dependent diabetes mellitus. Plan: Discontinue Lasix drip. Continue Lasix 80 mg orally once daily. Low-salt and 1.2 L fluid restricted diet. Avoid nephrotoxic agents and hypotensive episodes. Repeat electrolytes in the morning. Thank you for the consultation. I will continue to follow the patient with you during her hospital stay.
--- NOTE | 2016-09-14 11:27 | P.PN ---
Subjective This is a 56-year-old female who is being evaluated and examined today on the selective care unit. This patient came into the emergency room with a chief complaint of shortness of breath, she also noted that she has gained weight over the past few days and has some lower extremity edema as well. The patient is well-known to our services. Patient was recently discharged from the hospital on 08/25/2016. During the hospital stay the patient was treated for bilateral pleural effusions and she underwent went a tharocentesis. This patient has a past medical history of nonobstructive coronary artery disease, diabetes mellitus type 2, hypertension, hyperlipidemia, hypothyroidism, chronic kidney disease, oxygen dependent at home on 2L, and significant chronic obstructive pulmonary disease. Patient was put on a Lasix drip over the weekend and that has significantly improved her edema, as well as her breathing. The drip has been discontinued and she is placed back on oral. Upon examination the patient does get short of breath with it exertion, however improved. She states she has had a slight cough however no sputum production which has also improved. She feels better today than previously and her edema has greatly improved. Objective - Vital Signs Vital signs: Vital Signs Temp 97.7 F 09/14/16 08:00 Pulse 96 09/14/16 09:07 Resp 18 09/14/16 08:00 BP 98/51 09/14/16 08:00 Pulse Ox 95 09/14/16 04:00 Intake & Output 09/13/16 09/14/16 09/14/16 18:59 06:59 18:59 Intake Total 1054.167 Output Total 6600 800 Balance -5545.833 -800 Weight 109.3 kg 101.7 kg Intake: Intake, IV Titration 224.167 Amount Furosemide 250 mg In 224.167 Sodium Chloride 0.9% 225 ml @ 10 MG/HR 10 mls/hr IVP .Q24H [facility] Rx#: [id number] Oral 830 Output: Urine 6600 800 Other: Voiding Method Toilet Toilet Toilet Bedside Commode Bedside Commode Bedside Commode # Voids 1 # Bowel Movements 0 - Exam GENERAL EXAM: Alert, comfortable in no apparent distress. HEAD: Normocephalic. EYES: Normal reaction of pupils, equal size. NOSE: Clear with pink turbinates. THROAT: No erythema or exudates. NECK: No masses, no JVD. CHEST: No chest wall deformity. No bruising, hematoma, redness or swelling noted to the right sided area of generalized diffuse pain LUNGS: Diminished air entry with scattered rhonchi and expiratory wheeze. CVS: S1 and S2 normal with no audible mumurs, regular rhythm. ABDOMEN: No hepatosplenomegaly, normal bowel sounds, no guarding or rigidity. EXTREMITIES: +1 edema noted, pedal pulses palpable. SKIN: No rashes CENTRAL NERVOUS SYSTEM: No focal deficits, tone is normal in all 4 extremities. - Labs CBC & Chem 7: 09/08/16 15:30 09/14/16 05:55 Labs: Abnormal Lab Results - Last 24 Hours (Table) 09/13/16 09/13/16 09/13/16 Range/Units 11:37 16:30 17:00 Carbon Dioxide (22-30) mmol/L BUN (7-17) mg/dL Creatinine (0.52-1.04) mg/dL POC Glucose (mg/dL) 134 H 63 L 72 L (75-99) mg/dL 09/13/16 09/14/16 Range/Units 20:50 05:55 Carbon Dioxide 36 H (22-30) mmol/L BUN 19 H (7-17) mg/dL Creatinine 2.72 H (0.52-1.04) mg/dL POC Glucose (mg/dL) 234 H (75-99) mg/dL Assessment and Plan Plan: Assessment Community-acquired right lower lobe pneumonia, suspect gram-negative organism Acute exacerbation of chronic obstructive pulmonary disease Acute on chronic hypoxic respiratory failure Coronary artery disease Acute on chronic congestive heart failure Diabetes mellitus type 2 Hypertension Hyperlipidemia Hypothyroidism Elevated troponins, not acute urinary syndrome related, suspect hemodynamic instability Chronic kidney disease stage III secondary to diabetic kidney disease. Plan Medications have been reviewed and will be continued as ordered. Continue with the patient's current nebulizer treatments, and antibiotics. Continue with supportive care, pulmonary hygiene, coughing and deep breathing. Cardiology on consult, appreciate recommendations. Nephrology is also on consult. We will continue to monitor labs/results and adjust treatment as necessary. I performed an examination of the patient and discussed their management with the nurse practitioner. I have reviewed the nurse practitioner's note and agree with the documented findings and plan of care.
[2016-09-14 11:30] LABS: Glucose,Whole Blood 130 mg/dL (75-99)
[2016-09-14] MEDS: amLODIPine 5 MG TAB PO SCH (12:18)
--- NOTE | 2016-09-14 13:26 | P.PN ---
Subjective Principal diagnosis: CHF This is a 56-year-old female with history of cardiomyopathy, admitted to the hospital with congestive heart failure. She was initially treated with IV push Lasix, she diuresed well from that. Patient then was initiated on a Lasix drip by Dr. Florence, her creatinine on admission was 1.2, today it is noted to be 2.7. We will hold off on all Lasix completely, we will also hold her Aldactone. Check lytes BUN and creatinine in the morning. Objective - Vital Signs Vital signs: Vital Signs Temp 97.7 F 09/14/16 08:00 Pulse 93 09/14/16 12:00 Resp 18 09/14/16 12:00 BP 130/72 09/14/16 12:00 Pulse Ox 97 09/14/16 12:00 Intake & Output 09/13/16 09/14/16 09/14/16 18:59 06:59 18:59 Intake Total 1054.167 240 Output Total 6600 800 600 Balance -5545.833 -800 -360 Weight 109.3 kg 101.7 kg Intake: Intake, IV Titration 224.167 Amount Furosemide 250 mg In 224.167 Sodium Chloride 0.9% 225 ml @ 10 MG/HR 10 mls/hr IVP .Q24H [facility] Rx#: [id number] Oral 830 240 Output: Urine 6600 800 600 Other: Voiding Method Toilet Toilet Toilet Bedside Commode Bedside Commode Bedside Commode # Voids 1 # Bowel Movements 0 0 - Exam PHYSICAL EXAMINATION: HEENT: Head is atraumatic, normocephalic. Pupils equal, round. Neck is supple. There is no elevated jugular venous pressure. HEART EXAMINATION: Heart S1, S2 normal. No murmur or gallop heard. CHEST EXAMINATION: Lungs are clear to auscultation and precussion. No chest wall tenderness is noted on palpation or with deep breathing. ABDOMEN: Soft, nontender. Bowel sounds are heard. No organomegaly noted. EXTREMITIES: 2+ peripheral pulses with trace evidence of peripheral edema and no calf tenderness noted. NEUROLOGIC patient is awake, alert and oriented -3. . - Labs CBC & Chem 7: 09/08/16 15:30 09/14/16 05:55 Labs: Abnormal Lab Results - Last 24 Hours (Table) 09/13/16 09/13/16 09/13/16 Range/Units 16:30 17:00 20:50 Carbon Dioxide (22-30) mmol/L BUN (7-17) mg/dL Creatinine (0.52-1.04) mg/dL POC Glucose (mg/dL) 63 L 72 L 234 H (75-99) mg/dL 09/14/16 09/14/16 Range/Units 05:55 11:22 Carbon Dioxide 36 H (22-30) mmol/L BUN 19 H (7-17) mg/dL Creatinine 2.72 H (0.52-1.04) mg/dL POC Glucose (mg/dL) 130 H (75-99) mg/dL Assessment and Plan (1) Systolic CHF, acute on chronic Status: Acute (2) Renal failure, acute Status: Acute (3) CAD (coronary artery disease) Status: Acute (4) COPD exacerbation Status: Acute (5) Diabetes Status: Acute (6) HTN (hypertension) Status: Acute (7) Hyperlipemia Status: Acute (8) Hypothyroid Status: Acute (9) NICM (nonischemic cardiomyopathy) Status: Acute Plan: From cardiology's perspective, we will discontinue the Lasix, hold Aldactone. Check lytes BUN and creatinine in the morning. Patient is also requested to follow-up with Dr. Bahtti in the office post discharge. DNP note has been reviewed, I agree with a documented findings and plan of care. Patient was seen and examined.
[2016-09-14 15:43] LABS: Appearance,Urine Clear (Clear); Bacteria,Urine Rare /hpf; Bilirubin,Urine Negative (Negative); Glucose,Urine (UA) Negative (Negative); Ketones,Urine Negative (Negative); Leukocyte Esterase,Urine Negative (Negative); Nitrite,Urine Negative (Negative); PH, Urine 7.5 (5.0-8.0); Particle Count 503; Protein,Urine 2+ (Negative); RBC,Urine 2 /hpf (0-5); Specific Gravity,Urine 1.006 (1.001-1.035); Squamous Epithelial Cell,Urine 1 /hpf (0-4); UA Billing (MACRO vs. MICRO) MICRO; Urobilinogen,Urine <2.0 mg/dL (<2.0); WBC,Urine <1 /hpf (0-5)
[2016-09-14 17:19] LABS: Glucose,Whole Blood 119 mg/dL (75-99)
[2016-09-14] MEDS: ACETAMINOPHEN TAB 325 MG TAB PO PRN (18:03)
[2016-09-14 18:27] LABS: Appearance,Urine Cloudy (Clear); Bacteria,Urine Rare /hpf; Bilirubin,Urine Negative (Negative); Glucose,Urine (UA) Negative (Negative); Ketones,Urine Negative (Negative); Leukocyte Esterase,Urine Negative (Negative); Nitrite,Urine Negative (Negative); Particle Count 1487; Protein,Urine 3+ (Negative); RBC,Urine 3 /hpf (0-5); Squamous Epithelial Cell,Urine 8 /hpf (0-4); UA Billing (MACRO vs. MICRO) MICRO; Urobilinogen,Urine <2.0 mg/dL (<2.0); WBC,Urine 1 /hpf (0-5)
[2016-09-14 20:43] LABS: Glucose,Whole Blood 137 mg/dL (75-99)
[2016-09-14 21:21] VITALS: RESP 16
[2016-09-14] MEDS: ATORVASTATIN 20 MG TAB PO SCH (21:25)
[2016-09-15] MEDS: ACETAMINOPHEN TAB 325 MG TAB PO PRN ×2 (01:10→08:14)
[2016-09-15 04:16] LABS: Glucose,Whole Blood 80 mg/dL (75-99)
[2016-09-15 06:04] LABS: Glucose,Whole Blood 90 mg/dL (75-99)
[2016-09-15] MEDS: INSULIN LISPRO (humaLOG) 300 UNIT/3 ML VIAL SQ SCH ×3 (06:11→17:48)
[2016-09-15] MEDS: CARVEDILOL 12.5 MG TAB PO SCH (06:41)
[2016-09-15 06:47] LABS: Calcium 8.6 mg/dL (8.4-10.2); Potassium 3.7 mmol/L (3.5-5.1)
--- NOTE | 2016-09-15 07:12 | PN ---
DATE OF SERVICE: 09/14/2016 PRESENTING COMPLAINT: Edema. INTERVAL HISTORY: This patient presented with initial right lower lobe pneumonia and CHF exacerbation, right pleural effusion. I put the patient on Lasix drip for 24 hours. Patient put out close to 7500 mL. Creatinine did jump up as expected. This was discussed with the patient earlier. Breathing is better. Edema has actually come down. Nephrology was consulted to tweak the medications. Overall patient is feeling much better. Review of systems done for constitutional, cardiovascular, GI, pulmonary; relevant findings as above. Current medications are reviewed. Currently Lasix has been held. So has Aldactone. On examination, temperature 97.7, pulse 85, respirations 18, blood pressure 98/51, pulse ox 95% on 2 liters. GENERAL APPEARANCE: Sitting up, comfortable. EYES: Pupils are equal. Conjunctivae normal. NECK: JVD not raised. Mass not palpable. RESPIRATORY: Effort normal. LUNGS: Improved air entry. CARDIOVASCULAR: First and second sounds normal. Decreased edema. Patient wearing stockings. ABDOMEN: Soft, nontender. Liver and spleen not palpable. PSYCHIATRY: Alert and oriented x3. Mood and affect normal. INVESTIGATIONS: Potassium 3.6, BUN 19, creatinine 2.72 Accu-Cheks are noted. ASSESSMENT: 1. Acute right lobe pneumonia, suspect gram-negative organism, present on admission with improvement. 2. Right chest wall musculoskeletal pain, resolved. 3. Acute on chronic congestive heart failure exacerbation from nonischemic cardiomyopathy; ejection fraction 35% to 40%, now stabilized, compensated. 4. Chronic obstructive pulmonary disease exacerbation in an ex-smoker. 5. Nonobstructive coronary artery disease per cardiac catheterization. 6. Diabetes mellitus type 2 on oral hypoglycemia. 7. Essential hypertension. 8. Hyperlipidemia. 9. Hypothyroidism. 10. Chronic urinary stress incontinence. 11. Obesity, body mass index greater than 30. 12. 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 13. Acute renal failure, prerenal from diuresis. PLAN: Overall patient is doing much better. From renal standpoint, Lasix and Aldactone have temporarily been held. Once patient's renal function has stabilized, the patient should be able to get discharged. Care was discussed with the patient. Follow labs.
[2016-09-15] MEDS: AMOXIC-POT CLAV 500-125 MG 1 EACH TAB PO SCH (08:14)
[2016-09-15] MEDS: INSULIN GLARGINE 100 UNIT/ML 10 ML VIAL SQ SCH (08:14)
[2016-09-15] MEDS: acetaZOLAMIDE 250 MG TAB PO SCH (08:14)
[2016-09-15] MEDS: ASPIRIN 81 MG CHEW PO SCH (08:15)
[2016-09-15] MEDS: LEVOTHYROXINE 88 MCG TAB PO SCH (08:15)
[2016-09-15] MEDS: CYANOCOBALAMIN 500 MCG TAB PO SCH (08:15)
[2016-09-15] MEDS: MULTIVITAMINS, THERA 1 EACH TAB PO SCH (08:15)
[2016-09-15] MEDS: CHOLECALCIFEROL 400 UNIT TAB PO SCH (08:15)
[2016-09-15 08:19] VITALS: TEMP 98.7
[2016-09-15] MEDS: BUDESONIDE 0.5 MG/2 ML NEBU INHALATION SCH (08:56)
[2016-09-15] MEDS: IPRATROPIUM-ALBUTEROL 3 ML NEB INHALATION SCH ×3 (08:56→16:24)
--- NOTE | 2016-09-15 10:23 | P.PN ---
Subjective Patient is seen in follow-up for acute kidney injury on chronic kidney disease. Patient has chronic kidney disease stage III with baseline creatinine near 1.2 secondary to diabetic kidney disease and cardiorenal syndrome as well as a component of nonrecoverable ATN from contrast-induced nephropathy. Her creatinine was up to 2.7 yesterday and is 2.62 today. She was on Lasix drip which was discontinued yesterday. She's currently resting in bed. Denies chest pain or shortness of breath. Edema has significantly improved. Weight is trending down. She remains nonoliguric. Vital signs are stable. General: The patient appeared well nourished and normally developed. HEENT: Head exam is unremarkable. Neck is without jugular venous distension. LUNGS: Lungs are clear to auscultation and percussion. Breath sounds decreased. HEART: Rate and Rhythm are regular. First and second heart sounds normal. No murmurs, rubs or gallops. ABDOMEN: Abdominal exam reveals normal bowel sounds. Non-tender and non- distended. No evidence of peritonitis. EXTREMITITES: No clubbing, cyanosis, or edema. Objective - Vital Signs Vital signs: Vital Signs Temp 98.7 F 09/15/16 08:00 Pulse 76 09/15/16 09:13 Resp 16 09/15/16 04:00 BP 97/47 09/15/16 08:00 Pulse Ox 97 09/15/16 08:58 Intake & Output 09/14/16 09/15/16 09/15/16 18:59 06:59 18:59 Intake Total 480 180 Output Total 1100 950 Balance -620 -770 Weight 101.7 kg 101.6 kg Intake: Oral 480 180 Output: Urine 1100 950 Other: Voiding Method Toilet Toilet Bedside Commode Bedside Commode # Voids 1 # Bowel Movements 0 - Labs CBC & Chem 7: 09/08/16 15:30 09/15/16 06:14 Labs: Abnormal Lab Results - Last 24 Hours (Table) 09/14/16 09/14/16 09/14/16 Range/Units 11:22 15:23 16:58 Carbon Dioxide (22-30) mmol/L Creatinine (0.52-1.04) mg/dL POC Glucose (mg/dL) 130 H 119 H (75-99) mg/dL Urine Appearance (Clear) Urine Protein 2+ H (Negative) Ur Squamous Epith Cells (0-4) /hpf Urine Bacteria Rare H (None) /hpf 09/14/16 09/14/16 09/15/16 Range/Units 18:22 20:34 06:14 Carbon Dioxide 32 H (22-30) mmol/L Creatinine 2.62 H (0.52-1.04) mg/dL POC Glucose (mg/dL) 137 H (75-99) mg/dL Urine Appearance Cloudy H (Clear) Urine Protein 3+ H (Negative) Ur Squamous Epith Cells 8 H (0-4) /hpf Urine Bacteria Rare H (None) /hpf Assessment and Plan Plan: Assessment: #1. Nonoliguric acute kidney injury mostly prerenal in nature secondary to diuresis. Creatinine peaked at 2.7 and is down to 2.62 today. #2. Chronic kidney disease stage III secondary to diabetic kidney disease and contrast-induced nephropathy. Also component of cardiorenal syndrome. Baseline creatinine in the range of 1.2-1.4. #3. Volume overload. Improving. #4. Systolic CHF with ejection fraction of 35-40%. #5. Insulin-dependent diabetes mellitus. Plan: Diuretics held today. Maintain low-salt and 1.2 L fluid restricted diet. Avoid nephrotoxic agents and hypotensive episodes. Repeat electrolytes in the morning. She can be discharged home on Lasix 40 mg orally twice daily. I advised her to monitor her weight at home and to increase the dose of Lasix to 3 times daily if needed. She is to follow-up as an outpatient in the next 1-2 weeks.
[2016-09-15 12:00] LABS: Glucose,Whole Blood 118 mg/dL (75-99)
[2016-09-15] MEDS: amLODIPine 5 MG TAB PO SCH (12:52)
[2016-09-15 14:26] VITALS: BP 101/50
--- NOTE | 2016-09-15 15:44 | P.PN ---
Subjective This is a 56-year-old female who is being evaluated and examined today on the selective care unit. This patient came into the emergency room with a chief complaint of shortness of breath, she also noted that she has gained weight over the past few days and has some lower extremity edema as well. The patient is well-known to our services. Patient was recently discharged from the hospital on 08/25/2016. During the hospital stay the patient was treated for bilateral pleural effusions and she underwent went a tharocentesis. This patient has a past medical history of nonobstructive coronary artery disease, diabetes mellitus type 2, hypertension, hyperlipidemia, hypothyroidism, chronic kidney disease, oxygen dependent at home on 2L, and significant chronic obstructive pulmonary disease. Patient was put on a Lasix drip over the weekend and that has significantly improved her edema, as well as her breathing. The drip has been discontinued and she is placed back on oral. Upon examination the patient does get short of breath with it exertion, however improved. She states she has had a slight cough significantly improved. She feels better today than previously and her edema has greatly improved. Her weight is trending down, and her renal function is slowly improving. Objective - Vital Signs Vital signs: Vital Signs Temp 98.7 F 09/15/16 08:00 Pulse 86 09/15/16 12:00 Resp 16 09/15/16 04:00 BP 101/50 09/15/16 12:00 Pulse Ox 91 L 09/15/16 12:00 Intake & Output 09/14/16 09/15/16 09/15/16 18:59 06:59 18:59 Intake Total 480 180 480 Output Total 1100 950 500 Balance -620 -770 -20 Weight 101.7 kg 101.6 kg Intake: Intake, IV Titration 0 Amount Levofloxacin 750Mg-D5w 0 Pmx 750 mg In Dextrose/ Water 1 150ml.bag @ 100 mls/hr IVPB Q48H [facility] Rx#: [id number] Oral 480 180 480 Output: Urine 1100 950 500 Other: Voiding Method Toilet Toilet Bedside Commode Bedside Commode # Voids 1 # Bowel Movements 0 0 - Exam GENERAL EXAM: Alert, comfortable in no apparent distress. HEAD: Normocephalic. EYES: Normal reaction of pupils, equal size. NOSE: Clear with pink turbinates. THROAT: No erythema or exudates. NECK: No masses, no JVD. CHEST: No chest wall deformity. LUNGS: Diminished air entry with scattered rhonchi and expiratory wheeze. CVS: S1 and S2 normal with no audible mumurs, regular rhythm. ABDOMEN: No hepatosplenomegaly, normal bowel sounds, no guarding or rigidity. EXTREMITIES: +1 edema noted, pedal pulses palpable. SKIN: No rashes CENTRAL NERVOUS SYSTEM: No focal deficits, tone is normal in all 4 extremities. - Labs CBC & Chem 7: 09/08/16 15:30 09/15/16 06:14 Labs: Abnormal Lab Results - Last 24 Hours (Table) 09/14/16 09/14/16 09/14/16 Range/Units 15:23 16:58 18:22 Carbon Dioxide (22-30) mmol/L Creatinine (0.52-1.04) mg/dL POC Glucose (mg/dL) 119 H (75-99) mg/dL Urine Appearance Cloudy H (Clear) Urine Protein 2+ H 3+ H (Negative) Ur Squamous Epith Cells 8 H (0-4) /hpf Urine Bacteria Rare H Rare H (None) /hpf 09/14/16 09/15/16 09/15/16 Range/Units 20:34 06:14 11:50 Carbon Dioxide 32 H (22-30) mmol/L Creatinine 2.62 H (0.52-1.04) mg/dL POC Glucose (mg/dL) 137 H 118 H (75-99) mg/dL Urine Appearance (Clear) Urine Protein (Negative) Ur Squamous Epith Cells (0-4) /hpf Urine Bacteria (None) /hpf Assessment and Plan Plan: Assessment Community-acquired right lower lobe pneumonia, suspect gram-negative organism Acute exacerbation of chronic obstructive pulmonary disease Acute on chronic hypoxic respiratory failure Coronary artery disease Acute on chronic congestive heart failure Diabetes mellitus type 2 Hypertension Hyperlipidemia Hypothyroidism Elevated troponins, not acute urinary syndrome related, suspect hemodynamic instability Chronic kidney disease stage III secondary to diabetic kidney disease. Plan Medications have been reviewed and will be continued as ordered. Continue with the patient's current nebulizer treatments, and antibiotics. Continue with supportive care, pulmonary hygiene, coughing and deep breathing. Avoid nephrotoxic agents. Continue with sodium and fluid restrictions. Cardiology on consult, appreciate recommendations. Nephrology is also on consult. We will continue to monitor labs/results and adjust treatment as necessary. Patient can be cleared for discharge in the near future from a pulmonary standpoint. I performed an examination of the patient and discussed their management with the nurse practitioner. I have reviewed the nurse practitioner's note and agree with the documented findings and plan of care.
--- NOTE | 2016-09-15 15:45 | P.PN ---
Subjective Principal diagnosis: CHF This is a 56-year-old female with history of cardiomyopathy, admitted to the hospital with congestive heart failure. She was initially treated with IV push Lasix, she diuresed well from that. Patient then was initiated on a Lasix drip by Dr. Florence, her creatinine on admission was 1.2, to 2.7 yesterday , 2.6 today. Arrangements are being made for the patient to be discharged home today. Lasix dose recommendations as per nephrology. Follow-up appointment will be made with Dr. Bhatti in the office post discharge. Objective - Vital Signs Vital signs: Vital Signs Temp 98.7 F 09/15/16 08:00 Pulse 86 09/15/16 12:00 Resp 16 09/15/16 04:00 BP 101/50 09/15/16 12:00 Pulse Ox 91 L 09/15/16 12:00 Intake & Output 09/14/16 09/15/16 09/15/16 18:59 06:59 18:59 Intake Total 480 180 480 Output Total 1100 950 500 Balance -620 -770 -20 Weight 101.7 kg 101.6 kg Intake: Intake, IV Titration 0 Amount Levofloxacin 750Mg-D5w 0 Pmx 750 mg In Dextrose/ Water 1 150ml.bag @ 100 mls/hr IVPB Q48H [facility] Rx#: [id number] Oral 480 180 480 Output: Urine 1100 950 500 Other: Voiding Method Toilet Toilet Bedside Commode Bedside Commode # Voids 1 # Bowel Movements 0 0 - Exam PHYSICAL EXAMINATION: HEENT: Head is atraumatic, normocephalic. Pupils equal, round. Neck is supple. There is no elevated jugular venous pressure. HEART EXAMINATION: Heart S1, S2 normal. No murmur or gallop heard. CHEST EXAMINATION: Lungs are clear to auscultation and precussion. No chest wall tenderness is noted on palpation or with deep breathing. ABDOMEN: Soft, nontender. Bowel sounds are heard. No organomegaly noted. EXTREMITIES: 2+ peripheral pulses with trace evidence of peripheral edema and no calf tenderness noted. NEUROLOGIC patient is awake, alert and oriented -3. . - Labs CBC & Chem 7: 09/08/16 15:30 09/15/16 06:14 Labs: Abnormal Lab Results - Last 24 Hours (Table) 04/09/14/16 09/14/16 Range/Units 16:58 18:22 20:34 Carbon Dioxide (22-30) mmol/L Creatinine (0.52-1.04) mg/dL POC Glucose (mg/dL) 119 H 137 H (75-99) mg/dL Urine Appearance Cloudy H (Clear) Urine Protein 3+ H (Negative) Ur Squamous Epith Cells 8 H (0-4) /hpf Urine Bacteria Rare H (None) /hpf 09/15/16 09/15/16 Range/Units 06:14 11:50 Carbon Dioxide 32 H (22-30) mmol/L Creatinine 2.62 H (0.52-1.04) mg/dL POC Glucose (mg/dL) 118 H (75-99) mg/dL Urine Appearance (Clear) Urine Protein (Negative) Ur Squamous Epith Cells (0-4) /hpf Urine Bacteria (None) /hpf Assessment and Plan (1) Systolic CHF, acute on chronic Status: Acute (2) Renal failure, acute Status: Acute (3) CAD (coronary artery disease) Status: Acute (4) COPD exacerbation Status: Acute (5) Diabetes Status: Acute (6) HTN (hypertension) Status: Acute (7) Hyperlipemia Status: Acute (8) Hypothyroid Status: Acute (9) NICM (nonischemic cardiomyopathy) Status: Acute Plan: From cardiology's perspective, she may be able to be discharged home today. Lasix dosing as per nephrology. Follow-up appointment with Dr. Bhatti in the office post discharge. DNP note has been reviewed, I agree with a documented findings and plan of care. Patient was seen and examined.
[2016-09-15 16:28] VITALS: PULSE 82
[2016-09-15 17:15] LABS: Glucose,Whole Blood 101 mg/dL (75-99)
--- NOTE | 2016-09-16 16:09 | DS ---
DATE OF ADMISSION: 09/08/2016 DATE OF DISCHARGE: 09/15/2016 FINAL DIAGNOSES: 1. Acute right lower lobe pneumonia; suspect Gram-negative organism; present on admission, improved. 2. Right chest wall musculoskeletal pain, resolved, present on admission. 3. Acute on chronic congestive heart failure exacerbation from non-ischemic cardiomyopathy; ejection fraction 35% to 40%; present on admission, from underlying non-obstructive coronary artery disease. 4. Chronic obstructive pulmonary disease, acute exacerbation, in an ex-smoker. 5. Non-obstructive coronary artery disease per previous cardiac catheterization. 6. Diabetes mellitus, type 2, on oral hypoglycemic. 7. Essential hypertension. 8. Hyperlipidemia. 9. Hypothyroidism. 10. Chronic urinary stress incontinence. 11. Obesity; body mass index greater than 30. 12. 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 13. Acute renal failure, prerenal, from diuresis. CONSULTATIONS: 1. Dr. Leroy Muhammad from Pulmonary. 2. Dr. Starks from Nephrology. 3. Dr. Bhatti from Cardiology. HOSPITAL COURSE: This patient presented with shortness of breath; had to be put on a Lasix drip. Patient put ( ) over 6 liters of fluid. Patient's creatinine did jump up to 2.72 but has started to come down before discharge. Patient's edema and shortness of breath have greatly improved. On examination, lungs clear. Edema greatly decreased. Patient's creatinine at the time of discharge was 2.62. Care was discussed in detail with the patient. DISCHARGE MEDICATIONS: 1. Ventolin HFA 2 puffs q.i.d. p.r.n. 2. Ventolin 2.5 q.4 p.r.n. 3. Synthroid 88 mcg p.o. daily. 4. Lipitor 20 mg at bedtime. 5. Vitamin B12 1000 mcg p.o. daily. 6. Multivitamin 1 tablet p.o. daily. 7. Vitamin D2, 50,000 units p.o. on Wednesday. 8. Vitamin D3 400 units p.o. daily. 9. Pulmicort 0.5 nebulizer b.i.d. 10. Atrovent HFA 2 puffs q.i.d. 11. Lantus 20 units subcutaneously b.i.d. 12. Aspirin 81 mg p.o. daily. 13. Coreg 12.5 p.o. b.i.d. 14. Norvasc 5 mg p.o. daily. 15. Lasix 60 mg p.o. b.i.d. 16. Aldactone 25 mg p.o. daily. Follow up with Dr. Baugh in one week. Follow up with Dr. Leroy Muhammad in one week. Follow up with Dr. Bhatti in one week. BMP in 7 days. Discharge planning more than 35 minutes.
== END 2016-09-15 19:12 | disposition home health service (06) | DRG 291 ==
LOC: EC 15:05 → 6SEL 16:51 → 5MS5E 09-10 19:21 → 6SEL 09-12 15:34
PROVIDERS: ADMIT Hospitalist; ATTEND Hospitalist
DX: I13.0 Hypertensive heart and chronic kidney disease with heart failure and stage 1 through stage 4 chronic kidney disease, or unspecified chronic kidney disease (principal); I50.23 Acute on chronic systolic (congestive) heart failure; N17.0 Acute kidney failure with tubular necrosis; J15.6 Pneumonia due to other Gram-negative bacteria; I42.9 Cardiomyopathy, unspecified; E11.21 Type 2 diabetes mellitus with diabetic nephropathy; N18.3 Chronic kidney disease, stage 3 (moderate); E66.2 Morbid (severe) obesity with alveolar hypoventilation; J44.0 Chronic obstructive pulmonary disease with (acute) lower respiratory infection; J44.1 Chronic obstructive pulmonary disease with (acute) exacerbation; E03.9 Hypothyroidism, unspecified; E11.22 Type 2 diabetes mellitus with diabetic chronic kidney disease; E78.5 Hyperlipidemia, unspecified; F40.240 Claustrophobia; G47.33 Obstructive sleep apnea (adult) (pediatric); H91.90 Unspecified hearing loss, unspecified ear; I25.10 Atherosclerotic heart disease of native coronary artery without angina pectoris; M79.1 Myalgia; N14.1 Nephropathy induced by other drugs, medicaments and biological substances; N39.3 Stress incontinence (female) (male); T50.2X5A Adverse effect of carbonic-anhydrase inhibitors, benzothiadiazides and other diuretics, initial encounter; T50.8X5A Adverse effect of diagnostic agents, initial encounter; Z79.4 Long term (current) use of insulin; Z79.82 Long term (current) use of aspirin; Z79.899 Other long term (current) drug therapy; Z82.49 Family history of ischemic heart disease and other diseases of the circulatory system; Z87.891 Personal history of nicotine dependence; Z99.81 Dependence on supplemental oxygen; Z68.30 Body mass index [BMI] 30.0-30.9, adult
CPT/HCPCS: 36415; 71020; 76604; 80048; 80053; 80162; 81001; 82150; 82550; 82553; 83036; 83690; 83735; 83880; 84132; 84439; 84443; 84484; 85025; 85610; 85730; 87040; 93005; 94640; 94760; 96365; 96366; 96375; 99285

== ENCOUNTER 2016-09-16 23:31 | Emergency (ER) | payer OTHER ==
[2016-09-16] MEDS ORDERED: SODIUM CHLORIDE 0.9% 500 ML IV SCH (23:45)
[2016-09-17 00:38] LABS: Basophils # (A) 0.1 k/uL (0-0.2); Basophils % (A) 1 %; CH 30.4; CHCM 31.6; Eosinophils # (A) 0.3 k/uL (0-0.7); Eosinophils % (A) 4 %; HCT 29.5 % (34.0-46.0); HDW 2.78; HGB 9.2 gm/dL (11.4-16.0); Hypochromasia Slight; Luc % (Auto) 4; Lymphocytes # (A) 1.7 k/uL (1.0-4.8); Lymphocytes % (A) 20 %; MCH 30.1 pg (25.0-35.0); MCHC 31.2 g/dL (31.0-37.0); MCV 96.6 fL (80.0-100.0); Mean Platelet Volume 7.1; Monocytes # (A) 0.6 k/uL (0-1.0); Monocytes % (A) 7 %; Neutrophils # (A) 5.5 k/uL (1.3-7.7); Neutrophils % (A) 65 %; RBC 3.05 m/uL (3.80-5.40); RDW 14.6 % (11.5-15.5); WBC 8.4 k/uL (3.8-10.6); WBC (Perox) 8.35
[2016-09-17 00:43] LABS: Calcium 8.9 mg/dL (8.4-10.2); Potassium 3.8 mmol/L (3.5-5.1); Total Bilirubin 0.3 mg/dL (0.2-1.3)
[2016-09-17 00:51] LABS: Partial Thromboplastin Time 23.2 sec (22.0-30.0); Prothrombin Time 10.2 sec (9.0-12.0)
--- NOTE | 2016-09-17 01:01 | ED ---
Fever HPI - General Chief Complaint: Fever Stated Complaint: fever Time Seen by Provider: 09/16/16 23:58 Source: patient, RN notes reviewed Mode of arrival: ambulatory Limitations: no limitations - History of Present Illness Initial Comments: Patient is a 56-year-old female presents to the emergency room for evaluation of fever. Patient states she was recently discharged yesterday from the hospital. Patient has a history CHF, COPD, acute renal failure. Patient states that she's been having issues with fluid in her lungs. Patient states she had a right lung thoracentesis a few weeks ago when she was admitted here. Patient states she has been in and out of the hospital for the past month. Patient states she was placed on Lasix during last visit here and her symptoms significantly improved. Patient states today she began with a headache. Patient states she's been having on-and-off hot flashes and cold chills. Patient states she took her temperature and it was 103.0F. Patient states she was told by her family to come here to be evaluated due to the fever. Patient denies worsening shortness of breath. Patient denies dizziness, chest pain, shortness of breath, abdominal pain, nausea, vomiting. Patient states she is only allowed to take Tylenol. Patient states she took Tylenol shortly before arrival here. - Related Data Home Medications Medication Instructions Recorded Confirmed Albuterol Inhaler [Ventolin Hfa 2 puff INHALATION RT-QID PRN 07/13/14 09/08/16 Inhaler] Albuterol Nebulized [Ventolin 2.5 mg INHALATION RT-Q4H PRN 07/13/14 09/08/16 Nebulized] Levothyroxine Sodium [Synthroid] 88 mcg PO DAILY@0907/13/14 09/08/16 Atorvastatin [Lipitor] 20 mg PO HS 09/10/15 09/08/16 Cyanocobalamin [Vitamin B-12] 1,000 mcg PO DAILY@89909/10/15 09/08/16 Multivitamins, Thera [Multivitamin 1 tab PO DAILY@0909/10/15 09/08/16 (formulary)] Ergocalciferol [Vitamin D2 50,000 unit PO TU 05/06/16 09/08/16 (DRISDOL)] Cholecalciferol [Vitamin D3] 400 unit PO DAILY@0907/16/1617 Budesonide [Pulmicort] 0.5 mg INHALATION RT-BID 08/19/16 09/08/16 Ipratropium [place] [Atrovent Hfa] 2 puff INHALATION RT-QID 08/19/16 09/08/16 Aspirin 81 mg PO DAILY@0900 09/08/16 09/08/16 Carvedilol [Coreg*] 12.5 mg PO BID 09/08/16 09/08/16 amLODIPine [Norvasc] 5 mg PO DAILY@1200 09/08/16 09/08/16 Previous Rx's Medication Instructions Recorded Insulin Glargine [Lantus] 20 unit SQ BID #0 08/24/16 Furosemide [Lasix] 60 mg PO BID@0900,1600 #60 tab 09/15/16 Spironolactone [Aldactone] 25 mg PO DAILY #30 tab 09/15/16 Allergies Allergy/AdvReac Type Severity Reaction Status Date / Time Iodinated Contrast Media - AdvReac KIDNEY Verified 09/16/16 23:48 Oral and DAMAGE Review of Systems ROS Statement: Those systems with pertinent positive or pertinent negative responses have been documented in the HPI. ROS Other: All systems not noted in ROS Statement are negative. Past Medical History Past Medical History: Heart Failure, COPD, Diabetes Mellitus, Hyperlipidemia, Hypertension, Pneumonia, Renal Disease, Thyroid Disorder Additional Past Medical History / Comment(s): Pneumonias in past and recently admitted with pneumonia-07/29/16, CHF, nonischemic cardiomyopathy, tracheobronchitis, home O2 at 2L/NC ATC, IDDM type II, CKD, pancreatitis, hypothyroidism, urinary stress incontinence, L ear [place], diverticulitis. PT DISHARGED OF 4/2 READMITTED HAD THORACENTESIS ON 08/25/16 UNSURE OF HOW MUCH FLUID WAS REMOVED History of Any Multi-Drug Resistant Organisms: None Reported Past Surgical History: Appendectomy, Cholecystectomy, Heart Catheterization, Hysterectomy, Orthopedic Surgery Additional Past Surgical History / Comment(s): cardiac caths with last one being 09/11/15 and was normal, colonoscopy-pt states normal, RT ROTATOR CUFF SX Past Anesthesia/Blood Transfusion Reactions: No Reported Reaction Additional Past Anesthesia/Blood Transfusion Reaction / Comment(s): CLAUSTERPHOBIA. Pt states she has never received blood. Past Psychological History: Anxiety Additional Psychological History / Comment(s): LIVES AT HOME WITH SPOUSE AND 3 TEENAGERS. 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 Pt drives. Pt recently placed on home O2 at 2L/NC ATC. She has had anxiety with NIRANJAN and uses xanax rarely. She has a nebulizer. 3 steps to get into home. Smoking Status: Former smoker Past Alcohol Use History: None Reported Additional Past Alcohol Use History / Comment(s): STARTED SMOKING AT AGE 17- SMOKED 1-2 PPD.STATED QUIT MAR 2016 Past Drug Use History: None Reported - Past Family History Father Family Medical History: Cancer Additional Family Medical History / Comment(s): OF COLON CANCER AT AGE 52 Mother Family Medical History: Congestive Heart Failure (CHF), CVA/TIA Additional Family Medical History / Comment(s): OF CHF AGE 62 General Exam - General Exam Comments Initial Comments: Sitting in exam room, no acute distress. Limitations: no limitations General appearance: alert, in no apparent distress Head exam: Present: atraumatic, normocephalic, normal inspection Eye exam: Present: normal appearance ENT exam: Present: normal exam Neck exam: Present: normal inspection Respiratory exam: Present: normal lung sounds bilaterally. Absent: respiratory distress Cardiovascular Exam: Present: normal rhythm, tachycardia, normal heart sounds GI/Abdominal exam: Present: soft, normal bowel sounds. Absent: distended, tenderness, guarding, rebound, rigid Extremities exam: Present: normal inspection Back exam: Present: normal inspection Neurological exam: Present: alert, oriented X3, CN II-XII intact, normal gait Psychiatric exam: Present: normal affect, normal mood Skin exam: Present: warm, dry, intact, normal color. Absent: rash Course Vital Signs 09/16/16 09/17/16 23:46 02:58 Temperature 102.0 F H 97.8 F Pulse Rate 104 H 89 Respiratory 22 16 Rate Blood Pressure 136/65 133/63 O2 Sat by Pulse 95 100 Oximetry Medical Decision Making - Medical Decision Making Patient is a 56-year-old female presents to the emergency room for evaluation of fever. Patient was discharged here yesterday for treatment of CHF, COPD, renal failure. WBC within normal limits. Influenza negative. Urinalysis within normal limits. Patient noted to have a chronically elevated troponin. Chest x-ray today shows improvement from last chest x-ray. Patient's fever may be viral related. Patient states she is feeling better. Advised patient to follow-up with her primary care provider in 24-48 hours. Patient states she understands everything that was discussed with her. Return parameters discussed. Case discussed with Dr. Hardwick. - Lab Data Result diagrams: 09/17/16 00:18 09/17/16 00:18 Lab Results 09/17/16 09/17/16 09/17/16 Range/Units 00:18 00:18 00:18 WBC 8.4 (3.8-10.6) k/uL RBC 3.05 L (3.80-5.40) m/uL Hgb 9.2 L (11.4-16.0) gm/dL Hct 29.5 L (34.0-46.0) % MCV 96.6 (80.0-100.0) fL MCH 30.1 (25.0-35.0) pg MCHC 31.2 (31.0-37.0) g/dL RDW 14.6 (11.5-15.5) % Plt Count 278 (150-450) k/uL Neutrophils % 65 % Lymphocytes % 20 % Monocytes % 7 % Eosinophils % 4 % Basophils % 1 % Neutrophils # 5.5 (1.3-7.7) k/uL Lymphocytes # 1.7 (1.0-4.8) k/uL Monocytes # 0.6 (0-1.0) k/uL Eosinophils # 0.3 (0-0.7) k/uL Basophils # 0.1 (0-0.2) k/uL Hypochromasia Slight PT (9.0-12.0) sec INR (<1.1) APTT (22.0-30.0) sec Sodium 138 (137-145) mmol/L Potassium 3.8 (3.5-5.1) mmol/L Chloride 101 (98-107) mmol/L Carbon Dioxide 29 (22-30) mmol/L Anion Gap 8 mmol/L BUN 20 H (7-17) mg/dL Creatinine 2.40 H (0.52-1.04) mg/dL Est GFR (MDRD) Af Amer 25 (>60 ml/min/1.73 sqM) Est GFR (MDRD) Non-Af 21 (>60 ml/min/1.73 sqM) Glucose 227 H (74-99) mg/dL Plasma Lactic Acid Braden (0.7-2.0) mmol/L Calcium 8.9 (8.4-10.2) mg/dL Total Bilirubin 0.3 (0.2-1.3) mg/dL AST 21 (14-36) U/L ALT 37 (9-52) U/L Alkaline Phosphatase 90 (38-126) U/L Total Creatine Kinase 31 (30-135) U/L CK-MB (CK-2) 0.6 (0.0-2.4) ng/mL CK-MB (CK-2) Rel Index 1.9 Troponin I 0.036 H* (0.000-0.034) ng/mL Total Protein 6.0 L (6.3-8.2) g/dL Albumin 3.1 L (3.5-5.0) g/dL Urine Color Urine Appearance (Clear) Urine pH (5.0-8.0) Ur Specific [place] (1.001-1.035) Urine Protein (Negative) Urine Glucose (UA) (Negative) Urine Ketones (Negative) Urine Blood (Negative) Urine Nitrite (Negative) Urine Bilirubin (Negative) Urine Urobilinogen (<2.0) mg/dL Ur Leukocyte Esterase (Negative) Urine RBC (0-5) /hpf Urine WBC (0-5) /hpf Ur Squamous Epith Cells (0-4) /hpf Hyaline Casts (0-2) /lpf Influenza Type A RNA (Not Detectd) Influenza Type B (PCR) (Not Detectd) 09/17/16 09/17/16 09/17/16 Range/Units 00:18 00:18 00:18 WBC (3.8-10.6) k/uL RBC (3.80-5.40) m/uL Hgb (11.4-16.0) gm/dL Hct (34.0-46.0) % MCV (80.0-100.0) fL MCH (25.0-35.0) pg MCHC (31.0-37.0) g/dL RDW (11.5-15.5) % Plt Count (150-450) k/uL Neutrophils % % Lymphocytes % % Monocytes % % Eosinophils % % Basophils % % Neutrophils # (1.3-7.7) k/uL Lymphocytes # (1.0-4.8) k/uL Monocytes # (0-1.0) k/uL Eosinophils # (0-0.7) k/uL Basophils # (0-0.2) k/uL Hypochromasia PT 10.2 (9.0-12.0) sec INR 1.0 (<1.1) APTT 23.2 (22.0-30.0) sec Sodium (137-145) mmol/L Potassium (3.5-5.1) mmol/L Chloride (98-107) mmol/L Carbon Dioxide (22-30) mmol/L Anion Gap mmol/L BUN (7-17) mg/dL Creatinine (0.52-1.04) mg/dL Est GFR (MDRD) Af Amer (>60 ml/min/1.73 sqM) Est GFR (MDRD) Non-Af (>60 ml/min/1.73 sqM) Glucose (74-99) mg/dL Plasma Lactic Acid [place] 1.2 (0.7-2.0) mmol/L Calcium (8.4-10.2) mg/dL Total Bilirubin (0.2-1.3) mg/dL AST (14-36) U/L ALT (9-52) U/L Alkaline Phosphatase (38-126) U/L Total Creatine Kinase (30-135) U/L CK-MB (CK-2) (0.0-2.4) ng/mL CK-MB (CK-2) Rel Index Troponin I (0.000-0.034) ng/mL Total Protein (6.3-8.2) g/dL Albumin (3.5-5.0) g/dL Urine Color Urine Appearance (Clear) Urine pH (5.0-8.0) Ur Specific [place] (1.001-1.035) Urine Protein (Negative) Urine Glucose (UA) (Negative) Urine Ketones (Negative) Urine Blood (Negative) Urine Nitrite (Negative) Urine Bilirubin (Negative) Urine Urobilinogen (<2.0) mg/dL Ur Leukocyte Esterase (Negative) Urine RBC (0-5) /hpf Urine WBC (0-5) /hpf Ur Squamous Epith Cells (0-4) /hpf Hyaline Casts (0-2) /lpf Influenza Type A RNA Not Detected (Not Detectd) Influenza Type B (PCR) Not Detected (Not Detectd) 09/17/16 Range/Units 01:40 WBC (3.8-10.6) k/uL RBC (3.80-5.40) m/uL Hgb (11.4-16.0) gm/dL Hct (34.0-46.0) % MCV (80.0-100.0) fL MCH (25.0-35.0) pg MCHC (31.0-37.0) g/dL RDW (11.5-15.5) % Plt Count (150-450) k/uL Neutrophils % % Lymphocytes % % Monocytes % % Eosinophils % % Basophils % % Neutrophils # (1.3-7.7) k/uL Lymphocytes # (1.0-4.8) k/uL Monocytes # (0-1.0) k/uL Eosinophils # (0-0.7) k/uL Basophils # (0-0.2) k/uL Hypochromasia PT (9.0-12.0) sec INR (<1.1) APTT (22.0-30.0) sec Sodium (137-145) mmol/L Potassium (3.5-5.1) mmol/L Chloride (98-107) mmol/L Carbon Dioxide (22-30) mmol/L Anion Gap mmol/L BUN (7-17) mg/dL Creatinine (0.52-1.04) mg/dL Est GFR (MDRD) Af Amer (>60 ml/min/1.73 sqM) Est GFR (MDRD) Non-Af (>60 ml/min/1.73 sqM) Glucose (74-99) mg/dL Plasma Lactic Acid [place] (0.7-2.0) mmol/L Calcium (8.4-10.2) mg/dL Total Bilirubin (0.2-1.3) mg/dL AST (14-36) U/L ALT (9-52) U/L Alkaline Phosphatase (38-126) U/L Total Creatine Kinase (30-135) U/L CK-MB (CK-2) (0.0-2.4) ng/mL CK-MB (CK-2) Rel Index Troponin I (0.000-0.034) ng/mL Total Protein (6.3-8.2) g/dL Albumin (3.5-5.0) g/dL Urine Color Yellow Urine Appearance Cloudy H (Clear) Urine pH 6.0 (5.0-8.0) Ur Specific [place] 1.013 (1.001-1.035) Urine Protein 3+ H (Negative) Urine Glucose (UA) 2+ H (Negative) Urine Ketones Negative (Negative) Urine Blood Small H (Negative) Urine Nitrite Negative (Negative) Urine Bilirubin Negative (Negative) Urine Urobilinogen <2.0 (<2.0) mg/dL Ur Leukocyte Esterase Negative (Negative) Urine RBC 9 H (0-5) /hpf Urine WBC 7 H (0-5) /hpf Ur Squamous Epith Cells 6 H (0-4) /hpf Hyaline Casts 8 H (0-2) /lpf Influenza Type A RNA (Not Detectd) Influenza Type B (PCR) (Not Detectd) - Radiology Data Radiology results: report reviewed, image reviewed Disposition Clinical Impression: Fever, Viral syndrome Disposition: HOME SELF-CARE Condition: Good Instructions: Fever in Adults (ED) Additional Instructions: Continue taking Tylenol every 4 hours for fever. Please follow-up with primary care provider in 24-48 hours for reevaluation. If any new symptom arises or symptoms worsen, return to ER as soon as possible. Referrals: Jose Luis Baugh MD [Primary Care Provider] - 1-2 days Time of Disposition: 02:42
[2016-09-17 01:09] LABS: Creatine Kinase MB 0.6 ng/mL (0.0-2.4)
[2016-09-17 01:10] LABS: Troponin I 0.036 ng/mL (0.000-0.034)
[2016-09-17 01:53] LABS: Appearance,Urine Cloudy (Clear); Bilirubin,Urine Negative (Negative); Glucose,Urine (UA) 2+ (Negative); Ketones,Urine Negative (Negative); Leukocyte Esterase,Urine Negative (Negative); Nitrite,Urine Negative (Negative); Particle Count 4594; Protein,Urine 3+ (Negative); RBC,Urine 9 /hpf (0-5); Specific Gravity,Urine 1.013 (1.001-1.035); Squamous Epithelial Cell,Urine 6 /hpf (0-4); UA Billing (MACRO vs. MICRO) MICRO; Urobilinogen,Urine <2.0 mg/dL (<2.0); WBC,Urine 7 /hpf (0-5)
[2016-09-17] MEDS ORDERED: ACETAMINOPHEN TAB 500 MG TAB PO STA (02:42)
--- NOTE | 2016-09-17 02:47 | XR ---
EXAM: XR Chest, 2 Views. CLINICAL HISTORY: Pain. TECHNIQUE: Frontal and lateral views of the chest. COMPARISON: CXR dated 09/13/2016. FINDINGS: Lungs: Mild interval improvement in opacity at the left lung base. No new focal consolidation. Mild prominence of interstitial markings, stable. Pleural space: No pneumothorax. No large pleural effusion. Heart: Stable cardiac silhouette size. Mediastinum: Stable. Atherosclerosis at the aortic arch. Bones/joints: Stable osseous structures. IMPRESSION: Improving opacity at the left lung base. No new focal consolidation.
[2016-09-17 03:00] VITALS: BP 133/63; PULSE 89; RESP 16; TEMP 97.8
== END 2016-09-17 03:01 | disposition home or self-care (01) ==
LOC: EC 23:31
DX: B34.9 Viral infection, unspecified (principal); R74.8 Abnormal levels of other serum enzymes; R00.0 Tachycardia, unspecified; I50.9 Heart failure, unspecified; I10 Essential (primary) hypertension; J44.9 Chronic obstructive pulmonary disease, unspecified; E78.5 Hyperlipidemia, unspecified; E07.9 Disorder of thyroid, unspecified; Z87.891 Personal history of nicotine dependence; Z79.82 Long term (current) use of aspirin; Z79.51 Long term (current) use of inhaled steroids; Z79.899 Other long term (current) drug therapy; Z91.041 Radiographic dye allergy status; Z99.81 Dependence on supplemental oxygen
CPT/HCPCS: 36415; 71020; 80053; 81001; 82550; 82553; 83605; 84484; 85025; 85610; 85730; 87040; 87086; 87502; 93005; 99284

== ENCOUNTER → 2016-10-09 | Outpatient (CLI) | payer OTHER ==
--- NOTE | 2016-10-09 15:09 | CT ---
EXAMINATION TYPE: CT chest wo con DATE OF EXAM: 10/09/2016 12:26 PM COMPARISON: 08/24/2016 HISTORY: 56-year-old female chest pain on breathing, SOB TECHNIQUE: Contiguous axial scanning of the chest without IV contrast. Coronal and sagittal reconstru ctions performed. CT DLP: 507.6 mGycm Automated exposure control for dose reduction was used. FINDINGS: The heart is upper limits of normal in size. Coronary vessel calcifications are present and are a mar ker for coronary artery disease. There is fullness of both the left atrium and ventricle. Aorta is normal caliber with mild atherosclerotic arch calcifications and conventional arch vessel br anching anatomy. Numerous scattered nonenlarged mediastinal lymph nodes are redemonstrated, one of which is borderline enlarged measuring 1 cm in the precarinal region, similar to 08/24/2016 but improved from 07/29/2016. There is trace right pleural effusion with a suggestion of mild centrilobular emphysema. Some interst itial densities are noted in the anterior mid lungs. There is mild diffuse bronchial wall thickening and patchy areas of groundglass. More irregular patchy subpleural opacity peripheral right lung base, worsened from 08/24/2016 but not as pronounced as on 07/29/2016. Additional focal infiltrate anterior right midlung. While this is new, there has been interval resolu tion of the previous left pleural effusion and left basilar consolidation. Visualized upper abdomen shows cholecystectomy clips. Bones: Endplate spondylosis midthoracic spine. No osseous destructive process. IMPRESSION: 1. COPD WITH MILD EMPHYSEMA. 2. TRACE RIGHT PLEURAL EFFUSION REMAINS. PREVIOUS LEFT PLEURAL EFFUSION AND CONSOLIDATION HAS RESOLVE D. 3. HOWEVER, THERE IS INCREASING IRREGULAR SUBPLEURAL OPACITY IN THE PERIPHERAL RIGHT LOWER LOBE AND N EW FOCAL INFILTRATE ANTERIOR RIGHT MIDLUNG. 4. PATCHY AREAS OF GROUNDGLASS ALSO PERSIST. 5. CORRELATE FOR POSSIBLE ETIOLOGIES INCLUDING CHF WITH INTERSTITIAL PULMONARY EDEMA, ATYPICAL PNEUMO NIAS, AND INTERSTITIAL PNEUMONITIS.
== END | disposition home or self-care (01) ==
LOC: RADCTMAIN 12:09
PROVIDERS: ATTEND Internal Medicine Sleep Medicine
DX: J43.9 Emphysema, unspecified (principal); J90 Pleural effusion, not elsewhere classified; R91.8 Other nonspecific abnormal finding of lung field
CPT/HCPCS: 71250

== ENCOUNTER → 2016-11-25 | Outpatient (CLI) | payer OTHER ==
[2016-11-25 13:39] LABS: CHCM 31.5; HCT 35.1 % (34.0-46.0); HDW 2.35; HGB 11.5 gm/dL (11.4-16.0); MCH 31.4 pg (25.0-35.0); MCHC 32.8 g/dL (31.0-37.0); MCV 95.7 fL (80.0-100.0); Mean Platelet Volume 7.1; RBC 3.67 m/uL (3.80-5.40); RDW 13.2 % (11.5-15.5); WBC 9.7 k/uL (3.8-10.6)
[2016-11-25 13:44] LABS: Appearance,Urine Clear (Clear); Bilirubin,Urine Negative (Negative); Glucose,Urine (UA) 2+ (Negative); Ketones,Urine Negative (Negative); Leukocyte Esterase,Urine Negative (Negative); Mucus,Urine Rare /hpf; Nitrite,Urine Negative (Negative); PH, Urine 5.5 (5.0-8.0); Particle Count 1036; Protein,Urine 2+ (Negative); RBC,Urine 3 /hpf (0-5); Specific Gravity,Urine 1.008 (1.001-1.035); Squamous Epithelial Cell,Urine <1 /hpf (0-4); UA Billing (MACRO vs. MICRO) MICRO; Urobilinogen,Urine <2.0 mg/dL (<2.0); WBC,Urine <1 /hpf (0-5)
[2016-11-25 14:15] LABS: Calcium 9.6 mg/dL (8.4-10.2); Magnesium 2.3 mg/dL (1.6-2.3); Phosphorous 5.7 mg/dL (2.5-4.5); Uric Acid 5.8 mg/dL (3.7-7.4)
[2016-11-25 14:24] LABS: % Iron Saturation 24.7 % (20-50)
[2016-11-25 22:17] LABS: Hemoglobin A1C 7.5 % (4.2-6.1)
== END | disposition home or self-care (01) ==
LOC: LABWHC1 12:40
PROVIDERS: ATTEND Nurse Practitioner Family
DX: D64.9 Anemia, unspecified (principal); N18.3 Chronic kidney disease, stage 3 (moderate); E83.39 Other disorders of phosphorus metabolism; E21.3 Hyperparathyroidism, unspecified; E55.9 Vitamin D deficiency, unspecified; M10.9 Gout, unspecified; E11.21 Type 2 diabetes mellitus with diabetic nephropathy
CPT/HCPCS: 36415; 80048; 81001; 82306; 82728; 83036; 83540; 83550; 83735; 83970; 84100; 84550; 85027

== ENCOUNTER → 2017-01-28 | Outpatient (CLI) | payer OTHER ==
--- NOTE | 2017-01-28 15:17 | XR ---
EXAMINATION TYPE: XR cervical spine comp DATE OF EXAM: 01/28/2017 CLINICAL HISTORY: pain COMPARISON: NONE TECHNIQUE: 3 views of the cervical spine are submitted. FINDINGS: The cervical spine is visualized in its entirety from C1 thru the top of T1 level. It is s atisfactory in alignment without evidence of acute fracture or dislocation. The pre-vertebral soft t issue appears within normal limits. Mild degenerative narrowing sac from C4-5 through C6-7. Minimal v entral and dorsal spondylosis. The C1-C2 articulation is unremarkable on the open mouth view. The ob lique images are within normal limits. IMPRESSION: No acute fracture or dislocation is seen in the cervical spine.ICD 10 NO FRACTURE, INITI AL EVALUATION
[2017-01-28 15:35] LABS: Basophils # (A) 0.1 k/uL (0-0.2); Basophils % (A) 1 %; CH 30.9; CHCM 32.9; Eosinophils # (A) 0.3 k/uL (0-0.7); Eosinophils % (A) 3 %; HCT 37.2 % (34.0-46.0); HDW 2.52; HGB 12.2 gm/dL (11.4-16.0); Luc # (Auto) 0.24; Luc % (Auto) 2; Lymphocytes # (A) 2.1 k/uL (1.0-4.8); Lymphocytes % (A) 21 %; MCHC 32.9 g/dL (31.0-37.0); MCV 94.3 fL (80.0-100.0); Mean Platelet Volume 7.6; Monocytes # (A) 0.5 k/uL (0-1.0); Monocytes % (A) 5 %; Neutrophils # (A) 6.7 k/uL (1.3-7.7); Neutrophils % (A) 67 %; RBC 3.94 m/uL (3.80-5.40); RDW 13.4 % (11.5-15.5); WBC 9.9 k/uL (3.8-10.6); WBC (Perox) 10.34
[2017-01-28 16:22] LABS: Calcium 9.3 mg/dL (8.4-10.2); Potassium 4.7 mmol/L (3.5-5.1); Total Bilirubin 0.3 mg/dL (0.2-1.3); Total Protein 6.8 g/dL (6.3-8.2)
== END ==
LOC: RADXRMAIN 14:39
PROVIDERS: ATTEND Family Medicine
DX: M54.2 Cervicalgia (principal); E11.9 Type 2 diabetes mellitus without complications
CPT/HCPCS: 72050; 80053; 85025

== ENCOUNTER 2017-03-08 11:38 | Emergency (ER) | payer OTHER ==
--- NOTE | 2017-03-08 12:23 | ED ---
General Adult HPI - General Chief complaint: GI Bleed Stated complaint: GI Bleed Time Seen by Provider: 03/08/17 11:57 Source: patient, RN notes reviewed, old records reviewed Mode of arrival: wheelchair Limitations: no limitations - History of Present Illness Initial comments: 57-year-old female with history of COPD, CHF, chronic kidney disease on home O2 presents for evaluation of rectal bleeding. Patient had recent COPD exacerbation and has been on antibiotics. She reports three-day history of diarrhea. Diarrhea progressed to contain some blood. Minimal crampy abdominal pain noted. No vomiting. No fever. Blood: Patient is bright red. This was significant last night, throughout the day today this has improved. She has had minimal bleeding this morning. No chest pain. No worsening dyspnea. No lightheadedness. - Related Data Home Medications Medication Instructions Recorded Confirmed Albuterol Inhaler [Ventolin Hfa 2 puff INHALATION RT-QID PRN 07/13/14 03/08/17 Inhaler] Albuterol Nebulized [Ventolin 2.5 mg INHALATION RT-QID PRN 07/13/14 03/08/17 Nebulized] Levothyroxine Sodium [Synthroid] 88 mcg PO DAILY@0900 07/13/14 03/08/17 Atorvastatin [Lipitor] 20 mg PO HS 09/10/15 03/08/17 Ergocalciferol [Vitamin D2 50,000 unit PO TU 05/06/16 03/08/17 (DRISDOL)] Budesonide [Pulmicort] 0.5 mg INHALATION RT-BID 08/19/16 03/08/17 Ipratropium [place] [Atrovent Hfa] 2 puff INHALATION RT-QID 08/19/16 03/08/17 Aspirin 81 mg PO DAILY 09/08/16 03/08/17 Carvedilol [Coreg*] 12.5 mg PO BID 09/08/16 03/08/17 amLODIPine [Norvasc] 5 mg PO DAILY 09/08/16 03/08/17 rOPINIRole HCL [Requip] 0.5 mg PO DAILY 10/21/16 03/08/17 Insulin Glargine [Lantus] 40 unit SQ QAM 11/12/16 03/08/17 Calcium Polycarbophil [Fibercon] 625 mg PO DAILY 03/03/17 03/08/17 Cyclobenzaprine [Flexeril] 5 mg PO DAILY PRN 03/03/17 03/08/17 Calcium Acetate [PhosLo] 667 mg PO AC-SUPPER 03/08/17 03/08/17 Levofloxacin [Levaquin] 250 mg PO DAILY 03/08/17 03/08/17 predniSONE See Taper PO DAILY 03/08/17 03/08/17 Allergies Allergy/AdvReac Type Severity Reaction Status Date / Time Iodinated Contrast- Oral and AdvReac KIDNEY Verified 03/08/17 12:44 IV Dye DAMAGE [Iodinated Contrast Media - Oral and] Review of Systems ROS Statement: Those systems with pertinent positive or pertinent negative responses have been documented in the HPI. ROS Other: All systems not noted in ROS Statement are negative. Past Medical History Past Medical History: Heart Failure, COPD, Diabetes Mellitus, Hyperlipidemia, Hypertension, Pneumonia, Renal Disease, Sleep Apnea/CPAP/BIPAP, Thyroid Disorder Additional Past Medical History / Comment(s): WOUND RT HEEL, nonischemic cardiomyopathy, tracheobronchitis, home O2 at 2L/NC PRN, pancreatitis, urinary stress incontinence, L ear [place], diverticulitis. PT DISHARGED OF 08/23 READMITTED HAD THORACENTESIS ON 08/25/16 UNSURE OF HOW MUCH FLUID WAS REMOVED History of Any Multi-Drug Resistant Organisms: None Reported Past Surgical History: Appendectomy, Cholecystectomy, Heart Catheterization, Hysterectomy, Orthopedic Surgery Additional Past Surgical History / Comment(s): cardiac caths with last one being 09/11/15 and was normal, colonoscopy-pt states normal, RT ROTATOR CUFF SX Past Anesthesia/Blood Transfusion Reactions: Previous Problems w/ Anesthesia Additional Past Anesthesia/Blood Transfusion Reaction / Comment(s): CLAUSTERPHOBIA. Pt states she has never received blood. Past Psychological History: Anxiety Smoking Status: Former smoker Past Alcohol Use History: None Reported Past Drug Use History: None Reported - Past Family History Father Family Medical History: Cancer Additional Family Medical History / Comment(s): OF COLON CANCER AT AGE 52 Mother Family Medical History: Congestive Heart Failure (CHF), CVA/TIA Additional Family Medical History / Comment(s): OF CHF AGE 62 General Exam Limitations: no limitations General appearance: alert, in no apparent distress Head exam: Present: atraumatic, normocephalic Eye exam: Present: normal appearance, PERRL ENT exam: Present: normal exam Neck exam: Present: normal inspection. Absent: tenderness Respiratory exam: Present: wheezes. Absent: respiratory distress Cardiovascular Exam: Present: regular rate, normal rhythm GI/Abdominal exam: Present: soft. Absent: distended, tenderness Rectal exam: Present: normal inspection, normal rectal tone, heme (+) stool, bloody stool (Trace amount of dried blood). Absent: hemorrhoids Extremities exam: Present: normal inspection, normal capillary refill. Absent: pedal edema Neurological exam: Present: alert, oriented X3, CN II-XII intact. Absent: motor sensory deficit Psychiatric exam: Present: normal affect, normal mood Skin exam: Present: warm, dry, intact. Absent: cyanosis, diaphoretic Course Vital Signs 03/08/17 03/08/17 03/08/17 11:51 12:26 12:54 Temperature 99.0 F Pulse Rate 89 83 80 Respiratory 20 20 18 Rate Blood Pressure 173/79 124/79 124/79 O2 Sat by Pulse 98 98 95 Oximetry Medical Decision Making - Medical Decision Making 57-year-old female presents for evaluation of diarrhea and rectal bleeding. Patient is not on any blood thinners. She has been on antibiotics for respiratory infection and developed some diarrhea. Diarrhea progressed to contain small amounts blood. This was worse yesterday evening, has been improving throughout the day today. On examination patient is well-appearing, vital signs are stable. She does have some dried blood at the rectum. No active hemorrhage. No hemorrhoids. Hemoglobin is 12.7, this is improved from 11 several days ago. Patient is for discharge. She will continue her antibiotics for 2 days. She will return to the emergency department with worsening rectal bleeding. - Lab Data Result diagrams: 03/08/17 12:10 03/08/17 12:10 Lab Results 03/08/17 03/08/17 03/08/17 Range/Units 12:10 12:10 12:10 WBC 19.6 H (3.8-10.6) k/uL RBC 4.31 (3.80-5.40) m/uL Hgb 12.7 (11.4-16.0) gm/dL Hct 40.9 (34.0-46.0) % MCV 95.0 (80.0-100.0) fL MCH 29.5 (25.0-35.0) pg MCHC 31.1 (31.0-37.0) g/dL RDW 12.6 (11.5-15.5) % Plt Count 346 (150-450) k/uL Neutrophils % 83 % Lymphocytes % 9 % Monocytes % 5 % Eosinophils % 2 % Basophils % 0 % Neutrophils # 16.2 H (1.3-7.7) k/uL Lymphocytes # 1.8 (1.0-4.8) k/uL Monocytes # 1.0 (0-1.0) k/uL Eosinophils # 0.4 (0-0.7) k/uL Basophils # 0.1 (0-0.2) k/uL PT (9.0-12.0) sec INR (<1.2) APTT (22.0-30.0) sec Sodium 137 (137-145) mmol/L Potassium 4.6 (3.5-5.1) mmol/L Chloride 103 (98-107) mmol/L Carbon Dioxide 27 (22-30) mmol/L Anion Gap 7 mmol/L BUN 42 H (7-17) mg/dL Creatinine 1.71 H (0.52-1.04) mg/dL Est GFR (MDRD) Af Amer 38 (>60 ml/min/1.73 sqM) Est GFR (MDRD) Non-Af 31 (>60 ml/min/1.73 sqM) Glucose 182 H (74-99) mg/dL Calcium 8.7 (8.4-10.2) mg/dL Total Bilirubin 0.3 (0.2-1.3) mg/dL AST 21 (14-36) U/L ALT 40 (9-52) U/L Alkaline Phosphatase 80 (38-126) U/L Total Protein 6.4 (6.3-8.2) g/dL Albumin 3.0 L (3.5-5.0) g/dL Stool Occult Blood Positive H (Negative) Blood Type Blood Type Recheck Antibody Screen Spec Expiration Date 03/08/17 03/08/17 Range/Units 12:10 12:10 WBC (3.8-10.6) k/uL RBC (3.80-5.40) m/uL Hgb (11.4-16.0) gm/dL Hct (34.0-46.0) % MCV (80.0-100.0) fL MCH (25.0-35.0) pg MCHC (31.0-37.0) g/dL RDW (11.5-15.5) % Plt Count (150-450) k/uL Neutrophils % % Lymphocytes % % Monocytes % % Eosinophils % % Basophils % % Neutrophils # (1.3-7.7) k/uL Lymphocytes # (1.0-4.8) k/uL Monocytes # (0-1.0) k/uL Eosinophils # (0-0.7) k/uL Basophils # (0-0.2) k/uL PT 10.2 (9.0-12.0) sec INR 1.0 (<1.2) APTT 22.8 (22.0-30.0) sec Sodium (137-145) mmol/L Potassium (3.5-5.1) mmol/L Chloride (98-107) mmol/L Carbon Dioxide (22-30) mmol/L Anion Gap mmol/L BUN (7-17) mg/dL Creatinine (0.52-1.04) mg/dL Est GFR (MDRD) Af Amer (>60 ml/min/1.73 sqM) Est GFR (MDRD) Non-Af (>60 ml/min/1.73 sqM) Glucose (74-99) mg/dL Calcium (8.4-10.2) mg/dL Total Bilirubin (0.2-1.3) mg/dL AST (14-36) U/L ALT (9-52) U/L Alkaline Phosphatase (38-126) U/L Total Protein (6.3-8.2) g/dL Albumin (3.5-5.0) g/dL Stool Occult Blood (Negative) Blood Type AB Positive Blood Type Recheck CABO Indicated Antibody Screen NEGATIVE Spec Expiration Date 03/11/20172309 Disposition Clinical Impression: Diarrhea, Colitis Disposition: HOME SELF-CARE Condition: Good Instructions: Gastrointestinal Bleeding (ED) Referrals: Jose Luis Baugh MD [Primary Care Provider] - 1-2 days Time of Disposition: 13:30
[2017-03-08 12:51] LABS: Calcium 8.7 mg/dL (8.4-10.2); Potassium 4.6 mmol/L (3.5-5.1); Total Bilirubin 0.3 mg/dL (0.2-1.3); Total Protein 6.4 g/dL (6.3-8.2)
[2017-03-08 12:55] VITALS: RESP 18
[2017-03-08 13:01] LABS: Basophils # (A) 0.1 k/uL (0-0.2); Basophils % (A) 0 %; CH 29.9; CHCM 31.7; Eosinophils # (A) 0.4 k/uL (0-0.7); Eosinophils % (A) 2 %; HCT 40.9 % (34.0-46.0); HDW 2.59; HGB 12.7 gm/dL (11.4-16.0); Luc # (Auto) 0.23; Luc % (Auto) 1; Lymphocytes # (A) 1.8 k/uL (1.0-4.8); Lymphocytes % (A) 9 %; MCH 29.5 pg (25.0-35.0); MCHC 31.1 g/dL (31.0-37.0); Mean Platelet Volume 7.7; Monocytes % (A) 5 %; Neutrophils # (A) 16.2 k/uL (1.3-7.7); Neutrophils % (A) 83 %; RBC 4.31 m/uL (3.80-5.40); RDW 12.6 % (11.5-15.5); WBC 19.6 k/uL (3.8-10.6); WBC (Perox) 19.73
[2017-03-08 13:05] LABS: Partial Thromboplastin Time 22.8 sec (22.0-30.0); Prothrombin Time 10.2 sec (9.0-12.0)
[2017-03-08 13:59] VITALS: BP 152/79; PULSE 82; TEMP 98.7
== END 2017-03-08 13:59 | disposition home or self-care (01) ==
LOC: EC 11:38
DX: K52.9 Noninfective gastroenteritis and colitis, unspecified (principal); I50.9 Heart failure, unspecified; I11.0 Hypertensive heart disease with heart failure; E11.9 Type 2 diabetes mellitus without complications; J44.9 Chronic obstructive pulmonary disease, unspecified; E78.5 Hyperlipidemia, unspecified; E07.9 Disorder of thyroid, unspecified; F41.9 Anxiety disorder, unspecified; Z87.891 Personal history of nicotine dependence; Z79.51 Long term (current) use of inhaled steroids; Z79.82 Long term (current) use of aspirin; Z79.4 Long term (current) use of insulin; Z79.899 Other long term (current) drug therapy; Z79.52 Long term (current) use of systemic steroids; Z91.041 Radiographic dye allergy status
CPT/HCPCS: 36415; 80053; 82272; 85025; 85610; 85730; 86850; 86900; 86901; 99285

== ENCOUNTER → 2017-03-08 | Outpatient (CLI) | payer OTHER ==
--- NOTE | 2017-03-08 09:23 | US ---
EXAMINATION TYPE: US thyroid st tissue head/neck DATE OF EXAM: 03/08/2017 COMPARISON: NONE CLINICAL HISTORY: 57-year-old female E03.9 HYPOTHYROIDISM. TECHNIQUE: Multiple sonographic images of the thyroid gland are obtained. FINDINGS: GLAND SIZE: Right Lobe: 7.6 x 2.2 x 3.2 cm Left Lobe: 8.1 x 3.0 x 2.5 cm Isthmus Thickness: 1.5 cm There is diffuse glandular heterogeneity without discrete nodule seen. Bilateral neck scanned, no evidence of lymphadenopathy. IMPRESSION: Heterogeneous enlarged thyroid gland; correlate for goiter. No discrete nodule seen.
== END ==
LOC: RADUSWWP 08:38
PROVIDERS: ATTEND Family Medicine
DX: E03.9 Hypothyroidism, unspecified (principal)
CPT/HCPCS: 76536

== ENCOUNTER → 2017-03-12 | Outpatient (CLI) | payer OTHER ==
[2017-03-12 13:37] LABS: Potassium 4.4 mmol/L (3.5-5.1); Total Bilirubin 0.3 mg/dL (0.2-1.3); Total Protein 5.4 g/dL (6.3-8.2)
[2017-03-12 13:59] LABS: Basophils # (A) 0.1 k/uL (0-0.2); Basophils % (A) 0 %; CH 29.9; CHCM 30.5; Eosinophils # (A) 0.4 k/uL (0-0.7); Eosinophils % (A) 3 %; HCT 34.3 % (34.0-46.0); HDW 2.56; HGB 10.2 gm/dL (11.4-16.0); Hypochromasia Moderate; Luc # (Auto) 0.13; Luc % (Auto) 1; Lymphocytes # (A) 2.2 k/uL (1.0-4.8); Lymphocytes % (A) 16 %; MCH 29.3 pg (25.0-35.0); MCHC 29.8 g/dL (31.0-37.0); MCV 98.5 fL (80.0-100.0); Mean Platelet Volume 7.7; Monocytes # (A) 0.9 k/uL (0-1.0); Monocytes % (A) 6 %; Neutrophils # (A) 10.2 k/uL (1.3-7.7); Neutrophils % (A) 73 %; RBC 3.48 m/uL (3.80-5.40); RDW 12.9 % (11.5-15.5); WBC 13.9 k/uL (3.8-10.6); WBC (Perox) 13.94
== END | disposition home or self-care (01) ==
LOC: LABWHC1 12:51
PROVIDERS: ATTEND Family Medicine
DX: E11.9 Type 2 diabetes mellitus without complications (principal)
CPT/HCPCS: 36415; 80053; 85025

== ENCOUNTER → 2017-05-27 | Outpatient (CLI) | payer OTHER ==
[2017-05-27 12:44] LABS: Basophils # (A) 0.1 k/uL (0-0.2); Basophils % (A) 0 %; Eosinophils # (A) 0.2 k/uL (0-0.7); Eosinophils % (A) 2 %; HCT 33.5 % (34.0-46.0); HGB 10.2 gm/dL (11.4-16.0); Lymphocytes # (A) 1.8 k/uL (1.0-4.8); Lymphocytes % (A) 15 %; MCH 28.9 pg (25.0-35.0); MCHC 30.5 g/dL (31.0-37.0); MCV 94.9 fL (80.0-100.0); Mean Platelet Volume 6.9; Monocytes # (A) 0.5 k/uL (0-1.0); Monocytes % (A) 4 %; Neutrophils # (A) 9.5 k/uL (1.3-7.7); Neutrophils % (A) 78 %; Platelet Count 351 k/uL (150-450); RBC 3.53 m/uL (3.80-5.40); RDW 12.9 % (11.5-15.5); WBC 12.2 k/uL (3.8-10.6)
[2017-05-27 12:49] LABS: Appearance,Urine Clear (Clear); Bilirubin,Urine Negative (Negative); Blood,Urine Small (Negative); Color,Urine Light Yellow; Glucose,Urine (UA) 4+ (Negative); Hyaline Casts,Urine 17 /lpf (0-2); Ketones,Urine Negative (Negative); Leukocyte Esterase,Urine Negative (Negative); Mucus,Urine Rare /hpf; Nitrite,Urine Negative (Negative); Protein,Urine 3+ (Negative); RBC,Urine 3 /hpf (0-5); Specific Gravity,Urine 1.008 (1.001-1.035); Squamous Epithelial Cell,Urine 1 /hpf (0-4); Urobilinogen,Urine <2.0 mg/dL (<2.0); WBC,Urine 1 /hpf (0-5)
[2017-05-27 12:55] LABS: Calcium 9.2 mg/dL (8.4-10.2); Phosphorus 4.2 mg/dL (2.5-4.5); Potassium 3.6 mmol/L (3.5-5.1); Uric Acid 5.4 mg/dL (3.7-7.4)
[2017-05-27 18:49] LABS: Iron Saturation 17.43 (12.00-45.00)
[2017-05-27 18:58] LABS: Vitamin D 25 Hydroxy 32.3 ng/mL (30.0-100.0)
[2017-05-27 21:43] LABS: Parathyroid Hormone Intact 122.7 pg/mL (14.0-72.0)
== END ==
LOC: LABWHC1 12:17
PROVIDERS: ATTEND Internal Medicine Nephrology
DX: E55.9 Vitamin D deficiency, unspecified (principal); M10.9 Gout, unspecified; R80.9 Proteinuria, unspecified; D66 Hereditary factor VIII deficiency
CPT/HCPCS: 36415; 80048; 81001; 82040; 82306; 82728; 83540; 83550; 83970; 84100; 84550; 85025

== ENCOUNTER 2017-06-03 07:20 | Day surgery (SDC) | payer OTHER ==
[~2017-06-03 07:20] MED LIST: LACTATED RINGERS 1,000 ML IV SCH; LIDOCAINE 1% 20 ML VIAL (10MG/ML) FOR IV START INTRADERMA PRN
[2017-06-03 07:39] VITALS: TEMP 98.2
[2017-06-03 07:43] LABS: Glucose,Whole Blood 380 mg/dL (75-99)
[2017-06-03] MEDS ORDERED: INSULIN ASPART 100 UNIT/ML 1 ML 10 ML VIAL SQ ONE (07:44)
[2017-06-03] MEDS ORDERED: LIDOCAINE 1% INJ 10MG/ML (20 ML MDV) ONE (08:43)
[2017-06-03] MEDS ORDERED: PROPOFOL 10 MG/ML 20 ML VIAL IV ONE (08:43)
--- NOTE | 2017-06-03 09:08 | P.PCN ---
Date of Procedure: 06/03/17 Procedure(s) Performed: Procedure: Esophagogastroduodenoscopy and biopsy. Preoperative diagnosis: Dysphagia. Postoperative diagnosis: 1. Sliding hiatal hernia with no obvious esophagitis or complicated reflux disease. 2. Mild antral gastritis. 3. Multiple biopsies obtained from the duodenum, antrum and esophagus. Preparation sedation: Was provided by anesthesia. Brief clinical history: The patient is a 57-year-old female with multiple medical problems who is scheduled for this evaluation because of solid food dysphagia of around 1 year duration. She is not having heartburn, nausea, vomiting, bleeding or weight changes. Procedure: With the patient on her left lateral decubitus position and after informed consent and adequate sedation, I passed the Olympus-GIF 160 video upper endoscope through the cricopharyngeus down the esophagus. GE junction was around 40 cm from the incisors and there was a 2 cm sliding hiatal hernia. The esophagus did not show any obvious erosions or ulcers. There were no strictures or Villarreal's esophagus. There was no indication for dilation. The endoscope was then passed into the stomach which was insufflated with air and inspected in detail including the retroflex view in the cardia. There was some mottling and erythema in the antrum but no ulcers or erosions. Pyloric channel , duodenal bulb, post bulbar area and descending duodenum appeared within normal limits. Because of her symptoms, I obtained biopsies from the duodenum, antrum and esophagus then the endoscope was withdrawn. The patient tolerated the procedure well. Plan: The patient was reassured. Will await biopsy results. Further workup of her dysphagia including motility studies can be planned depending on her course and especially if there is interference with her diet and if there is nutritional compromise. She will follow-up with you as planned and I will keep you updated on her progress.
[2017-06-03 09:10] VITALS: RESP 16
[2017-06-03 09:31] VITALS: BP 132/74; PULSE 89
[2017-06-03 09:37] LABS: Glucose,Whole Blood 294 mg/dL (75-99)
== END 2017-06-03 09:57 | disposition home or self-care (01) ==
LOC: ORWHC2ENDO 07:20
DX: K29.50 Unspecified chronic gastritis without bleeding (principal); K20.9 Esophagitis, unspecified; K44.9 Diaphragmatic hernia without obstruction or gangrene; J44.9 Chronic obstructive pulmonary disease, unspecified; I11.0 Hypertensive heart disease with heart failure; I50.9 Heart failure, unspecified; G47.33 Obstructive sleep apnea (adult) (pediatric); E11.9 Type 2 diabetes mellitus without complications; E78.5 Hyperlipidemia, unspecified; E07.9 Disorder of thyroid, unspecified; Z99.89 Dependence on other enabling machines and devices; Z99.81 Dependence on supplemental oxygen; Z91.041 Radiographic dye allergy status; Z79.4 Long term (current) use of insulin; Z79.51 Long term (current) use of inhaled steroids; Z79.899 Other long term (current) drug therapy
CPT/HCPCS: 88305; 88312; 88342; 43239; J2001; J2704

== ENCOUNTER → 2017-06-28 | Outpatient (CLI) | payer OTHER ==
--- NOTE | 2017-06-28 12:35 | CT ---
EXAMINATION TYPE: CT chest wo con DATE OF EXAM: 06/28/2017 COMPARISON: 10/09/2016 HISTORY: Pain under right breast for a while. Patient states it feels swollen in that area. CT DLP: 433.[address] of the chest was performed with lung and mediastinal window settings submitted. The la ck of contrast limits evaluation of the vascular, mediastinal and parenchymal structures including th e upper abdomen. LUNGS: Right lower lobe pleural-based nodularity has improved/resolved in the interval. There is stra nding and patchy density at the lung bases bilaterally as well as the right middle lobe which may ref lect inflammatory/postinflammatory changes. Focal consolidation not appreciated with certainty. No ev idence for distinct mass at this time. Mild basilar bronchiectasis noted. No evidence of pleural effu albert or volume loss. No evidence for mass or distinct nodule. MEDIASTINUM/REGGIE: Thoracic aorta is of normal caliber with limited evaluation given lack of contrast . The heart is mildly enlarged. No evidence for mediastinal mass. No lymph nodes greater than 1cm . UPPER ABDOMEN: No significant abnormality is seen. OTHER: Thyroid gland fullness is again noted. IMPRESSION: 1. Strandy and patchy densities at the lung bases and right middle lobe may reflect inflammatory/pos tinflammatory changes. No evidence for focal consolidation at this time.
== END | disposition home or self-care (01) ==
LOC: RADCTMAIN 11:36
PROVIDERS: ATTEND Internal Medicine Sleep Medicine
DX: R91.8 Other nonspecific abnormal finding of lung field (principal); R07.89 Other chest pain
CPT/HCPCS: 71250

== ENCOUNTER → 2017-08-14 | Outpatient (CLI) | payer OTHER ==
[2017-08-14 13:14] LABS: Appearance,Urine Clear (Clear); Bacteria,Urine Rare /hpf; Bilirubin,Urine Negative (Negative); Blood,Urine Small (Negative); Color,Urine Light Yellow; Glucose,Urine (UA) 2+ (Negative); Hyaline Casts,Urine 18 /lpf (0-2); Ketones,Urine Negative (Negative); Leukocyte Esterase,Urine Negative (Negative); Mucus,Urine Rare /hpf; Nitrite,Urine Negative (Negative); Protein,Urine 3+ (Negative); RBC,Urine 1 /hpf (0-5); Specific Gravity,Urine 1.009 (1.001-1.035); Urobilinogen,Urine <2.0 mg/dL (<2.0); WBC,Urine 1 /hpf (0-5)
[2017-08-14 13:31] LABS: Albumin 3.2 g/dL (3.5-5.0); Calcium 9.5 mg/dL (8.4-10.2); Magnesium 1.9 mg/dL (1.6-2.3); Phosphorus 4.8 mg/dL (2.5-4.5); Uric Acid 5.8 mg/dL (3.7-7.4)
[2017-08-14 14:15] LABS: Basophils # (A) 0.1 k/uL (0-0.2); Basophils % (A) 1 %; Eosinophils # (A) 0.3 k/uL (0-0.7); Eosinophils % (A) 3 %; HCT 34.3 % (34.0-46.0); HGB 10.8 gm/dL (11.4-16.0); Lymphocytes # (A) 2.3 k/uL (1.0-4.8); Lymphocytes % (A) 21 %; MCH 28.9 pg (25.0-35.0); MCHC 31.4 g/dL (31.0-37.0); MCV 91.9 fL (80.0-100.0); Monocytes # (A) 0.6 k/uL (0-1.0); Monocytes % (A) 6 %; Neutrophils # (A) 7.5 k/uL (1.3-7.7); Neutrophils % (A) 68 %; Platelet Count 351 k/uL (150-450); RBC 3.73 m/uL (3.80-5.40); WBC 10.9 k/uL (3.8-10.6)
[2017-08-14 17:00] LABS: Iron Saturation 22.59 (12.00-45.00); Parathyroid Hormone Intact 55.4 pg/mL (14.0-72.0)
[2017-08-14 17:09] LABS: Vitamin D 25 Hydroxy 33.8 ng/mL (30.0-100.0)
[2017-08-14 18:34] LABS: Hemoglobin A1C 9.5 % (4.0-6.0)
== END | disposition home or self-care (01) ==
LOC: LABWHC1 12:39
PROVIDERS: ATTEND Nurse Practitioner Family
DX: N39.0 Urinary tract infection, site not specified (principal); M10.9 Gout, unspecified; D50.9 Iron deficiency anemia, unspecified; E55.9 Vitamin D deficiency, unspecified; E11.21 Type 2 diabetes mellitus with diabetic nephropathy; N25.81 Secondary hyperparathyroidism of renal origin; N18.4 Chronic kidney disease, stage 4 (severe)
CPT/HCPCS: 36415; 80048; 81001; 82040; 82306; 82728; 83036; 83540; 83550; 83735; 83970; 84100; 84550; 85025

== ENCOUNTER → 2017-08-14 | Outpatient (CLI) | payer OTHER | LOC: RADMRIMAIN 12:57 | PROVIDERS: ATTEND Psychiatry & Neurology Neurology | DX: R51 Headache (principal); Z53.8 Procedure and treatment not carried out for other reasons ==

== ENCOUNTER 2017-08-25 10:21 | Emergency (ER) | payer OTHER ==
[2017-08-25] MEDS ORDERED: SODIUM CHLORIDE 0.9% 500 ML IV STA (10:53)
[2017-08-25] MEDS ORDERED: ONDANSETRON 4 MG/2 ML VIAL IVP STA (10:53)
--- NOTE | 2017-08-25 10:59 | ED ---
General Adult HPI - General Chief complaint: Nausea/Vomiting/Diarrhea Stated complaint: Numbness & vomiting Time Seen by Provider: 08/25/17 10:44 Source: patient Mode of arrival: wheelchair Limitations: no limitations - History of Present Illness Initial comments: Is a 57-year-old female with a history of COPD who presents emergency department for nausea, vomiting, right side pain and an episode of chest pain. The patient states that it started this morning. She was recently placed on antibiotics and steroids for COPD exacerbation. She states that she's been on these for a couple of days and now has the above symptoms. She states that she has been very nauseated and vomited a couple times. No blood in the vomit. Also complains of right-sided chest wall pain which she states is chronic from a previous thoracentesis. Also stated that she had some anterior chest discomfort that was intermittent and is no longer present. Described as an achy sensation. She denies any abdominal pain. No diarrhea. She states that she had this happen to her once previously when placed on steroids and believes that this could be a reaction from the steroids. She has any lightheadedness, shortness of breath, cough, dysuria or hematuria. - Related Data Home Medications Medication Instructions Recorded Confirmed Albuterol Inhaler [Ventolin Hfa 2 puff INHALATION RT-QID PRN 07/13/14 08/25/17 Inhaler] Albuterol Nebulized [Ventolin 2.5 mg INHALATION RT-QID PRN 07/13/14 08/25/17 Nebulized] Levothyroxine Sodium [Synthroid] 88 mcg PO QAM 07/13/14 08/25/17 Atorvastatin [Lipitor] 20 mg PO HS 09/10/15 08/25/17 Ergocalciferol [Vitamin D2 50,000 unit PO Q30D 05/06/16 08/25/17 (DRISDOL)] Budesonide [Pulmicort] 0.5 mg INHALATION RT-BID 08/19/16 08/25/17 Ipratropium [place] [Atrovent Hfa] 2 puff INHALATION RT-QID 08/19/16 08/25/17 Aspirin 81 mg PO DAILY 09/08/16 08/25/17 Carvedilol [Coreg*] 12.5 mg PO BID 09/08/16 08/25/17 amLODIPine [Norvasc] 5 mg PO QAM 09/08/16 08/25/17 Insulin Glargine [Lantus] 20 unit SQ BID 11/12/16 08/25/17 Calcium Acetate [PhosLo] 667 mg PO DAILY@1700 04/13/17 08/25/17 Furosemide [Lasix] 40 mg PO BID 04/13/17 08/25/17 Oxygen 2 l NASAL DAILY 06/03/17 08/25/17 Calcitriol [Rocaltrol] 0.25 mcg PO MOWEFR 08/25/17 08/25/17 Cyclobenzaprine [Flexeril] 10 - 20 mg PO DAILY PRN 08/25/17 08/25/17 Multivitamins, Thera [Multivitamin 1 tab PO DAILY 08/25/17 08/25/17 (formulary)] Spironolactone [Aldactone] 25 mg PO DAILY 08/25/17 08/25/17 rOPINIRole HCL [Requip] 5 mg PO HS 08/25/17 08/25/17 Previous Rx's Medication Instructions Recorded Ondansetron Odt [Zofran Odt] 4 mg PO Q8HR PRN #10 tab 08/25/17 Allergies Allergy/AdvReac Type Severity Reaction Status Date / Time Iodinated Contrast- Oral and AdvReac KIDNEY Verified 08/25/17 10:54 IV Dye DAMAGE [Iodinated Contrast Media - Oral and] Review of Systems ROS Statement: Those systems with pertinent positive or pertinent negative responses have been documented in the HPI. ROS Other: All systems not noted in ROS Statement are negative. Past Medical History Past Medical History: Heart Failure, COPD, Diabetes Mellitus, Hyperlipidemia, Hypertension, Pneumonia, Renal Disease, Sleep Apnea/CPAP/BIPAP, Thyroid Disorder Additional Past Medical History / Comment(s): DYSPHAGIA, nonischemic cardiomyopathy, tracheobronchitis, home O2 at 2L/[place], pancreatitis, urinary stress incontinence, L ear [place], diverticulitis.HX THORACENTESIS ON 08/25/16 UNSURE OF HOW MUCH FLUID WAS REMOVED, "pinched nerve in neck" RESTLESS LEG History of Any Multi-Drug Resistant Organisms: None Reported Past Surgical History: Appendectomy, Cholecystectomy, Heart Catheterization, Hysterectomy, Orthopedic Surgery Additional Past Surgical History / Comment(s): x2 cardiac caths no stents, colonoscopy-pt states normal, RT ROTATOR CUFF SX,thoracentesis, hysterectomy d/ t tumor(benign) Past Anesthesia/Blood Transfusion Reactions: Previous Problems w/ Anesthesia Additional Past Anesthesia/Blood Transfusion Reaction / Comment(s): CLAUSTERPHOBIA. "hard to wake up after sx" Past Psychological History: Anxiety Smoking Status: Former smoker Past Alcohol Use History: None Reported Past Drug Use History: None Reported - Past Family History Sister(s) Family Medical History: Deep Vein Thrombosis (DVT) Father Family Medical History: Cancer Additional Family Medical History / Comment(s): OF COLON CANCER AT AGE 52 Mother Family Medical History: Congestive Heart Failure (CHF), CVA/TIA Additional Family Medical History / Comment(s): OF CHF AGE 62 General Exam - General Exam Comments Initial Comments: Constitutional: Awake alert Appears comfortable Head: Normocephalic atraumatic Eyes: no conjunctival injection No scleral icterus EOMI Neck: No JVD Supple Heart: Regular rate rhythm normal S1-S2 no murmurs Lungs: Clear to auscultation bilaterally No wheezing No rales, no chest wall tenderness Abdomen: Soft nondistended nontender Extremities: Non edematous DP pulses intact Radial pulses intact Neuro: A&Ox3 No focal neurologic deficits Psych: Appropriate mood and affect Limitations: no limitations Course Vital Signs 08/25/17 10:25 Temperature 97.9 F Pulse Rate 69 Respiratory 16 Rate Blood Pressure 145/72 O2 Sat by Pulse 97 Oximetry EKG Findings - EKG Comments: EKG Findings:: EKG showing normal sinus rhythm with a rate of 76. There are some T-wave inversions in the inferior leads, lead 2 and aVF and 3. These are unchanged from previous EKG. Otherwise has no abnormal ST segment changes. QTC is 481. Other intervals normal. No ectopy. Medical Decision Making - Medical Decision Making Is a 57-year-old female came in for mostly nausea and vomiting after taking steroids for a couple of days. She did have a little bit of chest discomfort that was resolved by time she got to the emergency department. EKG was unremarkable and unchanged from previous. Troponin negative. The patient felt improved after Zofran. At this time I feel that the patient's symptoms are likely related to her medications that she was recently started and I will give her Zofran for home. Told her to monitor her symptoms and if she has any worsening or changing symptoms she can return emergency Department. All questions are answered. - Lab Data Result diagrams: 08/25/17 11:15 08/25/17 11:15 Lab Results 08/25/17 08/25/17 08/25/17 Range/Units 11:08 11:15 11:15 WBC 12.5 H (3.8-10.6) k/uL RBC 3.80 (3.80-5.40) m/uL Hgb 11.0 L (11.4-16.0) gm/dL Hct 34.9 (34.0-46.0) % MCV 91.9 (80.0-100.0) fL MCH 29.0 (25.0-35.0) pg MCHC 31.5 (31.0-37.0) g/dL RDW 13.1 (11.5-15.5) % Plt Count 292 (150-450) k/uL Neutrophils % 83 % Lymphocytes % 9 % Monocytes % 6 % Eosinophils % 1 % Basophils % 1 % Neutrophils # 10.3 H (1.3-7.7) k/uL Lymphocytes # 1.2 (1.0-4.8) k/uL Monocytes # 0.7 (0-1.0) k/uL Eosinophils # 0.1 (0-0.7) k/uL Basophils # 0.1 (0-0.2) k/uL Hypochromasia Slight PT (9.0-12.0) sec INR (<1.2) APTT (22.0-30.0) sec Sodium 135 L (137-145) mmol/L Potassium 3.8 (3.5-5.1) mmol/L Chloride 96 L (98-107) mmol/L Carbon Dioxide 32 H (22-30) mmol/L Anion Gap 7 mmol/L BUN 34 H (7-17) mg/dL Creatinine 2.16 H (0.52-1.04) mg/dL Est GFR (CKD-EPI)AfAm 29 (>60 ml/min/1.73 sqM) Est GFR (CKD-EPI)NonAf 25 (>60 ml/min/1.73 sqM) Glucose 412 H (74-99) mg/dL Calcium 8.9 (8.4-10.2) mg/dL Magnesium 2.0 (1.6-2.3) mg/dL Total Bilirubin 0.5 (0.2-1.3) mg/dL AST 12 L (14-36) U/L ALT 20 (9-52) U/L Alkaline Phosphatase 82 (38-126) U/L CK-MB (CK-2) (0.0-2.4) ng/mL Troponin I (0.000-0.034) ng/mL Total Protein 6.3 (6.3-8.2) g/dL Albumin 3.2 L (3.5-5.0) g/dL Lipase 213 (23-300) U/L Urine Color Light Yellow Urine Appearance Clear (Clear) Urine pH 6.0 (5.0-8.0) Ur Specific [place] 1.010 (1.001-1.035) Urine Protein 3+ H (Negative) Urine Glucose (UA) 4+ H (Negative) Urine Ketones Negative (Negative) Urine Blood Small H (Negative) Urine Nitrite Negative (Negative) Urine Bilirubin Negative (Negative) Urine Urobilinogen <2.0 (<2.0) mg/dL Ur Leukocyte Esterase Negative (Negative) Urine RBC 1 (0-5) /hpf Urine WBC 3 (0-5) /hpf Ur Squamous Epith Cells 1 (0-4) /hpf Cellular Casts 1 (0) /lpf Hyaline Casts 36 H (0-2) /lpf Urine Mucus Rare H (None) /hpf 08/25/17 08/25/17 Range/Units 11:15 11:15 WBC (3.8-10.6) k/uL RBC (3.80-5.40) m/uL Hgb (11.4-16.0) gm/dL Hct (34.0-46.0) % MCV (80.0-100.0) fL MCH (25.0-35.0) pg MCHC (31.0-37.0) g/dL RDW (11.5-15.5) % Plt Count (150-450) k/uL Neutrophils % % Lymphocytes % % Monocytes % % Eosinophils % % Basophils % % Neutrophils # (1.3-7.7) k/uL Lymphocytes # (1.0-4.8) k/uL Monocytes # (0-1.0) k/uL Eosinophils # (0-0.7) k/uL Basophils # (0-0.2) k/uL Hypochromasia PT 9.7 (9.0-12.0) sec INR 1.0 (<1.2) APTT 20.3 L (22.0-30.0) sec Sodium (137-145) mmol/L Potassium (3.5-5.1) mmol/L Chloride (98-107) mmol/L Carbon Dioxide (22-30) mmol/L Anion Gap mmol/L BUN (7-17) mg/dL Creatinine (0.52-1.04) mg/dL Est GFR (CKD-EPI)AfAm (>60 ml/min/1.73 sqM) Est GFR (CKD-EPI)NonAf (>60 ml/min/1.73 sqM) Glucose (74-99) mg/dL Calcium (8.4-10.2) mg/dL Magnesium (1.6-2.3) mg/dL Total Bilirubin (0.2-1.3) mg/dL AST (14-36) U/L ALT (9-52) U/L Alkaline Phosphatase (38-126) U/L CK-MB (CK-2) 1.3 (0.0-2.4) ng/mL Troponin I 0.023 (0.000-0.034) ng/mL Total Protein (6.3-8.2) g/dL Albumin (3.5-5.0) g/dL Lipase (23-300) U/L Urine Color Urine Appearance (Clear) Urine pH (5.0-8.0) Ur Specific [place] (1.001-1.035) Urine Protein (Negative) Urine Glucose (UA) (Negative) Urine Ketones (Negative) Urine Blood (Negative) Urine Nitrite (Negative) Urine Bilirubin (Negative) Urine Urobilinogen (<2.0) mg/dL Ur Leukocyte Esterase (Negative) Urine RBC (0-5) /hpf Urine WBC (0-5) /hpf Ur Squamous Epith Cells (0-4) /hpf Cellular Casts (0) /lpf Hyaline Casts (0-2) /lpf Urine Mucus (None) /hpf Disposition Clinical Impression: Nausea & vomiting, Medication side effect Disposition: HOME SELF-CARE Condition: Stable Instructions: Acute Nausea and Vomiting (ED) Prescriptions: Ondansetron Odt [Zofran Odt] 4 mg PO Q8HR PRN #10 tab PRN Reason: Nausea Referrals: Jose Luis Baugh MD [Primary Care Provider] - 1-2 days
[2017-08-25 11:28] LABS: Basophils # (A) 0.1 k/uL (0-0.2); Basophils % (A) 1 %; Eosinophils # (A) 0.1 k/uL (0-0.7); Eosinophils % (A) 1 %; HCT 34.9 % (34.0-46.0); Hypochromasia Slight; Lymphocytes # (A) 1.2 k/uL (1.0-4.8); Lymphocytes % (A) 9 %; MCHC 31.5 g/dL (31.0-37.0); MCV 91.9 fL (80.0-100.0); Mean Platelet Volume 7.4; Monocytes # (A) 0.7 k/uL (0-1.0); Monocytes % (A) 6 %; Neutrophils # (A) 10.3 k/uL (1.3-7.7); Neutrophils % (A) 83 %; Platelet Count 292 k/uL (150-450); RDW 13.1 % (11.5-15.5); WBC 12.5 k/uL (3.8-10.6)
[2017-08-25 11:28] LABS: Appearance,Urine Clear (Clear); Bilirubin,Urine Negative (Negative); Blood,Urine Small (Negative); Cellular Casts,Urine 1 /lpf (0); Color,Urine Light Yellow; Glucose,Urine (UA) 4+ (Negative); Hyaline Casts,Urine 36 /lpf (0-2); Ketones,Urine Negative (Negative); Leukocyte Esterase,Urine Negative (Negative); Mucus,Urine Rare /hpf; Nitrite,Urine Negative (Negative); Protein,Urine 3+ (Negative); RBC,Urine 1 /hpf (0-5); Squamous Epithelial Cell,Urine 1 /hpf (0-4); Urobilinogen,Urine <2.0 mg/dL (<2.0); WBC,Urine 3 /hpf (0-5)
--- NOTE | 2017-08-25 11:32 | XR ---
EXAMINATION TYPE: XR chest 2V DATE OF EXAM: 08/25/2017 COMPARISON: 04/15/2017 INDICATION: Pain short of breath chest pain COPD CHF TECHNIQUE: Frontal and lateral views of the chest are obtained. FINDINGS: The heart size is normal. The pulmonary vasculature is upper limits of normal.. No suspicious focal consolidations are evident.. IMPRESSION: 1. There may be borderline volume overload. Overt congestive heart failure is not evident. Pulmonary process.
[2017-08-25 11:39] LABS: Albumin 3.2 g/dL (3.5-5.0); Calcium 8.9 mg/dL (8.4-10.2); Potassium 3.8 mmol/L (3.5-5.1); Total Bilirubin 0.5 mg/dL (0.2-1.3); Total Protein 6.3 g/dL (6.3-8.2)
[2017-08-25 11:48] LABS: Partial Thromboplastin Time 20.3 sec (22.0-30.0); Prothrombin Time 9.7 sec (9.0-12.0)
[2017-08-25 12:03] LABS: Creatine Kinase MB 1.3 ng/mL (0.0-2.4); Troponin I 0.023 ng/mL (0.000-0.034)
[2017-08-25 12:19] VITALS: BP 138/80; PULSE 73; RESP 18; TEMP 98.2
== END 2017-08-25 12:15 | disposition home or self-care (01) ==
LOC: EC 10:21
DX: R11.2 Nausea with vomiting, unspecified (principal); T38.0X5A Adverse effect of glucocorticoids and synthetic analogues, initial encounter; J44.1 Chronic obstructive pulmonary disease with (acute) exacerbation; E78.5 Hyperlipidemia, unspecified; I11.0 Hypertensive heart disease with heart failure; I50.9 Heart failure, unspecified; E11.9 Type 2 diabetes mellitus without complications; G25.81 Restless legs syndrome; E07.9 Disorder of thyroid, unspecified; G47.30 Sleep apnea, unspecified; Z87.891 Personal history of nicotine dependence; Z79.4 Long term (current) use of insulin; Z79.51 Long term (current) use of inhaled steroids; Z79.82 Long term (current) use of aspirin; Z79.899 Other long term (current) drug therapy; Z91.041 Radiographic dye allergy status; Z82.49 Family history of ischemic heart disease and other diseases of the circulatory system; Z99.89 Dependence on other enabling machines and devices; Z99.81 Dependence on supplemental oxygen; Z95.9 Presence of cardiac and vascular implant and graft, unspecified
CPT/HCPCS: 36415; 93005; 80053; 82553; 83690; 83735; 84484; 85025; 85610; 85730; 81001; 71046; 99284; 96374; 96361; J2405

== ENCOUNTER → 2017-08-31 | Outpatient (CLI) | payer OTHER ==
--- NOTE | 2017-08-31 16:19 | CT ---
EXAMINATION TYPE: CT lumbar spine wo con DATE OF EXAM: 08/31/2017 COMPARISON: NONE HISTORY: Lower back pain, no known injury CT DLP: [address] of the lumbar spine was performed. Bone and soft tissue window settings are submitted as well as coronal and sagittal reconstructions. L1-L2: Normal disc space height. No disc herniation protrusion or central stenosis. No facet joint arthropathy. No evidence for foraminal encroachment. L2-L3: Normal disc space height. No disc herniation protrusion or central stenosis. No facet joint arthropathy. No evidence for foraminal encroachment. L3-L4: Normal disc space height. No disc herniation protrusion or central stenosis. No facet joint arthropathy. No evidence for foraminal encroachment. L4-L5: Mild disc space narrowing. Mild circumferential disc bulge greatest posteriorly. Mild effaceme nt ventral thecal sac. No central stenosis or paula disc herniation. L5-S1: Mild disc space narrowing. Mild circumferential disc bulge greatest posteriorly. Mild effaceme nt ventral thecal sac. No central stenosis or paula disc herniation. No paraspinal masses are identified. Lumbar segments are free if fracture. IMPRESSION: 1. Mild degenerative disc space narrowing with disc bulging.
--- NOTE | 2017-08-31 16:21 | CT ---
EXAMINATION TYPE: CT cervical spine wo con DATE OF EXAM: 08/31/2017 COMPARISON: NONE HISTORY: Neck pain, no known injury CT DLP: [address] of the cervical spine was performed with bone and soft tissue window settings submitted . Coronal and sagittal reconstruction is obtained. There is normal alignment and prevertebral soft tissues. I do not see evidence for fracture or subluxation. Mild degenerative disc space narrowing a nd disc bulging at C4-5 C5-6 and C6-7. No disc herniation or central stenosis appreciated. The lung a pices are clear IMPRESSION:Mild degenerative disc space narrowing and disc bulging at C4-5 C5-6 and C6-7. No disc her niation or central stenosis appreciated. Severe degenerative change left-sided cervical apophyseal phuong int.
== END | disposition home or self-care (01) ==
LOC: RADCTMAIN 15:06
PROVIDERS: ATTEND Psychiatry & Neurology Neurology
DX: M48.02 Spinal stenosis, cervical region (principal); M48.061 Spinal stenosis, lumbar region without neurogenic claudication; M51.26 Other intervertebral disc displacement, lumbar region; M50.221 Other cervical disc displacement at C4-C5 level; M47.812 Spondylosis without myelopathy or radiculopathy, cervical region
CPT/HCPCS: 72125; 72131